=== PATIENT | male | born 1950 | race Caucasian/White ===

== ENCOUNTER → 2018-02-04 08:27 | Outpatient (CLI) | payer MEDICARE, SELFPAY ==
[2018-02-04 10:37] LABS: Anion Gap 10 (5-15); BUN 19 mg/dL (7-18); BUN/Creat Ratio 15.2 RATIO (10-20); Calcium,Total 8.9 mg/dL (8.5-10.1); Chloride 102 mmol/L (98-107); Cholesterol 117 mg/dL (200); Creatinine, Serum 1.25 mg/dL (0.70-1.30); EST Glomerular Filtration Rate 61 mL/min (>60); Est Glom Filt Rate - Afr Amer 74 mL/min (>60); Glucose 289 mg/dL (74-106); High Density Lipoprotein 32 mg/dL; PSA,Total - Annual Screen 0.56 ng/mL (0.00-4.00); Potassium 3.6 mmol/L (3.5-5.1); Sodium Level 138 mmol/L (136-145); Triglycerides 96 mg/dL; Very Low Density Lipoprotein 19 mg/dL (5-40)
== END ==
PROVIDERS: Family Provider Family Medicine; PCP Family Medicine; Visit Provider Family Medicine
DX: E29.1 Testicular hypofunction (principal); E11.9 Type 2 diabetes mellitus without complications; Z12.5 Encounter for screening for malignant neoplasm of prostate
CPT/HCPCS: 36415; 80048; 80061; 84153; 84403; G0103

== ENCOUNTER → 2018-05-14 08:30 | Outpatient (CLI) | payer MEDICARE, SELFPAY ==
[2018-05-14 10:21] LABS: AST(SGOT) 26 U/L (15-37); Alanine Aminotransfer ALT/SGPT 38 U/L (16-61); Albumin, Serum 3.8 g/dL (3.2-5.0); Alkaline Phosphatase 79 U/L (45-117); Anion Gap 12 (5-15); BUN 21 mg/dL (7-18); BUN/Creat Ratio 19.3 RATIO (10-20); Bilirubin, Direct 0.15 mg/dL (0.00-0.30); Calcium,Total 8.7 mg/dL (8.5-10.1); Chloride 102 mmol/L (98-107); Cholesterol 114 mg/dL (200); Creatinine, Serum 1.09 mg/dL (0.70-1.30); EST Glomerular Filtration Rate 72 mL/min (>60); Est Glom Filt Rate - Afr Amer 87 mL/min (>60); Globulin 4.1 g/dL (2.2-4.2); Glucose 115 mg/dL (74-106); High Density Lipoprotein 30 mg/dL; Potassium 3.7 mmol/L (3.5-5.1); Protein, Total 7.9 g/dL (6.4-8.2); Sodium Level 139 mmol/L (136-145); Triglycerides 121 mg/dL; Very Low Density Lipoprotein 24 mg/dL (5-40)
[2018-05-14 10:39] LABS: Microalbumin,Random Urine 7.2 mg/L (NO RANGE EST.)
== END ==
PROVIDERS: Family Provider Family Medicine; PCP Family Medicine; Visit Provider Family Medicine
DX: E11.9 Type 2 diabetes mellitus without complications (principal)
CPT/HCPCS: 36415; 80048; 80061; 80076; 82043; 82570

== ENCOUNTER 2018-06-12 08:24 | Day surgery (SDC) | payer MEDICARE, SELFPAY ==
--- NOTE | 2018-06-12 | COLBX_PTH ---
PATIENT: JASMEET WING LOC: EN U#:[id number] AGE/SX: 67/M ROOM: RE06/12/[address]: Dr. Suresh Horne MD : 1950 BED: DIS: 06/12/2018 SPEC #: [id number] RECD: 06/12/18 14:20 STATUS: ANYA GUILLERMINA #: [id number] JUANITO: 06/12/18 00:[address]: Suresh Horne DEPT: SURGICAL PATHOLOGY RECD BY: Drake Jewell ENTERED: 06/12/18 14:21 SP TYPE: COLON BX OTHR DR: Dr. Roby Chisholm MD Tissues: A - Sigmoid colon biopsy B - Rectum, NOS Procedures: Surgery Specimen Level IV HEADER OPERATION: Colonoscopy (MAC) PRE-OP DIAGNOSIS: Screening TISSUE SUBMITTED: A ? Sigmoid colon polyps, B ? Rectal polyp MICROSCOPIC DIAGNOSIS A. Sigmoid colon polyps, biopsy: Fragments of tubular adenoma. B. Rectal polyp, biopsy: Fragment of colonic mucosa with focal hyperplastic changes. KIMI:dano 06/15/18 MICROSCOPIC DESCRIPTION Slides are reviewed. GROSS DESCRIPTION A - Received in fixative is one container labeled with the patient's name and designated sigmoid colon polyps. The specimen consists of two irregular fragments of light garcia soft tissue that in aggregate measure 0.7 x 0.5 x 0.1 cm. The specimen is totally submitted in one cassette. B - Received in fixative is one container labeled with the patient's name and designated rectum polyp. The specimen consists of one irregular fragment of light garcia soft tissue that measures 0.5 x 0.5 x 0.2 cm. The specimen is totally submitted in one cassette. / KIMI:dano 06/12/18 TC:1 CPT: 09822 x2
[2018-06-12 08:54] VITALS: BP 135/73; PULSE 88; RESP 18; TEMP 36.6; O2SAT 94; BMI 25.5
[2018-06-12 09:10] LABS: Bedside Glucose 172 mg/dL (70-110)
--- NOTE | 2018-06-12 09:48 | H&P.OPEN ---
Past Medical/Surgical History - Planned Operation Planned Operative Procedure/s: cscope open access Date of Operative Procedure: 06/12/18 Permit Signed: No S.O.S: No Is This Patient Having a Total Joint: No - Previous Hospitalizations/Surgeries HX Hospitalizations: No HX of Surgeries: kidney stone. colonoscopy Any Problems With Anesthesia: No You/Your Family Experience Fever (Hyperthermia) With Anes: No Cholinesterase deficiency: No - Cardiovascular Hx Chest Pain within Last 2 months: No Hx of Irregular Heartbeat and/or Afib: No Hx Heart Attack: No Hx Congestive Heart Failure: No Hx Rheumatic Fever: No Hx Hypertension: Yes - controlled with med Hx Internal Defibrillator: No Hx Pacemaker: No Hx Cardiac Catheterization: No Hx Cardiac Surgery/Stents/Etc.: No Hx Stress Test: No HX Edema: No Hx Pain in Legs when Walking/Leg Cramps: Yes - cramps prn - Respiratory Chronic Cough: No HX of Shortness of Breath: No Hoarseness: No Hx Chronic Obstructive Pulmonary Disease (COPD): No Hx Asthma: No Hx Emphysema: No Hx Sleep Apnea: No Hx Oxygen Use at Home: No Hx Respiratory Tract Infection/Cold (presently): No Do You Snore Loudly (louder than talking or can be heard): Yes Do You Often Feel Tired/ Fatigued/ Sleepy Dring Daytime?: No Has Anyone Observed You Stop Breathing During Sleep?: No Result (for STOP score): Positive Hx Smoking: No Smoking Status: Never smoker - Gastrointestinal Hx Gastroesophageal Reflux: No Hx Gastrointestinal Disorders: No Hx Gastrointestinal Bleed: No Hx Ulcer: No Hx Hiatal Hernia: No Difficulty Chewing/Swallowing: No Recent Onset of Swallowing Problems: No Special diet followed at home: Yes - diabetic Hx Unplanned Weight Loss of 20#: No HX Unplanned Weight Gain of 20#: No - Neurological Hx Seizures: No HX Syncope/Blackout Spells/Unconsciousness: Yes - passed out d/t heat Hx CVA/Stroke: No Hx Transient Ischemic Attacks (TIA): No Hx Multiple Sclerosis: No Hx Parkinson's Disease: No Hx Head/Neck Injury: No Hx Headaches: No Hx Back Injury/Pain: No Recent Onset of Speech Difficulty: No Restless Legs: No Does patient have nerve stimulator: No Patient instructed to have device shut off: No Rep notified?: No - Blood Disorder Hx Leukemia: No Bleeding Tendencies: No Hx Deep Vein Thrombosis: No Hx High Cholesterol: Yes - on med Blood Transmitted Disease: No Hx Hepatitis: No Hx Cirrhosis: No Hx Anemia: No Hx Blood Disorders: No - Genitourinary Hx Renal Disease: No - Musculoskeletal Hx Arthritis: No Hx Rheumatoid Arthritis: No Hx Gout: No Recent Onset of an Orthopedic Problem: No - Endocrine Hx Diabetes: Yes Insulin: No Thyroid Disease: No Hx Steroid Therapy: No - Psycho/Social Hx Substance Use: No Hx Alcohol Use: No Hx Anxiety: No Hx Depression: No Mental Illness: No Hx Dementia: No - Miscellaneous Hx Cancer: No Recent Exposure to Contagious Disease: No Active MRSA: No Hx of C-Diff: No Any Loose Teeth: No Allergies No Known Allergies Allergy (Verified 06/12/18 08:55) - Discharge Is Pt Admitted From a [facility], or a [facility]: No Who Could Help: family After D/C, Where Do you Plan to Go: Return Home - From the [facility] History Number of Risk Factors: 2 - Physical Exam General: Alert, Oriented x3, Cooperative Lungs: Normal air movement Cardiovascular: Regular rate, Regular Rhythm Abdomen: Soft, Non Tender, Non-Distended Vital Signs Temp Pulse Resp BP Pulse Ox 98 F 88 18 135/73 H 94 06/12/18 08:54 06/12/18 08:54 06/12/18 08:54 06/12/18 08:54 06/12/18 08:54 Oxygen Delivery Method Room Air Weight: 177 lb 14.609 oz Body Mass Index (BMI) 25.5 POC Glucose 06/12/18 09:00 POC Glucose 172 H Assessment/Plan 67-year-old male for screening colonoscopy 1. Patient reports he had a normal colonoscopy 10 years ago. He is not having any abdominal pain or blood in his stool. He has no family history of colon cancer. 2. I explained endoscopy in detail to the patient. I explained the risks including but not limited to stroke or heart attack with anesthesia, perforation of the GI tract, bleeding, infection. I explained that any of these could necessitate further emergency surgery. The patient understands and all questions were answered sufficiently. The patient wishes to proceed with procedure. Suresh Horne MD Pager: [facility] [address] [place] [address], [address] [place] [phone] Office: Surgery Risks - Colonoscopy Risks Include but are not Limited To: Risks include but are not limited to: Bleeding, perforation requiring further surgery, inability to complete colonoscopy requiring barium enema.
[2018-06-12 10:28] VITALS: BP 135/73; BP 81/46; PULSE 79; RESP 16; TEMP 36.3; O2SAT 95
[2018-06-12 10:33] VITALS: BP 135/73; BP 85/47; PULSE 75; RESP 16; O2SAT 95
[2018-06-12 10:38] VITALS: BP 135/73; BP 85/30; PULSE 82; RESP 16; O2SAT 96
[2018-06-12 10:44] VITALS: BP 105/70; BP 135/73; PULSE 77; RESP 16; TEMP 36; O2SAT 96
--- NOTE | 2018-06-12 10:59 | PCM.OPRPT ---
Problem List (1) Screen for colon cancer Status: Acute Report of Operation Date of Procedure: 06/12/18 Pre-Operative Diagnosis: Screening colonoscopy Post-Operative Diagnosis: 2 sigmoid and one rectum polyp Surgery/Procedure Performed:: Colonoscopy with snare polypectomy Specimen's removed: 1. 2 sigmoid polyps. 2. Rectal polyp Description of Procedure: The major risks and benefits associated with the procedure were explained to the patient in detail. The patient verbalized understanding and agreement with the same. The patient was brought to the endoscopy suite. After adequate sedation was achieved, the patient was placed in the left lateral decubitus position and a digital rectal exam was performed. This examination was within normal limits. A well-lubricated colonoscope was then inserted into the rectum and advanced under direct visualization to the level of the cecum. The bowel prep was good. The cecum was identified by both visual and anatomic landmarks. A photograph was taken of the end of the cecum. The scope was then fully withdrawn while examining the color, texture, anatomy and integrity of the mucosa from the cecum to the anal canal. The findings were consistent with normal colonic mucosa. Over 6 minutes were taken to examine the colonic mucosa. The patient had 2 sigmoid polyps which were small and removed with cautery snare. He also had a proximal rectal polyp was removed with cautery snare as well. Hemostasis was good at both sites. Upon reaching the rectum the scope was retroflexed to examine the distal rectal vault. The scope was then straightened and was completely retrieved upon exiting the anal canal and the procedure was terminated. The patient was then transferred to the recovery room in stable condition. Recommendations for follow up: Dependent on pathology
[2018-06-12 11:08] VITALS: BP 135/73
== END 2018-06-12 11:18 | disposition home or self-care (01) ==
LOC: EN 08:25 → AC 08:26
PROVIDERS: Family Provider Family Medicine; PCP Family Medicine; Visit Provider Surgery
PROC: 0DJD8ZZ Inspection of Lower Intestinal Tract, Via Natural or Artificial Opening Endoscopic (ICD-10-PCS; CPT 45378; principal; 2018-06-12 09:25)
DX: Z12.11 Encounter for screening for malignant neoplasm of colon (principal); D12.5 Benign neoplasm of sigmoid colon; K62.1 Rectal polyp; I10 Essential (primary) hypertension; E11.9 Type 2 diabetes mellitus without complications; E78.00 Pure hypercholesterolemia, unspecified; Z79.82 Long term (current) use of aspirin; Z79.84 Long term (current) use of oral hypoglycemic drugs; Z79.899 Other long term (current) drug therapy
CPT/HCPCS: 45385; 82962; 88305; J7120

== ENCOUNTER → 2018-08-13 09:34 | Outpatient (CLI) | payer MEDICARE, SELFPAY ==
[2018-08-13 11:01] LABS: Anion Gap 10 (5-15); BUN 21 mg/dL (7-18); BUN/Creat Ratio 20.6 RATIO (10-20); Calcium,Total 8.6 mg/dL (8.5-10.1); Chloride 100 mmol/L (98-107); Creatinine, Serum 1.02 mg/dL (0.70-1.30); EST Glomerular Filtration Rate 77 mL/min (>60); Est Glom Filt Rate - Afr Amer 93 mL/min (>60); Glucose 215 mg/dL (74-106); Potassium 3.7 mmol/L (3.5-5.1); Sodium Level 135 mmol/L (136-145)
== END ==
PROVIDERS: Family Provider Family Medicine; PCP Family Medicine; Visit Provider Family Medicine
DX: M25.50 Pain in unspecified joint (principal)
CPT/HCPCS: 36415; 80048; 84550

== ENCOUNTER 2018-08-19 11:16 | Inpatient (IN) | payer MEDICARE, SELFPAY ==
[2018-08-19] VITALS (24 sets, daily range): BP systolic 114–137; BP diastolic 61–112; PULSE 76–105; RESP 7–27; TEMP -17.7–37.3; O2SAT 95–100; BMI 27.2; BMI 27.3
[2018-08-19] MEDS: TICAGRELOR 90 MG TABLET 180 MG PO (11:17)
[2018-08-19] MEDS: Heparin 10,000 UNITS/10 ML Vial 4000 UNITS IV (11:18)
--- NOTE | 2018-08-19 11:24 | ED.RN ---
PT BRIEFLY TO ED ROOM 2 THEN TO ASSISTANT ART DIRECTOR. 2ND IV PLACED, LABS DRAWN. UNABLE TO COMPLETE TRIAGE D/T RAPID TRANSFER TO ASSISTANT ART DIRECTOR.
--- NOTE | 2018-08-19 11:32 | RAD_ITS ---
STUDY: X-RAY CHEST REASON FOR EXAM: Male, 67 years old. STEMI alert. TECHNIQUE: Single AP portable view of the chest. COMPARISON: None. FINDINGS: EKG electrodes are seen. Mild elevation of the right hemidiaphragm. There is no demonstrated pleural abnormality. There is borderline cardiomegaly. Normal mediastinum and marybel. Normal visualized pulmonary arteries. There is atherosclerotic tortuosity of the aortic arch and descending thoracic aorta. Normal visualized thoracic spine. Normal visualized ribs, clavicles, and shoulders. There is no demonstrated abnormality of the visualized soft tissue structures of the upper abdomen. RAD/Chest 1 View (Portable) IMPRESSION: Borderline cardiomegaly. Electronically Signed: Mario Contreras MD at 12:17 EST Tel [phone], Service support ,
--- NOTE | 2018-08-19 11:32 | CM.ED ---
Social Work Note STEMI alert called. Per paramedics pt's is on her way into the hospital. Pt transported down to color laboratory technician. Will escort pt's down to color laboratory technician upon arrival. MADONNA Silva, ANN
[2018-08-19 12:00] LABS: Absolute Lymphocyte Count 1.98 X10^3/ul (0.83-4.51); Absolute Neutrophil Count 5.5 X10^3/uL (2.0-7.7); Basophil# 0.02 X10^3/uL; Basophil% 0.2 % (0-1); Eosinophil# 0.16 X10^3/uL; Eosinophils% 1.9 % (0-5); Hematocrit 44.9 % (40-54); Hemoglobin 14.9 g/dl (13.0-16.5); Lymphocyte # 1.98 X10^3/ul (4.0); Lymphocyte % 23.4 % (19-41); Mean Corp Hgb Conc 33.2 g/gl (32-36); Mean Corpuscular Hgb 27.9 pg (27.0-32.0); Mean Corpuscular Volume 83.9 fL (80-94); Monocyte# 0.75 X10^3/uL; Monocyte% 8.9 % (0-10); Neutrophil # 5.48 X10^3/uL (2.7-7.7); Neutrophil % 64.9 % (47-70); Platelet Count 327 K/mm3 (150-450); RBC Distribution Width SD 42.6 fl (35.1-43.9); Red Blood Count 5.35 M/mm3 (4.6-6.2); White Blood Count 8.5 K/mm3 (4.4-11.0)
[2018-08-19 12:03] LABS: International Normalized Ratio 0.9; POSITIVE COUNT NO; POSITIVE DIFFERENTIAL NO; POSITIVE MORPHOLOGY NO; Prothrombin Time (Protime)PT. 12.6 SECONDS (11.7-14.9)
[2018-08-19 12:04] LABS: Partial Thromboplast Time 49.6 Seconds (24.1-36.2)
[2018-08-19 12:12] LABS: AST(SGOT) 29 U/L (15-37); Alanine Aminotransfer ALT/SGPT 42 U/L (16-61); Alkaline Phosphatase 81 U/L (45-117); Bilirubin, Direct 0.17 mg/dL (0.00-0.30); Globulin 4.4 g/dL (2.2-4.2); Protein, Total 8.4 g/dL (6.4-8.2)
[2018-08-19 12:15] LABS: Anion Gap 14 (5-15); BUN 26 mg/dL (7-18); BUN/Creat Ratio 18.3 RATIO (10-20); Calcium,Total 9.8 mg/dL (8.5-10.1); Chloride 103 mmol/L (98-107); Creatinine, Serum 1.42 mg/dL (0.70-1.30); EST Glomerular Filtration Rate 53 mL/min (>60); Est Glom Filt Rate - Afr Amer 64 mL/min (>60); Glucose 151 mg/dL (74-106); Potassium 3.4 mmol/L (3.5-5.1); Sodium Level 141 mmol/L (136-145)
--- NOTE | 2018-08-19 12:25 | NURSING ---
Report received from film laboratory technician RNs at bedside. R groin sheath intact. Surrounding tissue soft, no drainage. 2+ distal pulses present. EKG completed.
[2018-08-19 12:26] LABS: ACT Activated Clotting Time 186 sec (74-137)
--- NOTE | 2018-08-19 12:29 | EKG12_ITS ---
Test Reason : POST STEMI Blood Pressure : / mmHG Vent. Rate : 089 BPM Atrial Rate : 089 BPM P-R Int : 136 ms QRS Dur : 094 ms QT Int : 374 ms P-R-T Axes : 036 010 034 degrees QTc Int : 455 ms Normal sinus rhythm Inferior infarct , age undetermined Abnormal ECG No previous ECGs available Confirmed by JAYNE JOLLEY, CHATO ([id number]), editor publications TIM [employer] ([id number]) on 08/24/2018 1:55:22 PM Referred By: Reed Moffett Confirmed By:CHATO GODOY MD
[2018-08-19 12:30] LABS: ACT Activated Clotting Time 153 sec (74-137)
--- NOTE | 2018-08-19 12:33 | CL.I_ITS ---
Patient Name: JASMEET WING Study Date: 08/19/2018 Performing: Reed Moffett MD Ht: inches cm : 1950 Wt: 186.2 lbs 84.368 kg Age: 67 Gender: male BSA: PROCEDURE(S) PERFORMED ST74-QDO/COR/LV QZ52-JQD, JOSE MANUEL AND/OR PTCA, ARTERY OR GRAFT, SINGLE VESSEL CLINICAL PROFILE AND CO-MORBIDITIES Indications: New Onset Angina <= 2 months, Suspected CAD Heart Failure: None Stress/Imaging Stress/Image Study Performed: No Angina Classification Anginal Classification w/in 2 Weeks: No symptoms CAD Presentations: STEMI. 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 Acute ID due to occlusion of RCA Successful emergent PCI with Drug eluting stent and PTCA to the mid RCA with a 4.0 x 16 Promus Synerg y using double wire technique, post dilated with a 4.5 x 12 NC Balloon at 14 bria; 100%-->0%, no disse ction. Probable mild residual thrombus noted upstream from stent seen on initial angiogram. RECOMMENDATIONS Referred for immediate PCI Highly recommend quitting all tobacco products Follow up with primary fly finisher Risk factor modification ASA Indefinitley Plavix for at least 12 months Routine post interventional care Refer for Outpatient Cardiac Rehab Manual sheath removal per protocol Follow up with Dr. Moffett Risk factor modification Brilinta for at least 12 months ASA Indefinitley Manual sheath removal once ACT<150 sec. DESCRIPTION OF PROCEDURE The patient arrived to the procedure lab. The risks and benefits of the procedure as well as a full d escription of our services here and lack of surgical backup were fully explained to the patient and/o r their significant other prior to the catheterization. The Timeout was completed, verifying the rafael ect patient and procedure. The patient's procedural site was prepped and draped in the usual fashion. Local anesthetic was given subcutaneously to right groin region with Lidocaine 2%. Using a modified Seldinger technique, arterial access was obtained via the right femoral artery, a 6Fr sheath was inse rted. Left Coronary Artery selective angiography was performed in multiple views using a 4 Fr. JL5 c atheter. Right Coronary Artery selective angiography was then performed in multiple views using a 6 F r. HS1. Left Ventriculography was performed in PINEDA projection using a 4 Fr. Pigtail catheter. LV to A O pullback pressures were then recorded runthrough Guide wire was advanced to the RCA. [place] AP inserted Pass #1 [place] AP Removed 2.0 x 12 Emerge Balloon catheter was inserted. Balloon catheter was advanced across lesion in the right co ronary, mid. PTCA balloon inflated at 8 atms for 10 secs. PTCA balloon inflated at 8 atms for 12 secs . Angiogram performed post balloon dilatation. [place] AP inserted Pass #2 [place] AP Removed 3.5 x 15 Emerge Balloon catheter was inserted. Balloon catheter was advanced across lesion in the right castle ry, mid. PTCA balloon inflated at 5 atms for 15 secs. Angiogram performed post balloon dilatation. 4. 0 x 16 Synergy Drug Eluting stent was inserted. Drug Eluting stent was removed intact, failed to cros s lesion BMW [place] Guide wire was inserted as a nedra wire 4.0 x 16 Synergy Drug Eluting stent wa s inserted. Angiogram performed pre stent deployment. Angiogram performed post stent deployment. 4.5 x 12 NC Emerge Balloon catheter was inserted. Balloon catheter was advanced across lesion in the right coronary, mid. Angiogram performed post balloon dilatation. The arterial sheath was magana tured in place and capped CORONARY ANGIOGRAPHY DOMINANCE: Right Dominant LEFT HEART ASSESSMENT Left Ventricular Ejection Fraction: by LV Gram 65 % Normal Left Ventricular systolic function Normal LV wall motion LEFT MAIN: Angiographically normal LEFT ANTERIOR DECENDING ARTERY: Mild luminal irregularities less than 30% CIRCUMFLEX ARTERY: Mild luminal irregularities less than 30% RIGHT CORONARY ARTERY: MID RCA: is occluded INTERVENTION INFORMATION LESION SITE: RCA (Mid) Lesion Complexity: High/C, lesion at bifurcation: No, thrombus present: Yes, lesion length: 16 mm, cu lprit lesion: Yes Pre Stenosis: 100 % Pre intervention RY flow: 0 PROCEDURE: Drug Eluting Stent with pre and post dilatation, Thrombectomy Post Stenosis: 0 % Post intervention RY flow: 3 Lesion Devices: Medtronic 6 Fr HS1 100cm Guide Catheter Terumo .014 Runthrough Extra Floppy 180cm straight Justice Sci Synergy MR JOSE MANUEL 4.00x16 Justice Sci EMERGE MR 3.50x15 BALLOON Bernal .014 BMW [place] Straight 190cm Justice Sci EMERGE MR 2.00x12 BALLOON Justice Sci Synergy MR JOSE MANUEL 4.00x16 Medtronic 6 Fr. [place] AP Aspiration Catheter Justice Sci NC EMERGE MR 4.50x12 BALLOON COMPLICATIONS No Complications PROCEDURE MEDICATIONS Oxygen: 2 L/min via nasal cannula Heparin 6000 unit(s) IV 08/19/2018 11:32:32 Heparin 4000 unit(s) IV 08/19/2018 12:09:23 Nitro 200 mcg IC 08/19/2018 11:38:43 Nitro 200 mcg IC 08/19/2018 11:38:43 IV Bolus: .9 NaCl 1100 ml total 08/19/2018 12:09:36 SUMMARY OF HEMODYNAMIC DATA Time AIR REST ECG 11:25:57 AO 122/61 (88) SA 11:28:09 LV 121/-11, 14 12:04:31 LV 126/-12, 15 12:04:37 LVp 141/-17, 14 12:04:44 AOp 115/52 (77) 12:04:49 Signed By Reed Moffett MD On 08/19/2018 12:33:05 Reed Moffett MD
--- NOTE | 2018-08-19 12:35 | ECHOD_ITS ---
Reason For Study: CAD/ASHD Procedure This was a 2D Doppler, Color Flow transthoracic echocardiogram. Exam performed portable in ICU/CCU. Left Ventricle Normal size and thickness. The estimated ejection fraction is 60 %. Stage 1 diastolic dysfunction. Inferior Birdseye : Mildly hypokinetic. Right Ventricle Normal size and thickness. Normal systolic function. Atria Normal left atrium. Normal right atrium. Normal atrial septum. Bubble contrast study negative for right to left interatrial shunt. Mitral Valve The mitral valve is structurally normal. No prolapse or stenosis seen. Tricuspid Valve Normal tricuspid valve. Unable to estimate RV systolic pressure due to inadequate jet, pulmonary artery pressure probably normal. Aortic Valve Normal aortic valve. Trisinus/trileaflet aortic valve. Pulmonic Valve Normal pulmonic valve. Great Vessels Normal aortic root. Normal arch. Normal inferior vena cava. Inferior vena cava collapse with sniff. Pericardium/Pleural No pericardial effusion. Medication Performed a rapid injection of agitated mix of 9 cc saline and 1cc air to assess for atrial septal defect. MMode/2D Measurements & Calculations LVIDd: 5.1 cm IVSd: 1.3 cm Ao root diam: 3.4 cm LVIDs: 3.3 cm LVPWd: 1.1 cm RVDd: 2.8 cm FS: 34.7 % LAV(MOD-bp): 48.1 ml LA A4 area: 17.1 cm2 LA dimension(2D): 3.7 cm LAV(MOD-bp) Indexed: 24.3 ml/m2 LAV(MOD-sp2): 47.7 ml LAV(MOD-sp4): 47.3 ml RA A4 area: 12.5 cm2 Time Measurements MV dec time: 0.32 sec Doppler Measurements & Calculations MV E max charlie: 60.7 cm/sec Lat Peak E' Charlie: 9.6 cm/sec Med Peak E' Charlie: 7.0 cm/sec MV A max charlie: 72.7 cm/sec E/E' lat: 6.4 E/E' med: 8.7 MV E/A: 0.83 Ao V2 max: 130.9 cm/sec LV V1 max: 106.3 cm/sec PA V2 max: 86.4 cm/sec Ao max P.9 mmHg LV V1 max P.0 mmHg PI dec slope: 117.0 cm/sec2 Interpretation Summary The estimated ejection fraction is 60 %. Stage 1 diastolic dysfunction. Inferior Birdseye : Mildly hypokinetic Unable to estimate RV systolic pressure due to inadequate jet, pulmonary artery pressure probably normal. Bubble contrast study negative for right to left interatrial shunt. There is no comparison study available. Ordering Physician: Reed Moffett Referring Physician: Roby Chisholm Performed By: Tiffanie Thao RDCS, RVT
[2018-08-19] MEDS: 0.9% Normal Saline 1,000 ML 150 ML IV (12:52)
--- NOTE | 2018-08-19 14:07 | CRPHASE1 ---
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 Phase I Charge:: Level I - Education Risk Factors/Lifestyle Smoking Status: Never smoker Hx Diabetes Mellitus Type 2: No Hx Metabolic Disorders: Yes Hx Obesity: Yes ETOH: No Caffeine: No Substance Abuse: No Risk Factor for Sedentary Lifestyle: Lowest Risk Phase I Education Given On:: [place], Nutrition, Antiplatelet medication, Diabetes - Type II Issues Affecting Care:: None Knowledge of Condition:: Yes Hospital Course Pain Description: Tightness Pain Intensity: 8 Cardiac Cath Date:: 08/19/18 Medical/Surgical History GA:: Yes Angina:: Yes Diabetes Type II:: Yes - on meds Discharge/Home/Social Eval Discharge Disposition: Home Marital Status: -
--- NOTE | 2018-08-19 14:10 | CRPHASE1_ITS ---
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 Phase I Charge:: Level I - Education Risk Factors/Lifestyle Smoking Status: Never smoker Hx Diabetes Mellitus Type 2: No Hx Metabolic Disorders: Yes Hx Obesity: Yes ETOH: No Caffeine: No Substance Abuse: No Risk Factor for Sedentary Lifestyle: Lowest Risk Phase I Education Given On:: [place], Nutrition, Antiplatelet medication, Diabetes - Type II Issues Affecting Care:: None Knowledge of Condition:: Yes Hospital Course Pain Description: Tightness Pain Intensity: 8 Cardiac Cath Date:: 08/19/18 Medical/Surgical History MO:: Yes Angina:: Yes Diabetes Type II:: Yes - on meds Discharge/Home/Social Eval Discharge Disposition: Home Marital Status: -
--- NOTE | 2018-08-19 14:10 | CRPH1.INSTRU ---
General Education CAD and cardiac anatomy and function:: Patient communicates acknowledgment, Family communicates acknowledgment Explanation of diagnoses and procedures:: Patient communicates acknowledgment, Family communicates acknowledgment Sign/Symptoms of CT:: Patient communicates acknowledgment, Family communicates acknowledgment Antiplatelet therapy: Patient communicates acknowledgment, Family communicates acknowledgment Proper use of NTG-SL: Patient communicates acknowledgment, Family communicates acknowledgment Emergency procedures and activation of EMS: Patient communicates acknowledgment, Family communicates acknowledgment Compliance of all prescribed medications: Patient communicates acknowledgment, Family communicates acknowledgment Smoking Patient Nicotine/Smoking Risk Factors Are:: Never smoked Dyslipidemia Recommendations Include:: Lipid profile not available Heart Disease Heart Disease Response Code:: Patient communicates acknowledgment, Family communicates acknowledgment - no family history Diabetes Patient Diabetes Risk Factors Are:: Elevated blood sugars - diabetes 10 years Recommendations Include:: Maintain fasting blood sugars 70-110 md/dL, Maintain HgbA1c of 6% or less, Monitor blood sugar as prescribed, Diabetic dietary guidelines, Decrease/maintain body weight Diabetes:: Patient communicates acknowledgment Metabolic Syndrome Metabolic Syndrome Response Code:: Patient communicates acknowledgment, Family communicates acknowledgment Sedentary Sedentary Response Code:: Patient communicates acknowledgment, Family communicates acknowledgment - active Stress Patient Stress Risk Factors Are:: Patient denies stress as a risk factor
[2018-08-19 14:46] LABS: ACT Activated Clotting Time 153 sec (74-137)
--- NOTE | 2018-08-19 15:42 | ED.VISSUMM ---
- ER Visit Summary Date of Service: 08/19/18 Chief Complaint: Chest pain History of Present Illness: The patient is a 67 M who was out blowing leaves today when he developed a crushing chest pain. He notes a history of diabetes and hypertension. Patient sees Dr. Chisholm. He went inside his gave him 2 baby aspirins and EMS was called. Prehospital EKG shows significant ST elevation consistent with a STEMI. EMS gave an additional 2 baby aspirins. He also administered morphine. They did perform a right-sided EKG. Prehospital STEMI team was called. Dr. Moffett and Parts Advisor team in the emergency department upon arrival. Physical Examination: Afebrile vital signs are stable noted tachycardia at 105 Gen: Well-nourished well-developed and appears in pain Head: Normocephalic atraumatic Eyes: Perrl EOMI ENT: TMs clear no rhinorrhea moist mucous membranes Neck: Supple no lymphadenopathy no JVD nontender CVS: Regular rate tachycardic rhythm no murmurs normal S1-S2 Respiratory: No distress clear to auscultation bilaterally chest nontender Abdomen: Soft nontender nondistended normal bowel sounds no masses Back: Nontender Extremity: Nontender no edema Skin: Normal color no rash diaphoretic Neuro: alert orientated ?3 CN II-XII intact normal strength sensation reflexes gait cerebellar Psych: Normal affect normal mood Test Results: STEMI labs were drawn and sent. Chest x-ray shows no mediastinal widening. Emergency Department Course and Treatment: A second IV was established. Patient received 180 of Brilinta and 4000 units of heparin. She was taken directly to the Parts Advisor on the EMS cot. Impression: 1. Acute coronary syndrome 2. Acute inferior lateral STEMI This note was generated with [employer] dictation software. It may contain incorrect words, spelling, and punctuation that were not noted in review of the chart prior to signing ED Disposition - Plan for ED Patient: Disposition: Acute Care Hospital [facility] Chief Complaint: Chest Pain
--- NOTE | 2018-08-19 15:47 | ED.DCSUM_ITS ---
- ER Visit Summary Date of Service: 08/19/18 Chief Complaint: Chest pain History of Present Illness: The patient is a 67 M who was out blowing leaves today when he developed a crushing chest pain. He notes a history of diabetes and hypertension. Patient sees Dr. Chisholm. He went inside his gave him 2 baby aspirins and EMS was called. Prehospital EKG shows significant ST elevation consistent with a STEMI. EMS gave an additional 2 baby aspirins. He also administered morphine. They did perform a right-sided EKG. Prehospital STEMI team was called. Dr. Moffett and [facility] team in the emergency department upon arrival. Physical Examination: Afebrile vital signs are stable noted tachycardia at 105 Gen: Well-nourished well-developed and appears in pain Head: Normocephalic atraumatic Eyes: Perrl EOMI ENT: TMs clear no rhinorrhea moist mucous membranes Neck: Supple no lymphadenopathy no JVD nontender CVS: Regular rate tachycardic rhythm no murmurs normal S1-S2 Respiratory: No distress clear to auscultation bilaterally chest nontender Abdomen: Soft nontender nondistended normal bowel sounds no masses Back: Nontender Extremity: Nontender no edema Skin: Normal color no rash diaphoretic Neuro: alert orientated ?3 CN II-XII intact normal strength sensation reflexes g ait cerebellar Psych: Normal affect normal mood Test Results: STEMI labs were drawn and sent. Chest x-ray shows no mediastinal widening. Emergency Department Course and Treatment: A second IV was established. Patient received 180 of Brilinta and 4000 units of heparin. She was taken directly to the [facility] on the EMS cot. Impression: 1. Acute coronary syndrome 2. Acute inferior lateral STEMI This note was generated with Hip[employer] dictation software. It may contain incorrect words, spelling, and punctuation that were not noted in review of the chart prior to signing ED Disposition - Plan for ED Patient: Disposition: Acute Care Hospital [facility] Chief Complaint: Chest Pain
[2018-08-19] MEDS: Carvedilol 3.125 MG TABLET PO (17:07)
[2018-08-19 17:56] LABS: Bedside Glucose 83 mg/dL (70-110)
[2018-08-19] MEDS: 0.9% Normal Saline 1,000 ML 75 ML IV (20:30)
--- NOTE | 2018-08-19 21:05 | HP.PCM_ITS ---
Problem List (1) Acute inferolateral myocardial infarction Status: Acute History of Present Illness Date of Admission: 08/19/18 Chief Complaint: Acute ST elevation myocardial infarction The patient is a 67 year old M who was seen in the emergency room at [facility] today after he had an episode of substernal precordial chest discomfort which he described as a severe heaviness like a weight which occurred during an episode of leaf blowing earlier this morning. Patient denied any radiation of discomfort into his jaw or down his arm, he stated he became diaphoretic and short of breath. Patient had no nausea or vomiting. Patient came to the ER for evaluation and was found to have ST elevation in the inferior lateral wall leads and a STEMI alert was called, he was taken to the [facility] at approximately 11:00 this morning and underwent a drug-eluting stent placement and removal of clot from the right coronary artery. Patient had no untoward complications from the procedure today and he was admitted directly to ICU for further care. In talking with the patient today, he states that he has been having episodic left shoulder discomfort for which she did not seek medical attention. Current medical problems include type 2 diabetes, hypertension, and hyperlipidemia. Past Medical History Past Medical History (Chronic Problems): Chronic Problems (Last Updated 08/19/18 @ 17:58 by Tessy Giron) Arteriosclerosis of coronary artery (Chronic) Hyperlipidemia (Chronic) Diabetes mellitus type II, controlled (Chronic) Hypertension (Chronic) Medical History: Medical History (Last Updated 08/19/18 @ 17:58 by Tessy Giron) Arteriosclerosis of coronary artery (Chronic) I25.10 Hyperlipidemia (Chronic) E78.5 Diabetes mellitus type II, controlled (Chronic) E11.9 Hypertension (Chronic) I10 Acute inferolateral myocardial infarction (Acute) Onset Date: 08/19/18 I21.19 Allergies No Known Allergies Allergy (Verified 08/19/18 11:21) Home Medications: Ambulatory Orders Medication Instructions Recorded Amlodipine [Norvasc] 10 mg PO DAILY 06/09/18 Aspirin E.C. [Ecotrin] 81 mg PO DAILY@0800 06/09/18 Chlorthalidone 25 mg PO DAILY 06/09/18 Cholecalciferol (Vitamin D3) 2,000 unit PO DAILY 06/09/18 [Vitamin D3] Empagliflozin [Jardiance] 10 mg PO DAILY 06/09/18 Glipizide 5 mg PO DAILY 06/09/18 Losartan Potassium [Cozaar] 100 mg PO DAILY 06/09/18 Multivitamin [Multiple Vitamins] 1 each PO DAILY 06/09/18 Simvastatin [Zocor] 20 mg PO DAILY 06/09/18 Testosterone [Androgel] 75 gm TD DAILY 06/09/18 Calcium Carbonate/Vitamin D3 1 each PO 08/19/18 [Calcium 500-Vit D3 600 Tablet] Metformin HCl 1,000 mg PO BID 08/19/18 Surgical History: Surgical History (Last Updated 08/19/18 @ 17:59 by Tessy Giron) Stented coronary artery (Acute) Onset Date: 08/19/18 Z95.5 PTCA and JOSE MANUEL (4.0 X 16 Promus Synergy) to mid RCA per Dr. Moffett @ [facility] Surgical History: - - Removal of kidney stone through cystoscopy Psychiatric History: No pertinent psych hx Lives: Spouse/ Significant Other Smoking Status: Never smoker Tobacco Use: Non-smoker Alcohol: None Drugs: None - *Family History Maternal History Items: Diabetes Paternal History Items: No pertinent history Review of Systems Constitutional: Denies: Anorexia, Chills, Fever, Night Sweats, Malaise, Weakness, Weight Change, Fatigue Eyes: Denies: Blurred vision, Cataracts, Conjunctivae Inflammation, Double vision, Drainage HEENT: Denies: Difficulty Swallowing, Dysphasia, Ear Pain, Eye Pain, Head Aches, Hearing Changes, Nasal bleeding, Nasal Congestion, Post Nasal Drip Cardiovascular: Reports: Chest Pain, Chest Pressure, Heaviness. Denies: Claudication, Chest Tightness, Edema, Light Headedness, Orthopnea, Palpitations, Paroxysmal Noc. Dyspnea, Syncope Respiratory: Reports: Shortness of Breath, Shortness of breath at rest, Shortness of breath upon exertion. Denies: Cough, Hemoptysis, Pleuritic Pain, Sputum production, Wheezing Gastrointestinal: Denies: Abdominal Pain, Constipation, Diarrhea, Hematemesis, Hematochezia, Nausea, Melena, Vomiting Genitourinary: Denies: Dysuria, Frequency, Hematuria, Hesitancy, Urgency Musculoskeletal: Denies: Back Pain, Foot Pain, Hand Pain, Joint Pain, Joint stiffness, Joint swelling, Joint Tenderness, Leg Pain Skin: Denies: Dryness, Jaundice, Pruritis, Rash Neurological: Denies: Balance problems, Blurred vision, Double vision, Slurred speech, Difficulty swallowing, Focal weakness, Headaches, Incoordination, Numbness, Tingling Psychiatric: Denies: Anxiety, Depression, Homicidal Ideations, Suicidal Ideations Endocrine: Denies: Change in Body Habitus, Heat/ Cold Intolerance, Polydipsia, Polyuria Hematologic/ Lymphatic: Denies: Adenopathy, Anemia, Easy Bruising, Easy Bleeding, Petechiae, Purpura VTE Information - Inpt Only VTE Present on Admission: No VTE Mechan Device Prophylaxis: None VTE Pharm Prophylaxis ordered?: No Reason prophylaxis not ordered:: Treatment Not Indicated - Patient received anticoagulants during angiogram - Physical Exam General: Alert, Oriented x3, Cooperative, No apparent distress, Well developed, Well nourished HEENT: Atraumatic, PERRLA, EOMI, Normocephalic Oral: Moist Mucosa Neck: Supple, No JVD, Negative Carotid Bruits, No Nuchal Rigidity, Trachea Midline, Thyroid Normal Size and Texture Lungs: Clear to auscultation, Normal air movement, No rhonchi, No wheeze, No rales Cardiovascular: Regular rate, Regular Rhythm, Normal S1, Normal S2, No murmurs, No Ectopic Activity, PMI Normal, No rub noted, No Gallop Abdomen: Bowel Sounds Present, Soft, Non Tender, Non-Distended, No hernias noted Extremities: No clubbing, No cyanosis, No edema, Capillary Refill Less than 3 Seconds Skin: No rashes, No breakdown Musculoskeletal: No Tenderness to Palpation of Joints or Extremities Neurological: Cranial nerves II-XII grossly intact, Neuro grossly intact, Sensory exam intact to light touch and pain, Coordination normal Psych/Mental Status: Normal Affect, Appropriate, Alert and oriented to time, place, person, mood and affect Vital Signs Temp Pulse Resp BP Pulse Ox 99.2 F H 88 18 135/80 H 96 08/19/18 16:00 08/19/18 18:00 08/19/18 18:00 08/19/18 18:00 08/19/18 18:00 Oxygen Delivery Method Room Air Weight: 86.183 kg Body Mass Index (BMI) 27.2 Intake and Output for Last 24 Hours 08/17/18 08/18/18 08/19/18 23:59 23:59 23:59 Intake Total 768 / 768 Output Total 1000 / 1000 Balance -232 / -232 Laboratory Tests Past 24 Hrs 08/19/18 08/19/18 08/19/18 11:20 11:20 11:20 WBC 8.5 RBC 5.35 Hgb 14.9 Hct 44.9 MCV 83.9 MCH 27.9 MCHC 33.2 RDW 14.0 RDW Differential 42.6 Plt Count 327 MPV 10.0 Immature Gran % (Auto) 0.700 Neut % (Auto) 64.9 Lymph % (Auto) 23.4 [place] % (Auto) 8.9 Eos % (Auto) 1.9 Baso % (Auto) 0.2 Absolute Neuts (auto) 5.5 Absolute Lymphs (auto) 1.98 Total Counted Not Reportable PT 12.6 INR 0.9 APTT 49.6 H Activated Clotting Time Sodium Potassium Chloride Carbon Dioxide Anion Gap BUN Creatinine Estim Creat Clear Calc Est GFR (MDRD) Af Amer Est GFR (MDRD) Non-Af BUN/Creatinine Ratio Glucose Calcium Total Bilirubin 0.60 Direct Bilirubin 0.17 AST 29 ALT 42 Alkaline Phosphatase 81 Troponin I Total Protein 8.4 H Albumin 4.0 Globulin 4.4 H 08/19/18 08/19/18 08/19/18 11:20 11:29 12:04 WBC RBC Hgb Hct MCV MCH MCHC RDW RDW Differential Plt Count MPV Immature Gran % (Auto) Neut % (Auto) Lymph % (Auto) [place] % (Auto) Eos % (Auto) Baso % (Auto) Absolute Neuts (auto) Absolute Lymphs (auto) Total Counted PT INR APTT Activated Clotting Time 153 H 186 H Sodium 141 Potassium 3.4 L Chloride 103 Carbon Dioxide 24.0 Anion Gap 14 BUN 26 H Creatinine 1.42 H Estim Creat Clear Calc 0.00 Est GFR (MDRD) Af Amer 64 Est GFR (MDRD) Non-Af 53 L BUN/Creatinine Ratio 18.3 Glucose 151 H Calcium 9.8 Total Bilirubin Direct Bilirubin AST ALT Alkaline Phosphatase Troponin I < 0.015 Total Protein Albumin Globulin 08/19/18 08/19/18 08/19/18 14:36 14:50 17:30 WBC RBC Hgb Hct MCV MCH MCHC RDW RDW Differential Plt Count MPV Immature Gran % (Auto) Neut % (Auto) Lymph % (Auto) [place] % (Auto) Eos % (Auto) Baso % (Auto) Absolute Neuts (auto) Absolute Lymphs (auto) Total Counted PT INR APTT Activated Clotting Time 153 H Sodium Potassium Chloride Carbon Dioxide Anion Gap BUN Creatinine Estim Creat Clear Calc Est GFR (MDRD) Af Amer Est GFR (MDRD) Non-Af BUN/Creatinine Ratio Glucose Calcium Total Bilirubin Direct Bilirubin AST ALT Alkaline Phosphatase Troponin I 6.980 H* 16.400 H* Total Protein Albumin Globulin POC Glucose 08/19/18 17:52 POC Glucose 83 Assessment/Plan All Active Problems (Last Updated 08/19/18 @ 17:58 by Tessy Giron) Stented coronary artery (Acute 08/19/18) Acute inferolateral myocardial infarction (Acute 08/19/18) Screen for colon cancer (Acute) #[address] elevation myocardial infarction-status post successful emergent PCI with drug-eluting stent and PTCA to mid RCA-patient will be monitored in the ICU, additional orders were entered per cardiology, patient will have an echocardiogram tomorrow, enzymes will be cycled #2 type 2 diabetes-patient's blood sugars will be monitored when he resumes his diet this evening #3 hypertension-patient will remain on medication #4 hyperlipidemia-patient will remain on medication #5 elevated creatinine-etiology unclear at this point, patient's last creatinine on 08/13/18 was 1.02, patient will receive fluids at 75 cc an hour and repeat lab work will be obtained tomorrow Code Visit Inpatient E&M: 34878 Init Hosp L3
--- NOTE | 2018-08-19 21:45 | NURSING ---
Patient ambulated in [place] with assistance, right groin dressing dry and intact.
[2018-08-19] MEDS: TICAGRELOR 90 MG TABLET PO (21:50)
[2018-08-19] MEDS: Atorvastatin Calcium 80 MG Tablet PO (21:52)
[2018-08-19 22:35] LABS: Bedside Glucose 129 mg/dL (70-110)
[2018-08-20] VITALS (17 sets, daily range): BP systolic 104–155; BP diastolic 62–81; PULSE 66–99; RESP 11–22; TEMP 36.8–37.1; O2SAT 93–98
[2018-08-20] MEDS: Acetaminophen 325 MG Tablet 650 MG PO (02:01)
[2018-08-20 05:18] LABS: Hematocrit 41.9 % (40-54); Hemoglobin 13.6 g/dl (13.0-16.5); Mean Corp Hgb Conc 32.5 g/gl (32-36); Mean Corpuscular Hgb 27.8 pg (27.0-32.0); Mean Corpuscular Volume 85.5 fL (80-94); Mean Platelet Vol. 9.3 fl (6.2-12.0); Platelet Count 254 K/mm3 (150-450); RBC Distribution Width CV 13.9 % (11.6-14.6); RBC Distribution Width SD 43.1 fl (35.1-43.9); White Blood Count 7.3 K/mm3 (4.4-11.0)
[2018-08-20 05:20] LABS: Scan Indicated on CBC? Y/N NO
[2018-08-20 05:33] LABS: Anion Gap 10 (5-15); BUN 21 mg/dL (7-18); BUN/Creat Ratio 21.9 RATIO (10-20); Calcium,Total 8.4 mg/dL (8.5-10.1); Chloride 109 mmol/L (98-107); Cholesterol 97 mg/dL (200); Creatinine, Serum 0.96 mg/dL (0.70-1.30); EST Glomerular Filtration Rate 83 mL/min (>60); Est Glom Filt Rate - Afr Amer 101 mL/min (>60); Glucose 99 mg/dL (74-106); High Density Lipoprotein 31 mg/dL; Potassium 3.9 mmol/L (3.5-5.1); Sodium Level 141 mmol/L (136-145); Triglycerides 81 mg/dL; Very Low Density Lipoprotein 16 mg/dL (5-40)
[2018-08-20 08:26] LABS: Bedside Glucose 116 mg/dL (70-110)
[2018-08-20] MEDS: amLODIPine 10 MG Tablet PO (09:24)
[2018-08-20] MEDS: Chlorthalidone 50 MG Tablet 25 MG PO (09:24)
[2018-08-20] MEDS: Aspirin E.C. 81 MG Tablet PO (09:24)
[2018-08-20] MEDS: Empagliflozin 10 MG Tablet PO (09:24)
[2018-08-20] MEDS: TICAGRELOR 90 MG TABLET PO ×2 (09:24→21:42)
[2018-08-20] MEDS: glipiZIDE 5 MG Tablet PO (09:25)
[2018-08-20] MEDS: Losartan Potassium 100 MG Tablet PO (09:25)
[2018-08-20] MEDS: Carvedilol 3.125 MG TABLET PO ×2 (09:25→21:42)
[2018-08-20] MEDS: Calcium (Elemental) 500 MG Tablet PO (09:26)
--- NOTE | 2018-08-20 10:00 | EKG12_ITS ---
Test Reason : AM Blood Pressure : / mmHG Vent. Rate : 076 BPM Atrial Rate : 076 BPM P-R Int : 138 ms QRS Dur : 086 ms QT Int : 376 ms P-R-T Axes : 041 085 082 degrees QTc Int : 423 ms Normal sinus rhythm Normal ECG No previous ECGs available Confirmed by JAYNE JOLLEY, CHATO ([id number]), editor trade journal TIM ARENAS ([id number]) on 08/24/2018 1:51:40 PM Referred By: Reed Moffett Confirmed By:CHATO GODOY MD
[2018-08-20] MEDS: 0.9% Normal Saline 1,000 ML 75 ML IV ×2 (10:21→23:38)
--- NOTE | 2018-08-20 10:35 | PCM.PN.CARD ---
Subjectve: Patient doing very well this morning, no further chest pain. Telemetry showed normal sinus rhythm with a 22 beat burst of nonsustained ventricular tachycardia and a 7 beat burst this morning which was completely asymptomatic. Right groin is clean/dry/intact, no thrills, bruits or hematoma. EKG shows normal sinus rhythm with intact inferior R waves, and complete resolution of ST segment elevation. Peak troponin 16.4. Hemoglobin and creatinine within nominal limits. Objective: Vital Signs Temp Pulse Resp BP Pulse Ox 98.7 F 78 12 106/67 97 08/20/18 04:00 08/20/18 08:00 08/20/18 08:00 08/20/18 08:00 08/20/18 08:00 Oxygen Delivery Method Room Air Weight: 175 lb 11.335 oz Body Mass Index (BMI) 27.2 Intake and Output for Last 24 Hours 08/18/18 08/19/18 08/20/18 23:59 23:59 23:59 Intake Total 768 / 768 1567 / 1567 Output Total 1000 / 1000 2200 / 2200 Balance -232 / -232 -633 / -633 General: Awake, Alert, Oriented x 3 HEENT: PERRL, EOMI, Sclera Non Icteric Neck: Supple, Good ROM, No Lymph Node Enlargement Lungs: Clear to auscultation Cardiovascular: Regular Rhythm, Normal S1, Normal S2, No Murmurs, No Rubs, No Gallops Vascular: No Carotid Bruits, Normal Femoral Pulses, Normal Radial Pulses, Normal Dorsalis Pedal Pulse, Normal Posterior Tibial Pulses Abdomen: Bowel Sounds Present, Soft, Non Tender, No HSM, No Organomegaly Extremities: No Cyanosis, No Clubbing, No edema Neurological: No Focal Motor or Sensory Deficit 08/19/18 11:20: Total Bilirubin 0.60, Direct Bilirubin 0.17 08/19/18 11:20: WBC 8.5, RBC 5.35, Hgb 14.9, Hct 44.9, MCV 83.9, MCH 27.9, MCHC 33.2, RDW 14.0, RDW Differential 42.6, Plt Count 327, MPV 10.0, Immature Gran % (Auto) 0.700, Neut % (Auto) 64.9, Lymph % (Auto) 23.4, [place] % (Auto) 8.9, Eos % (Auto) 1.9, Baso % (Auto) 0.2, Absolute Neuts (auto) 5.5, Total Counted Not Reportable 08/19/18 11:20: PT 12.6, INR 0.9, APTT 49.6 H 08/19/18 11:20: Sodium 141, Potassium 3.4 L, Chloride 103, Carbon Dioxide 24.0, Anion Gap 14, BUN 26 H, Creatinine 1.42 H, Est GFR (MDRD) Af Amer 64, Est GFR (MDRD) Non-Af 53 L, BUN/Creatinine Ratio 18.3, Glucose 151 H, Calcium 9.8, Troponin I < 0.015 08/19/18 14:50: Troponin I 6.980 H* 08/19/18 17:30: Troponin I 16.400 H* 08/20/18 05:10: WBC 7.3, RBC 4.90, Hgb 13.6, Hct 41.9, MCV 85.5, MCH 27.8, MCHC 32.5, RDW 13.9, RDW Differential 43.1, Plt Count 254, MPV 9.3 08/20/18 05:10: Sodium 141, Potassium 3.9, Chloride 109 H, Carbon Dioxide 22.0, Anion Gap 10, BUN 21 H, Creatinine 0.96, Est GFR (MDRD) Af Amer 101, Est GFR (MDRD) Non-Af 83, BUN/Creatinine Ratio 21.9 H, Glucose 99, Calcium 8.4 L, Triglycerides 81, Cholesterol 97, LDL Cholesterol 50, VLDL Cholesterol 16, HDL Cholesterol 31 L Rhythm: EKG: ECHO: Pending Stress Test: Cardiac Cath: PCI: CT Surgery: Holter monitor: EPS: PPM: CXR: Chest CT Scan: Medical Necessity - Tobacco Use Smoking Status: Never smoker Tobacco Use: Non-smoker Assessment/Plan 1. Coronary artery disease: The patient presented with acute inferior wall myocardial infarction while blowing leaves. He had successful angioplasty and drug-eluting stenting to his mid RCA with a 4.0X 16 Promus Synergy stent, postdilated to 4.5 mm. Patient has mild nonobstructive proximal RCA stenosis and no additional stenting was performed. His EKG has normalized, and he said no further chest pain. Would recommend continuing baby aspirin, Brilinta, Coreg, and losartan. We can downgraded status to PCU at this time, and probable discharge tomorrow morning. 2. Nonsustained ventricular tachycardia: The patient had 2 episodes of wide-complex tachycardia most likely resolving from his STEMI. Continue beta-kosta therapy. Recommend keeping his potassium above 4.0 and magnesium above 2.0. 3. Hyperlipidemia: Continue statin based medications. Repeat lipid profile after 6 weeks time. 4. Discussed with Dr. Hernandez. Thank you very much for the opportunity to participate in the cardiac care of your patient. Code Visit Inpatient E&M: 18059 Subs Hosp L2
--- NOTE | 2018-08-20 12:13 | CASEMGMT ---
Addendum entered by Radha Porter 08/20/18 12:24: Once Brilinta order placed, will determine pt's co-pay/[id number] cost. Original Note: EDILBERTO GARCIA INITIAL ASSESSMENT D/C PLAN: Home. Face to Face with patient for initial transition planning/care coordination assessment. Pt resting quietly in bed, awake/alert/oriented. EDILBERTO GARCIA introduced self and role at [facility]. Care providers, pharmacy, and demographics verified. Pt wishes to return home. Denies needs. Per Cardiology note, plan is for pt to discharge home on Brilinta. Will CM to follow for any further discharge planning needs that may arise. PCP: Dr Roby Chisholm Preferred Pharmacy: [facility]. Keren Rosales. [facility]: [employer] Living Will/HPOA: Has both LW and HCPOA, who is his , Beronica. Copies not found on e-chart. Has been asked if papers can be brought in so copies can be made and put on file. LNOK: , Beronica Living Arrangements: Lives with in a 2-story home. No difficulties navigating stairs. Transportation: Pt and . DME: Independent will all ADL's. Denies using any DME and denies needs. HHC/SNF: No history and no needs identified. Lalo PALACIOS RN, CM
[2018-08-20 12:36] LABS: Bedside Glucose 142 mg/dL (70-110)
[2018-08-20 17:40] LABS: Bedside Glucose 89 mg/dL (70-110)
--- NOTE | 2018-08-20 18:37 | PCM.PROGNOTE ---
Subjective: Patient seen and examined today, he has had no more chest pains, his echocardiogram today showed a normal EF. - Physical Exam General: Alert, Oriented x3, Cooperative, No apparent distress, Well developed HEENT: Atraumatic, PERRLA, EOMI, Normocephalic Oral: Moist Mucosa Neck: Supple, No Nuchal Rigidity, Trachea Midline, Thyroid Normal Size and Texture Lungs: Clear to auscultation, Normal air movement, No rhonchi, No wheeze, No rales Cardiovascular: Regular rate, No murmurs Abdomen: Bowel Sounds Present, Soft, Non Tender, Non-Distended Extremities: No edema, Capillary Refill Less than 3 Seconds Skin: No rashes, No breakdown Musculoskeletal: No Tenderness to Palpation of Joints or Extremities Neurological: Cranial nerves II-XII grossly intact, Neuro grossly intact, Muscle tone normal, Sensory exam intact to light touch and pain Psych/Mental Status: Normal Affect, Appropriate, Alert and oriented to time, place, person, mood and affect Vital Signs Temp Pulse Resp BP Pulse Ox 98.2 F 81 22 H 155/77 H 97 08/20/18 16:00 08/20/18 16:05 08/20/18 16:00 08/20/18 16:00 08/20/18 16:00 Oxygen Delivery Method Room Air Weight: 79.7 kg Body Mass Index (BMI) 27.2 Intake and Output for Last 24 Hours 08/18/18 08/19/18 08/20/18 23:59 23:59 23:59 Intake Total 768 / 768 3244 / 3244 Output Total 1000 / 1000 4750 / 4750 Balance -232 / -232 -1506 / -1506 Laboratory Tests Past 24 Hrs 08/19/18 08/20/18 08/20/18 17:30 05:10 05:10 WBC 7.3 RBC 4.90 Hgb 13.6 Hct 41.9 MCV 85.5 MCH 27.8 MCHC 32.5 RDW 13.9 RDW Differential 43.1 Plt Count 254 MPV 9.3 Sodium 141 Potassium 3.9 Chloride 109 H Carbon Dioxide 22.0 Anion Gap 10 BUN 21 H Creatinine 0.96 Estim Creat Clear Calc 77.10 Est GFR (MDRD) Af Amer 101 Est GFR (MDRD) Non-Af 83 BUN/Creatinine Ratio 21.9 H Glucose 99 Calcium 8.4 L Troponin I 16.400 H* Triglycerides 81 Cholesterol 97 LDL Cholesterol 50 VLDL Cholesterol 16 HDL Cholesterol 31 L POC Glucose 08/20/18 08/20/18 08/20/18 17:30 12:31 08:11 POC Glucose 89 142 H 116 H 08/19/18 21:54 POC Glucose 129 H Medical Necessity - Tobacco Use Smoking Status: Never smoker Tobacco Use: Non-smoker Assessment/Plan All Active Problems (Last Updated 08/19/18 @ 17:58 by Tessy Giron) Stented coronary artery (Acute 08/19/18) Acute inferolateral myocardial infarction (Acute 08/19/18) Screen for colon cancer (Acute) #[address] elevation myocardial infarction-status post successful emergent PCI with drug-eluting stent and PTCA to mid RCA-patient will be monitored in the ICU, he remains stable at this time #2 type 2 diabetes-patient's blood sugars will be monitored #3 hypertension-patient will remain on medication #4 hyperlipidemia-patient will remain on medication #5 elevated creatinine-resolved, etiology unclear. Code Visit Inpatient E&M: 46119 Subs Hosp L2
[2018-08-20] MEDS: Atorvastatin Calcium 80 MG Tablet PO (21:42)
[2018-08-20 23:51] LABS: Bedside Glucose 146 mg/dL (70-110)
[2018-08-21] VITALS: BP 107/60; PULSE 75; PULSE 80; RESP 16; TEMP 36.2; O2SAT 95
[2018-08-21 04:00] VITALS: BP 116/72; PULSE 82; PULSE 83; RESP 21; TEMP 37.1; O2SAT 98
[2018-08-21 05:18] LABS: Anion Gap 11 (5-15); BUN 21 mg/dL (7-18); BUN/Creat Ratio 19.8 RATIO (10-20); Calcium,Total 8.4 mg/dL (8.5-10.1); Chloride 108 mmol/L (98-107); Creatinine, Serum 1.06 mg/dL (0.70-1.30); EST Glomerular Filtration Rate 74 mL/min (>60); Est Glom Filt Rate - Afr Amer 89 mL/min (>60); Estimated Creatinine Clearance 69.82 ml/min; Glucose 116 mg/dL (74-106); Sodium Level 140 mmol/L (136-145)
[2018-08-21 07:00] VITALS: O2SAT 96
[2018-08-21 07:26] VITALS: PULSE 77
[2018-08-21 08:00] VITALS: BP 130/77; PULSE 84; RESP 12; TEMP 36.6; O2SAT 97
[2018-08-21] MEDS: glipiZIDE 5 MG Tablet PO (08:13)
[2018-08-21] MEDS: Calcium (Elemental) 500 MG Tablet PO (08:13)
[2018-08-21] MEDS: Aspirin E.C. 81 MG Tablet PO (08:13)
[2018-08-21] MEDS: Chlorthalidone 50 MG Tablet 25 MG PO (08:14)
[2018-08-21] MEDS: TICAGRELOR 90 MG TABLET PO (08:14)
[2018-08-21] MEDS: Carvedilol 3.125 MG TABLET PO (08:14)
[2018-08-21] MEDS: Empagliflozin 10 MG Tablet PO (08:14)
[2018-08-21] MEDS: amLODIPine 10 MG Tablet PO (08:14)
[2018-08-21] MEDS: Losartan Potassium 100 MG Tablet PO (08:15)
[2018-08-21 08:26] LABS: Bedside Glucose 136 mg/dL (70-110)
--- NOTE | 2018-08-21 09:41 | PCM.PN.CARD ---
Subjectve: Patient doing very well. Telemetry negative for any V. tach. EKG shows normal sinus rhythm with inferior wall Q waves and resolving T wave inversion. Human apically stable. Creatinine and hemoglobin within nominal limits. Right groin is clean/dry/intact. No chest pain. Objective: Vital Signs Temp Pulse Resp BP Pulse Ox 97.9 F 84 12 130/77 H 97 08/21/18 08:00 08/21/18 08:00 08/21/18 08:00 08/21/18 08:00 08/21/18 08:00 Oxygen Delivery Method Room Air Weight: 175 lb 11.335 oz Body Mass Index (BMI) 27.2 Intake and Output for Last 24 Hours 08/19/18 08/20/18 08/21/18 23:59 23:59 23:59 Intake Total 768 / 768 3816 / 3816 695 / 695 Output Total 1000 / 1000 6325 / 6325 450 / 450 Balance -232 / -232 -2509 / -2509 245 / 245 General: Awake, Alert, Oriented x 3 HEENT: PERRL, EOMI, Sclera Non Icteric Neck: Supple, Good ROM, No Lymph Node Enlargement Lungs: Clear to auscultation Cardiovascular: Regular Rhythm, Normal S1, Normal S2, No Murmurs, No Rubs, No Gallops Vascular: No Carotid Bruits, Normal Femoral Pulses, Normal Radial Pulses, Normal Dorsalis Pedal Pulse, Normal Posterior Tibial Pulses Abdomen: Bowel Sounds Present, Soft, Non Tender, No HSM, No Organomegaly Extremities: No Cyanosis, No Clubbing, No edema Neurological: No Focal Motor or Sensory Deficit 08/21/18 03:00: Sodium 140, Potassium 4.0, Chloride 108 H, Carbon Dioxide 21.0, Anion Gap 11, BUN 21 H, Creatinine 1.06, Est GFR (MDRD) Af Amer 89, Est GFR (MDRD) Non-Af 74, BUN/Creatinine Ratio 19.8, Glucose 116 H, Calcium 8.4 L Rhythm: EKG: ECHO: Stress Test: Cardiac Cath: PCI: CT Surgery: Holter monitor: EPS: PPM: CXR: Chest CT Scan: Medical Necessity - Tobacco Use Smoking Status: Never smoker Tobacco Use: Non-smoker Assessment/Plan 1. Coronary artery disease: The patient presented with acute inferior wall myocardial infarction while blowing leaves. He had successful angioplasty and drug-eluting stenting to his mid RCA with a 4.0X 16 Promus Synergy stent, postdilated to 4.5 mm. Patient has mild nonobstructive proximal RCA stenosis and no additional stenting was performed. He has had no further chest pain. His remaining coronary arteries did not require any further evaluation. Would recommend continuing baby aspirin, Brilinta, Coreg, and losartan. Patient will start cardiac rehab in 3 weeks time. Patient is retired and does not require permission to be off of work. 2. Nonsustained ventricular tachycardia: Continue beta-kosta therapy. Recommend keeping his potassium above 4.0 and magnesium above 2.0. 3. Hyperlipidemia: Continue statin based medications. Repeat lipid profile after 6 weeks time. 4. Patient may be discharged home. Follow-up with Dr. Moffett going forward. Code Visit Inpatient E&M: 39570 Subs Hosp L2
--- NOTE | 2018-08-21 10:00 | EKG12_ITS ---
Test Reason : AM EKG Blood Pressure : / mmHG Vent. Rate : 080 BPM Atrial Rate : 080 BPM P-R Int : 136 ms QRS Dur : 088 ms QT Int : 390 ms P-R-T Axes : 027 -17 -57 degrees QTc Int : 449 ms Normal sinus rhythm Inferior infarct , age undetermined Abnormal ECG When compared with ECG of 20-AUG-2018 05:32, MANUAL COMPARISON REQUIRED, DATA IS UNCONFIRMED Confirmed by JAYNE JOLLEY, CHATO ([id number]), slot editor TIM ARENAS ([id number]) on 08/28/2018 2:09:43 PM Referred By: Reed Moffett Confirmed By:CHATO GODOY MD
--- NOTE | 2018-08-21 11:05 | DCINST_ITS ---
You will use the following diet at home:: Calorie/Carbohydrate Controlled (specify 1200, 1400, etc) - 1800 chirag Your food should be the consistency of: Regular Your liquids should be the consistency of: Regular/Thin Discharge Activity: Return to Normal Activity Weight Bearing Status: Full weight bearing Allergies/Adverse Reactions: Allergies No Known Allergies Allergy (Verified 08/19/18 11:21) Medications to take at Discharge Amlodipine [Norvasc] 10 mg PO DAILY 06/09/18 Aspirin E.C. [Ecotrin] 81 mg PO DAILY@0800 06/09/18 Chlorthalidone 25 mg PO DAILY 06/09/18 Cholecalciferol (Vitamin D3) [Vitamin D3] 2,000 unit PO DAILY 06/09/18 Empagliflozin [Jardiance] 10 mg PO DAILY 06/09/18 Glipizide 5 mg PO DAILY 06/09/18 Losartan Potassium [Cozaar] 100 mg PO DAILY 06/09/18 Multivitamin [Multiple Vitamins] 1 each PO DAILY 06/09/18 Testosterone [Androgel] 75 gm TD DAILY 06/09/18 Calcium Carbonate/Vitamin D3 [Calcium 500-Vit D3 600 Tablet] 1 each PO 08/19/18 Acetaminophen [Tylenol Tablet] 650 mg PO Q6H PRN PRN tablet 08/21/18 Aspirin E.C. [Ecotrin] 81 mg PO DAILY@0800 tablet 08/21/18 Atorvastatin Calcium [Lipitor] 80 mg PO QHS #30 tablet 08/21/18 Carvedilol [Coreg (Beta Brody)] 3.125 mg PO BID #60 tablet 08/21/18 Metformin HCl 1,000 mg PO BID #0 08/21/18 Ticagrelor [Brilinta] 90 mg PO BID #60 tablet 08/21/18 The following prescriptions were given: Atorvastatin Calcium [Lipitor] 80 mg PO QHS #30 tablet Carvedilol [Coreg (Beta Brody)] 3.125 mg PO BID #60 tablet Ticagrelor [Brilinta] 90 mg PO BID #60 tablet Primary Care Physician: Roby Chisholm MD [Primary Care Provider] - Test Results: Test results from this visit will be discussed in further detail at your follow- up appointment, if applicable. Please Follow Up With: Reed Moffett MD When: as directed
--- NOTE | 2018-08-21 11:35 | CASEMGMT ---
Per Dr. Hernandez, pt to be sent home on Brilinta and e-scribed to [facility] retail pharmacy at this time. Call to Mary at [facility] retail pharmacy and she states that the co-pay is $38.70/month. Pt provided with free 30 day card also at this time. Travis CASANOVA CM
--- NOTE | 2018-08-21 11:45 | CASEMGMT ---
SW spoke w/pt, let pt know the copay of $38.70/month for Brilinta, pt is fine w/this. Pt also given a 30 day free trial card for the medication. No further needs anticipated. Destini Blevins, LIBRARY INFORMATION TECHNICIAN
--- NOTE | 2018-08-22 17:02 | DS.PCM_ITS ---
Discharge Date and Diagnosis Date of Admission: 08/19/18 Date of Discharge: 08/21/18 - Primary Discharge Diagnosis #[address] elevation myocardial infarction-status post successful emergent PCI with drug-eluting stent and PTCA to mid RCA #2 coronary artery disease with thrombosis of the right coronary artery #3 type 2 diabetes #4 hypertension #5 hyperlipidemia #6 elevated creatinine #7 nonsustained ventricular tachycardia - Secondary Discharge Diagnosis Chronic Problems (Last Updated 08/19/18 @ 17:58 by Tessy Giron) Arteriosclerosis of coronary artery (Chronic) Hyperlipidemia (Chronic) Diabetes mellitus type II, controlled (Chronic) Hypertension (Chronic) Hospital Course and Treatment Operations: None Procedures: 2-D Echocardiogram, Cardiac catheterization - With placement of drug-eluting stent right coronary artery Summary of Care Provided: The patient is a 67 year old M who was seen in the emergency room at [facility] for complaints of chest pain which started after he was blowing leaves that morning, on arrival to the emergency room, an EKG was obtained which showed acute ST elevation in the inferior and lateral wall leads, and STEMI alert was called and the patient was taken to [facility] where a cardiac catheterization was performed and a PTCA was performed on the right coronary artery with JOSE MANUEL stent placement. Patient was transferred to ICU, he was monitored and no major complications were noted from the STEMI. Patient had an episode of nonsustained V. tach while in the ICU but was asymptomatic with this and there were no complications. On 08/21/18, patient was seen and examined and felt to be in stable condition for discharge home Physical exam: On examination he appeared in good health and spirits. Vital signs as documented. Skin warm and dry and without overt rashes. Neck without JVD. Lungs clear. Heart exam notable for regular rhythm, normal sounds and absence of murmurs, rubs or gallops. Abdomen unremarkable and without evidence of organomegaly, masses, or abdominal aortic enlargement. Extremities nonedematous. Neuro: Cranial nerves II through XII are grossly intact, no focal motor deficits were noted. Psych: Patient was alert and oriented x3, he did not appear depressed or anxious. - Physical Exam Vital Signs Temp Pulse Resp BP Pulse Ox 97.9 F 84 12 130/77 H 97 08/21/18 08:00 08/21/18 08:00 08/21/18 08:00 08/21/18 08:00 08/21/18 08:00 Oxygen Delivery Method Room Air Weight: 79.7 kg Body Mass Index (BMI) 27.2 Intake and Output for Last 24 Hours 08/20/18 08/21/18 08/22/18 23:59 23:59 23:59 Intake Total 3816 / 3816 695 / 695 Output Total 6325 / 6325 450 / 450 Balance -2509 / -2509 245 / 245 Discharge Activity: Return to Normal Activity Weight Bearing Status: Full weight bearing Home Medications: Medications to take at Discharge Amlodipine [Norvasc] 10 mg PO DAILY 06/09/18 Aspirin E.C. [Ecotrin] 81 mg PO DAILY@0800 06/09/18 Chlorthalidone 25 mg PO DAILY 06/09/18 Cholecalciferol (Vitamin D3) [Vitamin D3] 2,000 unit PO DAILY 06/09/18 Empagliflozin [Jardiance] 10 mg PO DAILY 06/09/18 Glipizide 5 mg PO DAILY 06/09/18 Losartan Potassium [Cozaar] 100 mg PO DAILY 06/09/18 Multivitamin [Multiple Vitamins] 1 each PO DAILY 06/09/18 Testosterone [Androgel] 75 gm TD DAILY 06/09/18 Calcium Carbonate/Vitamin D3 [Calcium 500-Vit D3 600 Tablet] 1 each PO 08/19/18 Acetaminophen [Tylenol Tablet] 650 mg PO Q6H PRN PRN tablet 08/21/18 Aspirin E.C. [Ecotrin] 81 mg PO DAILY@0800 tablet 08/21/18 Atorvastatin Calcium [Lipitor] 80 mg PO QHS #30 tablet 08/21/18 Carvedilol [Coreg (Beta Brody)] 3.125 mg PO BID #60 tablet 08/21/18 Metformin HCl 1,000 mg PO BID #0 08/21/18 Ticagrelor [Brilinta] 90 mg PO BID #60 tablet 08/21/18 Following Prescrptions Were Given to Patient: Atorvastatin Calcium [Lipitor] 80 mg PO QHS #30 tablet Carvedilol [Coreg (Beta Brody)] 3.125 mg PO BID #60 tablet Ticagrelor [Brilinta] 90 mg PO BID #60 tablet Primary Care Physician: Roby Chisholm MD [Primary Care Provider] - Please Follow Up With: Reed Moffett MD When: as directed Disposition: Home Minutes spent on discharge:: 32 Patient Condition:: Stable Medical Necessity - Tobacco Use Smoking Status: Never smoker Tobacco Use: Non-smoker Meaningful Use Info Meaningful Use Diagnoses (Choose all that apply): AMI - AMI Aspirin given w/in 24hrs of arrival?: Yes ASA at discharge?: Yes Statins at discharge?: Yes Cheng/ARB at discharge?: Yes Beta Brody at discharge?: Yes Done w/ Acute NM measure.: Yes Code Visit Inpatient E&M: 17482 Disch Hosp
== END 2018-08-21 13:10 | disposition home or self-care (01) | DRG 247 ==
LOC: ED 11:20 → ICU 11:21
PROVIDERS: Internal Medicine Cardiovascular Disease; Admitting Provider Internal Medicine; Emergency Provider Emergency Medicine; Family Provider Family Medicine; PCP Family Medicine; Visit Provider Internal Medicine
DX: I21.19 ST elevation (STEMI) myocardial infarction involving other coronary artery of inferior wall (principal); I47.2 Ventricular tachycardia; I25.10 Atherosclerotic heart disease of native coronary artery without angina pectoris; E78.5 Hyperlipidemia, unspecified; E11.9 Type 2 diabetes mellitus without complications; R79.89 Other specified abnormal findings of blood chemistry; Z79.84 Long term (current) use of oral hypoglycemic drugs; Z79.899 Other long term (current) drug therapy; I10 Essential (primary) hypertension; Y93.H9 Activity, other involving exterior property and land maintenance, building and construction
CPT/HCPCS: 71045; 80048; 80061; 80076; 82962; 84484; 85025; 85027; 85347; 85610; 85730; 92941; 93005; 93306; 93458; 97802; 99282; J7030; Q9967; A4216; C1725; C1757; C1769; C1874; C1887; C9606; J1327

== ENCOUNTER → 2018-09-10 09:54 | Outpatient (CLI) | payer MEDICARE, SELFPAY ==
[2018-09-07 13:07] VITALS: BMI 27.2
--- NOTE | 2018-09-10 09:58 | RAD_ITS ---
STUDY: X-RAY - LEFT KNEE REASON FOR EXAM: Male, 68 years old. Bilateral knee pain. TECHNIQUE: 4 view(s) of the knee, 3 which are labeled as weightbearing. COMPARISON: None. FINDINGS: Normal visualized distal femur. Normal visualized proximal tibia and fibula. Normal patella. There is no demonstrated destructive osseous lesion. Normal medial femorotibial compartment. Normal lateral femorotibial compartment. Normal patellofemoral articulation. Normal proximal tibiofibular articulation. There is no demonstrated joint effusion. The soft tissue structures are unremarkable. RAD/Knee 4 or More Views IMPRESSION: Normal x-ray examination of the knee. Electronically Signed: Fabian Eagle MD at 20:00 EST , Service support ,
--- NOTE | 2018-09-10 09:58 | RAD_ITS ---
STUDY: X-RAY - RIGHT KNEE REASON FOR EXAM: Male, 68 years old. Bilateral knee pain. TECHNIQUE: 4 view(s) of the knee, 3 labeled as weightbearing. COMPARISON: 2 views of the right knee November 20, 2015. FINDINGS: Normal visualized distal femur. Normal visualized proximal tibia and fibula. Normal patella. There is no demonstrated destructive osseous lesion or acute fracture. Normal medial femorotibial compartment. Normal lateral femorotibial compartment. Normal patellofemoral articulation. Normal proximal tibiofibular articulation. There is no demonstrated joint effusion. Again seen is a small calcification in the medial soft tissues of the proximal right lower leg. RAD/Knee 4 or More Views IMPRESSION: No acute osseous abnormality of the right of the knee. Electronically Signed: Fabian Eagle MD at 19:58 EST , Service support ,
== END ==
PROVIDERS: Family Provider Family Medicine; PCP Family Medicine; Referring Provider Family Medicine; Visit Provider Family Medicine
DX: M23.8X1 Other internal derangements of right knee (principal); M23.8X2 Other internal derangements of left knee
CPT/HCPCS: 73564

== ENCOUNTER → 2018-09-16 11:14 | Outpatient (CLI) | payer MEDICARE, SELFPAY ==
[2018-09-07 13:07] VITALS: BMI 27.2
--- NOTE | 2018-09-16 11:18 | RAD_ITS ---
STUDY: X-RAY - RIGHT SHOULDER REASON FOR EXAM: Male, 68 years old. Right shoulder pain TECHNIQUE: 4 view(s) of the shoulder. COMPARISON: None. FINDINGS: There is mild degenerative arthrosis of the glenohumeral articulation. There is degenerative arthrosis of the acromioclavicular joint without inferior osseous spur formation. Normal acromion. Normal humeral head and visualized proximal humerus. The soft tissue structures are unremarkable. Normal visualized pulmonary apex. RAD/Shoulder min 2 Views IMPRESSION: Mild degenerative changes without acute findings Electronically Signed: Ed Madison DO at 11:12 EST Tel , Service support ,
--- OUTSIDE RECORDS SUMMARY | 2018-11-02 14:06 | XMS RPT_ITS ---
:1950 Author Organization OHIP Support Name Relationship Address Phone MEDURE, RO Unavailable [address] + [place] [address] R Unavailable Unavailable Unavailable MED[facility], RO Unavailable [address] + [place] [address] R Unavailable Unavailable Unavailable MEDURE, RO Unavailable [address] + [place] [address] R Unavailable Unavailable Unavailable MEDURE, RO Unavailable [address] + [place] [address] R Unavailable Unavailable Unavailable MEDURE, RO Unavailable [address] + [place] [address] R Unavailable Unavailable Unavailable MEDURE, RO Unavailable [address] + [place] [address] R Unavailable Unavailable Unavailable MEDURE, RO Unavailable [address] + [place] [address] R Unavailable Unavailable Unavailable MED[facility], RO Unavailable [address] + [place] [address] R Unavailable Unavailable Unavailable MED[facility], RO Unavailable [address] + [place] [address] R Unavailable Unavailable Unavailable MED[facility], RO Unavailable [address] + [place] [address] R Unavailable Unavailable Unavailable MED[facility], RO Unavailable [address] + [place] [address] R Unavailable Unavailable Unavailable MED[facility], RO Unavailable [address] + [place] [address] R Unavailable Unavailable Unavailable MED[facility], RO Unavailable [address] + [place] [address] R Unavailable Unavailable Unavailable MED[facility], RO Unavailable [address] + [place] [address] R Unavailable Unavailable Unavailable MED[facility], RO Unavailable [address] + [place] [address] R Unavailable Unavailable Unavailable MED[facility], RO Unavailable [address] + [place] [address] R Unavailable Unavailable Unavailable MED[facility], RO Unavailable [address] + [place] [address] R Unavailable Unavailable Unavailable MED[facility], RO Unavailable [address] + [place] [address] R Unavailable Unavailable Unavailable MED[facility], RO Unavailable [address] + [place] [address] R Unavailable Unavailable Unavailable Care Team Providers Name Role Phone Roby Chisholm Attending Unavailable Phan, Roby Referring Unavailable Chisholm, Roby Primary Care Unavailable Dari Godinez Attending Unavailable Dari Godinez Referring Unavailable Phan, Roby Primary Care Unavailable Phan, Roby Attending Unavailable Phan, Roby Primary Care Unavailable Phan, Roby Attending Unavailable Phan, Roby Primary Care Unavailable Nurse, Surgery Attending Unavailable Roby Chisholm Referring Unavailable Chisholm, Roby Attending Unavailable Phan, Roby Referring Unavailable Chisholm, Roby Primary Care Unavailable Nurse, Surgery Attending Unavailable Roby Chisholm Referring Unavailable Ozzie, Suresh Attending Unavailable Ozzie, Suresh Referring Unavailable Chisholm, Roby Primary Care Unavailable Ozzie, Suresh Attending Unavailable Ozzie, Suresh Referring Unavailable Chisholm, Roby Primary Care Unavailable Ozzie, Suresh Consulting Unavailable Roby Chisholm Attending Unavailable Phan, Roby Primary Care Unavailable Phan, Roby Primary Care Unavailable Reed Moffett Referring Unavailable Alden Hernandez Admitting Unavailable Alden Hernandez Attending Unavailable Reed Moffett Consulting Unavailable Alden Hernandez Admitting Unavailable TerAlden monroe Attending Unavailable Reed Moffett Consulting Unavailable Alden Hernandez Consulting Unavailable Alden Hernandez Admitting Unavailable Reed Moffett Attending Unavailable Reed Moffett Consulting Unavailable Alden Hernandez Consulting Unavailable Mary Alden Admitting Unavailable TerAlden monroe Attending Unavailable Roby Chisholm Primary Care Unavailable Reed Moffett Consulting Unavailable KateeletsAlden chiu Consulting Unavailable Alden Hernandez Admitting Unavailable Reed Moffett Attending Unavailable Phan, Roby Primary Care Unavailable Reed Moffett Consulting Unavailable Alden Hernandez Consulting Unavailable Alden Hernandez Admitting Unavailable TerAlden monroe Attending Unavailable Roby Chisholm Primary Care Unavailable Reed Moffett Consulting Unavailable Alden Hernandez Consulting Unavailable Dari Godinez Attending Unavailable Roby Chisholm Referring Unavailable Srinivasan Dixon Attending Unavailable Srinivasan Dixon Referring Unavailable Roby Chisholm Primary Care Unavailable Reed Moffett Attending Unavailable Terfer, Alden Referring Unavailable PROBLEMS PROBLEMS DATE TYPE CONDITION / CODE ATTENDING STATUS SOURCE 09/16/2018 Unknown M25.519 - Pain in Roby Chisholm Active [facility] unspecified shoulder Community / M25.519(ICD-10) Hospital Repository 09/10/2018 Unknown M23.8X1 - Other LanaSrinivasan fairchild Active [facility] internal derangements E Community of right knee / Hospital M23.8X1(ICD-10) Repository 09/10/2018 Unknown M23.8X2 - Other LanaSrinivasan fairchild Active [facility] internal derangements E Community of left knee / Hospital M23.8X2(ICD-10) Repository 09/07/2018 Unknown I25.10 - Godinez, Active [facility] Atherosclerotic heart [facility] disease of [facility] coronary artery Repository without angina pectoris / I25.10(ICD-10) 09/07/2018 Unknown E78.5 - Godinez, Active [facility] Hyperlipidemia, [facility] unspecified / Hospital E78.5(ICD-10) Repository 09/07/2018 Unknown I10 - Essential Godinez, Active [facility] (primary) [facility] hypertension / Hospital I10(ICD-10) Repository 09/07/2018 Unknown E78.2 - Mixed Godinez, Active [facility] hyperlipidemia / [facility] E78.2(ICD-10) Hospital Repository 08/26/2018 Unknown I21.19 - ST elevation Terabdiaram, Active [facility] (STEMI) myocardial [facility] infarction involving Hospital other coronary artery Repository of inferior wall / I21.19(ICD-10) 08/13/2018 Unknown M25.50 - Pain in Roby Chisholm Active [facility] unspecified joint / Community M25.50(ICD-10) Hospital Repository 05/14/2018 Unknown E11.9 - Type 2 Roby Chisholm Active [facility] diabetes mellitus Community without complications Hospital / E11.9(ICD-10) Repository 02/04/2018 Unknown E29.1 - Testicular Chisholm, Roby Active [facility] hypofunction / Community E29.1(ICD-10) Hospital Repository 02/04/2018 Unknown Z12.5 - Encounter for Roby Chisholm screening for Community malignant neoplasm of Hospital prostate / Repository Z12.5(ICD-10) PROCEDURES PROCEDURES No Procedure Records FoundRESULTS RESULTS INITAL EVALUATION (1) Observed: 10/14/2018 Status: F Source: KER[facility] - PT 5:03 PM [facility] REPOSITORY [facility] [address] [place] [address] / REHABILITATION SERVICES INITIAL EVALUATION MR#: [id number] Acct: [id number] Name: PENG WING Rep #: [id number] : 1950 68 From: Shraddha CASTRO Referring Dr.: Roby Chisholm MD Status: REG RCR Insurance: [facility] SELF PAY INSURANCE Patient's Visit Information PENG WING is a 68 year old M referred to Physical Therapy by Roby Chisholm MD with a diagnosis of shoulder pain. Date of Evaluation: 10/13/18 Physical Therapist: GLORIA Burks - Visit Plan Frequency: 2x /Week Duration: 2 Weeks Plan: 2X/ week for 2 weeks for R shoulder AROM/PROM, postual scapular strength, RC strength, HEP...modalities as needed - Subjective Findings: Pt has a sharp pain in the front of the R shoulder. For awhile he could not lift his arm up but keeping ice on it and tylenol he can move it freely. Occ when he moves his arm he will get a stabbing pain in the front of the R shoulder and stops once the movement stops. He gets it a couplr of times an hour. It is hard to lift wood or chain saw. This has been going on for a good month. He is R handed. No N AND T and no neck pain. He feels that he has some weakness there. He can not lay on his R side very much. Occ he will get it on the L. - Pain R shoulder pain Pain Intensity (Out of 10): 2 Pain Intensity Range: 10 - Objective Full shoulder AROM B. Palpation: Tender under the R acromion. + HK test for impingement at max range end point. UE MMT: shld flex R 4-/5 and L 4/5, R shld abd 4-/5 and L 4/5, B shld ER 4+/5, B IR 4+/5. Posture: sits with rounded shoulders and fw head. Full PROM B of B shoulders - Goals Goal 1:: I HEP Goal Time Frame: 2-4 Weeks Goal 2:: Be able to sleep through the night without waking up in middle of night with shoulder pain Goal Time Frame: 2-4 Weeks Goal 3:: Sit with upright posture during treatment sessions Goal Time Frame: 2-4 Weeks Goal 4:: Increase R shoulder strength to be 4+/5 shld flex, abd, ER and IR Goal Time Frame: 2-4 Weeks - Rehabilitation Potential Rehabilitation Potential: Good - Anticipated Interventions Patient/Client Instruction: Educate patient on: Plan of Care For the Purpose of:: To decrease pain, To improve nutrient delivery to tissue, To improve muscle performance and motor function, To improve ability to perform ADL's, To increase tolerance to activity/condition/position, To improve performance and independence with ADL's, To improve health of tissue Therapeutic Exercise to Include: Strength training, Postural training, Passive ROM, Active ROM, Scapular Strength/Stabilization For the Purpose of:: To decrease pain, To increase ROM, To improve nutrient delivery to tissue, To improve muscle performance and motor function, To improve ability to perform ADL's, To increase tolerance to activity/condition/position, To improve performance and independence with ADL's, To improve health of tissue, To increase flexibility/ROM Manual Therapy Techniques to Include: Passive ROM, Soft tissue mobilization For the Purpose of:: To improve nutrient delivery to tissue, To decrease soft tissue restriction, To increase flexibility/ROM IF ES: Yes Cryotherapy (ice pack, ice massage): Yes Ultrasound (thermal/non thermal): Yes For the Purpose of:: To decrease pain, To improve nutrient delivery to tissue Thank you for the opportunity to evaluate your patient. For Medicare and Medicare HMO plans, please review the plan of care and approve it. It will need to be FAXED BACK to us at [phone] for Medicare purposes. For Medicare only, by signing this I certify the plan of care. Please let me know if there are questions or concerns regarding this plan of care. Physician Signature: Date: <Electronically signed by Shraddha Kruse MPT> 10/14/18 1703 CC: Roby Chisholm MD Signed LIVER PROFILE Collected: 09/30/2018 Status: F Source: [facility]OR[facility] 11:06 AM [facility] REPOSITORY TYPE CODE TESTS RESULT OUT OF RANGE REFERENCE UNITS LAB L501.1500 6.4-8.2 g/dL Normal T PROT 7.9 LAB L501.1800 3.2-5.0 g/dL Normal ALB 3.9 LAB L501.1950 2.2-4.2 g/dL Normal GLOB 4.0 LAB L501.4100 15-37 U/L Normal AST 25 LAB L501.4305 45-117 U/L Normal ALK P 80 LAB L501.4405 16-61 U/L Normal ALT 34 LAB L501.4600 0.20-1.00 mg/dL Normal T BILI 0.70 LAB L501.4700 0.00-0.30 mg/dL Normal D BILI 0.22 Performed By: #### L500.3400, L500.4100 #### [facility] [address] [place], [address] LIPID PROFILE Collected: 09/30/2018 Status: F Source: MORGAN 11:06 AM [facility] REPOSITORY TYPE CODE TESTS RESULT OUT OF RANGE REFERENCE UNITS LAB L501.4900 200 mg/dL Normal CHOL 84 Result Comment: <200 mg/dL Desirable 200-240 mg/dL Borderline >240 mg/dL High Risk LAB L501.5000 mg/dL Normal TRIG 85 Result Comment: The drugs N-Acetylcysteine and Metamizole may falsely depress this assay. Serum Triglycerides Reference Interval Normal <150 mg/dL Borderline high 150 - 199 mg/dL High 200 - 499 mg/dL Very High > or = 500 mg/dL LAB L501.6400 mg/dL Low HDL 32 Result Comment: The drugs N-Acetylcysteine and Metamizole may falsely depress this assay. Reference Range HDL <40 mg/dL Low HDL Cholesterol HDL >or= 60 mg/dL High HDL Cholesterol LAB L501.6500 0-130 mg/dL Normal LDL 35 LAB L501.6600 5-40 mg/dL Normal VLDL 17 Performed By: #### L500.3400, L500.4100 #### [facility] [address] [place], [address] SHOULDER MIN 2 VIEWS Observed: 09/16/2018 Status: F Source: [place]ORGAN 11:18 AM [facility] REPOSITORY [facility] Imaging Services [address] [place] [address] Shoulder min 2 Views MR#: [id number] Acct: [id number] Name: PENG WING Rep #: [id number] : 1950 M 68 From: Ed Madison DO PCP: Roby Chisholm MD Status: REG CLI Study: Shoulder min 2 Views Date of Exam: 09/16/18 Exam# [id number] Ordering Dr: Roby Chisholm MD STUDY: X-RAY - RIGHT SHOULDER REASON FOR EXAM: Male, 68 years old. Right shoulder pain TECHNIQUE: 4 view(s) of the shoulder. COMPARISON: None. FINDINGS: There is mild degenerative arthrosis of the glenohumeral articulation. There is degenerative arthrosis of the acromioclavicular joint without inferior osseous spur formation. Normal acromion. Normal humeral head and visualized proximal humerus. The soft tissue structures are unremarkable. Normal visualized pulmonary apex. RAD/Shoulder min 2 Views IMPRESSION: Mild degenerative changes without acute findings Electronically Signed: Ed Madison DO at 11:12 EST Tel , Service support , CC: Roby Chisholm MD Forge Helper: Signed KNEE 4 OR MORE Observed: 09/10/2018 Status: F Source: KEREN VIEWS 9:58 AM [facility] REPOSITORY [facility] Imaging Services [address] [place] [address] Knee 4 or More Views MR#: [id number] Acct: [id number] Name: PENG WING Rep #: [id number] : 1950 M 68 From: Rigo Eagle MD PCP: Roby Chisholm MD Status: REG CLI Study: Knee 4 or More Views Date of Exam: 09/10/18 Exam# [id number] Ordering Dr: Srinivasan Dixon MD STUDY: X-RAY - RIGHT KNEE REASON FOR EXAM: Male, 68 years old. Bilateral knee pain. TECHNIQUE: 4 view(s) of the knee, 3 labeled as weightbearing. COMPARISON: 2 views of the right knee November 20, 2015. FINDINGS: Normal visualized distal femur. Normal visualized proximal tibia and fibula. Normal patella. There is no demonstrated destructive osseous lesion or acute fracture. Normal medial femorotibial compartment. Normal lateral femorotibial compartment. Normal patellofemoral articulation. Normal proximal tibiofibular articulation. There is no demonstrated joint effusion. Again seen is a small calcification in the medial soft tissues of the proximal right lower leg. RAD/Knee 4 or More Views IMPRESSION: No acute osseous abnormality of the right of the knee. Electronically Signed: Fabian Eagle MD at 19:58 EST , Service support , CC: Srinivasan Dixon MD; Roby Chisholm MD Forge Helper: Signed KNEE 4 OR MORE Observed: 09/10/2018 Status: F Source: KEREN VIEWS 9:58 AM [facility] REPOSITORY [facility] Imaging Services [address] [place] [address] Knee 4 or More Views MR#: [id number] Acct: [id number] Name: PENG WING Rep #: [id number] : 1950 M 68 From: Rigo Eagle MD PCP: Roby Chisholm MD Status: REG CLI Study: Knee 4 or More Views Date of Exam: 09/10/18 Exam# [id number] Ordering Dr: Srinivasan Dixon MD STUDY: X-RAY - LEFT KNEE REASON FOR EXAM: Male, 68 years old. Bilateral knee pain. TECHNIQUE: 4 view(s) of the knee, 3 which are labeled as weightbearing. COMPARISON: None. FINDINGS: Normal visualized distal femur. Normal visualized proximal tibia and fibula. Normal patella. There is no demonstrated destructive osseous lesion. Normal medial femorotibial compartment. Normal lateral femorotibial compartment. Normal patellofemoral articulation. Normal proximal tibiofibular articulation. There is no demonstrated joint effusion. The soft tissue structures are unremarkable. RAD/Knee 4 or More Views IMPRESSION: Normal x-ray examination of the knee. Electronically Signed: Fabian Eagle MD at 20:00 EST , Service support , CC: Srinivasan Dixon MD; Roby Chisholm MD Forge Helper: Signed CARDIOLOGY VISIT Observed: 09/07/2018 Status: F Source: [facility] REPORT 1:47 PM [facility] REPOSITORY [facility] [address] [place] [address]. [address] [place] [address] OFFICE VISIT Date of Service: 09/07/18 MR#: [id number] Acct: [id number] Name: PENG WING Rep #: [id number] : 1950 Provider: Dari Godinez Age/Sex: 68/M Location: [facility] Status: Signed HPI HPI Details: PENG WING, is a 68 M who presents to the office today for a hospital follow-up. Patient was admitted to [facility] on 08/19/2018 for a non-ST myocardial infarction. He underwent urgent stenting to his RCA. Postprocedure he did have one episode of nonsustained ventricular tachycardia. He also has a history of hypertension, hyperlipidemia and diabetes. From a cardiac standpoint, patient is doing well. He does not have any chest discomfort/heaviness/tightness. His exercise tolerance is stable for his age. He does not have any worsening symptoms of shortness of breath. He denies any PND. He does not have any orthopnea. He does not have any symptoms of congestive heart failure. He does not have any palpitations that he is aware of. He does not have any lightheadedness or dizziness. He does not have any near-syncope or syncope. He does not have any lower extremity edema. He does not have any symptoms of claudication. 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 College Required: No Accompanied by: None Is patient in pain?: No Allergies No Known Allergies Allergy (Verified 09/07/18 13:09) Medications Amlodipine [Norvasc] 10 mg PO DAILY 06/09/18 [History Confirmed 09/07/18] Chlorthalidone 25 mg PO DAILY 06/09/18 [History Confirmed 09/07/18] Cholecalciferol (Vitamin D3) [Vitamin D3] 2,000 unit PO DAILY 06/09/18 [History Confirmed 09/07/18] Empagliflozin [Jardiance] 10 mg PO DAILY 06/09/18 [History Confirmed 09/07/18] Glipizide 5 mg PO DAILY 06/09/18 [History Confirmed 09/07/18] Losartan Potassium [Cozaar] 100 mg PO DAILY 06/09/18 [History Confirmed 09/07/18] Multivitamin [Multiple Vitamins] 1 ea PO DAILY 06/09/18 [History Confirmed 09/07/18] Testosterone [Androgel] 75 gm TD DAILY 06/09/18 [History Confirmed 09/07/18] Calcium Carbonate/Vitamin D3 [Calcium 500-Vit D3 600 Tablet] 1 ea PO 08/19/18 [History Confirmed 09/07/18] Acetaminophen [Tylenol Tablet] 650 mg PO Q6H PRN PRN tab 08/21/18 [Rx Confirmed 09/07/18] Aspirin E.C. [Ecotrin] 81 mg PO DAILY@0800 tab 08/21/18 [Rx Confirmed 09/07/18] Metformin HCl 1,000 mg PO BID #0 08/21/18 [Rx Confirmed 09/07/18] atorvastatin 80 mg tablet 80 mg PO QHS #90 tab 09/07/18 [Rx Confirmed 09/07/18] carvedilol 3.125 mg tablet 3.125 mg PO BID #180 tab 09/07/18 [Rx Confirmed 09/07/18] ticagrelor 90 mg tablet 90 mg PO BID #180 tab 09/07/18 [Rx Confirmed 09/07/18] Ejection fraction %: 60 to 64 PFSH Medical History Arteriosclerosis of coronary artery (Chronic) Hyperlipidemia (Chronic) Diabetes mellitus type II, controlled (Chronic) Hypertension (Chronic) Acute inferolateral myocardial infarction (Chronic 08/19/18) Surgical History Stented coronary artery (Chronic 08/19/18) Family History Mother Diabetes Brother Heart disease Social History Smoking Status: Never smoker alcohol intake: never caffeine: No ROS Const Const: Negative for weakness, fatigue, fever(s) or headache(s) Eyes Eyes: Negative for blind spots, loss of peripheral vision or transient loss of vision ENT ENT: Negative for headache(s), dizziness, tinnitus or Nosebleed/epistaxis Cardio Chest Pain: No Palpitations: No Edema: None Muscle aches with walking: None Resp Respiratory: Negative for SOB with activity, SOB at rest, SOB orthopnea\SOB lying down or Cough GI GI: Negative nausea, vomiting, heartburn or vomiting blood/hematemesis : Negative for hematuria Musc Musc: Negative for muscle aches/ myalgia Neuro Neuro: Negative for weakness, headache(s), dizziness, near syncope, syncope, lightheadedness or orthostatic symptoms Jovon Hematologic/Lymphatic: Negative for easy bleeding Endo Endo: Negative for fatigue Supplemental Info Interpretation Summary The estimated ejection fraction is 60 %. Stage 1 diastolic dysfunction. Inferior Convoy : Mildly hypokinetic Unable to estimate RV systolic pressure due to inadequate jet, pulmonary artery pressure probably normal. Bubble contrast study negative for right to left interatrial shunt. There is no comparison study available. Assessment AND Plan 1. Arteriosclerotic heart disease (ASHD) I25.10 Stenting to RCA 08/2018 Plan Patient has not had any symptoms of angina. He will continue with aggressive medical management. He will be referred to cardiac rehab. He was reminded of the importance of staying on his Brilinta. Orders Orders: 2. Essential hypertension I10 Plan Blood pressure is well controlled on current medications, we do not recommend any changes at this time. 3. Mixed hyperlipidemia E78.2 Plan Patient's Atrovent statin was increased during his hospital stay. Will obtain lipids in approximately 1 month to further evaluate. Patient Instructions In one month, get your fasting blood work done Plan Detail Other Orders Orders: Other Medications Refilled: Additional Comments Thank you for allowing us to participate in the patients plan of care, if you have any questions please do not hesitate to call. This note was generated using a voice recognition system and there may be incorrect words, spelling or punctuation that were not noted when reviewing the office note prior to saving. Follow Up 09/07/18 (Please let cardiac rehab know they can call to schedule appt) 3 Months (JASSM/SANJUANITA) Coding Level of Care Code Off vis,est,level 3 Diagnoses Arteriosclerotic heart disease (ASHD) I25.10 Essential hypertension I10 Hypertension type: essential hypertension Mixed hyperlipidemia E78.2 Hyperlipidemia type: mixed hyperlipidemia Coding Level of Care Code Off vis,est,level 3 Diagnoses Arteriosclerotic heart disease (ASHD) I25.10 Essential hypertension I10 Hypertension type: essential hypertension Mixed hyperlipidemia E78.2 Hyperlipidemia type: mixed hyperlipidemia 09/07/18 1347 <Electronically signed by Dari ALBARRAN> Date Dari ALBARRAN Cosigner Signature: Date (if applicable) CC: Roby Chisholm MD 12 LEAD ELECTROCARDIOGRAM Observed: 09/04/2018 Status: F Source: KEREN 9:19 AM [facility] REPOSITORY [facility] Cardiovascular Services [address] [place] [address] 12 Lead EKG 08/21/18 0447 MR#: [id number] Acct: [id number] Name: PENG WING Michelle Rep #: [id number] : 1950 67 From: Ha Collier MD Attending Dr: Alden Hernandez DO Status: DIS IN Ordering Dr: Reed Moffett MD Date: 08/21/18 Location: ICU Sex: M C Admitted: 08/19/18 Test Reason : AM EKG Blood Pressure : / mmHG Vent. Rate : 080 BPM Atrial Rate : 080 BPM P-R Int : 136 ms QRS Dur : 088 ms QT Int : 390 ms P-R-T Axes : 027 -17 -57 degrees QTc Int : 449 ms Normal sinus rhythm Inferior infarct , age undetermined Abnormal ECG When compared with ECG of 20-AUG-2018 05:32, MANUAL COMPARISON REQUIRED, DATA IS UNCONFIRMED Confirmed by JAYNE JOLLEY, HA ([id number]), digital editor TIM ARENAS ([id number]) on 08/28/2018 2:09:43 PM Referred By: Reed Moffett Confirmed By:HA COLLIER MD 08/28/18 1409 Date Ha Collier MD CC: Reed Moffett MD; Alden Hernandez DO; Roby Chisholm MD Signed 12 LEAD ELECTROCARDIOGRAM Observed: 09/04/2018 Status: F Source: KEREN 9:09 AM [facility] REPOSITORY [facility] Cardiovascular Services [address] [place] [address] 12 Lead EKG 08/20/18 0532 MR#: [id number] Acct: [id number] Name: PENG WING Michelle Rep #: [id number] : 1950 67 From: Ha Collier MD Attending Dr: Alden Hernandez DO Status: DIS IN Ordering Dr: Reed Moffett MD Date: 08/20/18 Location: ICU Sex: M C Admitted: 08/19/18 Test Reason : AM Blood Pressure : / mmHG Vent. Rate : 076 BPM Atrial Rate : 076 BPM P-R Int : 138 ms QRS Dur : 086 ms QT Int : 376 ms P-R-T Axes : 041 085 082 degrees QTc Int : 423 ms Normal sinus rhythm Normal ECG No previous ECGs available Confirmed by HA COLLIER MD ([id number]), digital editor TIM ARENAS ([id number]) on 08/24/2018 1:51:40 PM Referred By: Reed Moffett Confirmed By:HA COLLIER MD 08/24/18 0260 Date Ha Collier MD CC: Reed Moffett MD; Alden Hernandez DO; Roby Chisholm MD Signed 12 LEAD ELECTROCARDIOGRAM Observed: 09/04/2018 Status: F Source: KEREN 9:09 AM [facility] REPOSITORY [facility] Cardiovascular Services [address] [place] [address] 12 Lead EKG 08/19/18 1231 MR#: [id number] Acct: [id number] Name: PENG WING Rep #: [id number] : 1950 67 From: Ha Collier MD Attending Dr: Alden Hernandez DO Status: DIS IN Ordering Dr: Reed Moffett MD Date: 08/19/18 Location: ICU Sex: M C Admitted: 08/19/18 Test Reason : POST STEMI Blood Pressure : / mmHG Vent. Rate : 089 BPM Atrial Rate : 089 BPM P-R Int : 136 ms QRS Dur : 094 ms QT Int : 374 ms P-R-T Axes : 036 010 034 degrees QTc Int : 455 ms Normal sinus rhythm Inferior infarct , age undetermined Abnormal ECG No previous ECGs available Confirmed by HA COLLIER MD ([id number]), digital editor TIM ARENAS ([id number]) on 08/24/2018 1:55:22 PM Referred By: Reed Moffett Confirmed By:HA COLLIER MD 08/24/18 1355 Date Ha Collier MD CC: Reed Moffett MD; Alden Hernandez DO; Roby Chisholm MD Signed DISCHARGE SUMMARY Observed: 08/22/2018 Status: F Source: [place] 5:10 PM [facility] REPOSITORY [facility] Medical Records Department [address] [place] [address] Discharge Summary 08/22/18 1653 MR#: [id number] Acct: [id number] Name: PENG WING Rep #: [id number] : 1950 67 From: Alden Hernandez DO PCP: Roby Chisholm MD Status: DIS IN Y Location: ICU ICU06-1 Discharge Date and Diagnosis Date of Admission: 08/19/18 Date of Discharge: 08/21/18 - Primary Discharge Diagnosis #[address] elevation myocardial infarction-status post successful emergent PCI with drug-eluting stent and PTCA to mid RCA #2 coronary artery disease with thrombosis of the right coronary artery #3 type 2 diabetes #4 hypertension #5 hyperlipidemia #6 elevated creatinine #7 nonsustained ventricular tachycardia - Secondary Discharge Diagnosis Chronic Problems (Last Updated 08/19/18 @ 17:58 by Tessy Giron) Arteriosclerosis of coronary artery (Chronic) Hyperlipidemia (Chronic) Diabetes mellitus type II, controlled (Chronic) Hypertension (Chronic) Hospital Course and Treatment Operations: None Procedures: 2-D Echocardiogram, Cardiac catheterization - With placement of drug-eluting stent right coronary artery Summary of Care Provided: The patient is a 67 year old M who was seen in the emergency room at [facility] for complaints of chest pain which started after he was blowing leaves that morning, on arrival to the emergency room, an EKG was obtained which showed acute ST elevation in the inferior and lateral wall leads, and STEMI alert was called and the patient was taken to [facility] where a cardiac catheterization was performed and a PTCA was performed on the right coronary artery with JOSE MANUEL stent placement. Patient was transferred to ICU, he was monitored and no major complications were noted from the STEMI. Patient had an episode of nonsustained V. tach while in the ICU but was asymptomatic with this and there were no complications. On 08/21/18, patient was seen and examined and felt to be in stable condition for discharge home Physical exam: On examination he appeared in good health and spirits. Vital signs as documented. Skin warm and dry and without overt rashes. Neck without JVD. Lungs clear. Heart exam notable for regular rhythm, normal sounds and absence of murmurs, rubs or gallops. Abdomen unremarkable and without evidence of organomegaly, masses, or abdominal aortic enlargement. Extremities nonedematous. Neuro: Cranial nerves II through XII are grossly intact, no focal motor deficits were noted. Psych: Patient was alert and oriented x3, he did not appear depressed or anxious. - Physical Exam Vital Signs Temp Pulse Resp BP Pulse Ox 97.9 F 84 12 130/77 H 97 08/21/18 08:00 08/21/18 08:00 08/21/18 08:00 08/21/18 08:00 08/21/18 08:00 Oxygen Delivery Method Room Air Weight: 79.7 kg Body Mass Index (BMI) 27.2 Intake and Output for Last 24 Hours Intake Total 3816 / 3816 695 / 695 Output Total 6325 / 6325 450 / 450 Balance -2509 / -2509 245 / 245 Discharge Activity: Return to Normal Activity Weight Bearing Status: Full weight bearing Home Medications: Medications to take at Discharge Amlodipine [Norvasc] 10 mg PO DAILY 06/09/18 Aspirin E.C. [Ecotrin] 81 mg PO DAILY@0800 06/09/18 Chlorthalidone 25 mg PO DAILY 06/09/18 Cholecalciferol (Vitamin D3) [Vitamin D3] 2,000 unit PO DAILY 06/09/18 Empagliflozin [Jardiance] 10 mg PO DAILY 06/09/18 Glipizide 5 mg PO DAILY 06/09/18 Losartan Potassium [Cozaar] 100 mg PO DAILY 06/09/18 Multivitamin [Multiple Vitamins] 1 each PO DAILY 06/09/18 Testosterone [Androgel] 75 gm TD DAILY 06/09/18 Calcium Carbonate/Vitamin D3 [Calcium 500-Vit D3 600 Tablet] 1 each PO 08/19/18 Acetaminophen [Tylenol Tablet] 650 mg PO Q6H PRN PRN tablet 08/21/18 Aspirin E.C. [Ecotrin] 81 mg PO DAILY@0800 tablet 08/21/18 Atorvastatin Calcium [Lipitor] 80 mg PO QHS #30 tablet 08/21/18 Carvedilol [Coreg (Beta Brody)] 3.125 mg PO BID #60 tablet 08/21/18 Metformin HCl 1,000 mg PO BID #0 08/21/18 Ticagrelor [Brilinta] 90 mg PO BID #60 tablet 08/21/18 Following Prescrptions Were Given to Patient: Atorvastatin Calcium [Lipitor] 80 mg PO QHS #30 tablet Carvedilol [Coreg (Beta Brody)] 3.125 mg PO BID #60 tablet Ticagrelor [Brilinta] 90 mg PO BID #60 tablet Primary Care Physician: Roby Chisholm MD [Primary Care Provider] - Please Follow Up With: Reed Moffett MD When: as directed Disposition: Home Minutes spent on discharge:: 32 Patient Condition:: Stable Medical Necessity - Tobacco Use Smoking Status: Never smoker Tobacco Use: Non-smoker Meaningful Use Info Meaningful Use Diagnoses (Choose all that apply): AMI - AMI Aspirin given w/in 24hrs of arrival?: Yes ASA at discharge?: Yes Statins at discharge?: Yes Cheng/ARB at discharge?: Yes Beta Brody at discharge?: Yes Done w/ Acute NE measure.: Yes Code Visit Inpatient E AND M: [id number] Disch Hosp 08/22/18 1710 <Electronically signed by Alden Hernandez DO> Date Alden Hernandez DO Cosigner Signature (if applicable): Date CC: Alden Hernandez DO; Roby Chisholm MD Signed DISCHARGE INSTRUCTION Observed: 08/21/2018 Status: F Source: [place] 11:05 AM [facility] REPOSITORY [facility] Medical Records Department [address] [place] [address] Instructions for Home/Discharge Instructions 08/21/18 1103 MR#: [id number] Acct: [id number] Name: PENG WING Rep #: [id number] : 1950 67 From: Alden Hernandez DO PCP: Roby Chisholm MD Status: ADM IN You will use the following diet at home:: Calorie/Carbohydrate Controlled (specify 1200, 1400, etc) - 1800 chirag Your food should be the consistency of: Regular Your liquids should be the consistency of: Regular/Thin Discharge Activity: Return to Normal Activity Weight Bearing Status: Full weight bearing Allergies/Adverse Reactions: Allergies No Known Allergies Allergy (Verified 08/19/18 11:21) Medications to take at Discharge Amlodipine [Norvasc] 10 mg PO DAILY 06/09/18 Aspirin E.C. [Ecotrin] 81 mg PO DAILY@0800 06/09/18 Chlorthalidone 25 mg PO DAILY 06/09/18 Cholecalciferol (Vitamin D3) [Vitamin D3] 2,000 unit PO DAILY 06/09/18 Empagliflozin [Jardiance] 10 mg PO DAILY 06/09/18 Glipizide 5 mg PO DAILY 06/09/18 Losartan Potassium [Cozaar] 100 mg PO DAILY 06/09/18 Multivitamin [Multiple Vitamins] 1 each PO DAILY 06/09/18 Testosterone [Androgel] 75 gm TD DAILY 06/09/18 Calcium Carbonate/Vitamin D3 [Calcium 500-Vit D3 600 Tablet] 1 each PO 08/19/18 Acetaminophen [Tylenol Tablet] 650 mg PO Q6H PRN PRN tablet 08/21/18 Aspirin E.C. [Ecotrin] 81 mg PO DAILY@0800 tablet 08/21/18 Atorvastatin Calcium [Lipitor] 80 mg PO QHS #30 tablet 08/21/18 Carvedilol [Coreg (Beta Brody)] 3.125 mg PO BID #60 tablet 08/21/18 Metformin HCl 1,000 mg PO BID #0 08/21/18 Ticagrelor [Brilinta] 90 mg PO BID #60 tablet 08/21/18 The following prescriptions were given: Atorvastatin Calcium [Lipitor] 80 mg PO QHS #30 tablet Carvedilol [Coreg (Beta Brody)] 3.125 mg PO BID #60 tablet Ticagrelor [Brilinta] 90 mg PO BID #60 tablet Primary Care Physician: Roby Chisholm MD [Primary Care Provider] - Test Results: Test results from this visit will be discussed in further detail at your follow-up appointment, if applicable. Please Follow Up With: Reed Moffett MD When: as directed 08/21/18 1105 <Electronically signed by Alden Hernandez DO> Date Alden Hernandez DO CC: Reed Moffett MD; Roby Chisholm MD BEDSIDE GLUCOSE Collected: 08/21/2018 Status: F Source: [place] 8:08 AM [facility] REPOSITORY TYPE CODE TESTS RESULT OUT OF REFERENCE UNITS RANGE LAB L501.080 70-110 mg/dL High BEDSIDE GLU 136 Result Comment: MANAGEMENT OF PATIENT CARE PER NURSING PROTOCOL Performed By: #### L501.080 #### [facility] Point of Care [address] [facility] [place] [address] EMERGENCY DEPARTMENT Observed: 08/21/2018 Status: F Source: [place] SUMMARY 7:05 AM [facility] REPOSITORY [facility] Medical Records Department [address] [place] [address] Emergency Department Summary 08/19/18 1542 MR#: [id number] Acct: [id number] Name: PENG WING Rep #: [id number] : 1950 67 From: Reed Montejo DO PCP: Roby Chisholm MD Status: ADM IN - ER Visit Summary Date of Service: 08/19/18 Chief Complaint: Chest pain History of Present Illness: The patient is a 67 M who was out blowing leaves today when he developed a crushing chest pain. He notes a history of diabetes and hypertension. Patient sees Dr. Chisholm. He went inside his gave him 2 baby aspirins and EMS was called. Prehospital EKG shows significant ST elevation consistent with a STEMI. EMS gave an additional 2 baby aspirins. He also administered morphine. They did perform a right-sided EKG. Prehospital STEMI team was called. Dr. Moffett and [facility] team in the emergency department upon arrival. Physical Examination: Afebrile vital signs are stable noted tachycardia at 105 Gen: Well-nourished well-developed and appears in pain Head: Normocephalic atraumatic Eyes: Perrl EOMI ENT: TMs clear no rhinorrhea moist mucous membranes Neck: Supple no lymphadenopathy no JVD nontender CVS: Regular rate tachycardic rhythm no murmurs normal S1-S2 Respiratory: No distress clear to auscultation bilaterally chest nontender Abdomen: Soft nontender nondistended normal bowel sounds no masses Back: Nontender Extremity: Nontender no edema Skin: Normal color no rash diaphoretic Neuro: alert orientated 3 CN II-XII intact normal strength sensation reflexes gait cerebellar Psych: Normal affect normal mood Test Results: STEMI labs were drawn and sent. Chest x-ray shows no mediastinal widening. Emergency Department Course and Treatment: A second IV was established. Patient received 180 of Brilinta and 4000 units of heparin. She was taken directly to the Hospital Chief Executive Officer on the EMS cot. Impression: 1. Acute coronary syndrome 2. Acute inferior lateral STEMI This note was generated with [employer] dictation software. It may contain incorrect words, spelling, and punctuation that were not noted in review of the chart prior to signing ED Disposition - Plan for ED Patient: Disposition: Acute [facility] Chief Complaint: Chest Pain What to do if you have Problems For any increased pain, shortness of breath, bleeding, nausea or vomiting, chest pain, or any unexpected problems, contact your Primary Care Provider. Call [facility] ([phone]) or report to the closest Emergency Room. Call 911 if necessary. 08/21/18 0705 <Electronically signed by Reed Montejo DO> Date Reed Montejo DO Cosigner Signature (If Indicated): Date CC: Roby Chisholm MD BASIC METABOLIC Collected: 08/21/2018 Status: F Source: [place] PROFILE (BMP) 3:00 AM [facility] REPOSITORY TYPE CODE TESTS RESULT OUT OF RANGE REFERENCE UNITS LAB L501.0100 74-106 mg/dL High GLU 116 Result Comment: Fasting Glucose result from 100 to 125 mg/dL suggests IMPAIRED HOMEOSTASIS per A.D.A. criteria. Please note revised GLUCOSE reference range effective 2017. LAB L501.1000 7-18 mg/dL High BUN 21 LAB L501.1100 0.70-1.30 mg/dL Normal CREAT,SERUM 1.06 Result Comment: The validity of the calculated GFR AND GFRAA in patients over 70 years has not been determined. Clinical correlation is essential. LAB L501.1110 >60 mL/min Normal EST GFR 74 Result Comment: Non- GFR Calc LAB L501.1115 >60 mL/min Normal EST GFR - AA 89 Result Comment: GFR Calc LAB L501.1255 ml/min Normal Estimated CRCL 69.82 LAB L501.1300 10-20 RATIO Normal BUN/CRE 19.8 LAB L501.2200 8.5-10 mg/dL Low .1 CA 8.4 LAB L501.5300 136-14 mmol/L Normal 5 NA 140 LAB L501.5600 3.5-5. mmol/L Normal 1 K 4.0 LAB L501.5900 98-107 mmol/L High CL 108 LAB L501.6100 21.0-3 mmol/L Normal 2.0 CO2 21.0 LAB L501.6200 5-15 Normal GAP 11 Performed By: #### L500.2500 #### [facility] [address] [place], [place], [id number] BEDSIDE GLUCOSE Collected: 08/20/2018 Status: F Source: [place] 9:39 PM [facility] REPOSITORY TYPE CODE TESTS RESULT OUT OF REFERENCE UNITS RANGE LAB L501.080 70-110 mg/dL High BEDSIDE GLU 146 Result Comment: MANAGEMENT OF PATIENT CARE PER NURSING PROTOCOL Performed By: #### L501.080 #### [facility] Point of Care [address] [facility]. [place], [place] [address] BEDSIDE GLUCOSE Collected: 08/20/2018 Status: F Source: [place] 5:30 PM [facility] REPOSITORY TYPE CODE TESTS RESULT OUT OF RANGE REFERENCE UNITS LAB L501.080 70-110 mg/dL Normal BEDSIDE GLU 89 Result Comment: MANAGEMENT OF PATIENT CARE PER NURSING PROTOCOL Performed By: #### L501.080 #### [facility] Point of Care [address] [facility] [place] [address] ECHOCARDIOGRAM COMPLETE Observed: 08/20/2018 Status: F Source: [place] 2:31 PM [facility] REPOSITORY [facility] Cardiovascular Services [address] [place] [address] Echo Complete 08/20/18 0819 MR#: [id number] Acct: [id number] Name: PENG WING Rep #: [id number] : 1950 67 From: Reed Moffett MD Attending Dr: Alden Hernandez DO Status: ADM IN Ordering Dr: Reed Moffett MD Date: 08/19/18 Location: ICU Sex: M C Admitted: 08/19/18 Reason For Study: CAD/ASHD Procedure This was a 2D Doppler, Color Flow transthoracic echocardiogram. Exam performed portable in ICU/CCU. Left Ventricle Normal size and thickness. The estimated ejection fraction is 60 %. Stage 1 diastolic dysfunction. Inferior Convoy : Mildly hypokinetic. Right Ventricle Normal size and thickness. Normal systolic function. Atria Normal left atrium. Normal right atrium. Normal atrial septum. Bubble contrast study negative for right to left interatrial shunt. Mitral Valve The mitral valve is structurally normal. No prolapse or stenosis seen. Tricuspid Valve Normal tricuspid valve. Unable to estimate RV systolic pressure due to inadequate jet, pulmonary artery pressure probably normal. Aortic Valve Normal aortic valve. Trisinus/trileaflet aortic valve. Pulmonic Valve Normal pulmonic valve. Great Vessels Normal aortic root. Normal arch. Normal inferior vena cava. Inferior vena cava collapse with sniff. Pericardium/Pleural No pericardial effusion. Medication Performed a rapid injection of agitated mix of 9 cc saline and 1cc air to assess for atrial septal defect. MMode/2D Measurements AND Calculations LVIDd: 5.1 cm IVSd: 1.3 cm Ao root diam: 3.4 cm LVIDs: 3.3 cm LVPWd: 1.1 cm RVDd: 2.8 cm FS: 34.7 % LAV(MOD-bp): 48.1 ml LA A4 area: 17.1 cm2 LA dimension(2D): 3.7 cm LAV(MOD-bp) Indexed: 24.3 ml/m2 LAV(MOD-sp2): 47.7 ml LAV(MOD-sp4): 47.3 ml RA A4 area: 12.5 cm2 Time Measurements MV dec time: 0.32 sec Doppler Measurements AND Calculations MV E max charlie: 60.7 cm/sec Lat Peak E' Charlie: 9.6 cm/sec Med Peak E' Charlie: 7.0 cm/sec MV A max charlie: 72.7 cm/sec E/E' lat: 6.4 E/E' med: 8.7 MV E/A: 0.83 Ao V2 max: 130.9 cm/sec LV V1 max: 106.3 cm/sec PA V2 max: 86.4 cm/sec Ao max P.9 mmHg LV V1 max P.0 mmHg PI dec slope: 117.0 cm/sec2 Interpretation Summary The estimated ejection fraction is 60 %. Stage 1 diastolic dysfunction. Inferior Convoy : Mildly hypokinetic Unable to estimate RV systolic pressure due to inadequate jet, pulmonary artery pressure probably normal. Bubble contrast study negative for right to left interatrial shunt. There is no comparison study available. Ordering Physician: Reed Moffett Referring Physician: Roby Chisholm Performed By: Tiffanie Thao, KATARZYNA, RVT 08/20/18 1045 Date Reed Moffett MD CC: Reed Moffett MD; Alden Hernandez DO; Roby Chisholm MD Date Dictated: 08/20/18818 Date Transcribed: 08/20/181044 Forge Helper: Signed BEDSIDE GLUCOSE Collected: 08/20/2018 Status: F Source: [place] 12:31 PM [facility] REPOSITORY TYPE CODE TESTS RESULT OUT OF REFERENCE UNITS RANGE LAB L501.080 70-110 mg/dL High BEDSIDE GLU 142 Result Comment: MANAGEMENT OF PATIENT CARE PER NURSING PROTOCOL Performed By: #### L501.080 #### [facility] Point of [facility] [address] [facility] [address] [place], [place] [id number] BEDSIDE GLUCOSE Collected: 08/20/2018 Status: F Source: [place] 8:11 AM [facility] REPOSITORY TYPE CODE TESTS RESULT OUT OF REFERENCE UNITS RANGE LAB L501.080 70-110 mg/dL High BEDSIDE GLU 116 Result Comment: MANAGEMENT OF PATIENT CARE PER NURSING PROTOCOL Performed By: #### L501.080 #### [facility] Point of Care [address] [place], [place] [id number] CBC-COMPLETE BLOOD CNT Collected: 08/20/2018 Status: F Source: [place] NO DIFF 5:10 AM [facility] REPOSITORY TYPE CODE TESTS RESULT OUT OF RANGE REFERENCE UNITS LAB L100.1000 4.4-11.0 K/mm3 Normal WBC 7.3 LAB L100.1200 4.6-6.2 M/mm3 Normal RBC 4.90 LAB L100.1300 13.0-16.5 g/dl Normal HGB 13.6 LAB L100.1400 40-54 % Normal HCT 41.9 LAB L100.1500 80-94 fL Normal MCV 85.5 LAB L100.1600 27.0-32.0 pg Normal MCH 27.8 LAB L100.1700 32-36 g/gl Normal MCHC 32.5 LAB L100.1810 11.6-14.6 % Normal RDW CV 13.9 LAB L100.1820 35.1-43.9 fl Normal RDW SD 43.1 LAB L100.1900 150-450 K/mm3 Normal PLT 254 LAB L100.2000 6.2-12.0 fl Normal MPV 9.3 Performed By: #### L100.0500 #### [facility] [address] [place], [address] BASIC METABOLIC Collected: 08/20/2018 Status: F Source: [place] PROFILE (BMP) 5:10 AM [facility] REPOSITORY TYPE CODE TESTS RESULT OUT OF RANGE REFERENCE UNITS LAB L501.0100 74-106 mg/dL Normal GLU 99 Result Comment: Please note revised GLUCOSE reference range effective 2017. LAB L501.1000 7-18 mg/dL High BUN 21 LAB L501.1100 0.70-1.30 mg/dL Normal CREAT,SERUM 0.96 Result Comment: The validity of the calculated GFR AND GFRAA in patients over 70 years has not been determined. Clinical correlation is essential. LAB L501.1110 >60 mL/min Normal EST GFR 83 Result Comment: Non- GFR Calc LAB L501.1115 >60 mL/min Normal EST GFR - AA 101 Result Comment: GFR Calc LAB L501.1255 ml/min Normal Estimated CRCL 77.10 LAB L501.1300 10-20 RATIO High BUN/CRE 21.9 LAB L501.2200 8.5-10 mg/dL Low .1 CA 8.4 LAB L501.5300 136-14 mmol/L Normal 5 NA 141 LAB L501.5600 3.5-5. mmol/L Normal 1 K 3.9 LAB L501.5900 98-107 mmol/L High CL 109 LAB L501.6100 21.0-3 mmol/L Normal 2.0 CO2 22.0 LAB L501.6200 5-15 Normal GAP 10 Performed By: #### L500.2500, L500.4100 #### [facility] [address] [place], [place], [id number] LIPID PROFILE Collected: 08/20/2018 Status: F Source: [place] 5:10 AM [facility] REPOSITORY TYPE CODE TESTS RESULT OUT OF RANGE REFERENCE UNITS LAB L501.4900 200 mg/dL Normal CHOL 97 Result Comment: <200 mg/dL Desirable 200-240 mg/dL Borderline >240 mg/dL High Risk LAB L501.5000 mg/dL Normal TRIG 81 Result Comment: The drugs N-Acetylcysteine and Metamizole may falsely depress this assay. Serum Triglycerides Reference Interval Normal <150 mg/dL Borderline high 150 - 199 mg/dL High 200 - 499 mg/dL Very High > or = 500 mg/dL LAB L501.6400 mg/dL Low HDL 31 Result Comment: The drugs N-Acetylcysteine and Metamizole may falsely depress this assay. Reference Range HDL <40 mg/dL Low HDL Cholesterol HDL >or= 60 mg/dL High HDL Cholesterol LAB L501.6500 0-130 mg/dL Normal LDL 50 LAB L501.6600 5-40 mg/dL Normal VLDL 16 Performed By: #### L500.2500, L500.4100 #### [facility] [address] [place], [place], [id number] BEDSIDE GLUCOSE Collected: 08/19/2018 Status: F Source: [place] 9:54 PM [facility] REPOSITORY TYPE CODE TESTS RESULT OUT OF REFERENCE UNITS RANGE LAB L501.080 70-110 mg/dL High BEDSIDE GLU 129 Result Comment: MANAGEMENT OF PATIENT CARE PER NURSING PROTOCOL Performed By: #### L501.080 #### [facility] Point of Care [address] [facility] [place], [place] [id number] HISTORY AND PHYSICAL Observed: 08/19/2018 Status: F Source: [place] EXAM 9:16 PM [facility] REPOSITORY [facility] Medical Records Department [address] [place] [address] History and Physical 08/19/18 2100 MR#: [id number] Acct: [id number] Name: PENG WING Rep #: [id number] : 1950 67 From: Alden Hernandez DO PCP: Roby Chisholm MD Status: ADM IN Y Location: ICU ICU06-1 Problem List (1) Acute inferolateral myocardial infarction Status: Acute History of Present Illness Date of Admission: 08/19/18 Chief Complaint: Acute ST elevation myocardial infarction The patient is a 67 year old M who was seen in the emergency room at [facility] today after he had an episode of substernal precordial chest discomfort which he described as a severe heaviness like a weight which occurred during an episode of leaf blowing earlier this morning. Patient denied any radiation of discomfort into his jaw or down his arm, he stated he became diaphoretic and short of breath. Patient had no nausea or vomiting. Patient came to the ER for evaluation and was found to have ST elevation in the inferior lateral wall leads and a STEMI alert was called, he was taken to the Hospital Chief Executive Officer at approximately 11:00 this morning and underwent a drug-eluting stent placement and removal of clot from the right coronary artery. Patient had no untoward complications from the procedure today and he was admitted directly to ICU for further care. In talking with the patient today, he states that he has been having episodic left shoulder discomfort for which she did not seek medical attention. Current medical problems include type 2 diabetes, hypertension, and hyperlipidemia. Past Medical History Past Medical History (Chronic Problems): Chronic Problems (Last Updated 08/19/18 @ 17:58 by Tessy Giron) Arteriosclerosis of coronary artery (Chronic) Hyperlipidemia (Chronic) Diabetes mellitus type II, controlled (Chronic) Hypertension (Chronic) Medical History: Medical History (Last Updated 08/19/18 @ 17:58 by Tessy Giron) Arteriosclerosis of coronary artery (Chronic) I25.10 Hyperlipidemia (Chronic) E78.5 Diabetes mellitus type II, controlled (Chronic) E11.9 Hypertension (Chronic) I10 Acute inferolateral myocardial infarction (Acute) Onset Date: 08/19/18 I21.19 Allergies No Known Allergies Allergy (Verified 08/19/18 11:21) Home Medications: Ambulatory Orders Medication Instructions Recorded Amlodipine [Norvasc] 10 mg PO DAILY 06/09/18 Surgical History: Surgical History (Last Updated 08/19/18 @ 17:59 by Tessy Giron) Stented coronary artery (Acute) Onset Date: 08/19/18 Z95.5 PTCA and JOSE MANUEL (4.0 X 16 Promus Synergy) to mid RCA per Dr. Moffett @ [facility] Surgical History: - - Removal of kidney stone through cystoscopy Psychiatric History: No pertinent psych hx Lives: Spouse/ Significant Other Smoking Status: Never smoker Tobacco Use: Non-smoker Alcohol: None Drugs: None - *Family History Maternal History Items: Diabetes Paternal History Items: No pertinent history Review of Systems Constitutional: Denies: Anorexia, Chills, Fever, Night Sweats, Malaise, Weakness, Weight Change, Fatigue Eyes: Denies: Blurred vision, Cataracts, Conjunctivae Inflammation, Double vision, Drainage HEENT: Denies: Difficulty Swallowing, Dysphasia, Ear Pain, Eye Pain, Head Aches, Hearing Changes, Nasal bleeding, Nasal Congestion, Post Nasal Drip Cardiovascular: Reports: Chest Pain, Chest Pressure, Heaviness. Denies: Claudication, Chest Tightness, Edema, Light Headedness, Orthopnea, Palpitations, Paroxysmal Noc. Dyspnea, Syncope Respiratory: Reports: Shortness of Breath, Shortness of breath at rest, Shortness of breath upon exertion. Denies: Cough, Hemoptysis, Pleuritic Pain, Sputum production, Wheezing Gastrointestinal: Denies: Abdominal Pain, Constipation, Diarrhea, Hematemesis, Hematochezia, Nausea, Melena, Vomiting Genitourinary: Denies: Dysuria, Frequency, Hematuria, Hesitancy, Urgency Musculoskeletal: Denies: Back Pain, Foot Pain, Hand Pain, Joint Pain, Joint stiffness, Joint swelling, Joint Tenderness, Leg Pain Skin: Denies: Dryness, Jaundice, Pruritis, Rash Neurological: Denies: Balance problems, Blurred vision, Double vision, Slurred speech, Difficulty swallowing, Focal weakness, Headaches, Incoordination, Numbness, Tingling Psychiatric: Denies: Anxiety, Depression, Homicidal Ideations, Suicidal Ideations Endocrine: Denies: Change in Body Habitus, Heat/ Cold Intolerance, Polydipsia, Polyuria Hematologic/ Lymphatic: Denies: Adenopathy, Anemia, Easy Bruising, Easy Bleeding, Petechiae, Purpura VTE Information - Inpt Only VTE Present on Admission: No VTE Mechan Device Prophylaxis: None VTE Pharm Prophylaxis ordered?: No Reason prophylaxis not ordered:: Treatment Not Indicated - Patient received anticoagulants during angiogram - Physical Exam General: Alert, Oriented x3, Cooperative, No apparent distress, Well developed, Well nourished HEENT: Atraumatic, PERRLA, EOMI, Normocephalic Oral: Moist Mucosa Neck: Supple, No JVD, Negative Carotid Bruits, No Nuchal Rigidity, Trachea Midline, Thyroid Normal Size and Texture Lungs: Clear to auscultation, Normal air movement, No rhonchi, No wheeze, No rales Cardiovascular: Regular rate, Regular Rhythm, Normal S1, Normal S2, No murmurs, No Ectopic Activity, PMI Normal, No rub noted, No Gallop Abdomen: Bowel Sounds Present, Soft, Non Tender, Non-Distended, No hernias noted Extremities: No clubbing, No cyanosis, No edema, Capillary Refill Less than 3 Seconds Skin: No rashes, No breakdown Musculoskeletal: No Tenderness to Palpation of Joints or Extremities Neurological: Cranial nerves II-XII grossly intact, Neuro grossly intact, Sensory exam intact to light touch and pain, Coordination normal Psych/Mental Status: Normal Affect, Appropriate, Alert and oriented to time, place, person, mood and affect Vital Signs Temp Pulse Resp BP Pulse Ox 99.2 F H 88 18 135/80 H 96 08/19/18 16:00 08/19/18 18:00 08/19/18 18:00 08/19/18 18:00 08/19/18 18:00 Oxygen Delivery Method Room Air Weight: 86.183 kg Body Mass Index (BMI) 27.2 Intake and Output for Last 24 Hours Intake Total 768 / 768 Output Total 1000 / 1000 Balance -232 / -232 Laboratory Tests Past 24 Hrs WBC 8.5 RBC 5.35 Hgb 14.9 Hct 44.9 MCV 83.9 MCH 27.9 MCHC 33.2 RDW 14.0 RDW Differential 42.6 WBC RBC Hgb Hct MCV POC Glucose POC Glucose 83 Assessment/Plan All Active Problems (Last Updated 08/19/18 @ 17:58 by Tessy Giron) Stented coronary artery (Acute 08/19/18) Acute inferolateral myocardial infarction (Acute 08/19/18) Screen for colon cancer (Acute) #[address] elevation myocardial infarction-status post successful emergent PCI with drug-eluting stent and PTCA to mid RCA-patient will be monitored in the ICU, additional orders were entered per cardiology, patient will have an echocardiogram tomorrow, enzymes will be cycled #2 type 2 diabetes-patient's blood sugars will be monitored when he resumes his diet this evening #3 hypertension-patient will remain on medication #4 hyperlipidemia-patient will remain on medication #5 elevated creatinine-etiology unclear at this point, patient's last creatinine on 08/13/18 was 1.02, patient will receive fluids at 75 cc an hour and repeat lab work will be obtained tomorrow Code Visit Inpatient E AND M: [id number] Init Hosp L3 08/19/182115 <Electronically signed by Alden Hernandez DO> Date Alden Hernandez DO Cosigner Signature: Date (if applicable) CC: Alden Hernandez DO; Roby Chisholm MD Signed BEDSIDE GLUCOSE Collected: 08/19/2018 Status: F Source: KEREN 5:52 PM [facility] REPOSITORY TYPE CODE TESTS RESULT OUT OF RANGE REFERENCE UNITS LAB L501.080 70-110 mg/dL Normal BEDSIDE GLU 83 Result Comment: MANAGEMENT OF PATIENT CARE PER NURSING PROTOCOL Performed By: #### L501.080 #### [facility] Point of Care [address] [place] [address] TROPONIN-I Collected: 08/19/2018 Status: F Source: KEREN 5:30 PM [facility] REPOSITORY Order Comment: 'TROP' Serial specimen #1, #2 or #3: 3 TYPE CODE TESTS RESULT OUT OF RANGE REFERENCE UNITS LAB L501.4010 <0.045 ng/mL High alert 16.400 TROPONIN-I Result Comment: Critical Result(s) Called at: 18:52:51 08/19/2018 by: Skylar Arndt to HGill TROPONIN-I EXPECTED VALUES <0.045 Negative 0.045 - 0.590 Consistent with Cardiac Damage > OR = 0.600 Critical Value Not every elevated troponin is indicative of NE. These values should be used with clinical judgement in examining the patient's clinical picture for diagnosis. To establish a diagnosis of NE versus myocardial injury, there must be a demonstrated rise and/or fall in the troponin values, in addition to ischemic symptoms, EKG changes, new regional wall motion abnormality, and/or angiographical evidence. PLEASE NOTE: REFERENCE RANGES EDITED 18 Performed By: #### L501.4010 #### [facility] [address] [place], [address] TROPONIN-I Collected: 08/19/2018 Status: F Source: MORGAN 2:50 PM [facility] REPOSITORY Order Comment: 'TROP' Serial specimen #1, #2 or #3: 2 TYPE CODE TESTS RESULT OUT OF RANGE REFERENCE UNITS LAB L501.4010 <0.045 ng/mL High alert 6.980 TROPONIN-I Result Comment: Critical Result(s) Called at: 15:16:15 08/19/2018 by: Chary Skelton to HGill TROPONIN-I EXPECTED VALUES <0.045 Negative 0.045 - 0.590 Consistent with Cardiac Damage > OR = 0.600 Critical Value Not every elevated troponin is indicative of NE. These values should be used with clinical judgement in examining the patient's clinical picture for diagnosis. To establish a diagnosis of NE versus myocardial injury, there must be a demonstrated rise and/or fall in the troponin values, in addition to ischemic symptoms, EKG changes, new regional wall motion abnormality, and/or angiographical evidence. PLEASE NOTE: REFERENCE RANGES EDITED 18 Performed By: #### L501.4010 #### [facility] [address] [place], [address] ACT ACTIVATED CLOTTING Collected: 08/19/2018 Status: F Source: MORGAN TIME 2:36 PM [facility] REPOSITORY TYPE CODE TESTS RESULT OUT OF RANGE REFERENCE UNITS LAB L9100.0100 74-137 sec High ACTk CLOT 153 TIME Performed By: #### L9100.0100 #### [facility] Point of Care [address] [place] [address] ACT ACTIVATED CLOTTING Collected: 08/19/2018 Status: F Source: KEREN TIME 12:04 PM [facility] REPOSITORY TYPE CODE TESTS RESULT OUT OF RANGE REFERENCE UNITS LAB L9100.0100 74-137 sec High ACTk CLOT 186 TIME Performed By: #### L9100.0100 #### [facility] Point of Care [address] [place] [address] CHEST 1 VIEW Observed: 08/19/2018 Status: F Source: KEREN (PORTABLE) 11:32 AM [facility] REPOSITORY [facility] Imaging Services [address] [place] [place] [address] Chest 1 View (Portable) MR#: [id number] Acct: [id number] Name: PENG WING Rep #: [id number] : 1950 M 67 From: Mario Contreras MD PCP: Roby Chisholm MD Status: ADM IN Study: Chest 1 View (Portable) Date of Exam: 08/19/18 Exam# [id number] Ordering Dr: Reed Moffett MD STUDY: X-RAY CHEST REASON FOR EXAM: Male, 67 years old. STEMI alert. TECHNIQUE: Single AP portable view of the chest. COMPARISON: None. FINDINGS: EKG electrodes are seen. Mild elevation of the right hemidiaphragm. There is no demonstrated pleural abnormality. There is borderline cardiomegaly. Normal mediastinum and marybel. Normal visualized pulmonary arteries. There is atherosclerotic tortuosity of the aortic arch and descending thoracic aorta. Normal visualized thoracic spine. Normal visualized ribs, clavicles, and shoulders. There is no demonstrated abnormality of the visualized soft tissue structures of the upper abdomen. RAD/Chest 1 View (Portable) IMPRESSION: Borderline cardiomegaly. Electronically Signed: Mario Contreras MD at 12:17 EST Tel [phone], Service support , CC: Reed Moffett MD; Roby Chisholm MD Forge Helper: Signed ACT ACTIVATED CLOTTING Collected: 08/19/2018 Status: F Source: KEREN TIME 11:29 AM [facility] REPOSITORY TYPE CODE TESTS RESULT OUT OF RANGE REFERENCE UNITS LAB L9100.0100 74-137 sec High ACTk CLOT 153 TIME Performed By: #### L9100.0100 #### [facility] Point of Care [address] [place], [place] [address] CBC W/DIFF, AUTOMATED Collected: 08/19/2018 Status: F Source: KEREN 11:20 AM [facility] REPOSITORY TYPE CODE TESTS RESULT OUT OF RANGE REFERENCE UNITS LAB L100.1000 4.4-11.0 K/mm3 Normal WBC 8.5 LAB L100.1200 4.6-6.2 M/mm3 Normal RBC 5.35 LAB L100.1300 13.0-16.5 g/dl Normal HGB 14.9 LAB L100.1400 40-54 % Normal HCT 44.9 LAB L100.1500 80-94 fL Normal MCV 83.9 LAB L100.1600 27.0-32.0 pg Normal MCH 27.9 LAB L100.1700 32-36 g/gl Normal MCHC 33.2 LAB L100.1810 11.6-14.6 % Normal RDW CV 14.0 LAB L100.1820 35.1-43.9 fl Normal RDW SD 42.6 LAB L100.1900 150-450 K/mm3 Normal PLT 327 LAB L100.2000 6.2-12.0 fl Normal MPV 10.0 LAB L100.2100 47-70 % Normal NEUT% 64.9 LAB L100.2200 19-41 % Normal LY% 23.4 LAB L100.2300 0-10 % Normal MONO% 8.9 LAB L100.2400 0-5 % Normal EO% 1.9 LAB L100.2500 0-1 % Normal BASO% 0.2 LAB L100.2550 0.0-0.9 % Normal IM GRAN % 0.700 Result Comment: IG% - Immature Granulocytes (promyelocytes, myelocytes and metamyelocytes) > 1% indicates that a LEFT SHIFT is Present. LAB L100.2620 2.0-7.7 X10 3/uL Normal Absolute Neut 5.5 LAB L100.2720 0.83-4.51 X10 3/ul Normal Absolute Lymph 1.98 Performed By: #### L100.0100 #### [facility] [address] [place], [address] PROTHROMBIN TIME W/INR Collected: 08/19/2018 Status: F Source: MORGAN 11:20 AM [facility] REPOSITORY TYPE CODE TESTS RESULT OUT OF RANGE REFERENCE UNITS LAB L300.4150 11.7-14.9 SECONDS Normal PROTIME 12.6 LAB L300.4200 Normal INR 0.9 Performed By: #### L300.3900, L300.4310 #### [facility] [address] [facility] [address] PARTIAL THROMBOPLAST Collected: 08/19/2018 Status: F Source: MORGAN TIME 11:20 AM [facility] REPOSITORY TYPE CODE TESTS RESULT OUT OF REFERENCE UNITS RANGE LAB L300.4310 24.1-36.2 Seconds High PTT 49.6 Performed By: #### L300.3900, L300.4310 #### [facility] [address] [place], [address] LIVER PROFILE Collected: 08/19/2018 Status: F Source: MORGAN 11:20 AM [facility] REPOSITORY TYPE CODE TESTS RESULT OUT OF RANGE REFERENCE UNITS LAB L501.1500 6.4-8.2 g/dL High T PROT 8.4 LAB L501.1800 3.2-5.0 g/dL Normal ALB 4.0 LAB L501.1950 2.2-4.2 g/dL High GLOB 4.4 LAB L501.4100 15-37 U/L Normal AST 29 LAB L501.4305 45-117 U/L Normal ALK P 81 LAB L501.4405 16-61 U/L Normal ALT 42 LAB L501.4600 0.20-1.00 mg/dL Normal T BILI 0.60 LAB L501.4700 0.00-0.30 mg/dL Normal D BILI 0.17 Performed By: #### L500.3400 #### [facility] [address] [facility] [place], [address] BASIC METABOLIC Collected: 08/19/2018 Status: F Source: MORGAN PROFILE (BMP) 11:20 AM [facility] REPOSITORY TYPE CODE TESTS RESULT OUT OF RANGE REFERENCE UNITS LAB L501.0100 74-106 mg/dL High GLU 151 Result Comment: Fasting Glucose result greater than or equal to 126 mg/dL suggests DIABETES MELLITUS per A.D.A. criteria. Please note revised GLUCOSE reference range effective 2017. LAB L501.1000 7-18 mg/dL High BUN 26 LAB L501.1100 0.70-1.30 mg/dL High CREAT,SERUM 1.42 Result Comment: The validity of the calculated GFR AND GFRAA in patients over 70 years has not been determined. Clinical correlation is essential. LAB L501.1110 >60 mL/min Low EST GFR 53 Result Comment: Non- GFR Calc LAB L501.1115 >60 mL/min Normal EST GFR - AA 64 Result Comment: GFR Calc LAB L501.1255 ml/min Normal Estimated CRCL 0.00 LAB L501.1300 10-20 RATIO Normal BUN/CRE 18.3 LAB L501.2200 8.5-10. mg/dL Normal 1 CA 9.8 LAB L501.5300 136-145 mmol/L Normal NA 141 LAB L501.5600 3.5-5.1 mmol/L Low K 3.4 LAB L501.5900 98-107 mmol/L Normal CL 103 LAB L501.6100 21.0-32 mmol/L Normal .0 CO2 24.0 LAB L501.6200 5-15 Normal GAP 14 Performed By: #### L500.2500, L501.4010 #### [facility] [address] [facility] [place], [address] TROPONIN-I Collected: 08/19/2018 Status: F Source: MORGAN 11:20 AM [facility] REPOSITORY TYPE CODE TESTS RESULT OUT OF RANGE REFERENCE UNITS LAB L501.4010 <0.045 ng/mL Normal < 0.015 TROPONIN-I Result Comment: TROPONIN-I EXPECTED VALUES <0.045 Negative 0.045 - 0.590 Consistent with Cardiac Damage > OR = 0.600 Critical Value Not every elevated troponin is indicative of NE. These values should be used with clinical judgement in examining the patient's clinical picture for diagnosis. To establish a diagnosis of NE versus myocardial injury, there must be a demonstrated rise and/or fall in the troponin values, in addition to ischemic symptoms, EKG changes, new regional wall motion abnormality, and/or angiographical evidence. PLEASE NOTE: REFERENCE RANGES EDITED 18 Performed By: #### L500.2500, L501.4010 #### [facility] [address] [place], [address] BASIC METABOLIC Collected: 08/13/2018 Status: F Source: MORGAN PROFILE (BMP) 9:35 AM [facility] REPOSITORY TYPE CODE TESTS RESULT OUT OF RANGE REFERENCE UNITS LAB L501.0100 74-106 mg/dL High GLU 215 Result Comment: Glucose result greater than or equal to 200 mg/dL suggests DIABETES MELLITUS per A.D.A. criteria. Please note revised GLUCOSE reference range effective 2017. LAB L501.1000 7-18 mg/dL High BUN 21 LAB L501.1100 0.70-1.30 mg/dL Normal CREAT,SERUM 1.02 Result Comment: The validity of the calculated GFR AND GFRAA in patients over 70 years has not been determined. Clinical correlation is essential. LAB L501.1110 >60 mL/min Normal EST GFR 77 Result Comment: Non- GFR Calc LAB L501.1115 >60 mL/min Normal EST GFR - AA 93 Result Comment: GFR Calc LAB L501.1300 10-20 RATIO High BUN/CRE 20.6 LAB L501.2200 8.5-10.1 mg/dL CA Normal 8.6 LAB L501.5300 136-145 mmol/L Low NA 135 LAB L501.5600 3.5-5.1 mmol/L K Normal 3.7 LAB L501.5900 98-107 mmol/L CL Normal 100 LAB L501.6100 21.0-32.0 mmol/L Normal CO2 25.0 LAB L501.6200 5-15 Normal GAP 10 Performed By: #### L500.2500, L501.1400 #### [facility] [address] [place], [address] URIC ACID Collected: 08/13/2018 Status: F Source: MORGAN 9:35 AM [facility] REPOSITORY TYPE CODE TESTS RESULT OUT OF RANGE REFERENCE UNITS LAB L501.1400 3.5-7.2 mg/dL Normal URIC 4.0 Result Comment: The drugs N-Acetylcysteine and Metamizole may falsely depress this assay. Performed By: #### L500.2500, L501.1400 #### [facility] [address] [place], [address] OPERATIVE REPORT Observed: 06/12/2018 Status: F Source: MORGAN 11:01 AM [facility] REPOSITORY [facility] Medical Records Department [address] [place] [address] Operative Report 06/12/18 1059 MR#: [id number] Acct: [id number] Name: PENG WING Rep #: [id number] : 1950 67 From: Suresh Horne MD PCP: Roby Chisholm MD Status: [facility] Y Location: [place] [address] Problem List (1) Screen for colon cancer Status: Acute Report of Operation Date of Procedure: 06/12/18 Pre-Operative Diagnosis: Screening colonoscopy Post-Operative Diagnosis: 2 sigmoid and one rectum polyp Surgery/Procedure Performed:: Colonoscopy with snare polypectomy Specimen's removed: 1. 2 sigmoid polyps. 2. Rectal polyp Description of Procedure: The major risks and benefits associated with the procedure were explained to the patient in detail. The patient verbalized understanding and agreement with the same. The patient was brought to the endoscopy suite. After adequate sedation was achieved, the patient was placed in the left lateral decubitus position and a digital rectal exam was performed. This examination was within normal limits. A well- lubricated colonoscope was then inserted into the rectum and advanced under direct visualization to the level of the cecum. The bowel prep was good. The cecum was identified by both visual and anatomic landmarks. A photograph was taken of the end of the cecum. The scope was then fully withdrawn while examining the color, texture, anatomy and integrity of the mucosa from the cecum to the anal canal. The findings were consistent with normal colonic mucosa. Over 6 minutes were taken to examine the colonic mucosa. The patient had 2 sigmoid polyps which were small and removed with cautery snare. He also had a proximal rectal polyp was removed with cautery snare as well. Hemostasis was good at both sites. Upon reaching the rectum the scope was retroflexed to examine the distal rectal vault. The scope was then straightened and was completely retrieved upon exiting the anal canal and the procedure was terminated. The patient was then transferred to the recovery room in stable condition. Recommendations for follow up: Dependent on pathology 06/12/18 1101 <Electronically signed by Suresh Horne MD> Date Suresh Horne MD CC: Suresh Horne MD; Roby Chisholm MD Signed HISTORY AND PHYSICAL Observed: 06/12/2018 Status: F Source: MORGAN EXAM 9:49 AM [facility] REPOSITORY [facility] Medical Records Department [address] [place] [address] History and Physical 06/12/18 0948 MR#: [id number] Acct: [id number] Name: PENG WING Rep #: [id number] : 1950 67 From: Suresh Horne MD PCP: Roby Chisholm MD Status: [facility] Y Location: [place] [address] Past Medical/Surgical History - Planned Operation Planned Operative Procedure/s: cscope open access Date of Operative Procedure: 06/12/18 Permit Signed: No S.O.S: No Is This Patient Having a Total Joint: No - Previous Hospitalizations/Surgeries HX Hospitalizations: No HX of Surgeries: kidney stone. colonoscopy Any Problems With Anesthesia: No You/Your Family Experience Fever (Hyperthermia) With Anes: No Cholinesterase deficiency: No - Cardiovascular Hx Chest Pain within Last 2 months: No Hx of Irregular Heartbeat and/or Afib: No Hx Heart Attack: No Hx Congestive Heart Failure: No Hx Rheumatic Fever: No Hx Hypertension: Yes - controlled with med Hx Internal Defibrillator: No Hx Pacemaker: No Hx Cardiac Catheterization: No Hx Cardiac Surgery/Stents/Etc.: No Hx Stress Test: No HX Edema: No Hx Pain in Legs when Walking/Leg Cramps: Yes - cramps prn - Respiratory Chronic Cough: No HX of Shortness of Breath: No Hoarseness: No Hx Chronic Obstructive Pulmonary Disease (COPD): No Hx Asthma: No Hx Emphysema: No Hx Sleep Apnea: No Hx Oxygen Use at Home: No Hx Respiratory Tract Infection/Cold (presently): No Do You Snore Loudly (louder than talking or can be heard): Yes Do You Often Feel Tired/ Fatigued/ Sleepy Dring Daytime?: No Has Anyone Observed You Stop Breathing During Sleep?: No Result (for STOP score): Positive Hx Smoking: No Smoking Status: Never smoker - Gastrointestinal Hx Gastroesophageal Reflux: No Hx Gastrointestinal Disorders: No Hx Gastrointestinal Bleed: No Hx Ulcer: No Hx Hiatal Hernia: No Difficulty Chewing/Swallowing: No Recent Onset of Swallowing Problems: No Special diet followed at home: Yes - diabetic Hx Unplanned Weight Loss of 20#: No HX Unplanned Weight Gain of 20#: No - Neurological Hx Seizures: No HX Syncope/Blackout Spells/Unconsciousness: Yes - passed out d/t heat Hx CVA/Stroke: No Hx Transient Ischemic Attacks (TIA): No Hx Multiple Sclerosis: No Hx Parkinson's Disease: No Hx Head/Neck Injury: No Hx Headaches: No Hx Back Injury/Pain: No Recent Onset of Speech Difficulty: No Restless Legs: No Does patient have nerve stimulator: No Patient instructed to have device shut off: No Rep notified?: No - Blood Disorder Hx Leukemia: No Bleeding Tendencies: No Hx Deep Vein Thrombosis: No Hx High Cholesterol: Yes - on med Blood Transmitted Disease: No Hx Hepatitis: No Hx Cirrhosis: No Hx Anemia: No Hx Blood Disorders: No - Genitourinary Hx Renal Disease: No - Musculoskeletal Hx Arthritis: No Hx Rheumatoid Arthritis: No Hx Gout: No Recent Onset of an Orthopedic Problem: No - Endocrine Hx Diabetes: Yes Insulin: No Thyroid Disease: No Hx Steroid Therapy: No - Psycho/Social Hx Substance Use: No Hx Alcohol Use: No Hx Anxiety: No Hx Depression: No Mental Illness: No Hx Dementia: No - Miscellaneous Hx Cancer: No Recent Exposure to Contagious Disease: No Active MRSA: No Hx of C-Diff: No Any Loose Teeth: No Allergies No Known Allergies Allergy (Verified 06/12/18 08:55) - Discharge Is Pt Admitted From a Mcfp, or a Alf: No Who Could Help: family After D/C, Where Do you Plan to Go: Return Home - From the PAT History Number of Risk Factors: 2 - Physical Exam General: Alert, Oriented x3, Cooperative Lungs: Normal air movement Cardiovascular: Regular rate, Regular Rhythm Abdomen: Soft, Non Tender, Non-Distended Vital Signs Temp Pulse Resp BP Pulse Ox 98 F 88 18 135/73 H 94 06/12/18 08:54 06/12/18 08:54 06/12/18 08:54 06/12/18 08:54 06/12/18 08:54 Oxygen Delivery Method Room Air Weight: 177 lb 14.609 oz Body Mass Index (BMI) 25.5 POC Glucose POC Glucose 172 H Assessment/Plan 67-year-old male for screening colonoscopy 1. Patient reports he had a normal colonoscopy 10 years ago. He is not having any abdominal pain or blood in his stool. He has no family history of colon cancer. 2. I explained endoscopy in detail to the patient. I explained the risks including but not limited to stroke or heart attack with anesthesia, perforation of the GI tract, bleeding, infection. I explained that any of these could necessitate further emergency surgery. The patient understands and all questions were answered sufficiently. The patient wishes to proceed with procedure. Suresh Horne MD Pager: [facility] [address] [place] [address], [address] [place] [address] Office: Surgery Risks - Colonoscopy Risks Include but are not Limited To: Risks include but are not limited to: Bleeding, perforation requiring further surgery, inability to complete colonoscopy requiring barium enema. 06/12/18 0949 <Electronically signed by Suresh Horne MD> Date Suresh Horne MD Cosigner Signature: Date (if applicable) CC: Suresh Horne MD; Roby Chisholm MD Signed BEDSIDE GLUCOSE Collected: 06/12/2018 Status: F Source: KEREN 9:00 AM [facility] REPOSITORY TYPE CODE TESTS RESULT OUT OF REFERENCE UNITS RANGE LAB L501.080 70-110 mg/dL High BEDSIDE GLU 172 Result Comment: MANAGEMENT OF PATIENT CARE PER NURSING PROTOCOL Performed By: #### L501.080 #### [facility] Point of Care [address] [place] [address] COLON BIOPSY (CHOOSE Observed: 06/12/2018 Status: F Source: MORGAN SITE) 12:00 AM [facility] REPOSITORY Patient: PENG WING : 1950 (67/M) Acct Num: [id number] Phys: Ozzie JOLLEY,Suresh Unit Num: [id number] Loc: EN Specimen: [id number] Received: 06/12/181419 Spec Type: COLON BX TISSUES TISSUES: A. Sigmoid colon biopsy B. Rectum, NOS GROSS DESCRIPTION A - Received in fixative is one container labeled with the patient's name and designated sigmoid colon polyps. The specimen consists of two irregular fragments of light garcia soft tissue that in aggregate measure 0.7 x 0.5 x 0.1 cm. The specimen is totally submitted in one cassette. B - Received in fixative is one container labeled with the patient's name and designated rectum polyp. The specimen consists of one irregular fragment of light garcia soft tissue that measures 0.5 x 0.5 x 0.2 cm. The specimen is totally submitted in one cassette. / SJ:dano 06/12/18 TC:1 CPT: 89530 x2 HEADER OPERATION: Colonoscopy (MAC) PRE-OP DIAGNOSIS: Screening TISSUE SUBMITTED: A Sigmoid colon polyps, B Rectal polyp MICROSCOPIC DESCRIPTION Slides are reviewed. MICROSCOPIC DIAGNOSIS A. Sigmoid colon polyps, biopsy: Fragments of tubular adenoma. B. Rectal polyp, biopsy: Fragment of colonic mucosa with focal hyperplastic changes. SJ:dano 06/15/18 Signed Storm Doe 06/15/18 <signature on file> Performed By: #### PCOLBX #### [facility] [address] [place], [place], [address] BASIC METABOLIC Collected: 05/14/2018 Status: F Source: KEREN PROFILE (BMP) 8:31 AM [facility] [facility] REPOSITORY TYPE CODE TESTS RESULT OUT OF RANGE REFERENCE UNITS LAB L501.0100 74-106 mg/dL High GLU 115 Result Comment: Fasting Glucose result from 100 to 125 mg/dL suggests IMPAIRED HOMEOSTASIS per A.D.A. criteria. Please note revised GLUCOSE reference range effective 2017. LAB L501.1000 7-18 mg/dL High BUN 21 LAB L501.1100 0.70-1.30 mg/dL Normal CREAT,SERUM 1.09 Result Comment: The validity of the calculated GFR AND GFRAA in patients over 70 years has not been determined. Clinical correlation is essential. LAB L501.1110 >60 mL/min Normal EST GFR 72 Result Comment: Non- GFR Calc LAB L501.1115 >60 mL/min Normal EST GFR - AA 87 Result Comment: GFR Calc LAB L501.1300 10-20 RATIO Normal BUN/CRE 19.3 LAB L501.2200 8.5-10.1 mg/dL CA Normal 8.7 LAB L501.5300 136-145 mmol/L NA Normal 139 LAB L501.5600 3.5-5.1 mmol/L K Normal 3.7 LAB L501.5900 98-107 mmol/L CL Normal 102 LAB L501.6100 21.0-32.0 mmol/L Normal CO2 25.0 LAB L501.6200 5-15 Normal GAP 12 Performed By: #### L500.2500, L500.3400, L500.4100 #### [facility] [address] [place], [place], [address] LIVER PROFILE Collected: 05/14/2018 Status: F Source: KEREN 8:31 AM [facility] REPOSITORY TYPE CODE TESTS RESULT OUT OF RANGE REFERENCE UNITS LAB L501.1500 6.4-8.2 g/dL Normal T PROT 7.9 LAB L501.1800 3.2-5.0 g/dL Normal ALB 3.8 LAB L501.1950 2.2-4.2 g/dL Normal GLOB 4.1 LAB L501.4100 15-37 U/L Normal AST 26 LAB L501.4305 45-117 U/L Normal ALK P 79 LAB L501.4405 16-61 U/L Normal ALT 38 LAB L501.4600 0.20-1.00 mg/dL Normal T BILI 0.50 LAB L501.4700 0.00-0.30 mg/dL Normal D BILI 0.15 Performed By: #### L500.2500, L500.3400, L500.4100 #### [facility] [address] [place], [address] LIPID PROFILE Collected: 05/14/2018 Status: F Source: KEREN 8:31 AM [facility] REPOSITORY TYPE CODE TESTS RESULT OUT OF RANGE REFERENCE UNITS LAB L501.4900 200 mg/dL Normal CHOL 114 Result Comment: <200 mg/dL Desirable 200-240 mg/dL Borderline >240 mg/dL High Risk LAB L501.5000 mg/dL Normal TRIG 121 Result Comment: The drugs N-Acetylcysteine and Metamizole may falsely depress this assay. Serum Triglycerides Reference Interval Normal <150 mg/dL Borderline high 150 - 199 mg/dL High 200 - 499 mg/dL Very High > or = 500 mg/dL LAB L501.6400 mg/dL Low HDL 30 Result Comment: The drugs N-Acetylcysteine and Metamizole may falsely depress this assay. Reference Range HDL <40 mg/dL Low HDL Cholesterol HDL >or= 60 mg/dL High HDL Cholesterol LAB L501.6500 0-130 mg/dL Normal LDL 60 LAB L501.6600 5-40 mg/dL Normal VLDL 24 Performed By: #### L500.2500, L500.3400, L500.4100 #### [facility] [address] [place], [address] MICROALB:CREAT Collected: 05/14/2018 Status: F Source: KEREN RATIO,RANDOM UR 8:31 AM [facility] REPOSITORY TYPE CODE TESTS RESULT OUT OF RANGE REFERENCE UNITS LAB L501.1200 NO RANGE EST. mg/dL Normal UR CREAT 144.00 LAB L502.0500 NO RANGE EST. mg/L Normal 7.2 MICROALBUMIN ,UR LAB L502.0600 <30 mg/g CRE mg/g CRE Normal 5.0 MALB:CREAT Performed By: #### L502.0250 #### [facility] [address] [facility] [place], [place], [id number] BASIC METABOLIC Collected: 02/04/2018 Status: F Source: MORGAN PROFILE (BMP) 8:28 AM [facility] REPOSITORY TYPE CODE TESTS RESULT OUT OF RANGE REFERENCE UNITS LAB L501.0100 74-106 mg/dL High GLU 289 Result Comment: Glucose result greater than or equal to 200 mg/dL suggests DIABETES MELLITUS per A.D.A. criteria. Please note revised GLUCOSE reference range effective 2017. LAB L501.1000 7-18 mg/dL High BUN 19 LAB L501.1100 0.70-1.30 mg/dL Normal CREAT,SERUM 1.25 Result Comment: The validity of the calculated GFR AND GFRAA in patients over 70 years has not been determined. Clinical correlation is essential. LAB L501.1110 >60 mL/min Normal EST GFR 61 Result Comment: Non- GFR Calc LAB L501.1115 >60 mL/min Normal EST GFR - AA 74 Result Comment: GFR Calc LAB L501.1300 10-20 RATIO Normal BUN/CRE 15.2 LAB L501.2200 8.5-10.1 mg/dL CA Normal 8.9 LAB L501.5300 136-145 mmol/L NA Normal 138 LAB L501.5600 3.5-5.1 mmol/L K Normal 3.6 LAB L501.5900 98-107 mmol/L CL Normal 102 LAB L501.6100 21.0-32.0 mmol/L Normal CO2 26.0 LAB L501.6200 5-15 Normal GAP 10 Performed By: #### L500.2500, L500.4100, L501.9910 #### [facility] [address] [facility] [place], [place], [address] LIPID PROFILE Collected: 02/04/2018 Status: F Source: MORGAN 8:28 AM [facility] REPOSITORY TYPE CODE TESTS RESULT OUT OF RANGE REFERENCE UNITS LAB L501.4900 200 mg/dL Normal CHOL 117 Result Comment: <200 mg/dL Desirable 200-240 mg/dL Borderline >240 mg/dL High Risk LAB L501.5000 mg/dL Normal TRIG 96 Result Comment: The drugs N-Acetylcysteine and Metamizole may falsely depress this assay. Serum Triglycerides Reference Interval Normal <150 mg/dL Borderline high 150 - 199 mg/dL High 200 - 499 mg/dL Very High > or = 500 mg/dL LAB L501.6400 mg/dL Low HDL 32 Result Comment: The drugs N-Acetylcysteine and Metamizole may falsely depress this assay. Reference Range HDL <40 mg/dL Low HDL Cholesterol HDL >or= 60 mg/dL High HDL Cholesterol LAB L501.6500 0-130 mg/dL Normal LDL 66 LAB L501.6600 5-40 mg/dL Normal VLDL 19 Performed By: #### L500.2500, L500.4100, L501.9910 #### [facility] [address] [place], [place], [address] PSA,TOTAL - ANNUAL Collected: 02/04/2018 Status: F Source: MORGAN SCREEN 8:28 AM [facility] REPOSITORY TYPE CODE TESTS RESULT OUT OF RANGE REFERENCE UNITS LAB L501.9910 0.00-4.00 ng/mL Normal PSA,TOT 0.56 SCREEN Result Comment: This test was performed using the TPSA assay method for the Terapio chemistry system. Values obtained with different assay methods cannot be used interchangably. When changing PSA assays in the course of monitoring a patient, additional sequential testing should be carried out to confirm baseline values. Performed By: #### L500.2500, L500.4100, L501.9910 #### [facility] [address] [place], [place], [address] TESTOSTERONE, SERUM TOTAL Collected: 02/04/2018 Status: F Source: KEREN 8:28 [facility] [place]POSITORY TYPE CODE TESTS RESULT OUT OF REFERENCE UNITS RANGE LAB L509.3000 ng/dL Testosterone Normal 391.86 Result Comment: NORMAL REFERENCE RANGES MALE AGE <50 123.06 - 813.86 ng/dL MALE AGE >50 89.98 - 780.10 ng/dL FEMALE PREMENOPAUSE AGE 21 - 60 9.01 - 47.94 ng/dL FEMALE POSTMENOPAUSE AGE 45 - 89 <7.00 - 45.62 ng/dL REFERENCE RANGE AND METHODOLOGY CHANGED 09/24/2017 Performed By: #### L509.3000 #### [facility] [address], [address] ALLERGIES ALLERGIES DATE TYPE / CODE NAME / CODE REACTION SEVERITY SOURCE 09/07/2018 Drug No Known Unknown [facility] Allergy/4160 Allergies/F00 Hospital 28352(SNOMED 0438610(RXNOR Repository CT) M) ENCOUNTERS ENCOUNTERS ADMIT/DISCHARGE ACCOUNT ADMITTING ENCOUNTER LOCATION SOURCE NUMBER CLASS 10/27/2018 [id number] Ambulatory [place] 6 [facility] ing:PT Repository 09/30/2018 [id number] Ambulatory [place] 1 [facility] ing:LAB Repository 09/16/2018 [id number] Ambulatory [place] 0 [facility] ing:MTRAD Repository 09/10/2018 [id number] Ambulatory Keren [place] 6 [facility] ing:MTRAD Repository 09/07/2018/ [id number] Ambulatory BMSBuilding:B [place] 8 1 [facility] Repository 08/19/2018/ [id number] Kateeletsaram, Inpatient Keren Ke[place] 8 4 [place] Encounter [facility] ing:ICURoom: Repository KFM46Bap: 1 08/19/2018 [id number] Kateeletsky, Ambulatory BMSBuilding:B [place] 2 [place].[facility] Repository 08/19/2018 [id number] Tereletsky, Ambulatory BMSBuilding:B [place] 3 [place].[facility] Repository 08/19/2018 [id number] Tereletsky, Ambulatory BMSBuilding:B [place] 8 [place].[facility] Repository 08/19/2018 [id number] Tereletsky, Ambulatory BMSBuilding:B [place] 0 [place] MS.[facility] Repository 08/19/2018 [id number] Kateeletsky, Ambulatory BMSBuilding:B [place] 9 [place].[facility] Repository 08/19/2018/ [id number] Ambulatory BMSBuilding:W [place] 8 5 [facility] Repository 08/13/2018 [id number] Ambulatory [place] 3 [facility] ing:MFPLAB Repository 06/12/2018/ [id number] Ambulatory [place] 8 7 [facility] ing:ENRoom: Repository AC15 06/12/2018 [id number] Ambulatory BMSBuilding:B [place] 0 [place].[facility] Repository 05/15/2018/ [id number] Ambulatory BMSBuilding:B [place] 8 2 [facility] Repository 05/15/2018/ [id number] Ambulatory BMSBuilding:B [place] 8 3 [facility] Repository 05/14/2018 [id number] Ambulatory [place] 1 [facility] ing:MFPLAB Repository 02/04/2018 [id number] Ambulatory [place] 0 [facility] PAYERS PAYERS ENCOUNTER GUARANTOR PAYER SUBSCRIBER SOURCE 10/27/2018 PENG Martinez Primary Insurance:AETNA PENG Veliz [id number] JONAS MCRPolicy Number: MEDUREDOB[facility] PHELANKNTCFEffective [email or web address] [address]Nrv: Date:4551-24-89XC BOX Repository [id number] ANGELINE CASTILLO () [address]XX: 10/27/2018 Secondary NOT GIVENUNK [place] Insurance:SELF PAY [facility] INSURANCEPolicy Number: Hospital Effective Repository Date:2018-10-12 09/30/2018 PENG Martinez Primary Insurance:AETNA PENG Veliz [id number] JONAS MCRPolicy Number: MEDUREDOB: [facility] HospitalMODESTA PHELANKNTCFEffective [id number] [facility]es [email or web address] [address]Ssf: Date:7945-85-49WK BOX Repository [id number] ANGELINE CASTILLO ) [address]YM: 09/30/2018 Secondary NOT GIVENUNK [place] Insurance:SELF PAY Community INSURANCEPolicy Number: Hospital Effective Repository Date:2018-09-30 09/16/2018 PENG R Primary Insurance:AETNA PENG Martinez Ke[place] [id number] JONAS MCRPolicy Number: MEDUREDOB: Community [address] SUJIT, BKNTCFEffective [id number] Ville [address]Tel: Date:2850-81-70DE BOX Repository [id number] JONATHAN [place] () [address]UE: 09/16/2018 Secondary NOT GIVENUNK [place] Insurance:SELF PAY Community INSURANCEPolicy Number: Hospital Effective Repository Date:2018-09-16 09/10/2018 PENG R Primary Insurance:AETNA PENG R [place] [id number] JONAS MCRPolicy Number: MEDUREDOB: Community [address], BKNTCFEffective [id number] Ville [address]Tel: Date:8655-99-74YG BOX Repository [id number] [place] [address] [place] () [phone]: 09/10/2018 Secondary NOT GIVENUNK [place] Insurance:SELF PAY Community INSURANCEPolicy Number: Hospital Effective Repository Date:2018-09-10 09/07/2018 PENG R Primary Insurance:AETNA PENG Martinez [place] [id number] JONAS MCRPolicy Number: MEDUREDOB: Community [address], BKNTCFEffective [id number] Ville [address]Tel: Date:1928-31-43MZ BOX Repository [id number] [place] () [address]GD: 09/07/2018 Secondary NOT GIVENUNK [place] Insurance:SELF PAY Community INSURANCEPolicy Number: Hospital Effective Repository Date:2018-09-07 08/19/2018 PENG R Primary Insurance:AETNA PENG Martinez Ke[place] [id number] JONAS MCRPolicy Number: MEDUREDOB: Community [address], MEBKNTCFEffective [id number] Ville [address]Tel: Date:3976-37-68EO BOX Repository 636696ELANGELINE WALDEN () [address]LZ: 08/19/2018 Secondary NOT GIVENUNK [place] Insurance:SELF PAY Community INSURANCEPolicy Number: Hospital Effective Repository Date:2018-08-19 08/19/2018 PENG R Primary Insurance:AETNA PENG R [place] [id number] JONAS MCRPolicy Number: MEDUREDOB: Community [address], BKNTCFEffective [id number] Ville [address]Tel: Date:9652-84-59TX BOX Repository 641546AEANGELINE CORTEZ () [address]GS: 08/19/2018 Secondary NOT GIVENUNK [place] Insurance:SELF PAY Community INSURANCEPolicy Number: Hospital Effective Repository Date:2018-08-19 08/19/2018 PENG R Primary Insurance:AETNA PENG R [place] [id number] JONAS MCRPolicy Number: MEDUREDOB: Community [address], BKNTCFEffective [id number] Ville [address]Tel: Date:0689-87-48ZL BOX Repository 339713GNANGELINE CORTEZ () [address]OH: 08/19/2018 Secondary NOT GIVENUNK [place] Insurance:SELF PAY Community INSURANCEPolicy Number: Hospital Effective Repository Date:2018-08-19 08/19/2018 PENG R Primary Insurance:AETNA PENG R [place] [id number] JONAS MCRPolicy Number: MEDUREDOB: Community [address], BKNTCFEffective [id number] [facility]es [facility] [[email or web address]] [id number]: Date:3847-29-38MA BOX Repository [phone] WALDEN () [address]OX: 08/19/2018 Secondary NOT GIVENUNK [place] Insurance:SELF PAY Community INSURANCEPolicy Number: Hospital Effective Repository Date:2018-08-19 08/19/2018 PENG R Primary Insurance:AETNA PENG R [place] [id number] JONAS MCRPolicy Number: MEDUREDOB: Community MILAN EBRGFEffective [id number] Ville [address]Tel: Date:3572-71-90RE BOX Repository 763612OXANGELINE CORTEZ () [address]ZY: 08/19/2018 Secondary NOT GIVENUNK [place] Insurance:SELF PAY Community INSURANCEPolicy Number: Hospital Effective Repository Date:2018-08-19 08/19/2018 PENG R Primary Insurance:AETNA PENG Martinez [place] [id number] JONAS MCRPolicy Number: MEDUREDOB: Community STEVEN BERGffective [id number] Ville [address]Tel: Date:0880-84-02PZ BOX Repository 227853FCANGELINE CORTEZ () [address]LC: 08/19/2018 Secondary NOT GIVENUNK [place] Insurance:SELF PAY Community INSURANCEPolicy Number: Hospital Effective Repository Date:2018-08-19 08/19/2018 PENG R Primary Insurance:AETNA PENG Princeoster [id number] JONAS MCRPolicy Number: MEDUREDOB: Community STEVEN BERGffective [id number] Ville [address]Tel: Date:8165-53-37OY BOX Repository [id number] ANGELINE CASTILLO () [address]JU: 08/19/2018 Secondary NOT GIVENUNK [place] Insurance:SELF PAY Community INSURANCEPolicy Number: Hospital Effective Repository Date:2018-08-19 08/13/2018 PENG R Primary Insurance:AETNA PENG Princeoster [id number] JONAS MCRPolicy Number: MEDUREDOB: Community STEVEN BERGffective [id number] Ville [address]Tel: Date:9330-03-19HP BOX Repository 042977DIANGELINE CORTEZ () [address]HP: 08/13/2018 Secondary NOT GIVENUNK [place] Insurance:SELF PAY Community INSURANCEPolicy Number: Hospital Effective Repository Date:2018-08-13 06/12/2018 PENG R Primary Insurance:AETNA PENG Martinez [place] [id number] JONAS MCRPolicy Number: MEDUREDOB: Community [address] [place], MEBKNTCFEffective [id number] Ville [address]Tel: Date:9002-33-33QX BOX Repository [id number] [place] [address] [place] () [address]ST: 06/12/2018 Secondary NOT GIVENUNK [place] Insurance:SELF PAY Community INSURANCEPolicy Number: Hospital Effective Repository Date:2018-05-15 06/12/2018 PENG R Primary Insurance:AETNA PENG Martinez Ke[place] [id number] JONAS MCRPolicy Number: MEDUREDOB: Community [address] [place], MEBKNTCFEffective [id number] Ville [address]Tel: Date:2427-67-22OC BOX Repository [id number] [place] [address] () [address]OR: 06/12/2018 Secondary NOT GIVENUNK [place] Insurance:SELF PAY Community INSURANCEPolicy Number: Hospital Effective Repository Date:2018-06-12 05/15/2018 PENG R Primary Insurance:AETNA PENG Martinez Ke[place] [id number] JONAS MCRPolicy Number: MEDUREDOB: Community [address] SU[address], BKNTCFEffective [id number] Ville [address]Tel: Date:2404-48-11LF BOX Repository [address] () [address]VU: 05/15/2018 Secondary NOT GIVENUNK [place] Insurance:SELF PAY Community INSURANCEPolicy Number: Hospital Effective Repository Date:2018-05-15 05/15/2018 PENG R Primary Insurance:AETNA PENG Martinez [place] [id number] JONAS MCRPolicy Number: MEDUREDOB: Community [address] [place], MEBKNTCFEffective [id number] Ville [address]Tel: Date:8740-85-20AZ BOX Repository 576329UJANGELINE CORTEZ () [address]BP: 05/15/2018 Secondary NOT GIVENUNK [place] Insurance:SELF PAY Community INSURANCEPolicy Number: Hospital Effective Repository Date:2018-05-15 05/14/2018 Peng R Primary Insurance:AETNA Peng Michelle Ke[place] [id number] Jonas BROOKSPolicy Number: MedureDOB: Community Rd[address] YESSENIA BarbozaTCFEffective [id number] [facility]es [facility] [[email or web address]] [address]Wgy: Date:8993-08-56UI BOX Repository 332861GRANGELINE CORTEZ () [address]SV: 05/14/2018 Secondary NOT GIVENUNK [place] Insurance:SELF PAY Community INSURANCEPolicy Number: Hospital Effective Repository Date:2018-05-14 02/04/2018 Peng R Primary Insurance:AETNA Peng Martinez Ke[place] [id number] Jonas BROOKSPolicy Number: MedureDOB: Community RdBrian Barboza, YESSENIATCFEffective [id number] Crosses [facility] [[email or web address]] [address]Dql: Date:2359-46-67AC BOX Repository 361195AQANGELINE CORTEZ () [address]TM: 02/04/2018 Secondary NOT GIVENUNK [place] Insurance:SELF PAY Community INSURANCEPolicy Number: Hospital Effective Repository Date:2018-02-04
== END ==
PROVIDERS: Family Provider Family Medicine; PCP Family Medicine; Referring Provider Family Medicine; Visit Provider Family Medicine
DX: M19.011 Primary osteoarthritis, right shoulder (principal)
CPT/HCPCS: 73030

== ENCOUNTER → 2018-09-30 11:01 | Outpatient (CLI) | payer MEDICARE, SELFPAY ==
[2018-09-07 13:07] VITALS: BMI 27.2
[2018-09-30 12:21] LABS: AST(SGOT) 25 U/L (15-37); Alanine Aminotransfer ALT/SGPT 34 U/L (16-61); Albumin, Serum 3.9 g/dL (3.2-5.0); Alkaline Phosphatase 80 U/L (45-117); Bilirubin, Direct 0.22 mg/dL (0.00-0.30); Cholesterol 84 mg/dL (200); High Density Lipoprotein 32 mg/dL; Protein, Total 7.9 g/dL (6.4-8.2); Triglycerides 85 mg/dL; Very Low Density Lipoprotein 17 mg/dL (5-40)
== END ==
PROVIDERS: Family Provider Family Medicine; PCP Family Medicine; Referring Provider Physician Assistant Medical; Visit Provider Physician Assistant Medical
DX: I25.10 Atherosclerotic heart disease of native coronary artery without angina pectoris (principal); E78.5 Hyperlipidemia, unspecified
CPT/HCPCS: 36415; 80061; 80076

== ENCOUNTER 2018-10-27 10:30 | Outpatient (RCR) | payer MEDICARE, SELFPAY ==
[2018-09-07 13:07] VITALS: BMI 27.2
--- NOTE | 2018-10-13 11:51 | HP.PTEVAL_ITS ---
Patient's Visit Information JASMEET WING is a 68 year old M referred to Physical Therapy by Roby Chisholm MD with a diagnosis of shoulder pain. Date of Evaluation: 10/13/18 Physical Therapist: GLORIA Burks - Visit Plan Frequency: 2x /Week Duration: 2 Weeks Plan: 2X/ week for 2 weeks for R shoulder AROM/PROM, postual scapular strength, RC strength, HEP...modalities as needed - Subjective Findings: Pt has a sharp pain in the front of the R shoulder. For awhile he could not lift his arm up but keeping ice on it and tylenol he can move it freely. Occ when he moves his arm he will get a stabbing pain in the front of the R shoulder and stops once the movement stops. He gets it a couplr of times an hour. It is hard to lift wood or chain saw. This has been going on for a good month. He is R handed. No N&T and no neck pain. He feels that he has some weakness there. He can not lay on his R side very much. Occ he will get it on the L. - Pain R shoulder pain Pain Intensity (Out of 10): 2 Pain Intensity Range: 10 - Objective Full shoulder AROM B. Palpation: Tender under the R acromion. + HK test for impingement at max range end point. UE MMT: shld flex R 4-/5 and L 4/5, R shld abd 4-/5 and L 4/5, B shld ER 4+/5, B IR 4+/5. Posture: sits with rounded shoulders and fw head. Full PROM B of B shoulders - Goals Goal 1:: I HEP Goal Time Frame: 2-4 Weeks Goal 2:: Be able to sleep through the night without waking up in middle of night with shoulder pain Goal Time Frame: 2-4 Weeks Goal 3:: Sit with upright posture during treatment sessions Goal Time Frame: 2-4 Weeks Goal 4:: Increase R shoulder strength to be 4+/5 shld flex, abd, ER and IR Goal Time Frame: 2-4 Weeks - Rehabilitation Potential Rehabilitation Potential: Good - Anticipated Interventions Patient/Client Instruction: Educate patient on: Plan of Care For the Purpose of:: To decrease pain, To improve nutrient delivery to tissue, To improve muscle performance and motor function, To improve ability to perform ADL's, To increase tolerance to activity/condition/position, To improve performance and independence with ADL's, To improve health of tissue Therapeutic Exercise to Include: Strength training, Postural training, Passive ROM, Active ROM, Scapular Strength/Stabilization For the Purpose of:: To decrease pain, To increase ROM, To improve nutrient delivery to tissue, To improve muscle performance and motor function, To improve ability to perform ADL's, To increase tolerance to activity/condition/position, To improve performance and independence with ADL's, To improve health of tissue, To increase flexibility/ROM Manual Therapy Techniques to Include: Passive ROM, Soft tissue mobilization For the Purpose of:: To improve nutrient delivery to tissue, To decrease soft tissue restriction, To increase flexibility/ROM IF ES: Yes Cryotherapy (ice pack, ice massage): Yes Ultrasound (thermal/non thermal): Yes For the Purpose of:: To decrease pain, To improve nutrient delivery to tissue Thank you for the opportunity to evaluate your patient. For Medicare and Medicare HMO plans, please review the plan of care and approve it. It will need to be FAXED BACK to us at [phone] for Medicare purposes. For Medicare only, by signing this I certify the plan of care. Please let me know if there are questions or concerns regarding this plan of ca re. Physician Signature: Date:
--- NOTE | 2018-10-27 11:12 | HP.PTDCSUM ---
HP - PT D/C Summary It has been my pleasure to treat JASMEET WING under orders from Roby Chisholm MD, for the diagnosis of shoulder pain for a total of 5 visit(s). Discharge Date: 10/27/18 Please see the following information for a summary of their discharge status. - Subjective Subjective: Pt reports that he is doing much better and feels comfortable doing his exercises at home. Pt 10 min late due to bad roads. - Pain R shoulder pain Pain Intensity (Out of 10): 1 - Overall Improvement % Improvement: 90 - Objective Objective/Function: UE MMT: R shld MMT: ER 4-/5, RIR 4+/5, R abd 4-/5, and R flex 4/5. L shd MMT: ER, IR, Flex and abd 4/5. Posture: sits with upright posture during treatment sessions. - Goals Goal 1:: I HEP Goal Progress: Goal Met Goal 2:: Be able to sleep through the night without waking up in middle of night with shoulder pain Goal Progress: Not Progressing Goal 3:: Sit with upright posture during treatment sessions Goal Progress: Goal Met Goal 4:: Increase R shoulder strength to be 4+/5 shld flex, abd, ER and IR Goal Progress: Progressing - Plan Plan: DC PT to HEP - D/C Information Discharge Comments: DC PT to HEP If there are questions or concerns regarding this patient's physical therapy, please feel free to call me at [phone]. Thank you for the referral of this patient. Sincerely, Shraddha Kruse, MPT
== END 2018-10-27 19:00 | disposition home or self-care (01) ==
LOC: PT 10:30
PROVIDERS: Family Provider Family Medicine; PCP Family Medicine; Referring Provider Family Medicine; Visit Provider Family Medicine
DX: M25.519 Pain in unspecified shoulder (principal)
CPT/HCPCS: 97110; 97161; 97530

== ENCOUNTER → 2018-11-10 11:46 | Outpatient (CLI) | payer MEDICARE, SELFPAY ==
[2018-09-07 13:07] VITALS: BMI 27.2
--- NOTE | 2018-11-10 12:47 | CR.HP_ITS ---
CR - History & Physical - General Arrival date:: 11/10/18 Arrival time:: 12:00 Date of Referral:: 08/19/18 Date of CR Evaluation:: 11/10/18 Referring Physician: DR. YONATHAN MOFFETT Primary Diagnosis: STEMI, PRESENCE OF CORONARY ANGIOPLSTY IMPLANT/GRAFT - History of Present Cardiac Event Onset Date: Enter Onset Date of cardiac illnesses in Comment field below Acute Myocardial Infarction within 12 months:: Yes - 08/19/2018 PTCA or coronary stenting:: Yes - 08/19/2018 Type of Symptoms:: PATIENT WAS BLOWING LEAVES IN FALL AND DEVELOPED A CRUSHING CHEST PAIN. HE WENT INSIDE AND HIS GAVE HIM 2 BABY ASPIRIN AND CALLED 911 (EMS). Interventions with present event:: HEART CATH, STENT, ECHOCARDIOGRAM, 12-LEAD EKG - Medications Home Medications: Ambulatory Orders Medication Instructions Recorded Amlodipine [Norvasc] 10 mg PO DAILY 06/09/18 Chlorthalidone 25 mg PO DAILY 06/09/18 Cholecalciferol (Vitamin D3) 2,000 unit PO DAILY 06/09/18 [Vitamin D3] Empagliflozin [Jardiance] 10 mg PO DAILY 06/09/18 Glipizide 5 mg PO DAILY 06/09/18 Losartan Potassium [Cozaar] 100 mg PO DAILY 06/09/18 Multivitamin [Multiple Vitamins] 1 ea PO DAILY 06/09/18 Testosterone [Androgel] 75 gm TD DAILY 06/09/18 Calcium Carbonate/Vitamin D3 1 ea PO 08/19/18 [Calcium 500-Vit D3 600 Tablet] Acetaminophen [Tylenol Tablet] 650 mg PO Q6H PRN PRN tab 08/21/18 Aspirin E.C. [Ecotrin] 81 mg PO DAILY@0800 tab 08/21/18 Metformin HCl 1,000 mg PO BID #0 08/21/18 atorvastatin 80 mg tablet 80 mg PO QHS #90 tab 09/07/18 carvedilol 3.125 mg tablet 3.125 mg PO BID #180 tab 09/07/18 ticagrelor 90 mg tablet 90 mg PO BID #180 tab 09/07/18 - Allergies Allergies/Adverse Reactions: Allergies No Known Allergies Allergy (Verified 09/07/18 13:09) - Sleep Disorder Evaluation Hx of Sleep Apnea: No Do you snore loudly (louder than talking or can be heard through closed doors)?: Yes Do you often feel tired/ fatigued/ sleepy during daytime?: No Has anyone observed you stop breathing during sleep?: No History of Hypertension (for STOP score): Yes STOP Results: Positive Advanced Directives - Advanced Directives Power of Powder [employer] Canning Leader: Yes Living Will: Yes Advance Directives Information Provided: No Advance Directives on File: Yes - YES, DENICE BELIEVES THEY ARE ON FILE DNR Order?:: No - MOLST See MOLST form: No Past Medical History - Past Medical Illness Medical History: Past Medical History (Last Updated 11/10/18 @ 12:51 by Dominguez Nguynễ, CLARIFYING PLANT OPERATOR, BRANCH BILLING PAYROLL CLERK, BS) Arteriosclerosis of coronary artery (Chronic) I25.10 Stenting to RCA 08/2018 Hyperlipidemia (Chronic) E78.5 Diabetes mellitus type II, controlled (Chronic) E11.9 Hypertension (Chronic) I10 Acute inferolateral myocardial infarction (Chronic) Onset Date: 08/19/18 I21.19 Non-sustained ventricular tachycardia I47.2 - Past Surgical History Surgical History: Past Surgical History (Last Updated 09/07/18 @ 13:09 by Kelley Kasper) Stented coronary artery (Chronic) Onset Date: 08/19/18 Z95.5 PTCA and JOSE MANUEL (4.0 X 16 Promus Synergy) to mid RCA per Dr. Moffett @ [facility] Surgical History: - - Removal of kidney stone through cystoscopy - Family History Summary Family History: Family History (Last Updated 09/07/18 @ 13:10 by Kelley Kasper) Mother Diabetes Brother Heart disease Social History - Smoking History Smoking Status: Never smoker Hx Tobacco Use: No Hx Smoking Exposure: No - Alcohol Use Alcohol Usage: No - Substance Abuse Hx Substance Use: No - Occupation Occupation (List type of work in comments):: Retired - Hobbies, Recreation, Social Activities Hobbies: Other - [employer] swimming couple times week, gardening, yard work, 5 acres, cutting splitting wood etc. Recreational Activities: I am able to engage in all my recreational activities Social Environment - Status Marital Status: - Current Living Arrangements Living Environment:: Spouse - Children How many children do you have?: 2 - Do any of your children live nearby?: Yes - JOCE Victor - Safety Do you feel safe in your surroundings?: Yes - Assistance Do you need any assistance at home?: none Review of Systems - Review of Systems Hints: Right click = Denies (Slash). Left click = Reports (Rapelje) Review of Present Symptoms: Reports: Dizziness/Lightheadedness - lightheaded a couple of times last week, bent over I guess for to long and stood up felt dizzy., Heart Arrhythmia/Irregularities - non-sustained ventricular tachycardia., Appetite - Normal, Appetite - Special Diet - Try to delete salt, breads carbohydrates, one can pop weekly caffeine sugar free, alot of vegetables anad salads., Sleep - Normal - never have slept very good, very light sleeper.. Denies: Shortness of Breath at Rest, Shortness of Breath with Exertion, An matilde, Fatigue - Pain Is Patient Pain Free?: Yes Pain Location: none Pain Level: 0/10 Risk Factor Assessment - Vital Signs Temperature: 98.7 F Respiratory Rate: 16 Pulse Ox: 95 Blood Pressure: 112/56 Nailbeds:: PINK - Pulse Pulse Rate: 80 Pulse Rhythm: Regular - Hypertension Blood Pressure Sitting - Left Arm: 112/56 - Blood Cholesterol/Lipids Total Cholesterol (mg/dL) Goal = less than 200 mg/dL: 84 HDL Cholesterol (mg/dL) Goal = less than 40 mg/dL: 32 LDL Cholesterol (mg/dL) Goal = less than 70 mg/dL: 35 Triglycerides (mg/dL) Goal = less than 150 mg/dL: 85 - Diabetes Diabetic History: Type II, Medication Dependent Nutrition Referral for Diabetes: Yes - Obesity Height: 5 ft 10 in Weight:: 180 lb Weight in Pounds: 180.0 lbs Weight Source: Acute Hospital Body Mass Index (BMI): 25.8 Nutritional Referral for Obesity: No - Physical Inactivity Physical Inactivity: Reg Exercise 30 min/day - [employer] twice week, - Risk Stratification Risk Guidelines: Lowest Risk: Risk Factor for Smoking, Risk Factor for Diabetes - glucose at discharge 116, Risk Factor for Obesity, Risk Factor for Hypertension, Risk Factor for Sedentary Lifestyle, Risk Factor for Depression, Moderate Risk: Risk Factor for Dyslipidemia - mixed hyperlipidemia - For Smoking Smoking Risk Guidelines: Smoking Low Risk: None or quit greater than 6 months ago. Smoking Moderate Risk: Smoker or quit 6 months or less ago. Smoking High Risk: Smoker - For Dyslipidemia Dyslipidemia Risk Guidelines: Low Risk: Moderate Risk: High Risk: 15-25% fat 25.1-29% fat >/= 30% fat. <7% sat fat 7-9% sat fat >9% sat fat. <150 mg chol 150-299 mg chol >/= 300 mg chol. LDL <100 LDL 100-129 LDL >/= 130. Chol/HDL ratio <5.0 Chol/HDL ratio 5.0-6.0 Chol/HDL ratio >6.0. Triglycerides <100 Triglycerides 100- 149 Triglycerides >/= 150 - For Diabetes Mellitus Diabetes Risk Guidelines: Diabetes Low Risk: HgA1c <6.5% and/or FBG <120. Diabetes Moderate Risk: HgA1c 6.6-7.9% and/or FBG 120-180. Diabetes High Risk: HgA1c >/= 8% and/or FBG >180 - For Obesity/Overweight Obesity/Overweight Risk Guidelines: Obesity Low Risk: BMI <25.0. Obesity Moderate Risk: BMI 25-29.9. Obesity High Risk: BMI >/= 30.0 - For Hypertension Hypertension Risk Guidelines: Hypertension Low Risk: Systolic <120 and Diastolic <80. Hypertension Moderate Risk: Systolic 120-139 and Diastolic 80-89. Hypertension High Risk: Systolic >/= 140 and Diastolic >/= 90 - For Sedentary Lifestyle Sedentary Lifestyle Risk Guidelines: Sedentary Lifestyle Low Risk: >/= 1,500 kcal/week. Sedentary Lifestyle Moderate Risk: 700-1,499 kcal/week. Sedentary Lifestyle High Risk: < 700 kcal/week - For Depression Depression Risk Guidelines: Depression Low Risk: Not clinically depressed. Depression Moderate Risk: Mildly depressed. Depression High Risk: Clinically depressed - Family History Family History: Family History (Last Updated 09/07/18 @ 13:10 by Kelley Kasper) Mother Diabetes Brother Heart disease Motivation - Motivation to Participate On a scale of 1 to 10, how prepared are you to commit to attending program?: 10 What do you see as barriers to successfully being able to complete the program?: none What do you see as the benefits of succesfully completing the program? In other words, what do you hope to get out of participating in the program?: learning more about the condition, preventing it, increase activity level Are there issues you are dealing with that will interfere with completing the program?: none Do you have a spouse or signficant other, family or friends who will help support you to complete the program?: yes
--- NOTE | 2018-11-10 13:03 | CR.ITP_ITS ---
General Information - General Information Admitting Diagnosis: nstemi, pci w/coronary stent - Education/Goals Barriers to Learning: None Individual Counseling: Initial Assessment: Abnormal Cholesterol Levels, High Blood Pressure, Diabetes Cardiac Rehabilitation Goals: 1. Maintain the individual as the primary focus of care. 2. To improve the patient's quality of life. 3. Identification of cardiac risk factors and provide cardiac risk factor management. 4. Enhance the psychosocial status of the patient. 5. Reconditioning enough to allow the patient to resume customary activities. 6. Control symptoms of cardiac disease Scale for measuring improvement of personal goals: Enter appropriate number in Comments. 2 = Unchanged. 3 = Slightly Better. 4 = Moderate Improvement. 5 = Met my Goal Personal Goals: Initial Assessment: Improve energy level, Improve knowledge of cardiac disease, Improve muscle strength and endurance, Improve diet and eating habits (eat healthier), Control risk factors (learn risk factor modification) Exercise - Initial Assessment - Visit Date of Eval: 11/10/18 Session #:: 0 - STARTING 11/11/2018 - Stages of Change Stages of Change:: Action - Exercise Prescription Mode:: Treadmill, Rower, Airdyne, NuStep Target Heart Rate:: 114-121 - Hypertension Do any of the following apply?: Yes, Medication Peak Exercise Blood Pressure:: 112/56 - Intervention Home Exercise/Activity Goal:: Moderate Exercise 30 min/day x 5 days/wk - Education Goals:: Warm-up, RPE BERTHA Scale, S/S, Safe Exercise, Self-Monitoring - Exercise Program Goals Exercise Program Goals: Aerobic Activity >30 min Nutrition - Initial Assessment - Program Goals Nutrition Program Goals: LDL <70. Total Cholesterol <200. HDL >45. Triglycer ides <150. HgbA1C <7%. BMI <25 - Visit Date of Assessment:: 11/10/18 - Stages of Change Stages of Change:: Action - Diabetes Diabetes:: Yes Fasting blood glucose:: 116 Insulin: No Non-Insulin Dependent?: Yes Do you monitor your blood sugar at home?: Yes - Weight Management Height: 5 ft 10 in Weight:: 180 lb Body Fat %:: 25.8 - Intervention Referral to dietitian:: No Referral to Diabetic Clinic:: Yes Will attend diet classes:: Yes - Education Gave educational materials for:: Signs & symptoms of hypoglycemia, Signs & symptoms of hyperglycemia, Relate diabetes to coronary artery disease, Healthy eating Tobacco - Initial Assessment - Program Goals Tobacco Program Goals: Complete smoking cessation. Attend education classes. Improve Knowledge Test score - Stage of Change Stages of Change:: Action - Learning Barriers Learning Barriers: Ready to Learn - Family Support Do you have family support?: Yes - Tobacco Use Tobacco Use: Non-smoker Do you use smokeless tobacco?: No - Intervention Smoking Cessation Referral:: No Individual Education/Counseling:: No Education Schedule Given:: Yes - Education Gave educational material for:: Coronary artery disease, Risk factors, Sexuality, Medical compliance, Cardiac A&P, Angina signs & symptoms Psychosocial - Initial Assess - Target Goals Target Goals: Assess presence or absence of depression. Using a valid screening tool, maximizes coping skills. Positive support system - Stages of Change Stages of Change:: Action - Psychosocial Test Tool Used:: HANDS Depression Questionnaire - Intervention PS - Interventions: Yes Attend Stress Management Classes, No Referral to Mental Health, No Referral to [facility] Case Management, No Referral to Physician, No Uses Stress Management Skills - Education Gave educational materials for:: Coping techniques, Signs & symptoms of depression, Stress management, Relaxation techniques - Patient/Program Goal Preventative Medication(s):: Aspirin, Clopidogrel, Beta kosta, Statin/lipid - Assistive Devices Assistive Devices:: None Fall Risk Assessed:: Yes Patient Health Questionnaire Initial Assessment 1. Little interest or pleasure in doing things: Not at all 2. Feeling down, depressed, or hopeless: Not at all 3. Trouble falling or staying asleep, or sleeping too much: More than half the days 4. Feeling tired or having little energy: Several days 5. Poor appetite or overeating: Not at all 6. Feeling bad about yourself -- or that you are a failure or have let yourself or your family down: Not at all 7. Trouble concentrating on things, such as reading the newspaper or watching television: Not at all 8. Moving or speaking so slowly that other people could have noticed. Or the opposite - being so fidgety or restless that you have been moving around a lot more than usual: Not at all 9. Thoughts that you would be better off , or of hurting yourself in some way: Not at all How difficult have these problems made it for you to do your work, take care of things at home, or get along with other people?: Not difficult at all Total Score: 3 PATO-Q SV Test - Statements CAD is a disease of the arteries in the heart: False Examples of risk factors for heart disease: True Angina is chest pain or discomfort: True The benefits of resistance training include: True Eating more meat and dairy products: False Anti-platelet medications such as aspirin are important: True The only effective way to manage stress: False An exercise warm-up slowly increases heart rate: True Prepared, processed foods usually have high sodium: True Depression is common after a heart attack: True The statin medications lower cholesterol: True To control blood pressure, lower the amount of sodium: True If someone gets chest discomfort during walking: False Transfats are partially hydrogenated vegetable oils: I Don't Know Sleep apnea that is not treated increases the risk: I Don't Know To control cholesterol, one should become a vegetarian: False Someone knows if he/she is exercising at the right level: I Don't Know Diabetes cannot be prevented with exercise & health eating: True Stress is a large risk for heart attack: True A diet that can help lower blood pressure is rich in: True - Total Score Total Correct Responses: 16 Self-Efficacy Initial Assessment We would like to know how confident you are in doing certain activities. Please select your confidence level for:: Select your confidence level for the following using the scale 1-10 where 1 is not at all confident and 10 is totally confident. Your score is the average of all 6 responses. Fatigue: How confident are you that you can keep the fatigue caused by your disease from interfering with the things you want to do? Select Number: 9 Physical Discomfort or Pain: How confident are you that you can keep the physical discomfort or pain of your disease from interfering with the things you want to do? Select Number: 10 Emotional Distress: How confident are you that you can keep the emotional distress caused by your disease from interfering with the things you want to do? Select Number: 10 Other Symptoms or Health Problems: How confident are you that you can keep other symptoms or health problems from interfering with the things you want to do? Select Number: 9 Different Tasks and Activities: How confident are you that you can do the differ ent tasks and activities needed to manage your health condition so as to reduce your need to see a doctor? Select Number: 10 Medication: How confident are you that you can do things other than just taking medication to reduce how much your illness affects your everyday life? Select Number: 10 Total Score:: 9 Nutrition Survey - Nutrition Survey Instructions Scoring Instructions: Scoring is as follows: Yes = 1 points. No = 0 point. Patient score that is >/=12 is considered to be at potential nutritional risk and could benefit from a referral to a registered dietitian. - Nutrition Survey Initial Have you lost >10 lbs over the past 2 months without trying?: No Are you following a special diet at home for diabetes, low fat, or low salt?: No Are you interested in meeting with a dietitian for help understanding your diet?: No Do you eat less than 3 meals a day?: No Do you eat fatty meats (lomeli, sausage, ribs, etc), fried foods, desserts, large amounts of salad dressings, margarine, butter, or cheese most days?: No Do you have food allergies? [Enter types in comment field]: No Do you eat in restaurants more than 3 times a week?: Yes Do you season food with salt, seasoning salt, or garlic salt?: No Do you used canned, boxed, frozen meals, or soups, seasoning packets?: No Total Score:: 1
[2018-11-10 13:08] VITALS: BP 112/56; PULSE 80; RESP 16; TEMP 37.1; O2SAT 95; BMI 25.8
[2018-11-10 13:31] VITALS: BP 112/56
== END ==
PROVIDERS: Family Provider Family Medicine; PCP Family Medicine; Referring Provider Internal Medicine Cardiovascular Disease; Visit Provider Internal Medicine Cardiovascular Disease
DX: Z95.5 Presence of coronary angioplasty implant and graft (principal); I25.2 Old myocardial infarction; I10 Essential (primary) hypertension; E11.9 Type 2 diabetes mellitus without complications; E78.5 Hyperlipidemia, unspecified

== ENCOUNTER → 2018-11-23 10:49 | Outpatient (CLI) | payer MEDICARE, SELFPAY ==
[2018-11-10 13:08] VITALS: BMI 25.8
[2018-11-23 13:16] LABS: Anion Gap 10 (5-15); BUN 18 mg/dL (7-18); BUN/Creat Ratio 18.8 RATIO (10-20); Chloride 105 mmol/L (98-107); Cholesterol 87 mg/dL (200); Creatinine, Serum 0.96 mg/dL (0.70-1.30); EST Glomerular Filtration Rate 83 mL/min (>60); Est Glom Filt Rate - Afr Amer 101 mL/min (>60); Glucose 125 mg/dL (74-106); High Density Lipoprotein 34 mg/dL; Potassium 3.7 mmol/L (3.5-5.1); Sodium Level 140 mmol/L (136-145); Triglycerides 105 mg/dL; Very Low Density Lipoprotein 21 mg/dL (5-40)
== END ==
PROVIDERS: Family Provider Family Medicine; PCP Family Medicine; Visit Provider Family Medicine
DX: E11.9 Type 2 diabetes mellitus without complications (principal)
CPT/HCPCS: 36415; 80048; 80061

== ENCOUNTER 2018-11-30 13:00 | Outpatient (RCR) | payer MEDICARE, SELFPAY ==
[2018-11-10 13:08] VITALS: BMI 25.8
== END 2018-12-03 23:59 ==
LOC: CR 13:00
PROVIDERS: Family Provider Family Medicine; PCP Family Medicine; Referring Provider Internal Medicine Cardiovascular Disease; Visit Provider Internal Medicine Cardiovascular Disease
DX: Z95.5 Presence of coronary angioplasty implant and graft (principal); I25.2 Old myocardial infarction; E11.9 Type 2 diabetes mellitus without complications
CPT/HCPCS: 36415; 80048; 80061; 93798

== ENCOUNTER → 2018-12-09 14:03 | Outpatient (CLI) | payer MEDICARE, SELFPAY ==
[2018-12-09 14:03] VITALS: BMI 26.4
[2018-12-09 16:18] LABS: Erythrocyte Sedimentation Rate 66 mm/hr (0-20)
[2018-12-14 11:47] LABS: ANTINUCLEAR ANTIBODIES DIRECT Negative (Negative)
== END ==
PROVIDERS: Family Provider Family Medicine; PCP Family Medicine; Referring Provider Family Medicine; Visit Provider Family Medicine
DX: M25.50 Pain in unspecified joint (principal)
CPT/HCPCS: 36415; 85652; 86038; 86140; 86431

== ENCOUNTER 2018-12-14 13:00 | Outpatient (RCR) | payer MEDICARE, SELFPAY ==
[2018-12-04 01:34] VITALS: BMI 25.8
--- NOTE | 2018-12-07 09:20 | PCM.CR.ITP ---
Exercise - 30-day Assessment - Visit Date of Eval: 12/07/18 Session #:: 10 - Stages of Change Stages of Change:: Action - Physician Prescribed Exercise Modalities: Treadmill, Rower, Airdyne, NuStep Frequency (days/week): 3 Duration (Minutes):: 30-45 Intensity: 60-80% age predicted maximum heart rate reserve METs - Progression: 0.5-1.0 MET, RPE 11-14 WEEK: 4.0 Target Heart Rate:: 129-138 w/max HR 133 - Hypertension Resting Blood Pressure:: 118/58 Peak Exercise Blood Pressure:: 164/72 Medication Changes:: Yes - Intervention Home Exercise/Activity Goal:: Moderate Exercise 30 min/day x 5 days/wk - Education Goals:: Warm-up, RPE BERTHA Scale, S/S, Safe Exercise, Self-Monitoring - Exercise Program Goals Exercise Program Goals: Aerobic Activity >30 min Nutrition - Initial Assessment - Program Goals Nutrition Program Goals: LDL <70. Total Cholesterol <200. HDL >45. Triglycerides <150. HgbA1C <7%. BMI <25 - Diabetes Do you monitor your blood sugar at home?: Yes Nutrition - 30-Day Assessment - Program Goals Nutrition Program Goals: LDL <70. Total Cholesterol <200. HDL >45. Triglycerides <150. HgbA1C <7%. BMI <25 - Visit Date of Eval: 12/07/18 - Stages of Change Stages of Change:: Action - Lipids Has the patient seen the dietitian?: No - Diabetes Diabetes:: Yes Fasting blood glucose:: 134 - Low 67, High 168 Insulin: Yes Non-Insulin Dependent?: Yes - Weight Management Weight:: 186 lb 8 oz - Education Attended class for:: Signs & symptoms of hypoglycemia, Signs & symptoms of hyperglycemia, Relate diabetes to coronary artery disease, Healthy eating Tobacco - Initial Assessment - Program Goals Tobacco Program Goals: Complete smoking cessation. Attend education classes. Improve Knowledge Test score - Learning Barriers Learning Barriers: Ready to Learn Tobacco - 30-Day Assessment - Program Goals Tobacco Program Goals: Complete smoking cessation. Attend education classes. Improve Knowledge Test score - Stage of Change Stages of Change:: Action - Learning Barriers Learning Barriers: Participates in education, Change in behavior - Family Support Do you have family support?: Yes - Tobacco Use Tobacco Use: Non-smoker Do you use smokeless tobacco?: No - Intervention Smoking Cessation Referral:: No Individual Education/Counseling:: No Education Schedule Given:: Yes - Education Attended class for:: Coronary artery disease, Risk factors, Sexuality, Medical compliance, Cardiac A&P, Angina signs & symptoms Psychosocial - Initial Assess - Target Goals Target Goals: Assess presence or absence of depression. Using a valid screening tool, maximizes coping skills. Positive support system - Psychosocial Test Tool Used:: HANDS Depression Questionnaire - Assistive Devices Fall Risk Assessed:: Yes Psychosocial - 30-Day Assess - Target Goals Target Goals: Assess presence or absence of depression. Using a valid screening tool, maximizes coping skills. Positive support system - Stages of Change Stages of Change:: Action - Psychosocial Test Tool Used:: HANDS Depression Questionnaire - Intervention PS - Interventions: Yes Attend Stress Management Classes, No Referral to Mental Health, No Referral to [facility] Case Management, No Referral to Physician, No Uses Stress Management Skills - Education Attended classes for:: Coping techniques, Signs & symptoms of depression, Stress management, Relaxation techniques - Patient/Program Goal Preventative Medication(s):: Aspirin, Clopidogrel, Beta kosta, Statin/lipid - Assistive Devices Assistive Devices:: None Fall Risk Assessed:: Yes Patient Health Questionnaire 30-Day Re-eval Assessment 1. Little interest or pleasure in doing things: Not at all 2. Feeling down, depressed, or hopeless: Not at all 3. Trouble falling or staying asleep, or sleeping too much: More than half the days 4. Feeling tired or having little energy: Several days 5. Poor appetite or overeating: Not at all 6. Feeling bad about yourself -- or that you are a failure or have let yourself or your family down: Not at all 7. Trouble concentrating on things, such as reading the newspaper or watching television: Not at all 8. Moving or speaking so slowly that other people could have noticed. Or the opposite - being so fidgety or restless that you have been moving around a lot more than usual: Not at all 9. Thoughts that you would be better off , or of hurting yourself in some way: Not at all How difficult have these problems made it for you to do your work, take care of things at home, or get along with other people?: Not difficult at all Total Score: 3 Self-Efficacy 30-Day Re-eval Assessment We would like to know how confident you are in doing certain activities. Please select your confidence level for:: Select your confidence level for the following using the scale 1-10 where 1 is not at all confident and 10 is totally confident. Your score is the average of all 6 responses. Fatigue: How confident are you that you can keep the fatigue caused by your disease from interfering with the things you want to do? Select Number: 9 Physical Discomfort or Pain: How confident are you that you can keep the physical discomfort or pain of your disease from interfering with the things you want to do? Select Number: 10 Emotional Distress: How confident are you that you can keep the emotional distress caused by your disease from interfering with the things you want to do? Select Number: 10 Other Symptoms or Health Problems: How confident are you that you can keep other symptoms or health problems from interfering with the things you want to do? Select Number: 9 Different Tasks and Activities: How confident are you that you can do the different tasks and activities needed to manage your health condition so as to reduce your need to see a doctor? Select Number: 10 Medication: How confident are you that you can do things other than just taking medication to reduce how much your illness affects your everyday life? Select Number: 10 Total Score:: 9
[2018-12-07 09:35] VITALS: BP 118/58; BP 164/72
== END 2019-01-03 23:59 ==
LOC: CR 13:00
PROVIDERS: Family Provider Family Medicine; PCP Family Medicine; Referring Provider Internal Medicine Cardiovascular Disease; Visit Provider Internal Medicine Cardiovascular Disease
DX: I21.19 ST elevation (STEMI) myocardial infarction involving other coronary artery of inferior wall (principal); Z95.5 Presence of coronary angioplasty implant and graft
CPT/HCPCS: 93798

== ENCOUNTER → 2018-12-25 14:28 | Outpatient (CLI) | payer MEDICARE, SELFPAY ==
[2018-12-09 14:03] VITALS: BMI 26.4
--- NOTE | 2018-12-25 14:31 | RAD_ITS ---
STUDY: X-RAY - LEFT ELBOW REASON FOR EXAM: Male, 68 years old. Pain for one month. History of rheumatoid arthritis. TECHNIQUE: 3 view(s) of the elbow. COMPARISON: None. FINDINGS: Normal visualized humerus, radius and ulna. There is mild arthrosis of the radiocapitellar and ulnotrochlear articulations. There is no acute fracture, dislocation or destructive osseous pathology. The soft tissue structures are unremarkable. RAD/Elbow min 3 Views IMPRESSION: Mild arthrosis of the elbow without acute fracture or dislocation. Electronically Signed: Kristofer Aguilar DO at 13:04 EDT Tel [phone], Service support ,
[2018-12-25 15:45] LABS: ALB/GLOB Ratio 0.8 RATIO (0.9-2.4); AST(SGOT) 14 U/L (15-37); Alanine Aminotransfer ALT/SGPT 28 U/L (16-61); Albumin, Serum 3.7 g/dL (3.2-5.0); Alkaline Phosphatase 84 U/L (45-117); Anion Gap 13 (5-15); BUN 32 mg/dL (7-18); BUN/Creat Ratio 18.6 RATIO (10-20); Calcium,Total 9.4 mg/dL (8.5-10.1); Chloride 102 mmol/L (98-107); Creatinine, Serum 1.72 mg/dL (0.70-1.30); EST Glomerular Filtration Rate 42 mL/min (>60); Est Glom Filt Rate - Afr Amer 51 mL/min (>60); Globulin 4.6 g/dL (2.2-4.2); Glucose 261 mg/dL (74-106); Potassium 3.8 mmol/L (3.5-5.1); Protein, Total 8.3 g/dL (6.4-8.2); Sodium Level 138 mmol/L (136-145)
[2018-12-25 15:56] LABS: Absolute Lymphocyte Count 0.76 X10^3/ul (0.83-4.51); Absolute Neutrophil Count 10.9 X10^3/uL (2.0-7.7); Eosinophil# 0.01 X10^3/uL; Eosinophils% 0.1 % (0-5); Hemoglobin 14.1 g/dl (13.0-16.5); Lymphocyte # 0.76 X10^3/ul (4.0); Lymphocyte % 6.2 % (19-41); Mean Corp Hgb Conc 32.8 g/gl (32-36); Mean Corpuscular Hgb 27.2 pg (27.0-32.0); Mean Corpuscular Volume 82.9 fL (80-94); Mean Platelet Vol. 9.3 fl (6.2-12.0); Monocyte# 0.58 X10^3/uL; Monocyte% 4.7 % (0-10); Neutrophil # 10.89 X10^3/uL (2.7-7.7); Neutrophil % 88.5 % (47-70); POSITIVE COUNT NO; POSITIVE DIFFERENTIAL NO; POSITIVE MORPHOLOGY NO; Platelet Count 363 K/mm3 (150-450); RBC Distribution Width CV 13.8 % (11.6-14.6); RBC Distribution Width SD 41.3 fl (35.1-43.9); Red Blood Count 5.19 M/mm3 (4.6-6.2); White Blood Count 12.3 K/mm3 (4.4-11.0)
[2018-12-29 15:20] LABS: HEPATITIS B SURFACE AG Negative (Negative); Hep B Surface Antibodies Reactive (.); Hep C Antibodies 0.5 s/co ratio (0.0-0.9)
[2018-12-29 15:21] LABS: CCP IgG Antibodies 209 units (0-19)
== END ==
PROVIDERS: Family Provider Family Medicine; PCP Family Medicine; Referring Provider Internal Medicine Rheumatology; Visit Provider Internal Medicine Rheumatology
DX: M05.79 Rheumatoid arthritis with rheumatoid factor of multiple sites without organ or systems involvement (principal); I25.10 Atherosclerotic heart disease of native coronary artery without angina pectoris; I10 Essential (primary) hypertension; E11.9 Type 2 diabetes mellitus without complications; E78.5 Hyperlipidemia, unspecified
CPT/HCPCS: 36415; 73080; 80053; 85025; 86200; 86431; 86706; 86803; 87340

== ENCOUNTER 2018-12-27 06:51 | Emergency (ER) | payer MEDICARE, SELFPAY ==
[2018-12-09 14:03] VITALS: BMI 26.4
[2018-12-27 06:52] VITALS: BP 161/70; PULSE 98; RESP 16; TEMP 36.8; O2SAT 98; BMI 25.9
[2018-12-27 06:58] VITALS: RESP 16
[2018-12-27] MEDS: Morphine 4 MG/ML Syringe SC ×2 (07:22→08:16)
--- NOTE | 2018-12-27 07:31 | ED.VISSUMM ---
- ER Visit Summary Date of Service: 12/27/18 Chief Complaint: Joint pain History of Present Illness: The patient is a 68 M who presents with joint pain that has been getting worse over the past 1-1/2 months. Patient states he was recently diagnosed with rheumatoid arthritis. Patient is currently on prednisone 15 mg daily. Patient states the pain became worse today. Patient describes the pain as sharp and throbbing. Patient states pain is in both hands, both wrists, left elbow, and both ankles. Patient denies any trauma or injury. Patient states the pain is worse with movement and ambulation. Patient does admit to some tingling in both of his ankles. Patient states his legs feel weak due to the pain. Patient denies any fevers or chills. Physical Examination: Vital signs are stable. Patient is afebrile. Patient is in no acute distress. Oral mucosa is pink and moist. Neck is supple. There is no JVD noted. Heart was regular rate and rhythm. Lungs are clear and equal bilateral. Abdomen is soft nontender. Bowel sounds are normal. Cranial nerves II through XII are intact. There are no focal motor or sensory deficits noted. Musculoskeletal exam reveals edema and tenderness of the bilateral wrists, bilateral MCP joints, left elbow, and bilateral ankles. There is no erythema. There is no warmth noted. Range of motion was limited all motions of the wrists, hands, ankles, and left elbow due to pain. Emergency Department Course and Treatment: Patient was given an injection of morphine here. Patient had minimal improvement with this. Patient was given a repeat dose of morphine. Patient was feeling better on reevaluation. Patient was given a prescription for a short course of [place]. Patient was instructed to follow-up with his primary care physician in 3-5 days. 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 Patient understood and was agreeable with the plan. All questions were answered. Disposition: Discharge home Impression: Rheumatoid arthritis flare This note was generated with [employer] dictation software. It may contain incorrect words, spelling, and punctuation that were not noted in review of the chart prior to signing ED Disposition - Plan for ED Patient: Disposition: Home or Assisted Living Diagnosis: Rheumatoid arthritis flare Instructions: ED Arthritis Rheumatoid Prescriptions: Hydrocodone Bitart/Apap 5-325 [[place] 5MG-325MG] 1 tab PO Q6H PRN PRN 3 Days #10 tab PRN Reason: Pain Referrals: Roby Chisholm MD [Primary Care Provider] - 3-5 Days
--- NOTE | 2018-12-27 07:34 | ED.DCSUM_ITS ---
- ER Visit Summary Date of Service: 12/27/18 Chief Complaint: Joint pain History of Present Illness: The patient is a 68 M who presents with joint pain that has been getting worse over the past 1-1/2 months. Patient states he was recently diagnosed with rheumatoid arthritis. Patient is currently on predni sone 15 mg daily. Patient states the pain became worse today. Patient describes the pain as sharp and throbbing. Patient states pain is in both hands, both wrists, left elbow, and both ankles. Patient denies any trauma or injury. Patient states the pain is worse with movement and ambulation. Patient does admit to some tingling in both of his ankles. Patient states his legs feel weak due to the pain. Patient denies any fevers or chills. Physical Examination: Vital signs are stable. Patient is afebrile. Patient is in no acute distress. Oral mucosa is pink and moist. Neck is supple. There is no JVD noted. Heart was regular rate and rhythm. Lungs are clear and equal bilateral. Abdomen is soft nontender. Bowel sounds are normal. Cranial nerves II through XII are intact. There are no focal motor or sensory deficits noted. Musculoskeletal exam reveals edema and tenderness of the bilateral wrists, bilateral MCP joints, left elbow, and bilateral ankles. There is no erythema. There is no warmth noted. Range of motion was limited all motions of the wrists, hands, ankles, and left elbow due to pain. Emergency Department Course and Treatment: Patient was given an injection of morphine here. Patient had minimal improvement with this. Patient was given a repeat dose of morphine. Patient was feeling better on reevaluation. Patient was given a prescription for a short course of [place]. Patient was instructed to follow-up with his primary care physician in 3-5 days. 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 Patient understood and was agreeable with the plan. All questions were answered. Disposition: Discharge home Impression: Rheumatoid arthritis flare This note was generated with [employer] dictation software. It may contain incorrect words, spelling, and punctuation that were not noted in review of the chart p rior to signing ED Disposition - Plan for ED Patient: Disposition: Home or Assisted Living Diagnosis: Rheumatoid arthritis flare Instructions: ED Arthritis Rheumatoid Prescriptions: Hydrocodone Bitart/Apap 5-325 [[place] 5MG-325MG] 1 tab PO Q6H PRN PRN 3 Days #10 tab PRN Reason: Pain Referrals: oRby Chisholm MD [Primary Care Provider] - 3-5 Days
[2018-12-27 09:32] VITALS: BP 140/74; PULSE 97; O2SAT 98
== END 2018-12-27 09:34 | disposition home or self-care (01) ==
PROVIDERS: Emergency Provider Emergency Medicine; Family Provider Family Medicine; PCP Family Medicine
DX: M06.9 Rheumatoid arthritis, unspecified (principal); I25.10 Atherosclerotic heart disease of native coronary artery without angina pectoris; I25.2 Old myocardial infarction; Z95.5 Presence of coronary angioplasty implant and graft; Z79.82 Long term (current) use of aspirin
CPT/HCPCS: 96372; 99282

== ENCOUNTER 2018-12-29 06:22 | Observation (INO) | payer MEDICARE, SELFPAY ==
[2018-12-29] VITALS (12 sets, daily range): BP systolic 107–136; BP diastolic 57–74; PULSE 71–93; RESP 16–24; TEMP 36.8–37.9; O2SAT 94–100; BMI 25.9; BMI 25.1
--- NOTE | 2018-12-29 06:34 | RAD_ITS ---
STUDY: X-RAY CHEST REASON FOR EXAM: Male, 68 years old. Chest pain TECHNIQUE: 1 view COMPARISON: August 19, 2018 FINDINGS: The lungs are clear and expanded. There is no demonstrated pleural abnormality. Normal size heart. Normal mediastinum and marybel. Normal visualized pulmonary arteries. Normal visualized aortic arch and descending thoracic aorta. Normal visualized thoracic spine. Normal visualized ribs, clavicles, and shoulders. There is no demonstrated abnormality of the visualized soft tissue structures of the upper abdomen. RAD/Chest 1 View (Portable) IMPRESSION: Normal x-ray examination of the chest. No acute findings in the lungs Electronically Signed: Larry Thornton MD at 7:05 EDT Tel , Service support ,
--- NOTE | 2018-12-29 06:34 | EKG12_ITS ---
Test Reason : CP Blood Pressure : / mmHG Vent. 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
--- NOTE | 2018-12-29 06:35 | ED.VISSUMM ---
- ER Visit Summary Date of Service: 12/29/18 Chief Complaint: Chest pain History of Present Illness: The patient is a 68 M who presents with chest pain. It began about 3 hours ago. He describes it as sharp. It is located on the left side of his chest. Currently he rates it as 8 out of 10. He states is worse with laying flat and relieved by sitting up. He denies associated symptoms such as nausea vomiting diaphoresis or shortness of breath. He took aspirin prior to calling EMS. He was given morphine by EMS without significant change in his symptoms. He was recently diagnosed with rheumatoid arthritis and has been having some joint pain but review of systems otherwise negative. He denies recent illness. No fevers cough rhinorrhea sore throat vomiting diarrhea or rashes. Physical Examination: Temperature 100.2 respiratory rate 24 pulse ox 96% on room air Moist mucous membranes Heart regular rate and rhythm Lungs are clear I do not appreciate rales rhonchi wheezes Abdomen soft nontender He does complain of some tenderness in the ankles and wrist he has 2+ symmetric radial pulses Alert Skin warm and dry no diaphoresis Test Results: EKG shows sinus rhythm at a rate of 83 with Q waves in leads III and aVF, old inferior HI. Chest x-ray on my review shows no acute process. CBC BMP notable for white count 12.7, potassium 3.4. Troponin is negative. Emergency Department Course and Treatment: Patient really took aspirin prior to arrival. He was given sublingual nitroglycerin here without change in symptoms. I have ordered IV morphine. Although his description of chest pain is atypical and that he describes it as sharp he does note that it feels similar to his prior HI. His RY risk score is 5. Patient to be discussed with the hospitalist for admission and further evaluation. Treatment Plan: [] Disposition: Admit Impression: Chest pain This note was generated with [employer] dictation software. It may contain incorrect words, spelling, and punctuation that were not noted in review of the chart prior to signing ED Disposition - Plan for ED Patient: Referrals: Roby Chisholm MD [Primary Care Provider] -
[2018-12-29 06:41] LABS: Absolute Lymphocyte Count 1.74 X10^3/ul (0.83-4.51); Absolute Neutrophil Count 9.9 X10^3/uL (2.0-7.7); Basophil# 0.02 X10^3/uL; Basophil% 0.2 % (0-1); Eosinophil# 0.05 X10^3/uL; Eosinophils% 0.4 % (0-5); Hematocrit 39.2 % (40-54); Lymphocyte # 1.74 X10^3/ul (4.0); Lymphocyte % 13.7 % (19-41); Mean Corp Hgb Conc 33.2 g/gl (32-36); Mean Corpuscular Hgb 27.4 pg (27.0-32.0); Mean Corpuscular Volume 82.7 fL (80-94); Mean Platelet Vol. 8.9 fl (6.2-12.0); Monocyte# 1.01 X10^3/uL; Monocyte% 7.9 % (0-10); Neutrophil # 9.85 X10^3/uL (2.7-7.7); Neutrophil % 77.3 % (47-70); Platelet Count 289 K/mm3 (150-450); RBC Distribution Width CV 13.6 % (11.6-14.6); RBC Distribution Width SD 40.2 fl (35.1-43.9); Red Blood Count 4.74 M/mm3 (4.6-6.2); White Blood Count 12.7 K/mm3 (4.4-11.0)
[2018-12-29 06:42] LABS: POSITIVE COUNT NO; POSITIVE DIFFERENTIAL NO; POSITIVE MORPHOLOGY NO
[2018-12-29 06:54] LABS: Anion Gap 9 (5-15); BUN 18 mg/dL (7-18); BUN/Creat Ratio 19.1 RATIO (10-20); Calcium,Total 8.6 mg/dL (8.5-10.1); Chloride 103 mmol/L (98-107); Creatinine, Serum 0.94 mg/dL (0.70-1.30); EST Glomerular Filtration Rate 84 mL/min (>60); Est Glom Filt Rate - Afr Amer 102 mL/min (>60); Estimated Creatinine Clearance 77.66 ml/min; Glucose 150 mg/dL (74-106); Potassium 3.4 mmol/L (3.5-5.1); Sodium Level 138 mmol/L (136-145)
[2018-12-29] MEDS: Morphine 4 MG/ML Syringe IV (07:10)
--- NOTE | 2018-12-29 07:10 | PCM.HP.STD ---
Problem List (1) Chest pain Status: Acute Qualifiers: Chest pain type: unspecified Qualified Code(s): R07.9 - Chest pain, unspecified (2) Rheumatoid arthritis flare Status: Acute (3) Arteriosclerosis of coronary artery Status: Chronic Comment: Stenting to RCA 08/2018 (4) Hyperlipidemia Status: Chronic Qualifiers: Hyperlipidemia type: mixed hyperlipidemia Qualified Code(s): E78.2 - Mixed hyperlipidemia (5) Diabetes mellitus type II, controlled Status: Chronic Qualifiers: Diabetes mellitus glass smoother insulin use: without glass smoother use Diabetes mellitus complication status: with other specified complication Qualified Code(s): E11.69 - Type 2 diabetes mellitus with other specified complication (6) Hypertension Status: Chronic Qualifiers: Hypertension type: essential hypertension Qualified Code(s): I10 - Essential (primary) hypertension History of Present Illness Date of Admission: 12/29/18 Chief Complaint: Chest pain The patient is a 68 y/o M w/ PMHx: CAD, STEMI s/p PCI RCA 08/2018, HTN, HLD, Diabetes mellitus type II, Hx NSVT who presents to the [facility] ED on 12/29/18 with history of approximately 3 hours prior to arrival, awakening him from sleep, left-sided chest discomfort described as sharp and stabbing, 8 out of 10 in severity initially, worse when he was lying flat and it seemed to improve when sitting up with no associated nausea, emesis, diaphoresis or dyspnea with improvement upon evaluation in the ED. He additionally notes that he was recently diagnosed with rheumatoid arthritis and has been on a prednisone taper secondary to a flare but has severe debilitating left ankle primarily, right wrist although bilateral wrists are affected and left elbow, not improving he denies any recent illnesses including upper respiratory illnesses. Work-up in the ED included T1 100.2, heart rate 84, BP 136/72, respiratory rate 24, 96% on room air, CBC with WBC 12.7, hemoglobin 13, platelet 289 with left shift, BMP potassium 3.4, glucose 150, troponin less than 0.015, x-ray with no acute cardiopulmonary findings, EKG with no acute evidence of ischemia. 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 Past Medical History Past Medical History (Chronic Problems): Chronic Problems (Last Reviewed 11/30/18 @ 11:37 by Tessy Giron) Arteriosclerosis of coronary artery (Chronic) Stenting to RCA 08/2018 Hyperlipidemia (Chronic) Diabetes mellitus type II, controlled (Chronic) Hypertension (Chronic) Stented coronary artery (Chronic 08/19/18) PTCA and JOSE MANUEL (4.0 X 16 Promus Synergy) to mid RCA per Dr. Moffett @ [facility] Acute inferolateral myocardial infarction (Chronic 08/19/18) Medical History: Medical History (Last Reviewed 11/30/18 @ 11:37 by Tessy Giron) Arteriosclerosis of coronary artery (Chronic) I25.10 Stenting to RCA 08/2018 Hyperlipidemia (Chronic) E78.5 Diabetes mellitus type II, controlled (Chronic) E11.9 Hypertension (Chronic) I10 Acute inferolateral myocardial infarction (Chronic) Onset Date: 08/19/18 I21.19 Non-sustained ventricular tachycardia I47.2 Allergies atorvastatin [From Lipitor] Adverse Reaction (Severe, Verified 12/29/18 06:24) Myalgias Home Medications: Ambulatory Orders Medication Instructions Recorded Amlodipine [Norvasc] 10 mg PO DAILY 06/09/18 Chlorthalidone 25 mg PO DAILY 06/09/18 Cholecalciferol (Vitamin D3) 2,000 unit PO DAILY 06/09/18 [Vitamin D3] Empagliflozin [Jardiance] 10 mg PO DAILY 06/09/18 Glipizide 5 mg PO DAILY 06/09/18 Losartan Potassium [Cozaar] 100 mg PO DAILY 06/09/18 Multivitamin [Multiple Vitamins] 1 ea PO DAILY 06/09/18 Testosterone [Androgel] 75 gm TD DAILY 06/09/18 Calcium Carbonate/Vitamin D3 1 ea PO DAILY 08/19/18 [Calcium 500-Vit D3 600 Tablet] Aspirin E.C. [Ecotrin] 81 mg PO DAILY@0800 tab 08/21/18 carvedilol 3.125 mg tablet 3.125 mg PO BID #180 tab 09/07/18 Hydrocodone Bitart/Apap 5-325 1 tab PO Q6H PRN PRN 3 Days #10 tab 12/27/18 [[place] 5MG-325MG] Metformin HCl 1,000 mg PO DAILY 12/27/18 Pitavastatin Calcium [Livalo] 2 mg PO DAILY 12/27/18 Prednisone 15 mg PO DAILY 12/27/18 Ticagrelor [Brilinta] 180 mg PO DAILY 12/27/18 Surgical History: Surgical History (Last Reviewed 11/30/18 @ 08:44 by Tessy Giron) Stented coronary artery (Chronic) Onset Date: 08/19/18 Z95.5 PTCA and JOSE MANUEL (4.0 X 16 Promus Synergy) to mid RCA per Dr. Moffett @ [facility] Surgical History: - - Cystoscopy for renal calculi, PCI. Psychiatric History: No pertinent psych hx Lives: Spouse/ Significant Other Smoking Status: Never smoker Tobacco Use: Non-smoker Alcohol: None Drugs: None - *Family History Maternal Family History: Family History (Last Reviewed 11/30/18 @ 08:44 by Tessy Giron) Mother Diabetes Brother Heart disease History Items: Diabetes Paternal Family History: Family History (Last Reviewed 11/30/18 @ 08:44 by Tessy Giron) Mother Diabetes Brother Heart disease History Items: - - Patient notes that his father was healthy, no history of heart disease, diabetes or cancer. Review of Systems Constitutional: Reports: Anorexia, Malaise, Weakness, Fatigue. Denies: Chills, Fever, Weight Change HEENT: Denies: Head Aches, Sinus Congestion, Sinus Drainage Cardiovascular: Reports: Chest Pain. Denies: Chest Pressure, Chest Tightness, Heaviness, Light Headedness, Orthopnea, Palpitations, Syncope Respiratory: Denies: Cough, Shortness of Breath, Shortness of breath at rest, Shortness of breath upon exertion, Sputum production Gastrointestinal: Denies: Abdominal Pain, Nausea, Vomiting Genitourinary: Denies: Dysuria Musculoskeletal: Reports: Arm Pain, Foot Pain, Joint Pain, Joint stiffness, Joint swelling, Joint Tenderness, Leg Pain Skin: Denies: Rash, Wounds Neurological: Denies: Numbness, Tingling, Focal weakness Psychiatric: Denies: Anxiety, Depression, Homicidal Ideations, Suicidal Ideations Hematologic/ Lymphatic: Reports: Easy Bruising, Easy Bleeding VTE Information - Inpt Only VTE Present on Admission: No VTE Mechan Device Prophylaxis: SCD's VTE Pharm Prophylaxis ordered?: Yes Patient Problems: Active and Suspected Problems (Last Reviewed 11/30/18 @ 11:37 by Tessy Giron) Chest pain (Acute) Rheumatoid arthritis flare (Acute) Subjective: Seated upright in ED bed, uncomfortable appearing but notes chest discomfort has resolved but ongoing severe joint discomfort. Objective: Physical Examination: General: awake, alert, oriented x 3 and cooperative, seated upright in the ED bed, uncomfortable appearing primarily secondary to ongoing joint discomfort, denies any current chest discomfort. Skin: normal color, turgor, no icterus, cyanosis or evidence of erythema to any of his joints. HEENT: AT/NC, EOMI, PERRLA, mildly dry MM, no carotid bruits or JVD noted. Lungs: CTA bilaterally, moderate effort, mild decrease BL bases, no rales, ronchi or wheezing. Heart: Regular rate and rhythm; no gallop, rub audible. Abdomen: soft, NTTP, ND, normal BS, no HSM. Extremities: no cyanosis, clubbing, notable left ankle nonpitting edema, tender to palpation, bilateral wrist with right greater than left nonpitting edema, tender palpation, left elbow tenderness to palpation, no fluctuance, decreased range of motion. Neurological: patient awake, alert, oriented x 3; cognitive function intact; pupils equally reactive to light and accomodation; cranial nerves II-XII grossly normal, moving all 4 extremities however extremely debilitated to attempted movement of the affected joints, strength accordingly severely globally decreased. Psychiatric: affect appears fatigued, no acute evidence of depressive or anxiety feelings. - Physical Exam Vital Signs Temp Pulse Resp BP Pulse Ox 100.2 F H 93 24 H 124/74 H 97 12/29/18 06:24 12/29/18 06:57 12/29/18 06:24 12/29/18 06:57 12/29/18 06:47 Oxygen Flow Rate (L/min) 2 Oxygen Delivery Method Nasal Cannula Weight: 181 lb 3.52 oz Body Mass Index (BMI) 25.9 Laboratory Tests Past 24 Hrs 12/29/18 12/29/18 06:30 06:30 WBC 12.7 H RBC 4.74 Hgb 13.0 Hct 39.2 L MCV 82.7 MCH 27.4 MCHC 33.2 RDW 13.6 RDW Differential 40.2 Plt Count 289 MPV 8.9 Immature Gran % (Auto) 0.500 Neut % (Auto) 77.3 H Lymph % (Auto) 13.7 L Upson % (Auto) 7.9 Eos % (Auto) 0.4 Baso % (Auto) 0.2 Absolute Neuts (auto) 9.9 H Absolute Lymphs (auto) 1.74 Total Counted Not Reportable Sodium 138 Potassium 3.4 L Chloride 103 Carbon Dioxide 26.0 Anion Gap 9 BUN 18 Creatinine 0.94 Estim Creat Clear Calc 77.66 Est GFR (MDRD) Af Amer 102 Est GFR (MDRD) Non-Af 84 BUN/Creatinine Ratio 19.1 Glucose 150 H Calcium 8.6 Troponin I < 0.015 Assessment/Plan All Active Problems (Last Reviewed 11/30/18 @ 11:37 by Tessy Giron) Screen for colon cancer (Acute) Chest pain (Acute) Rheumatoid arthritis flare (Acute) The patient is a 68 y/o M w/ PMHx: CAD, STEMI s/p PCI RCA 08/2018, HTN, HLD, Diabetes mellitus type II, Hx NSVT who presents to the [facility] ED on 12/29/18 with history of approximately 3 hours prior to arrival, awakening him from sleep, left-sided chest discomfort described as sharp and stabbing, 8 out of 10 in severity initially, worse when he was lying flat and it seemed to improve when sitting up with no associated nausea, emesis, diaphoresis or dyspnea with improvement upon evaluation in the ED. (1) Chest Pain: Work-up in the ED included T1 100.2, heart rate 84, BP 136/72, respiratory rate 24, 96% on room air, CBC with WBC 12.7, hemoglobin 13, platelet 289 with left shift, BMP potassium 3.4, glucose 150, troponin less than 0.015, x-ray with no acute cardiopulmonary findings, EKG with no acute evidence of ischemia. Will admit to PCU, place on a monitored bed to assure no acute myocardial infarction with serial cardiac enzymes and EKGs. Given patient has maintain n.p.o. status since the evening prior will proceed with dobutamine stress echocardiogram. ASA, NG, morphine. FLP pending. Mag pending. (2) Rheumatoid Arthritis Flare: Recent flare, on steroid taper, not improving, CRP 89.50, ESR 82, given patient multi-joint involvement including lateral wrist, left ankle and left elbow discussed with orthopedic surgery and recommendation given multi-joint involvement to have podiatry inject left ankle and attempt IV steroid usage otherwise. Discussed case with podiatry and given left ankle the worst joint affected amenable to injection attempt today. PT, OT, case management evaluation for discharge planning. (3) CAD: STEMI 08/2018, s/p PCI RCA, maintained currently on asa, brillinta w/ planned transition at end of current rx (01/2019) to plavix with load initially per last Cardiology visit note, coreg, ARB. (4) Hypertension: Continue home regimen including Norvasc, Coreg, chlorthalidone, losartan, PRN hydralazine. (5) Hyperlipidemia: Continue home statin regimen. Pending FLP. (6) Diabetes mellitus type II: Hold oral home regimen, ADA diet once s/p stress testing, accu checks w/ ISS. Expect BS increase w/ steroid administration, will continue to closely monitor. (7) DVT prophylaxis: SCDs, lovenox. Code Visit OBSV E&M: [id number] Initial observation care L3
--- NOTE | 2018-12-29 07:21 | HP.PCM_ITS ---
Problem List (1) Chest pain Status: Acute Qualifiers: Chest pain type: unspecified Qualified Code(s): R07.9 - Chest pain, unspecified (2) Rheumatoid arthritis flare Status: Acute (3) Arteriosclerosis of coronary artery Status: Chronic Comment: Stenting to RCA 08/2018 (4) Hyperlipidemia Status: Chronic Qualifiers: Hyperlipidemia type: mixed hyperlipidemia Qualified Code(s): E78.2 - Mixed hyperlipidemia (5) Diabetes mellitus type II, controlled Status: Chronic Qualifiers: Diabetes mellitus house steward/stewardess insulin use: without house steward/stewardess use Diabetes mellitus complication status: with other specified complication Qualified Code(s): E11.69 - Type 2 diabetes mellitus with other specified complication (6) Hypertension Status: Chronic Qualifiers: Hypertension type: essential hypertension Qualified Code(s): I10 - Essential (primary) hypertension History of Present Illness Date of Admission: 12/29/18 Chief Complaint: Chest pain The patient is a 68 y/o M w/ PMHx: CAD, STEMI s/p PCI RCA 08/2018, HTN, HLD, Diabetes mellitus type II, Hx NSVT who presents to the [facility] ED on 12/29/18 with history of approximately 3 hours prior to arrival, awakening him from sleep, left-sided chest discomfort described as sharp and stabbing, 8 out of 10 in severity initially, worse when he was lying flat and it seemed to improve when sitting up with no associated nausea, emesis, diaphoresis or dyspnea with improvement upon evaluation in the ED. He additionally notes that he was recently diagnosed with rheumatoid arthritis and has been on a prednisone taper secondary to a flare but has severe debilitating left ankle primarily, right wrist although bilateral wrists are affected and left elbow, not improving he denies any recent illnesses including upper respiratory illnesses. Work-up in the ED included T1 100.2, heart rate 84, BP 136/72, respiratory rate 24, 96% on room air, CBC with WBC 12.7, hemoglobin 13, platelet 289 with left shift, BMP potassium 3.4, glucose 150, troponin less than 0.015, x-ray with no acute cardiopulmonary findings, EKG with no acute evidence of ischemia. 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 Past Medical History Past Medical History (Chronic Problems): Chronic Problems (Last Reviewed 11/30/18 @ 11:37 by Tessy Giron) Arteriosclerosis of coronary artery (Chronic) Stenting to RCA 08/2018 Hyperlipidemia (Chronic) Diabetes mellitus type II, controlled (Chronic) Hypertension (Chronic) Stented coronary artery (Chronic 08/19/18) PTCA and JOSE MANUEL (4.0 X 16 Promus Synergy) to mid RCA per Dr. Moffett @ [facility] Acute inferolateral myocardial infarction (Chronic 08/19/18) Medical History: Medical History (Last Reviewed 11/30/18 @ 11:37 by Tessy Giron) Arteriosclerosis of coronary artery (Chronic) I25.10 Stenting to RCA 08/2018 Hyperlipidemia (Chronic) E78.5 Diabetes mellitus type II, controlled (Chronic) E11.9 Hypertension (Chronic) I10 Acute inferolateral myocardial infarction (Chronic) Onset Date: 08/19/18 I21.19 Non-sustained ventricular tachycardia I47.2 Allergies atorvastatin [From Lipitor] Adverse Reaction (Severe, Verified 12/29/18 06:24) Myalgias Home Medications: Ambulatory Orders Medication Instructions Recorded Amlodipine [Norvasc] 10 mg PO DAILY 06/09/18 Chlorthalidone 25 mg PO DAILY 06/09/18 Cholecalciferol (Vitamin D3) 2,000 unit PO DAILY 06/09/18 [Vitamin D3] Empagliflozin [Jardiance] 10 mg PO DAILY 06/09/18 Glipizide 5 mg PO DAILY 06/09/18 Losartan Potassium [Cozaar] 100 mg PO DAILY 06/09/18 Multivitamin [Multiple Vitamins] 1 ea PO DAILY 06/09/18 Testosterone [Androgel] 75 gm TD DAILY 06/09/18 Calcium Carbonate/Vitamin D3 1 ea PO DAILY 08/19/18 [Calcium 500-Vit D3 600 Tablet] Aspirin E.C. [Ecotrin] 81 mg PO DAILY@0800 tab 08/21/18 carvedilol 3.125 mg tablet 3.125 mg PO BID #180 tab 09/07/18 Hydrocodone Bitart/Apap 5-325 1 tab PO Q6H PRN PRN 3 Days #10 tab 12/27/18 [[place] 5MG-325MG] Metformin HCl 1,000 mg PO DAILY 12/27/18 Pitavastatin Calcium [Livalo] 2 mg PO DAILY 12/27/18 Prednisone 15 mg PO DAILY 12/27/18 Ticagrelor [Brilinta] 180 mg PO DAILY 12/27/18 Surgical History: Surgical History (Last Reviewed 11/30/18 @ 08:44 by Tessy Giron) Stented coronary artery (Chronic) Onset Date: 08/19/18 Z95.5 PTCA and JOSE MANUEL (4.0 X 16 Promus Synergy) to mid RCA per Dr. Moffett @ [facility] Surgical History: - - Cystoscopy for renal calculi, PCI. Psychiatric History: No pertinent psych hx Lives: Spouse/ Significant Other Smoking Status: Never smoker Tobacco Use: Non-smoker Alcohol: None Drugs: None - *Family History Maternal Family History: Family History (Last Reviewed 11/30/18 @ 08:44 by Tessy Giron) Mother Diabetes Brother Heart disease History Items: Diabetes Paternal Family History: Family History (Last Reviewed 11/30/18 @ 08:44 by Tessy Giron) Mother Diabetes Brother Heart disease History Items: - - Patient notes that his father was healthy, no history of heart disease, diabetes or cancer. Review of Systems Constitutional: Reports: Anorexia, Malaise, Weakness, Fatigue. Denies: Chills, Fever, Weight Change HEENT: Denies: Head Aches, Sinus Congestion, Sinus Drainage Cardiovascular: Reports: Chest Pain. Denies: Chest Pressure, Chest Tightness, Heaviness, Light Headedness, Orthopnea, Palpitations, Syncope Respiratory: Denies: Cough, Shortness of Breath, Shortness of breath at rest, Shortness of breath upon exertion, Sputum production Gastrointestinal: Denies: Abdominal Pain, Nausea, Vomiting Genitourinary: Denies: Dysuria Musculoskeletal: Reports: Arm Pain, Foot Pain, Joint Pain, Joint stiffness, Joint swelling, Joint Tenderness, Leg Pain Skin: Denies: Rash, Wounds Neurological: Denies: Numbness, Tingling, Focal weakness Psychiatric: Denies: Anxiety, Depression, Homicidal Ideations, Suicidal Ideations Hematologic/ Lymphatic: Reports: Easy Bruising, Easy Bleeding VTE Information - Inpt Only VTE Present on Admission: No VTE Mechan Device Prophylaxis: SCD's VTE Pharm Prophylaxis ordered?: Yes Patient Problems: Active and Suspected Problems (Last Reviewed 11/30/18 @ 11:37 by Tessy Giron) Chest pain (Acute) Rheumatoid arthritis flare (Acute) Subjective: Seated upright in ED bed, uncomfortable appearing but notes chest discomfort has resolved but ongoing severe joint discomfort. Objective: Physical Examination: General: awake, alert, oriented x 3 and cooperative, seated upright in the ED bed, uncomfortable appearing primarily secondary to ongoing joint discomfort, denies any current chest discomfort. Skin: normal color, turgor, no icterus, cyanosis or evidence of erythema to any of his joints. HEENT: AT/NC, EOMI, PERRLA, mildly dry MM, no carotid bruits or JVD noted. Lungs: CTA bilaterally, moderate effort, mild decrease BL bases, no rales, ronchi or wheezing. Heart: Regular rate and rhythm; no gallop, rub audible. Abdomen: soft, NTTP, ND, normal BS, no HSM. Extremities: no cyanosis, clubbing, notable left ankle nonpitting edema, tender to palpation, bilateral wrist with right greater than left nonpitting edema, tender palpation, left elbow tenderness to palpation, no fluctuance, decreased range of motion. Neurological: patient awake, alert, oriented x 3; cognitive function intact; pupils equally reactive to light and accomodation; cranial nerves II-XII grossly normal, moving all 4 extremities however extremely debilitated to attempted movement of the affected joints, strength accordingly severely globally decreased. Psychiatric: affect appears fatigued, no acute evidence of depressive or anxiety feelings. - Physical Exam Vital Signs Temp Pulse Resp BP Pulse Ox 100.2 F H 93 24 H 124/74 H 97 12/29/18 06:24 12/29/18 06:57 12/29/18 06:24 12/29/18 06:57 12/29/18 06:47 Oxygen Flow Rate (L/min) 2 Oxygen Delivery Method Nasal Cannula Weight: 181 lb 3.52 oz Body Mass Index (BMI) 25.9 Laboratory Tests Past 24 Hrs 12/29/18 12/29/18 06:30 06:30 WBC 12.7 H RBC 4.74 Hgb 13.0 Hct 39.2 L MCV 82.7 MCH 27.4 MCHC 33.2 RDW 13.6 RDW Differential 40.2 Plt Count 289 MPV 8.9 Immature Gran % (Auto) 0.500 Neut % (Auto) 77.3 H Lymph % (Auto) 13.7 L [place] % (Auto) 7.9 Eos % (Auto) 0.4 Baso % (Auto) 0.2 Absolute Neuts (auto) 9.9 H Absolute Lymphs (auto) 1.74 Total Counted Not Reportable Sodium 138 Potassium 3.4 L Chloride 103 Carbon Dioxide 26.0 Anion Gap 9 BUN 18 Creatinine 0.94 Estim Creat Clear Calc 77.66 Est GFR (MDRD) Af Amer 102 Est GFR (MDRD) Non-Af 84 BUN/Creatinine Ratio 19.1 Glucose 150 H Calcium 8.6 Troponin I < 0.015 Assessment/Plan All Active Problems (Last Reviewed 11/30/18 @ 11:37 by Tessy Giron) Screen for colon cancer (Acute) Chest pain (Acute) Rheumatoid arthritis flare (Acute) The patient is a 68 y/o M w/ PMHx: CAD, STEMI s/p PCI RCA 08/2018, HTN, HLD, Diabetes mellitus type II, Hx NSVT who presents to the [facility] ED on 12/29/18 with history of approximately 3 hours prior to arrival, awakening him from sleep, left-sided chest discomfort described as sharp and stabbing, 8 out of 10 in severity initially, worse when he was lying flat and it seemed to improve when sitting up with no associated nausea, emesis, diaphoresis or dyspnea with improvement upon evaluation in the ED. (1) Chest Pain: Work-up in the ED included T1 100.2, heart rate 84, BP 136/72, r espiratory rate 24, 96% on room air, CBC with WBC 12.7, hemoglobin 13, platelet 289 with left shift, BMP potassium 3.4, glucose 150, troponin less than 0.015, x-ray with no acute cardiopulmonary findings, EKG with no acute evidence of ischemia. Will admit to PCU, place on a monitored bed to assure no acute myocardial infarction with serial cardiac enzymes and EKGs. Given patient has maintain n.p.o. status since the evening prior will proceed with dobutamine stress echocardiogram. ASA, NG, morphine. FLP pending. Mag pending. (2) Rheumatoid Arthritis Flare: Recent flare, on steroid taper, not improving, CRP 89.50, ESR 82, given patient multi-joint involvement including lateral wrist, left ankle and left elbow discussed with orthopedic surgery and recommendation given multi-joint involvement to have podiatry inject left ankle and attempt IV steroid usage otherwise. Discussed case with podiatry and given left ankle the worst joint affected amenable to injection attempt today. PT, OT, case management evaluation for discharge planning. (3) CAD: STEMI 08/2018, s/p PCI RCA, maintained currently on asa, brillinta w/ planned transition at end of current rx (01/2019) to plavix with load initially per last Cardiology visit note, coreg, ARB. (4) Hypertension: Continue home regimen including Norvasc, Coreg, chlorthalidone, losartan, PRN hydralazine. (5) Hyperlipidemia: Continue home statin regimen. Pending FLP. (6) Diabetes mellitus type II: Hold oral home regimen, ADA diet once s/p stress testing, accu checks w/ ISS. Expect BS increase w/ steroid administration, will continue to closely monitor. (7) DVT prophylaxis: SCDs, lovenox. Code Visit OBSV E&M: [id number] Initial observation care L3
--- NOTE | 2018-12-29 07:43 | ED.RN ---
dr acuna requests delta troponin to be drawn at 0930
--- NOTE | 2018-12-29 08:11 | ED.RN ---
talked with shira.. pcu charge. aware of order for troponin at 0930. in prep for chemical stress test
--- NOTE | 2018-12-29 08:39 | EKG12_ITS ---
Test Reason : AM EKG Blood Pressure : / mmHG Vent. Rate : 071 BPM Atrial Rate : 071 BPM P-R Int : 132 ms QRS Dur : 094 ms QT Int : 402 ms P-R-T Axes : 016 000 -08 degrees QTc Int : 436 ms Normal sinus rhythm Inferior infarct , age undetermined Abnormal ECG When compared with ECG of 29-DEC-2018 08:53, MANUAL COMPARISON REQUIRED, DATA IS UNCONFIRMED Confirmed by JAYNE JOLLEY, CHATO ([id number]), supervising editor news reel MATEO DUFFY ([id number]) on 01/01/2019 1:51:46 PM Referred By: Coco Swan Confirmed By:CHATO GODOY MD
--- NOTE | 2018-12-29 08:39 | STE_ITS ---
Reason For Study: Chest Pain Stress Results Protocol: Dobutamine Stress Echo Maximum Predicted HR: 152 bpm Target HR: 129 bpm % Maximum Predicted HR: 93 % DurationHeart Rate Stage (mm:ss) (bpm) BP Comment Baseline 83 140/68Mild Chest Pain DSE 10 MCG 3:41 84 101/51Mild Chest Pain DSE 20 MCG 3:00 96 101/45Mild Chest Pain DSE 30 MCG 3:20 112 121/42Mild Chest Pain DSE 40 MCG 1:11 142 135/47Mild Chest Pain Recovery 93 115/47Mild Chest Pain Stress Duration: 11:12 mm:ss Maximum Stress HR: 142 bpm METS: 1 Baseline Echocardiogram Findings Stress Echo Wall motion Data Resting WM Intermediate WM Stress WM Resting Wall Motion Wall Motion Int. Wall Motion Stress All segments Normal. All segments Hyperkinetic. All segments Hyperkinetic. Ejection Fraction 55 %. Ejection Fraction 65 %. Ejection Fraction 75 %. Stress Results Arrhythmias: occasional PVC durfing infusion and recovery Stopped secondary to: target heart rate achieved. EKG Data Baseline ECG: Normal Sinus Rhythm. Peak pharmacologic ECG: No Obvious ECG Changes. Symptoms with Stress The patient noted chest discomfort pretest, during infusion, and recovery without change. Interpretation Summary Negative (Adequate) Dobutamine Stress Echocardiogram. Ordering Physician: Madeleine Tamayo Referring Physician: Roby Frank Performed By: Isa North RDCS
[2018-12-29 09:27] LABS: Erythrocyte Sedimentation Rate 82 mm/hr (0-20)
[2018-12-29 09:31] LABS: Cholesterol 98 mg/dL (200); High Density Lipoprotein 45 mg/dL; Triglycerides 77 mg/dL; Very Low Density Lipoprotein 15 mg/dL (5-40)
[2018-12-29] MEDS: 0.9% Normal Saline 1,000 ML 100 ML IV ×2 (10:30→20:45)
[2018-12-29] MEDS: amLODIPine 10 MG Tablet PO (10:34)
[2018-12-29] MEDS: TICAGRELOR 90 MG TABLET PO ×2 (10:34→21:59)
[2018-12-29] MEDS: Losartan Potassium 100 MG Tablet PO (10:56)
--- NOTE | 2018-12-29 11:30 | NURSING ---
off floor for stess test
[2018-12-29] MEDS: Carvedilol 3.125 MG TABLET PO ×2 (12:36→21:59)
[2018-12-29] MEDS: Enoxaparin 40 MG/0.4 ML Syringe SC (12:36)
[2018-12-29] MEDS: predniSONE 10 MG Tablet 15 MG PO (12:37)
[2018-12-29] MEDS: Chlorthalidone 50 MG Tablet 25 MG PO (12:37)
[2018-12-29 12:45] LABS: Bedside Glucose 167 mg/dL (70-110)
--- NOTE | 2018-12-29 13:30 | RAD_ITS ---
STUDY: X-RAY - LEFT ANKLE REASON FOR EXAM: Pain for 4 weeks, swelling, arthritis. TECHNIQUE: 3 view(s) of the ankle. COMPARISON: None. FINDINGS: Normal visualized distal tibia and fibula. Normal medial and lateral malleoli. Normal tibiotalar articulation and ankle mortise. Normal visualized talus and calcaneus. The visualized subtalar, talonavicular, calcaneocuboid and tarsal articulations are normal. There is mild lateral soft tissue swelling. RAD/Ankle min 3 Views IMPRESSION: Mild lateral soft tissue swelling. Electronically Signed: Jalil Gómez MD at 15:36 EDT Tel , Service support ,
[2018-12-29] MEDS: HYDROcodone Bitartrate/Apap 5/325 Tablet PO (14:55)
--- NOTE | 2018-12-29 16:17 | PN_ITS ---
Patient Problems: Active and Suspected Problems (Last Reviewed 11/30/18 @ 11:37 by Tessy Giron) Chest pain (Acute) Rheumatoid arthritis flare (Acute) - Physical Exam Vital Signs Temp Pulse Resp BP Pulse Ox 98.4 F 82 16 107/57 L 94 12/29/18 14:49 12/29/18 15:00 12/29/18 14:49 12/29/18 14:49 12/29/18 14:49 Oxygen Flow Rate (L/min) 2 Oxygen Delivery Method Room Air Weight: 79.4 kg Body Mass Index (BMI) 25.1 Intake and Output for Last 24 Hours 12/27/18 12/28/18 12/29/18 23:59 23:59 23:59 Intake Total 208 / 208 Balance 208 / 208 Microbiology Past 72 Hours 12/29/18 07:25 Respiratory Panel (PCR) - Final Mucosa - Nose Laboratory Tests Past 24 Hrs 12/29/18 12/29/18 12/29/18 06:30 06:30 06:30 WBC 12.7 H RBC 4.74 Hgb 13.0 Hct 39.2 L MCV 82.7 MCH 27.4 MCHC 33.2 RDW 13.6 RDW Differential 40.2 Plt Count 289 MPV 8.9 Immature Gran % (Auto) 0.500 Neut % (Auto) 77.3 H Lymph % (Auto) 13.7 L [place] % (Auto) 7.9 Eos % (Auto) 0.4 Baso % (Auto) 0.2 Absolute Neuts (auto) 9.9 H Absolute Lymphs (auto) 1.74 Total Counted Not Reportable ESR 82 H Sodium 138 Potassium 3.4 L Chloride 103 Carbon Dioxide 26.0 Anion Gap 9 BUN 18 Creatinine 0.94 Estim Creat Clear Calc 77.66 Est GFR (MDRD) Af Amer 102 Est GFR (MDRD) Non-Af 84 BUN/Creatinine Ratio 19.1 Glucose 150 H Calcium 8.6 Magnesium Troponin I < 0.015 C-React Prot Ext Range Triglycerides Cholesterol LDL Cholesterol VLDL Cholesterol HDL Cholesterol 12/29/18 12/29/18 12/29/18 06:30 09:00 12:15 WBC RBC Hgb Hct MCV MCH MCHC RDW RDW Differential Plt Count MPV Immature Gran % (Auto) Neut % (Auto) Lymph % (Auto) [place] % (Auto) Eos % (Auto) Baso % (Auto) Absolute Neuts (auto) Absolute Lymphs (auto) Total Counted ESR Sodium Potassium Chloride Carbon Dioxide Anion Gap BUN Creatinine Estim Creat Clear Calc Est GFR (MDRD) Af Amer Est GFR (MDRD) Non-Af BUN/Creatinine Ratio Glucose Calcium Magnesium 2.0 Troponin I < 0.015 < 0.015 C-React Prot Ext Range 89.50 H Triglycerides 77 Cholesterol 98 LDL Cholesterol 38 VLDL Cholesterol 15 HDL Cholesterol 45 POC Glucose 12/29/18 12:40 POC Glucose 167 H Medical Necessity - Tobacco Use Smoking Status: Never smoker Tobacco Use: Non-smoker Assessment/Plan All Active Problems (Last Reviewed 11/30/18 @ 11:37 by Tessy Giron) Screen for colon cancer (Acute) Chest pain (Acute) Rheumatoid arthritis flare (Acute)
[2018-12-29 16:40] LABS: Bedside Glucose 294 mg/dL (70-110)
[2018-12-29] MEDS: Insulin Lispro 100 UNIT/ML INSULN.PEN SC ×2 (17:20→22:11)
[2018-12-29 17:22] LABS: Pathologist Comment May follow
[2018-12-29 17:27] LABS: AUTO B FLUID DILUENT BKGD CT WBC <0.1 RBC <0.01 (W<.1,R<.01)
--- NOTE | 2018-12-29 17:44 | CON.PCM_ITS ---
Problem List (1) Left ankle pain Status: Chronic (2) Rheumatoid arthritis flare Status: Suspected Reason for Consult Date of Consultation: 12/29/18 Reason for Consultation: Left ankle pain History of Present Illness: The patient is a 68 year old M with significant past medical history of coronary artery disease, hyperlipidemia, hypertension, diabetes and recent diagnosis of rheumatoid arthritis was seen bedside for left ankle pain flareup. He was initially admitted due to chest pain and extremity discomfort. He denies left ankle or foot trauma. His pain onset was sudden and has worsened over the past 2 weeks. His pain is described as sharp to the ankle. He denies redness or bruising. He also reports light touch such as a bedsheet elicits pain. He does report some ankle swelling. He has been trying to rest. He relates he was screened for gout with a lab test ordered by his primary care physician which was within the normal range presumably the uric acid. He was seen by vinyl hanger, Dr. Swan, he who ordered tests and started him on a prednisone taper. This did not provide significant relief yet. He does report subjective fever at this time and denies chills, nausea, vomiting. He is a diabetic and denies paresthesias and claudication. He reports pain to multiple other joints and was started on IV Solu-Medrol while in house. Past Medical History Past Medical History (Chronic Problems): Chronic Problems (Last Reviewed 11/30/18 @ 11:37 by Tessy Giron) Left ankle pain (Chronic) Arteriosclerosis of coronary artery (Chronic) Stenting to RCA 08/2018 Hyperlipidemia (Chronic) Diabetes mellitus type II, controlled (Chronic) Hypertension (Chronic) Stented coronary artery (Chronic 08/19/18) PTCA and JOSE MANUEL (4.0 X 16 Promus Synergy) to mid RCA per Dr. Moffett @ [facility] Acute inferolateral myocardial infarction (Chronic 08/19/18) Medical History: Medical History (Last Reviewed 11/30/18 @ 11:37 by Tessy Giron) Arteriosclerosis of coronary artery (Chronic) I25.10 Stenting to RCA 08/2018 Hyperlipidemia (Chronic) E78.5 Diabetes mellitus type II, controlled (Chronic) E11.9 Hypertension (Chronic) I10 Acute inferolateral myocardial infarction (Chronic) Onset Date: 08/19/18 I21.19 Non-sustained ventricular tachycardia I47.2 Allergies atorvastatin [From Lipitor] Adverse Reaction (Severe, Verified 12/29/18 06:24) Myalgias Home Medications: Ambulatory Orders Medication Instructions Recorded Amlodipine [Norvasc] 10 mg PO DAILY 06/09/18 Chlorthalidone 25 mg PO DAILY 06/09/18 Cholecalciferol (Vitamin D3) 2,000 unit PO DAILY 06/09/18 [Vitamin D3] Empagliflozin [Jardiance] 10 mg PO DAILY 06/09/18 Glipizide 5 mg PO DAILY 06/09/18 Losartan Potassium [Cozaar] 100 mg PO DAILY 06/09/18 Multivitamin [Multiple Vitamins] 1 ea PO DAILY 06/09/18 Testosterone [Androgel] 75 gm TD DAILY 06/09/18 Calcium Carbonate/Vitamin D3 1 ea PO DAILY 08/19/18 [Calcium 500-Vit D3 600 Tablet] Aspirin E.C. [Ecotrin] 81 mg PO DAILY@0800 tab 08/21/18 carvedilol 3.125 mg tablet 3.125 mg PO BID #180 tab 09/07/18 Hydrocodone Bitart/Apap 5-325 1 tab PO Q6H PRN PRN 3 Days #10 tab 12/27/18 [[place] 5MG-325MG] Metformin HCl 1,000 mg PO DAILY 12/27/18 Pitavastatin Calcium [Livalo] 2 mg PO DAILY 12/27/18 Prednisone 15 mg PO DAILY 12/27/18 Ticagrelor [Brilinta] 180 mg PO DAILY 12/27/18 Surgical History: Surgical History (Last Reviewed 11/30/18 @ 08:44 by Tessy Giron) Stented coronary artery (Chronic) Onset Date: 08/19/18 Z95.5 PTCA and JOSE MANUEL (4.0 X 16 Promus Synergy) to mid RCA per Dr. Moffett @ [facility] Surgical History: - - Cystoscopy for renal calculi, PCI. Psychiatric History: No pertinent psych hx Lives: Spouse/ Significant Other Smoking Status: Never smoker Tobacco Use: Non-smoker Alcohol: None Drugs: None - *Family History Maternal Family History: Family History (Last Reviewed 11/30/18 @ 08:44 by Tessy Giron) Mother Diabetes Brother Heart disease History Items: Diabetes Paternal Family History: Family History (Last Reviewed 11/30/18 @ 08:44 by Tessy Giron) Mother Diabetes Brother Heart disease History Items: - - Patient notes that his father was healthy, no history of heart disease, diabetes or cancer. Review of Systems Constitutional: Reports: Fever, Fatigue. Denies: Chills, Weakness Eyes: Reports: - - denies dry eyes HEENT: Reports: - - denies dry mouth. Denies: Sore Throat Cardiovascular: Denies: Chest Pain, Claudication, Orthopnea Respiratory: Denies: Shortness of Breath Gastrointestinal: Denies: Diarrhea, Nausea, Vomiting Musculoskeletal: Reports: Joint stiffness, Joint swelling, - - left ankle pain, bilateral wrist pain, left ankle pain and inability to straighten. Denies: Foot Pain, Leg Pain, Muscle pain Skin: Denies: Pruritis, Rash, Wounds Neurological: Denies: Numbness, Tingling Hematologic/ Lymphatic: Denies: Easy Bruising Patient Problems: Active and Suspected Problems (Last Reviewed 11/30/18 @ 11:37 by Tessy Giron) Chest pain (Acute) Rheumatoid arthritis flare (Suspected) - Physical Exam General: Alert, Oriented x3, Cooperative HEENT: Atraumatic Extremities: No cyanosis, Capillary Refill Less than 3 Seconds - All digits bilateral, No Calf Tenderness - Negative Katty and Bolanos sign bilateral, Edema - Mild edema left ankle, Peripheral Pulses Normal - 2/4 PT and DP pulses bilateral Skin: - - No skin discontinuity, erythema, calor, dermatitis, maceration, eschar bilateral lower extremities. The skin turgor is normal and he does have hairs of the lower legs. There is no ecchymosis or blisters noted to the left lower extremity. There is no streaking Musculoskeletal: Muscle Wasting, - - Active and passive range of motion noted to bilateral lower extremities. 5 out of 5 ankle muscle strength in all directions left lower extremity is noted with pain apprehension. No pain on palpation to subtalar joint or along left lower extremity Achilles, peroneal, posterior tibialis tendon. There is pain on palpation along the anterior ankle joint line and with passive range of motion. No bogginess or fluctuance on palpation. No instability with anterior drawer sign or syndesmosis specific palpation. The compartments of the left and right lower extremity remain soft to palpate. Active range of motion digits x10 Neurological: Sensory exam intact to light touch and pain - Epicritic sensation is intact to light touch and is equal and symmetrical to foot and ankle dermatomes Psych/Mental Status: Normal Affect, Appropriate Vital Signs Temp Pulse Resp BP Pulse Ox 98.4 F 82 16 107/57 L 94 12/29/18 14:49 12/29/18 15:00 12/29/18 14:49 12/29/18 14:49 12/29/18 14:49 Oxygen Flow Rate (L/min) 2 Oxygen Delivery Method Room Air Weight: 79.4 kg Body Mass Index (BMI) 25.1 Intake and Output for Last 24 Hours 12/27/18 12/28/18 12/29/18 23:59 23:59 23:59 Intake Total 1064 / 1064 Output Total 1300 / 1300 Balance -236 / -236 Microbiology Past 72 Hours 12/29/18 07:25 Respiratory Panel (PCR) - Final Mucosa - Nose Laboratory Tests Past 24 Hrs 12/29/18 12/29/18 12/29/18 06:30 06:30 06:30 WBC 12.7 H RBC 4.74 Hgb 13.0 Hct 39.2 L MCV 82.7 MCH 27.4 MCHC 33.2 RDW 13.6 RDW Differential 40.2 Plt Count 289 MPV 8.9 Immature Gran % (Auto) 0.500 Neut % (Auto) 77.3 H Lymph % (Auto) 13.7 L [place] % (Auto) 7.9 Eos % (Auto) 0.4 Baso % (Auto) 0.2 Absolute Neuts (auto) 9.9 H Absolute Lymphs (auto) 1.74 Total Counted Not Reportable ESR 82 H Sodium 138 Potassium 3.4 L Chloride 103 Carbon Dioxide 26.0 Anion Gap 9 BUN 18 Creatinine 0.94 Estim Creat Clear Calc 77.66 Est GFR (MDRD) Af Amer 102 Est GFR (MDRD) Non-Af 84 BUN/Creatinine Ratio 19.1 Glucose 150 H Calcium 8.6 Magnesium Troponin I < 0.015 C-React Prot Ext Range Triglycerides Cholesterol LDL Cholesterol VLDL Cholesterol HDL Cholesterol Fluid Crystals Fluid Crystal Source Synovial Source Synovial Color Synovial Appearance Synovial WBC Synovial RBC Synovial Tot Cell Ct Synovial Path Comment 12/29/18 12/29/18 12/29/18 06:30 09:00 12:15 WBC RBC Hgb Hct MCV MCH MCHC RDW RDW Differential Plt Count MPV Immature Gran % (Auto) Neut % (Auto) Lymph % (Auto) [place] % (Auto) Eos % (Auto) Baso % (Auto) Absolute Neuts (auto) Absolute Lymphs (auto) Total Counted ESR Sodium Potassium Chloride Carbon Dioxide Anion Gap BUN Creatinine Estim Creat Clear Calc Est GFR (MDRD) Af Amer Est GFR (MDRD) Non-Af BUN/Creatinine Ratio Glucose Calcium Magnesium 2.0 Troponin I < 0.015 < 0.015 C-React Prot Ext Range 89.50 H Triglycerides 77 Cholesterol 98 LDL Cholesterol 38 VLDL Cholesterol 15 HDL Cholesterol 45 Fluid Crystals Fluid Crystal Source Synovial Source Synovial Color Synovial Appearance Synovial WBC Synovial RBC Synovial Tot Cell Ct Synovial Path Comment 12/29/18 14:40 WBC RBC Hgb Hct MCV MCH MCHC RDW RDW Differential Plt Count MPV Immature Gran % (Auto) Neut % (Auto) Lymph % (Auto) [place] % (Auto) Eos % (Auto) Baso % (Auto) Absolute Neuts (auto) Absolute Lymphs (auto) Total Counted ESR Sodium Potassium Chloride Carbon Dioxide Anion Gap BUN Creatinine Estim Creat Clear Calc Est GFR (MDRD) Af Amer Est GFR (MDRD) Non-Af BUN/Creatinine Ratio Glucose Calcium Magnesium Troponin I C-React Prot Ext Range Triglycerides Cholesterol LDL Cholesterol VLDL Cholesterol HDL Cholesterol Fluid Crystals Pending Fluid Crystal Source Pending Synovial Source Pending Synovial Color Pending Synovial Appearance Pending Synovial WBC Pending Synovial RBC Pending Synovial Tot Cell Ct Pending Synovial Path Comment Pending POC Glucose 12/29/18 12/29/18 16:33 12:40 POC Glucose 294 H 167 H Assessment/Plan All Active Problems (Last Reviewed 11/30/18 @ 11:37 by Tessy Giron) Screen for colon cancer (Acute) Chest pain (Acute) Left ankle pain: Rheumatoid arthritis flare is suspected, differential diagnosis includes septic joint or gout Other comorbidities include diabetes, hypertension, hyperlipidemia, CAD I reviewed and discussed his case today. His x-rays were reviewed of the left ankle including 3 views; no acute fractures or dislocations were noted. The ankle mortise is well aligned and there is no visualized joint effusion. No periosteal reaction or gouty tophi or erosions are appreciated. Diagnostic data including the following reviewed: White blood cell count 12.7, ESR 82, C- reactive protein 89.5, uric acid 4, hemoglobin A1c 7.6%, creatinine 0.94, TIFFANIE negative, rheumatoid factor elevated at 56, CCP IgG elevated at 209. His glucose obtained from earlier today prior to intervention at this consultation was 150 mg/dL. It is noted he was recently started on a prednisone taper and is under the management of the vinyl hanger. I was asked to be on consult to consider a joint injection of steroid for localized pain control in addition to his IV Solu-Medrol. The indications, benefits, risks, complications, and anticipated healing time and management were discussed with the patient. He understands and elects to proceed at this time. Verbal consent was obtained and the area was prepped with Betadine and alcohol.. Local anesthetic was administered at the anticipated intra-articular injection site including 3 cc of 1-1 mixture of 0.5% Marcaine plain and 1% lidocaine plain. This area was successfully anesthetized. I recommend both a joint aspiration as well as an intra-articular cortisone injection for both diagnostic and therapeutic purposes. The skin was reprepped with alcohol and Betadine and approximately 2 cc of the ankle joint fluid was aspirated and sent to the lab for standard synovial fluid analysis including total cell count, RBC, WBC. Additional crystal analysis and micro evaluation was ordered including a stat Gram stain. Approximately 2-1/2 cc of 3-1 mixture of dexamethasone phosphate and Kenalog 10 were administered into the ankle joint itself. Pressure was applied to maintain hemostasis and consider controlled and a Band-Aid dressing was applied. The patient tolerated this well. Pending the synovial fluid analysis additional intervention will be recommended. I will monitor him while in house in regards to his pain response. I do recommend immobilization with a Cam walker boot and this will be ordered at this time. He can weight-bear as tolerated. His glucose will also be monitored while in house; he understands this may be el evated secondary to steroid administration. Thank you very much for the consultation. Please do not hesitate to call if you have any questions.
[2018-12-29 17:52] LABS: RBC /Synovial Fluid 0.032 10^6/uL (0); Synovial Fld Mononuclear WBC % 5.2 %; Synovial Fld Polynuclear WBC % 94.8 %
[2018-12-29 18:59] LABS: Appearance /Synovial Fluid Turbid (CLEAR); CRYSTALS, BODY FLUID See PATH REV; Color / Synovial Fluid Yellow (Pale Yellow)
[2018-12-29 19:00] LABS: Source- Body Fluid SYNOVIAL
[2018-12-29 19:01] LABS: Body Fluid QC Type(s) BF3Q,BF4Q
[2018-12-29 19:34] LABS: Lymph 1 %; Monocyte /Synovial Fluid 8 %; Neutrophil 91 % (0-25)
[2018-12-29 22:21] LABS: Bedside Glucose 313 mg/dL (70-110)
[2018-12-30] VITALS (8 sets, daily range): BP systolic 116–136; BP diastolic 62; PULSE 74–89; RESP 16; TEMP 36.7–36.9; O2SAT 94–99
--- NOTE | 2018-12-30 05:55 | EKG12_ITS ---
Test Reason : CP Blood Pressure : / mmHG Vent. Rate : 073 BPM Atrial Rate : 073 BPM P-R Int : 128 ms QRS Dur : 088 ms QT Int : 384 ms P-R-T Axes : 005 -04 -12 degrees QTc Int : 423 ms Normal sinus rhythm Inferior infarct , age undetermined Abnormal ECG When compared with ECG of 29-DEC-2018 06:25, MANUAL COMPARISON REQUIRED, DATA IS UNCONFIRMED Confirmed by JAYNE JOLLEY, CHATO ([id number]), editorial assistant MATEO DUFFY ([id number]) on 01/01/2019 1:54:07 PM Referred By: Coco Swan Confirmed By:CHATO GODOY MD
[2018-12-30] MEDS: 0.9% Normal Saline 1,000 ML 100 ML IV (06:38)
--- NOTE | 2018-12-30 07:27 | PCM.PN.HOSP ---
Patient Problems: Active and Suspected Problems (Last Reviewed 11/30/18 @ 11:37 by Tessy Giron) Chest pain (Acute) Rheumatoid arthritis flare (Suspected) Subjective: Patient with market improvement with near resolution of all joint discomfort although still some mild wrists and some mild difficulty straightening on his left arm but otherwise doing very well. Tolerated therapies. Has boot in place. Amenable to transition to oral prednisone therapy at higher dose with plan to follow-up with rheumatology. He is also amenable to following up outpatient with podiatry. Patient had no recurrent chest discomfort. Patient denies fevers, chills, nausea, emesis, abdominal pain or dyspnea. Objective: Physical Examination: General: awake, alert, oriented x 3 and cooperative, seated upright in the bedside chair, NAD, comfortable appearing, near resolution of prior pain. Skin: normal color, turgor, no icterus, cyanosis. HEENT: AT/NC, EOMI, PERRLA, MMM. Lungs: CTA bilaterally, moderate effort, mild decrease BL bases, no rales, ronchi or wheezing. Heart: Regular rate and rhythm; no gallop, rub audible. Abdomen: soft, NTTP, ND, normal BS. Extremities: no cyanosis, clubbing, market improvement in joint pain, range of motion of bilateral wrists and left upper extremity improved, left foot pain markedly improved, boot in place currently per podiatry. Neurological: patient awake, alert, oriented x 3; cognitive function intact; pupils equally reactive to light and accomodation; cranial nerves II-XII grossly normal, moving all 4 extremities with much better range of motion and movement since day prior, strength markedly improved, strength mildly to moderately globally decreased. Psychiatric: affect appears normal, no acute evidence of depressive or anxiety feelings. Vitals/I&O's: Vital Signs Temp Pulse Resp BP Pulse Ox 98.0 F 74 16 116/62 95 12/30/18 02:10 12/30/18 04:00 12/30/18 02:10 12/30/18 02:10 12/30/18 02:10 Oxygen Flow Rate (L/min) 2 Oxygen Delivery Method Room Air Weight: 175 lb 0.752 oz Body Mass Index (BMI) 25.1 Intake and Output for Last 24 Hours 12/28/18 12/29/18 12/30/18 23:59 23:59 23:59 Intake Total 1064 / 1064 1300 / 1300 Output Total 1300 / 1300 1800 / 1800 Balance -236 / -236 -500 / -500 Microbiology Past 72 Hours 12/29/18 14:40 Fluid - Synovial (joint) Gram Stain - Preliminary 12/29/18 07:25 Mucosa - Nose Respiratory Panel (PCR) - Final Laboratory Results 12/29/18 06:30: ESR 82 H 12/29/18 06:30: C-React Prot Ext Range 89.50 H 12/29/18 09:00: Magnesium 2.0, Troponin I < 0.015, Triglycerides 77, Cholesterol 98, LDL Cholesterol 38, VLDL Cholesterol 15, HDL Cholesterol 45 12/29/18 12:15: Troponin I < 0.015 12/29/18 12:40: POC Glucose 167 H 12/29/18 14:40: Fluid Crystals See PATH REV, Fluid Crystal Source SYNOVIAL, Fl Crystal Path Review Will follow, Synovial Source LEFT ANKLE JOINT, Synovial Color Yellow, Synovial Appearance Turbid, Synovial WBC 50.3940 H, Synovial RBC 0.032 H, Synovial Tot Cell Ct 50.5800 H, Synov Polynuclear WBCs 47.774, Synov Mononuclear WBCs 2.620, Synovial Neutrophils 91 H, Synovial Lymphocytes 1, Synovial Monocytes 8, Synovial Polynuclear % 94.8, Synovial Mononuclear % 5.2, Synovial Path Comment May follow 12/29/18 16:33: POC Glucose 294 H 12/29/18 22:08: POC Glucose 313 H Current Medications Hydrocodone Bitart/Acetaminophen ([place] 5mg-325mg) 1 tablet PO Q6H PRN PRN PRN Reason: PAIN Last Admin: 12/29/18 14:55 Dose: 1 tablet Al Hydroxide/Mg Hydroxide (Mylanta Ii) 30 ml PO Q6H PRN PRN PRN Reason: Gastric burning Amlodipine Besylate (Norvasc) 10 mg PO DAILY [facility] Last Admin: 12/29/18 10:34 Dose: 10 mg Aspirin (Ecotrin) 81 mg PO DAILY@0800 [facility] Last Admin: 12/29/18 10:31 Dose: Not Given Carvedilol (Coreg) 3.125 mg PO BID [facility] Last Admin: 12/29/18 21:59 Dose: 3.125 mg Chlorthalidone (Hygroton) 25 mg PO DAILY [facility] Last Admin: 12/29/18 12:37 Dose: 25 mg Enoxaparin Sodium (Lovenox) 40 mg SC DAILY@1000 [facility] Last Admin: 12/29/18 12:36 Dose: 40 mg Hydralazine HCl (Apresoline Iv) 10 mg IV Q4H PRN PRN PRN Reason: SBP > 160 Sodium Chloride () 1,000 mls @ 100 mls/hr IV .Q10H [facility] Last Admin: 12/30/18 06:38 Dose: 100 mls/hr Sodium Chloride () 250 mls @ 15 mls/hr IV .[id number] PRN PRN Reason: SALINE FLUSH Insulin Human Lispro (Humalog Kwikpen (Bkc)) 0 unit SC ACHS [facility]; Protocol Last Admin: 12/29/18 22:11 Dose: 5 u Losartan Potassium (Cozaar) 100 mg PO DAILY [facility] Last Admin: 12/29/18 10:56 Dose: 100 mg Magnesium Hydroxide (Milk Of Magnesia) 30 ml PO DAILY PRN PRN Reason: Constipation Methylprednisolone (Solu-Medrol) 40 mg IV DAILY [facility] Last Admin: 12/29/18 13:32 Dose: 40 mg Morphine Sulfate () 4 mg IV Q4H PRN PRN PRN Reason: SEVERE PAIN (6-10/10) Nitroglycerin (Nitrostat) 0.4 mg SUBLINGUAL Q5M PRN PRN Reason: CHEST PAIN Ondansetron HCl (Zofran) 4 mg IV Q8H PRN PRN PRN Reason: NAUSEA Sodium Chloride () 5 - 15 ml IV UD PRN PRN Reason: SALINE FLUSH Ticagrelor (Brilinta) 90 mg PO BID [facility] Last Admin: 12/29/18 21:59 Dose: 90 mg Medical Necessity - Tobacco Use Smoking Status: Never smoker Tobacco Use: Non-smoker Assessment/Plan All Active Problems (Last Reviewed 11/30/18 @ 11:37 by Tessy Giron) Screen for colon cancer (Acute) Chest pain (Acute) The patient is a 68 y/o M w/ PMHx: CAD, STEMI s/p PCI RCA 08/2018, HTN, HLD, Diabetes mellitus type II, Hx NSVT who presents to the [facility] ED on 12/29/18 with history of approximately 3 hours prior to arrival, awakening him from sleep, left-sided chest discomfort described as sharp and stabbing, 8 out of 10 in severity initially, worse when he was lying flat and it seemed to improve when sitting up with no associated nausea, emesis, diaphoresis or dyspnea with improvement upon evaluation in the ED. (1) Chest Pain: Work-up in the ED included T1 100.2, heart rate 84, BP 136/72, respiratory rate 24, 96% on room air, CBC with WBC 12.7, hemoglobin 13, platelet 289 with left shift, BMP potassium 3.4, glucose 150, troponin less than 0.015, x-ray with no acute cardiopulmonary findings, EKG with no acute evidence of ischemia. Will admit to PCU, place on a monitored bed to assure no acute myocardial infarction with serial cardiac enzymes and EKGs Which remained unremarkable. Cardiac dobutamine stress testing was performed and negative for inducible ischemia. FLP was obtained and not market appearing. Magnesium level was normal. ASA, NG, morphine. (2) Rheumatoid Arthritis Flare: Recent flare, on steroid taper, not improving, CRP 89.50, ESR 82, given patient multi-joint involvement including lateral wrist, left ankle and left elbow discussed with orthopedic surgery and recommendation given multi-joint involvement to have podiatry inject left ankle and attempt IV steroid usage otherwise. Discussed case with podiatry and given left ankle the worst joint affected amenable to injection attempt with also aspiration 12/29/18. Aspiration w/ synovial WBC 50.3940, synovial RBC 0.032, synovial total cell count 50.5800, synovial neutrophils 91 with unremarkable preliminary Gram stain, consistent with flare. Patient will follow-up with podiatry outpatient within 1 week and podiatry will follow synovial fluid culture and evaluation. Patient will remain in boot per podiatry direction upon discharge. PT, OT, case management evaluation for discharge planning. (3) CAD: STEMI 08/2018, s/p PCI RCA, maintained currently on asa, brillinta w/ planned transition at end of current rx (01/2019) to plavix with load initially per last Cardiology visit note, coreg, ARB. (4) Hypertension: Continue home regimen including Norvasc, Coreg, chlorthalidone, losartan, PRN hydralazine. (5) Hyperlipidemia: Continue home statin regimen. FLP not marked. (6) Diabetes mellitus type II: Hold oral home regimen, ADA diet once s/p stress testing, accu checks w/ ISS. Expect BS increase w/ steroid administration, will continue to closely monitor. (7) DVT prophylaxis: SCDs, lovenox.
[2018-12-30 07:31] LABS: Bedside Glucose 202 mg/dL (70-110)
--- NOTE | 2018-12-30 07:31 | PN_ITS ---
Patient Problems: Active and Suspected Problems (Last Reviewed 11/30/18 @ 11:37 by Tessy Giron) Chest pain (Acute) Rheumatoid arthritis flare (Suspected) Subjective: Patient with market improvement with near resolution of all joint discomfort although still some mild wrists and some mild difficulty straightening on his left arm but otherwise doing very well. Tolerated therapies. Has boot in place. Amenable to transition to oral prednisone therapy at higher dose with plan to follow-up with rheumatology. He is also amenable to following up outpatient with podiatry. Patient had no recurrent chest discomfort. Patient denies fevers, chills, nausea, emesis, abdominal pain or dyspnea. Objective: Physical Examination: General: awake, alert, oriented x 3 and cooperative, seated upright in the bedside chair, NAD, comfortable appearing, near resolution of prior pain. Skin: normal color, turgor, no icterus, cyanosis. HEENT: AT/NC, EOMI, PERRLA, MMM. Lungs: CTA bilaterally, moderate effort, mild decrease BL bases, no rales, ronchi or wheezing. Heart: Regular rate and rhythm; no gallop, rub audible. Abdomen: soft, NTTP, ND, normal BS. Extremities: no cyanosis, clubbing, market improvement in joint pain, range of motion of bilateral wrists and left upper extremity improved, left foot pain mar kedly improved, boot in place currently per podiatry. Neurological: patient awake, alert, oriented x 3; cognitive function intact; pupils equally reactive to light and accomodation; cranial nerves II-XII grossly normal, moving all 4 extremities with much better range of motion and movement since day prior, strength markedly improved, strength mildly to moderately globally decreased. Psychiatric: affect appears normal, no acute evidence of depressive or anxiety feelings. Vitals/I&O's: Vital Signs Temp Pulse Resp BP Pulse Ox 98.0 F 74 16 116/62 95 12/30/18 02:10 12/30/18 04:00 12/30/18 02:10 12/30/18 02:10 12/30/18 02:10 Oxygen Flow Rate (L/min) 2 Oxygen Delivery Method Room Air Weight: 175 lb 0.752 oz Body Mass Index (BMI) 25.1 Intake and Output for Last 24 Hours 12/28/18 12/29/18 12/30/18 23:59 23:59 23:59 Intake Total 1064 / 1064 1300 / 1300 Output Total 1300 / 1300 1800 / 1800 Balance -236 / -236 -500 / -500 Microbiology Past 72 Hours 12/29/18 14:40 Fluid - Synovial (joint) Gram Stain - Preliminary 12/29/18 07:25 Mucosa - Nose Respiratory Panel (PCR) - Final Laboratory Results 12/29/18 06:30: ESR 82 H 12/29/18 06:30: C-React Prot Ext Range 89.50 H 12/29/18 09:00: Magnesium 2.0, Troponin I < 0.015, Triglycerides 77, Cholesterol 98, LDL Cholesterol 38, VLDL Cholesterol 15, HDL Cholesterol 45 12/29/18 12:15: Troponin I < 0.015 12/29/18 12:40: POC Glucose 167 H 12/29/18 14:40: Fluid Crystals See PATH REV, Fluid Crystal Source SYNOVIAL, Fl Crystal Path Review Will follow, Synovial Source LEFT ANKLE JOINT, Synovial Color Yellow, Synovial Appearance Turbid, Synovial WBC 50.3940 H, Synovial RBC 0.032 H, Synovial Tot Cell Ct 50.5800 H, Synov Polynuclear WBCs 47.774, Synov Mononuclear WBCs 2.620, Synovial Neutrophils 91 H, Synovial Lymphocytes 1, Synovial Monocytes 8, Synovial Polynuclear % 94.8, Synovial Mononuclear % 5.2, Synovial Path Comment May follow 12/29/18 16:33: POC Glucose 294 H 12/29/18 22:08: POC Glucose 313 H Current Medications Hydrocodone Bitart/Acetaminophen ([place] 5mg-325mg) 1 tablet PO Q6H PRN PRN PRN Reason: PAIN Last Admin: 12/29/18 14:55 Dose: 1 tablet Al Hydroxide/Mg Hydroxide (Mylanta Ii) 30 ml PO Q6H PRN PRN PRN Reason: Gastric burning Amlodipine Besylate (Norvasc) 10 mg PO DAILY [facility] Last Admin: 12/29/18 10:34 Dose: 10 mg Aspirin (Ecotrin) 81 mg PO DAILY@0800 [facility] Last Admin: 12/29/18 10:31 Dose: Not Given Carvedilol (Coreg) 3.125 mg PO BID [facility] Last Admin: 12/29/18 21:59 Dose: 3.125 mg Chlorthalidone (Hygroton) 25 mg PO DAILY [facility] Last Admin: 12/29/18 12:37 Dose: 25 mg Enoxaparin Sodium (Lovenox) 40 mg SC DAILY@1000 [facility] Last Admin: 12/29/18 12:36 Dose: 40 mg Hydralazine HCl (Apresoline Iv) 10 mg IV Q4H PRN PRN PRN Reason: SBP > 160 Sodium Chloride () 1,000 mls @ 100 mls/hr IV .Q10H [facility] Last Admin: 12/30/18 06:38 Dose: 100 mls/hr Sodium Chloride () 250 mls @ 15 mls/hr IV .[id number] PRN PRN Reason: SALINE FLUSH Insulin Human Lispro (Humalog Kwikpen (Bkc)) 0 unit SC ACHS [facility]; Protocol Last Admin: 12/29/18 22:11 Dose: 5 u Losartan Potassium (Cozaar) 100 mg PO DAILY [facility] Last Admin: 12/29/18 10:56 Dose: 100 mg Magnesium Hydroxide (Milk Of Magnesia) 30 ml PO DAILY PRN PRN Reason: Constipation Methylprednisolone (Solu-Medrol) 40 mg IV DAILY [facility] Last Admin: 12/29/18 13:32 Dose: 40 mg Morphine Sulfate () 4 mg IV Q4H PRN PRN PRN Reason: SEVERE PAIN (6-10/10) Nitroglycerin (Nitrostat) 0.4 mg SUBLINGUAL Q5M PRN PRN Reason: CHEST PAIN Ondansetron HCl (Zofran) 4 mg IV Q8H PRN PRN PRN Reason: NAUSEA Sodium Chloride () 5 - 15 ml IV UD PRN PRN Reason: SALINE FLUSH Ticagrelor (Brilinta) 90 mg PO BID [facility] Last Admin: 12/29/18 21:59 Dose: 90 mg Medical Necessity - Tobacco Use Smoking Status: Never smoker Tobacco Use: Non-smoker Assessment/Plan All Active Problems (Last Reviewed 11/30/18 @ 11:37 by Tessy Giron) Screen for colon cancer (Acute) Chest pain (Acute) The patient is a 68 y/o M w/ PMHx: CAD, STEMI s/p PCI RCA 08/2018, HTN, HLD, Diabetes mellitus type II, Hx NSVT who presents to the [facility] ED on 12/29/18 with history of approximately 3 hours prior to arrival, awakening him from sleep, left-sided chest discomfort described as sharp and stabbing, 8 out of 10 in severity initially, worse when he was lying flat and it seemed to improve when sitting up with no associated nausea, emesis, diaphoresis or dyspnea with improvement upon evaluation in the ED. (1) Chest Pain: Work-up in the ED included T1 100.2, heart rate 84, BP 136/72, respiratory rate 24, 96% on room air, CBC with WBC 12.7, hemoglobin 13, platelet 289 with left shift, BMP potassium 3.4, glucose 150, troponin less than 0.015, x-ray with no acute cardiopulmonary findings, EKG with no acute evidence of ischemia. Will admit to PCU, place on a monitored bed to assure no acute myocardial infarction with serial cardiac enzymes and EKGs Which remained unremarkable. Cardiac dobutamine stress testing was performed and negative for inducible ischemia. FLP was obtained and not market appearing. Magnesium level was normal. ASA, NG, morphine. (2) Rheumatoid Arthritis Flare: Recent flare, on steroid taper, not improving, CRP 89.50, ESR 82, given patient multi-joint involvement including lateral wrist, left ankle and left elbow discussed with orthopedic surgery and recommendation given multi-joint involvement to have podiatry inject left ankle and attempt IV steroid usage otherwise. Discussed case with podiatry and given left ankle the worst joint affected amenable to injection attempt with also aspiration 12/29/18. Aspiration w/ synovial WBC 50.3940, synovial RBC 0.032, synovial total cell count 50.5800, synovial neutrophils 91 with unremarkable preliminary Gram stain, consistent with flare. Patient will follow-up with podiatry outpatient within 1 week and podiatry will follow synovial fluid culture and evaluation. Patient will remain in boot per podiatry direction upon discharge. PT, OT, case management evaluation for discharge planning. (3) CAD: STEMI 08/2018, s/p PCI RCA, maintained currently on asa, brillinta w/ planned transition at end of current rx (01/2019) to plavix with load initially per last Cardiology visit note, coreg, ARB. (4) Hypertension: Continue home regimen including Norvasc, Coreg, chlorthalidone, losartan, PRN hydralazine. (5) Hyperlipidemia: Continue home statin regimen. FLP not marked. (6) Diabetes mellitus type II: Hold oral home regimen, ADA diet once s/p stress testing, accu checks w/ ISS. Expect BS increase w/ steroid administration, will continue to closely monitor. (7) DVT prophylaxis: SCDs, lovenox.
[2018-12-30 07:48] LABS: Absolute Lymphocyte Count 0.95 X10^3/ul (0.83-4.51); Absolute Neutrophil Count 9.9 X10^3/uL (2.0-7.7); Basophil# 0.01 X10^3/uL; Basophil% 0.1 % (0-1); Hematocrit 39.6 % (40-54); Hemoglobin 13.3 g/dl (13.0-16.5); Lymphocyte # 0.95 X10^3/ul (4.0); Lymphocyte % 8.4 % (19-41); Mean Corp Hgb Conc 33.6 g/gl (32-36); Mean Corpuscular Hgb 27.5 pg (27.0-32.0); Monocyte# 0.39 X10^3/uL; Monocyte% 3.5 % (0-10); Neutrophil # 9.89 X10^3/uL (2.7-7.7); Neutrophil % 87.7 % (47-70); Platelet Count 295 K/mm3 (150-450); RBC Distribution Width CV 13.4 % (11.6-14.6); RBC Distribution Width SD 40.8 fl (35.1-43.9); Red Blood Count 4.83 M/mm3 (4.6-6.2); White Blood Count 11.3 K/mm3 (4.4-11.0)
[2018-12-30 07:50] LABS: POSITIVE COUNT NO; POSITIVE DIFFERENTIAL NO; POSITIVE MORPHOLOGY NO
[2018-12-30 07:58] LABS: Anion Gap 9 (5-15); BUN 19 mg/dL (7-18); BUN/Creat Ratio 21.3 RATIO (10-20); Calcium,Total 8.7 mg/dL (8.5-10.1); Chloride 106 mmol/L (98-107); Creatinine, Serum 0.89 mg/dL (0.70-1.30); EST Glomerular Filtration Rate 90 mL/min (>60); Est Glom Filt Rate - Afr Amer 109 mL/min (>60); Estimated Creatinine Clearance 82.02 ml/min; Glucose 176 mg/dL (74-106); Potassium 3.6 mmol/L (3.5-5.1); Sodium Level 138 mmol/L (136-145)
[2018-12-30] MEDS: Insulin Lispro 100 UNIT/ML INSULN.PEN SC ×2 (08:04→11:54)
[2018-12-30] MEDS: amLODIPine 10 MG Tablet PO ×2 (09:19)
[2018-12-30] MEDS: Losartan Potassium 100 MG Tablet PO (09:19)
[2018-12-30] MEDS: TICAGRELOR 90 MG TABLET PO (09:19)
[2018-12-30] MEDS: Aspirin E.C. 81 MG Tablet PO (09:19)
[2018-12-30] MEDS: Carvedilol 3.125 MG TABLET PO (09:19)
[2018-12-30] MEDS: Chlorthalidone 50 MG Tablet 25 MG PO (09:20)
[2018-12-30] MEDS: Enoxaparin 40 MG/0.4 ML Syringe SC (09:21)
[2018-12-30 12:05] LABS: Bedside Glucose 249 mg/dL (70-110)
--- NOTE | 2018-12-30 12:59 | PCM.DC.POD ---
Discharge Activity: - - weight bear as tolerated with left boot Weight Bearing Status: Weight bearing as tolerated Keep extremity elevated above heart level: Left Leg Call your doctor if your incision/area has: Increased Pain/ Swelling, Increased Redness Call your doctor if you observe: Fever of 101 or Higher, Swelling in the ankles, Calf discomfort, Uncontrolled pain Allergies/Adverse Reactions: Allergies atorvastatin [From Lipitor] Adverse Reaction (Severe, Verified 12/29/18 06:24) Myalgias Medications to take at Discharge Amlodipine [Norvasc] 10 mg PO DAILY 06/09/18 Chlorthalidone 25 mg PO DAILY 06/09/18 Cholecalciferol (Vitamin D3) [Vitamin D3] 2,000 unit PO DAILY 06/09/18 Empagliflozin [Jardiance] 10 mg PO DAILY 06/09/18 Glipizide 5 mg PO DAILY 06/09/18 Losartan Potassium [Cozaar] 100 mg PO DAILY 06/09/18 Multivitamin [Multiple Vitamins] 1 ea PO DAILY 06/09/18 Testosterone [Androgel] 75 gm TD DAILY 06/09/18 Calcium Carbonate/Vitamin D3 [Calcium 500-Vit D3 600 Tablet] 1 ea PO DAILY 08/19/18 Aspirin E.C. [Ecotrin] 81 mg PO DAILY@0800 tab 08/21/18 carvedilol 3.125 mg tablet 3.125 mg PO BID #180 tab 09/07/18 Metformin HCl 1,000 mg PO DAILY 12/27/18 Pitavastatin Calcium [Livalo] 2 mg PO DAILY 12/27/18 Prednisone 15 mg PO DAILY 12/27/18 Ticagrelor [Brilinta] 180 mg PO DAILY 12/27/18 Primary Care Physician: Roby Chisholm MD [Primary Care Provider] - Test Results: Test results from this visit will be discussed in further detail at your follow-up appointment, if applicable. Please Follow Up With: Nalini Christina DPM When: 1 week [facility] [address] [facility], [address]; call [phone] Proposed Discharge Date: 12/30/18
--- NOTE | 2018-12-30 13:02 | DCINST_ITS ---
Discharge Activity: - - weight bear as tolerated with left boot Weight Bearing Status: Weight bearing as tolerated Keep extremity elevated above heart level: Left Leg Call your doctor if your incision/area has: Increased Pain/ Swelling, Increased Redness Call your doctor if you observe: Fever of 101 or Higher, Swelling in the ankles, Calf discomfort, Uncontrolled pain Allergies/Adverse Reactions: Allergies atorvastatin [From Lipitor] Adverse Reaction (Severe, Verified 12/29/18 06:24) Myalgias Medications to take at Discharge Amlodipine [Norvasc] 10 mg PO DAILY 06/09/18 Chlorthalidone 25 mg PO DAILY 06/09/18 Cholecalciferol (Vitamin D3) [Vitamin D3] 2,000 unit PO DAILY 06/09/18 Empagliflozin [Jardiance] 10 mg PO DAILY 06/09/18 Glipizide 5 mg PO DAILY 06/09/18 Losartan Potassium [Cozaar] 100 mg PO DAILY 06/09/18 Multivitamin [Multiple Vitamins] 1 ea PO DAILY 06/09/18 Testosterone [Androgel] 75 gm TD DAILY 06/09/18 Calcium Carbonate/Vitamin D3 [Calcium 500-Vit D3 600 Tablet] 1 ea PO DAILY 08/19/18 Aspirin E.C. [Ecotrin] 81 mg PO DAILY@0800 tab 08/21/18 carvedilol 3.125 mg tablet 3.125 mg PO BID #180 tab 09/07/18 Metformin HCl 1,000 mg PO DAILY 12/27/18 Pitavastatin Calcium [Livalo] 2 mg PO DAILY 12/27/18 Prednisone 15 mg PO DAILY 12/27/18 Ticagrelor [Brilinta] 180 mg PO DAILY 12/27/18 Primary Care Physician: Roby Chisholm MD [Primary Care Provider] - Test Results: Test results from this visit will be discussed in further detail at your follow- up appointment, if applicable. Please Follow Up With: Nalini Christina DPM When: 1 week [facility] [address] [facility], [address]; call [phone] Proposed Discharge Date: 12/30/18
--- NOTE | 2018-12-30 13:50 | PCM.DC ---
- Discharge Diagnoses Current Active Problems: Current Active and Chronic Problems (Last Reviewed 11/30/18 @ 11:37 by Tessy Giron) (1) Chest Pain, Atypical, Suspected non-cardiac, possible associated w/ RA Flare #2 (2) Rheumatoid Arthritis Flare, multi-joint involvement including lateral wrist, left ankle and left elbow discussed (3) CAD, Hx STEMI 08/2018, s/p PCI RCA (4) Hypertension (5) Hyperlipidemia (6) Diabetes mellitus type II You will use the following diet at home:: Cardiac Your food should be the consistency of: Regular Your liquids should be the consistency of: Regular/Thin Discharge Activity: - - weight bear as tolerated with left boot May resume sexual activity in: No Restrictions Weight Bearing Status: Weight bearing as tolerated Keep extremity elevated above heart level: Left Leg Call your doctor if your incision/area has: Increased Pain/ Swelling, Increased Redness Call your doctor if you observe: Fever of 101 or Higher, Inability to urinate, Inability to have a bowel movement, Shortness of breath, Dizziness, Fainting spells, Swelling in the ankles, Chest pain, Calf discomfort, Uncontrolled pain Instructions: ED Chest Pain NonCardiac, ED Chest Pain Atypical Unkn Cause, What is Rheumatoid Arthritis?, Living with Rheumatoid Arthritis Additional Instructions: Recommend consideration of outpatient physical therapy, rx given. Allergies/Adverse Reactions: Allergies atorvastatin [From Lipitor] Adverse Reaction (Severe, Verified 12/29/18 06:24) Myalgias Medications to take at Discharge Amlodipine [Norvasc] 10 mg PO DAILY 06/09/18 Chlorthalidone 25 mg PO DAILY 06/09/18 Cholecalciferol (Vitamin D3) [Vitamin D3] 2,000 unit PO DAILY 06/09/18 Empagliflozin [Jardiance] 10 mg PO DAILY 06/09/18 Glipizide 5 mg PO DAILY 06/09/18 Losartan Potassium [Cozaar] 100 mg PO DAILY 06/09/18 Multivitamin [Multiple Vitamins] 1 ea PO DAILY 06/09/18 Calcium Carbonate/Vitamin D3 [Calcium 500-Vit D3 600 Tablet] 1 ea PO DAILY 08/19/18 Aspirin E.C. [Ecotrin] 81 mg PO DAILY@0800 tab 08/21/18 carvedilol 3.125 mg tablet 3.125 mg PO BID #180 tab 09/07/18 Metformin HCl 1,000 mg PO DAILY 12/27/18 Pitavastatin Calcium [Livalo] 2 mg PO DAILY 12/27/18 Ticagrelor [Brilinta] 180 mg PO DAILY 12/27/18 Prednisone [Deltasone] 40 mg PO DAILY #60 tablet 12/30/18 The following prescriptions were given: Prednisone [Deltasone] 40 mg PO DAILY #60 tablet Primary Care Physician: Roby Chisholm MD [Primary Care Provider] - Please follow up with your Primary Care Physician in: Follow-up within 3-5 days to review admission. Test Results: Test results from this visit will be discussed in further detail at your follow-up appointment, if applicable. Please Follow Up With: Nalini Christina DPM When: 1 week [facility] [address] [facility], [address]; call [phone] Please Follow Up With: Coco Swan MD When: Follow-up within 1 wk, review admit, taper steroids per her discretion. Please Follow Up With: Emmanuel Shields DO When: Follow-up as needed if worsened wrist pain for injection consideration. Proposed Discharge Date: 12/30/18
--- NOTE | 2018-12-30 13:54 | DCINST_ITS ---
- Discharge Diagnoses Current Active Problems: Current Active and Chronic Problems (Last Reviewed 11/30/18 @ 11:37 by Tessy Giron) (1) Chest Pain, Atypical, Suspected non-cardiac, possible associated w/ RA Flare #2 (2) Rheumatoid Arthritis Flare, multi-joint involvement including lateral wrist, left ankle and left elbow discussed (3) CAD, Hx STEMI 08/2018, s/p PCI RCA (4) Hypertension (5) Hyperlipidemia (6) Diabetes mellitus type II You will use the following diet at home:: Cardiac Your food should be the consistency of: Regular Your liquids should be the consistency of: Regular/Thin Discharge Activity: - - weight bear as tolerated with left boot May resume sexual activity in: No Restrictions Weight Bearing Status: Weight bearing as tolerated Keep extremity elevated above heart level: Left Leg Call your doctor if your incision/area has: Increased Pain/ Swelling, Increased Redness Call your doctor if you observe: Fever of 101 or Higher, Inability to urinate, Inability to have a bowel movement, Shortness of breath, Dizziness, Fainting spells, Swelling in the ankles, Chest pain, Calf discomfort, Uncontrolled pain Instructions: ED Chest Pain NonCardiac, ED Chest Pain Atypical Unkn Cause, What is Rheumatoid Arthritis?, Living with Rheumatoid Arthritis Additional Instructions: Recommend consideration of outpatient physical therapy, rx given. Allergies/Adverse Reactions: Allergies atorvastatin [From Lipitor] Adverse Reaction (Severe, Verified 12/29/18 06:24) Myalgias Medications to take at Discharge Amlodipine [Norvasc] 10 mg PO DAILY 06/09/18 Chlorthalidone 25 mg PO DAILY 06/09/18 Cholecalciferol (Vitamin D3) [Vitamin D3] 2,000 unit PO DAILY 06/09/18 Empagliflozin [Jardiance] 10 mg PO DAILY 06/09/18 Glipizide 5 mg PO DAILY 06/09/18 Losartan Potassium [Cozaar] 100 mg PO DAILY 06/09/18 Multivitamin [Multiple Vitamins] 1 ea PO DAILY 06/09/18 Calcium Carbonate/Vitamin D3 [Calcium 500-Vit D3 600 Tablet] 1 ea PO DAILY 08/19/18 Aspirin E.C. [Ecotrin] 81 mg PO DAILY@0800 tab 08/21/18 carvedilol 3.125 mg tablet 3.125 mg PO BID #180 tab 09/07/18 Metformin HCl 1,000 mg PO DAILY 12/27/18 Pitavastatin Calcium [Livalo] 2 mg PO DAILY 12/27/18 Ticagrelor [Brilinta] 180 mg PO DAILY 12/27/18 Prednisone [Deltasone] 40 mg PO DAILY #60 tablet 12/30/18 The following prescriptions were given: Prednisone [Deltasone] 40 mg PO DAILY #60 tablet Primary Care Physician: Roby Chisholm MD [Primary Care Provider] - Please follow up with your Primary Care Physician in: Follow-up within 3-5 days to review admission. Test Results: Test results from this visit will be discussed in further detail at your follow- up appointment, if applicable. Please Follow Up With: Nalini Christina DPM When: 1 week [facility] [address] [facility], [address]; call [phone] Please Follow Up With: Coco Swan MD When: Follow-up within 1 wk, review admit, taper steroids per her discretion. Please Follow Up With: Emmanuel Shields DO When: Follow-up as needed if worsened wrist pain for injection consideration. Proposed Discharge Date: 12/30/18
--- NOTE | 2018-12-30 13:55 | PCM.DC.SUM ---
Discharge Date and Diagnosis - Problem List Patient Problems: Active and Suspected Problems (Last Reviewed 11/30/18 @ 11:37 by Tessy Giron) Chest pain (Acute) Rheumatoid arthritis flare (Suspected) Date of Admission: 12/29/18 Date of Discharge: 12/30/18 - Primary Discharge Diagnosis Active and Suspected Problems (Last Reviewed 11/30/18 @ 11:37 by Tessy Giron) (1) Chest Pain, Atypical, Suspected non-cardiac, possible associated w/ RA Flare #2 (2) Rheumatoid Arthritis Flare, multi-joint involvement including lateral wrist, left ankle and left elbow discussed (3) CAD, Hx STEMI 08/2018, s/p PCI RCA (4) Hypertension (5) Hyperlipidemia (6) Diabetes mellitus type II - Secondary Discharge Diagnosis Chronic Problems (Last Reviewed 11/30/18 @ 11:37 by Tessy Giron) Left ankle pain (Chronic) Arteriosclerosis of coronary artery (Chronic) Stenting to RCA 08/2018 Hyperlipidemia (Chronic) Diabetes mellitus type II, controlled (Chronic) Hypertension (Chronic) Stented coronary artery (Chronic 08/19/18) PTCA and JOSE MANUEL (4.0 X 16 Promus Synergy) to mid RCA per Dr. Moffett @ [facility] Acute inferolateral myocardial infarction (Chronic 08/19/18) Hospital Course and Treatment Dr. Christina Podiatry Operations: None Procedures: - - L ankle aspiration, steroid injection. Summary of Care Provided: The patient is a 68 y/o M w/ PMHx: CAD, STEMI s/p PCI RCA 08/2018, HTN, HLD, Diabetes mellitus type II, Hx NSVT who presented to the [facility] ED on 12/29/18 with history of approximately 3 hours prior to arrival, awakening him from sleep, left-sided chest discomfort described as sharp and stabbing, 8 out of 10 in severity initially, worse when he was lying flat and it seemed to improve when sitting up with no associated nausea, emesis, diaphoresis or dyspnea with improvement upon evaluation in the ED. Work-up in the ED included T1 100.2, heart rate 84, BP 136/72, respiratory rate 24, 96% on room air, CBC with WBC 12.7, hemoglobin 13, platelet 289 with left shift, BMP potassium 3.4, glucose 150, troponin less than 0.015, x-ray with no acute cardiopulmonary findings, EKG with no acute evidence of ischemia. Will admit to PCU, place on a monitored bed to assure no acute myocardial infarction with serial cardiac enzymes and EKGs Which remained unremarkable. Cardiac dobutamine stress testing was performed and negative for inducible ischemia. FLP was obtained and not market appearing. Magnesium level was normal. ASA, NG, morphine. Patient w/ recent Rheumatoid Arthritis Flare, on steroid taper, worsened upon ED presentation, CRP 89.50, ESR 82. Given patient multi-joint involvement including lateral wrist, left ankle and left elbow discussed with orthopedic surgery and recommendation given multi-joint involvement to have podiatry inject left ankle and attempt IV steroid usage otherwise. Discussed case with podiatry and given left ankle the worst joint affected amenable to injection attempt with also aspiration 12/29/18. Aspiration w/ synovial WBC 50.3940, synovial RBC 0.032, synovial total cell count 50.5800, synovial neutrophils 91 with unremarkable preliminary Gram stain, consistent with flare. Patient discharged to home given notable improvement with the noted regimen on prednisone 0.5 mg/kg regimen (40 mg)will follow-up with podiatry outpatient within 1 week and podiatry will follow synovial fluid culture and evaluation as well as PCP within 3-5 days. Patient will remain in boot per podiatry direction upon discharge. PT, OT, case management evaluation for discharge planning with upon discharge rx given for outpatient therapy. Patient Problems: Active and Suspected Problems (Last Reviewed 11/30/18 @ 11:37 by Tessy Giron) Chest pain (Acute) Rheumatoid arthritis flare (Suspected) - Physical Exam Vital Signs Temp Pulse Resp BP Pulse Ox 98.5 F 78 16 136/62 H 99 12/30/18 08:00 12/30/18 11:00 12/30/18 08:00 12/30/18 08:00 12/30/18 08:00 Oxygen Flow Rate (L/min) 2 Oxygen Delivery Method Room Air Weight: 175 lb 0.752 oz Body Mass Index (BMI) 25.1 Intake and Output for Last 24 Hours 12/28/18 12/29/18 12/30/18 23:59 23:59 23:59 Intake Total 1064 / 1064 2061 / 2061 Output Total 1300 / 1300 2425 / 2425 Balance -236 / -236 -364 / -364 Microbiology Past 72 Hours 12/29/18 14:40 Gram Stain - Final Fluid - Synovial (joint) Body Fluid Culture - Preliminary No growth-Final to follow 12/29/18 07:25 Respiratory Panel (PCR) - Final Mucosa - Nose Laboratory Tests Past 24 Hrs 12/29/18 12/30/18 12/30/18 14:40 07:30 07:30 WBC 11.3 H RBC 4.83 Hgb 13.3 Hct 39.6 L MCV 82.0 MCH 27.5 MCHC 33.6 RDW 13.4 RDW Differential 40.8 Plt Count 295 MPV 9.0 Immature Gran % (Auto) 0.300 Neut % (Auto) 87.7 H Lymph % (Auto) 8.4 L Schuyler % (Auto) 3.5 Eos % (Auto) 0.0 Baso % (Auto) 0.1 Absolute Neuts (auto) 9.9 H Absolute Lymphs (auto) 0.95 Total Counted Not Reportable Sodium 138 Potassium 3.6 Chloride 106 Carbon Dioxide 23.0 Anion Gap 9 BUN 19 H Creatinine 0.89 Estim Creat Clear Calc 82.02 Est GFR (MDRD) Af Amer 109 Est GFR (MDRD) Non-Af 90 BUN/Creatinine Ratio 21.3 H Glucose 176 H Calcium 8.7 Fluid Crystals See PATH REV Fluid Crystal Source SYNOVIAL Fl Crystal Path Review Will follow Synovial Source LEFT ANKLE JOINT Synovial Color Yellow Synovial Appearance Turbid Synovial WBC 50.3940 H Synovial RBC 0.032 H Synovial Tot Cell Ct 50.5800 H Synov Polynuclear WBCs 47.774 Synov Mononuclear WBCs 2.620 Synovial Neutrophils 91 H Synovial Lymphocytes 1 Synovial Monocytes 8 Synovial Polynuclear % 94.8 Synovial Mononuclear % 5.[address] Comment May follow POC Glucose 12/30/18 12/30/18 12/29/18 11:53 07:20 22:08 POC Glucose 249 H 202 H 313 H 12/29/18 16:33 POC Glucose 294 H Discharge Activity: - - weight bear as tolerated with left boot May resume sexual activity in: No Restrictions Weight Bearing Status: Weight bearing as tolerated Keep extremity elevated above heart level: Left Leg Call your doctor if your incision/area has: Increased Pain/ Swelling, Increased Redness Call your doctor if you observe: Fever of 101 or Higher, Inability to urinate, Inability to have a bowel movement, Shortness of breath, Dizziness, Fainting spells, Swelling in the ankles, Chest pain, Calf discomfort, Uncontrolled pain Home Medications: Medications to take at Discharge Amlodipine [Norvasc] 10 mg PO DAILY 06/09/18 Chlorthalidone 25 mg PO DAILY 06/09/18 Cholecalciferol (Vitamin D3) [Vitamin D3] 2,000 unit PO DAILY 06/09/18 Empagliflozin [Jardiance] 10 mg PO DAILY 06/09/18 Glipizide 5 mg PO DAILY 06/09/18 Losartan Potassium [Cozaar] 100 mg PO DAILY 06/09/18 Multivitamin [Multiple Vitamins] 1 ea PO DAILY 06/09/18 Calcium Carbonate/Vitamin D3 [Calcium 500-Vit D3 600 Tablet] 1 ea PO DAILY 08/19/18 Aspirin E.C. [Ecotrin] 81 mg PO DAILY@0800 tab 08/21/18 carvedilol 3.125 mg tablet 3.125 mg PO BID #180 tab 09/07/18 Metformin HCl 1,000 mg PO DAILY 12/27/18 Pitavastatin Calcium [Livalo] 2 mg PO DAILY 12/27/18 Ticagrelor [Brilinta] 180 mg PO DAILY 12/27/18 Prednisone [Deltasone] 40 mg PO DAILY #60 tablet 12/30/18 Following Prescrptions Were Given to Patient: Prednisone [Deltasone] 40 mg PO DAILY #60 tablet Primary Care Physician: Roby Chisholm MD [Primary Care Provider] - Please follow up with your Primary Care Physician in: Follow-up within 3-5 days to review admission. Please Follow Up With: Nalini Christina DPM When: 1 week [facility] [address], [address]; call [phone] Please Follow Up With: Coco Swan MD When: Follow-up within 1 wk, review admit, taper steroids per her discretion. Please Follow Up With: Emmanuel Shields DO When: Follow-up as needed if worsened wrist pain for injection consideration. Patient Instructions: What is Rheumatoid Arthritis?, Living with Rheumatoid Arthritis, ED Chest Pain NonCardiac, ED Chest Pain Atypical Unkn Cause Disposition: Home Minutes spent on discharge:: 35 Patient Condition:: Fair Medical Necessity - Tobacco Use Smoking Status: Never smoker Tobacco Use: Non-smoker Meaningful Use Info Meaningful Use Diagnoses (Choose all that apply): None applicable Code Visit OBSV E&M: 01271 Observation care discharge
--- NOTE | 2018-12-30 14:07 | CASEMGMT ---
Dr. Tamayo would like pt set up with OP therapy at discharge. Pt is agreeable to OP therapy at [facility] at this time and order faxed to them at this time. Original to pt at this time. Travis CASANOVA CM
[2018-12-30 14:30] LABS: Pathologist Review Reviewed
== END 2018-12-30 15:11 | disposition home or self-care (01) ==
LOC: ED 06:40 → PCU 07:46
PROVIDERS: Emergency Medicine; Admitting Provider Family Medicine; Emergency Provider Emergency Medicine; Family Provider Family Medicine; PCP Family Medicine; Visit Provider Family Medicine
DX: R07.89 Other chest pain (principal); M06.9 Rheumatoid arthritis, unspecified; I25.2 Old myocardial infarction; Z79.899 Other long term (current) drug therapy; Z79.84 Long term (current) use of oral hypoglycemic drugs; Z79.82 Long term (current) use of aspirin; I25.10 Atherosclerotic heart disease of native coronary artery without angina pectoris; Z95.5 Presence of coronary angioplasty implant and graft; E78.5 Hyperlipidemia, unspecified; E11.9 Type 2 diabetes mellitus without complications; I10 Essential (primary) hypertension; M25.572 Pain in left ankle and joints of left foot
CPT/HCPCS: 36415; 71045; 73610; 80048; 80061; 82962; 83735; 84484; 85025; 85652; 86140; 87070; 87075; 87205; 87633; 89050; 89051; 89060; 93005; 93017; 93350; 96361; 96372; 96374; 96375; 96376; 97161; 97165; 97802; 99218; 99285; J7030; J7040; A4216; G0378; J2405

== ENCOUNTER 2019-01-02 09:04 | Emergency (ER) | payer MEDICARE, SELFPAY ==
[2018-12-29 08:24] VITALS: BMI 25.1
[2019-01-02 09:05] VITALS: BP 116/59; PULSE 82; RESP 18; TEMP 36.7; O2SAT 97; BMI 25.2
[2019-01-02] MEDS: Ketorolac 15 MG/ML Vial IV (10:31)
[2019-01-02] MEDS: Morphine 4 MG/ML Syringe IV ×2 (10:31→12:40)
[2019-01-02] MEDS: MethylPREDNISolone 125 MG/2 ML Vial IV (10:31)
[2019-01-02] MEDS: Ondansetron 4 MG/2 ML Vial IV (10:32)
[2019-01-02 10:37] VITALS: BP 123/61; PULSE 77; RESP 22; O2SAT 98
--- NOTE | 2019-01-02 11:21 | ED.DCSUM_ITS ---
History of Present Illness Chief Complaint: Chest Other Detail of Chief Complaint: Chest pain, right wrist pain, left ankle pain Informant: Patient Onset: Days Context: Gradual Onset Timing: Continuous Quality: Pain Location: Multiple joints Current Severity: Moderate Maximum Severity: Severe Worsened by: Movement of affected joint Relieved by: Nothing Associated Symptoms: Nothing Narrative: Patient is a 68-year-old male who was admitted 2 days ago for chest pain and cardiac etiology was ruled out. He was placed on prednisone for exacerbation of his rheumatoid arthritis. Is on no immunosuppressive meds. He is scheduled to see a fountain vending mechanic January 12. He denies fever, chills night sweats. Denies weight gain or weight loss. He denies pleuritic chest pain. He denies swelling of his lower extremities. He does report pain and swelling of multiple joints. He denies cough, shortness of breath, pleuritic chest pain, or hemoptysis. He denies GI symptoms. The chest pain is reproducible and made worse with movement. Prior similar symptoms: Yes Recent Illness/Hospitalization: Yes - Past Medical History (1) Acute inferolateral myocardial infarction Status: Chronic (2) Arteriosclerosis of coronary artery Status: Chronic Comment: Stenting to RCA 08/2018 (3) Diabetes mellitus type II, controlled Status: Chronic (4) Hyperlipidemia Status: Chronic (5) Hypertension Status: Chronic (6) Rheumatoid arthritis flare Status: Suspected Past Medical History - Allergies and Home Meds Allergies/Adverse Reactions: Allergies atorvastatin [From Lipitor] Adverse Reaction (Severe, Verified 01/02/19 09:05) Myalgias Primary Care Physician: Roby Chisholm MD [Primary Care Provider] - Prior records reviewed: Yes - Reviewed recent admission Surgical History: - - Cystoscopy for renal calculi, PCI. Lives: Spouse/ Significant Other Smoking Status: Never smoker Alcohol: None Drugs: None - Yes - Family History Maternal Family History: Family History (Last Reviewed 11/30/18 @ 08:44 by Tessy Giron) Mother Diabetes Brother Heart disease Family History: Reports: Diabetes Paternal Family History: Family History (Last Reviewed 11/30/18 @ 08:44 by Tessy Giron) Mother Diabetes Brother Heart disease Family History: Reports: - - Patient notes that his father was healthy, no history of heart disease, diabetes or cancer. Review of Systems ROS: - Yes thanks for asking General: Denies: Chills, Fever, Sweats Eyes: Denies: Visual changes - bilaterally, Diplopia ENT: Denies: Rhinorrhea, Sore throat Cardiovascular: Denies: Chest pain, Palpitations Respiratory: Denies: Dyspnea, Cough, Dyspnea on exertion Gastrointestinal: Denies: Abdominal pain, Nausea, Vomiting, Diarrhea, Melena, Hematochezia Genitourinary: Denies: Dysuria, Hematuria, Frequency Musculoskeletal: Reports: Arthralgias. Denies: Neck pain, Back pain, Swelling, Extremity Pain Skin: Denies: Rash, Wounds Neurological: Denies: Headache, Weakness, Numbness Hematologic: Denies: Easy bruising, Easy bleeding Allergy: Denies: Uticaria Physical Exam Vital Signs/Narrative: Vital Signs Temp Pulse Resp BP Pulse Ox 01/02/19 10:37 77 22 H 123/61 H 98 01/02/19 09:05 98.1 F 82 18 116/59 L 97 Inital Vital Signs reviewed: Yes General: Well nourished, Well developed, Acute Distress Head: Normocephalic, Atraumatic Eyes: Perrl, EOMI ENT: Moist mucous membranes, No rhinorrhea Neck: Supple, Nontender Cardiovascular: Regular rate, Regular rhythm, No murmurs, Normal S1, Normal S2 Respiratory: No distress, CTA bilaterally, Chest tenderness Abdomen: Soft, Nontender, Nondistended, Normal bowel sounds Back: Nontender, Normal Inspection Extremities: No edema, Tenderness, - - Swelling of the right wrist, swelling of the left ankle, swelling of the elbow. Skin: Normal color, No rash. Negative for: Cyanosis, Jaundice, Pallor Neurological: Alert, Oriented x3, Cranial nerves II-XII grossly intact, Normal Strength, Normal Sensation, Normal DTR Psychological: Normal affect, Normal Mood Diagnostic/Tx/Re-eval - Medical Decision Making Prior records were reviewed. Since he has multiple joint involvement swelling of those joints patient's presentation is consistent with exacerbation of rheumatoid arthritis. IV was established to administer IV morphine and IV Solu- Medrol. Patient was reassessed at 1045. He had not received his medications which were ordered upon presentation. Plan is to reassess at 1130. Patient was reassessed at 1130. He still is having discomfort. He was reassessed again at 1155. He feels markedly better. Plan is to discharge with opiate analgesia and for him to take 40 mg prednisone daily. He was encouraged to contact the fountain vending mechanic or an appointment sooner than January 12. ED Disposition - Plan for ED Patient: Disposition: Home or Assisted Living Diagnosis: Polyarthralgia, Flare of rheumatoid arthritis Instructions: What is Rheumatoid Arthritis?, ED Joint Pain Prescriptions: Oxycodone HCl/Acetaminophen [Percocet 7.5-325 mg Tablet] 1 - 2 tablet PO Q6H PRN PRN 7 Days #60 tablet PRN Reason: Pain Referrals: Roby Chisholm MD [Primary Care Provider] -
[2019-01-02 12:44] VITALS: BP 116/59; BP 118/56; PULSE 76; PULSE 78; RESP 13; O2SAT 96
== END 2019-01-02 13:05 | disposition home or self-care (01) ==
PROVIDERS: Emergency Provider Emergency Medicine; Family Provider Family Medicine; PCP Family Medicine
DX: M06.9 Rheumatoid arthritis, unspecified (principal); I25.10 Atherosclerotic heart disease of native coronary artery without angina pectoris; I25.2 Old myocardial infarction; I10 Essential (primary) hypertension; E11.9 Type 2 diabetes mellitus without complications; E78.5 Hyperlipidemia, unspecified; Z79.82 Long term (current) use of aspirin; Z79.84 Long term (current) use of oral hypoglycemic drugs; Z79.899 Other long term (current) drug therapy
CPT/HCPCS: 96374; 96375; 96376; 99283; A4216; J2405

== ENCOUNTER → 2019-01-12 | Outpatient (CLI) | payer MEDICARE, SELFPAY ==
[2019-01-12 10:57] VITALS: BMI 25.2
--- NOTE | 2019-01-12 10:59 | RAD_ITS ---
STUDY: X-RAY CHEST REASON FOR EXAM: Male, 68 years old. Chest pain and cough TECHNIQUE: PA and lateral views of the chest. COMPARISON: 12/29/2018 FINDINGS: The lungs are clear and expanded. There is no demonstrated pleural abnormality. Normal size heart. Normal mediastinum and marybel. Normal visualized pulmonary arteries. Normal visualized aortic arch and descending thoracic aorta. Normal visualized thoracic spine. Normal visualized ribs, clavicles, and shoulders. There is no demonstrated abnormality of the visualized soft tissue structures of the upper abdomen. RAD/Chest PA and Lateral IMPRESSION: No acute pulmonary process Electronically Signed: Fabian Rowe MD at 11:27 EDT , Service support ,
[2019-01-12 12:48] LABS: ALB/GLOB Ratio 0.8 RATIO (0.9-2.4); AST(SGOT) 17 U/L (15-37); Alanine Aminotransfer ALT/SGPT 25 U/L (16-61); Albumin, Serum 3.4 g/dL (3.2-5.0); Alkaline Phosphatase 87 U/L (45-117); Anion Gap 7 (5-15); BUN 23 mg/dL (7-18); Calcium,Total 9.1 mg/dL (8.5-10.1); Chloride 100 mmol/L (98-107); EST Glomerular Filtration Rate 79 mL/min (>60); Est Glom Filt Rate - Afr Amer 96 mL/min (>60); Globulin 4.3 g/dL (2.2-4.2); Glucose 234 mg/dL (74-106); Potassium 3.8 mmol/L (3.5-5.1); Protein, Total 7.7 g/dL (6.4-8.2); Sodium Level 132 mmol/L (136-145)
[2019-01-14 23:38] LABS: QNTFERON TB Mitogen Value 1.78 IU/mL (.); QNTFERON TB Nil Value 0.02 IU/mL (.); QNTFERON TB1+ Ag Value 0.01 IU/mL (.); QNTFERON TB2+ Ag Value 0.01 IU/mL (.)
[2019-01-15 11:20] LABS: QNTIFERON TB Positive Criteria Negative (Negative)
== END | disposition home or self-care (01) ==
PROVIDERS: Family Provider Family Medicine; PCP Family Medicine; Referring Provider Internal Medicine Rheumatology; Visit Provider Internal Medicine Rheumatology
DX: M05.79 Rheumatoid arthritis with rheumatoid factor of multiple sites without organ or systems involvement (principal); I10 Essential (primary) hypertension; E11.9 Type 2 diabetes mellitus without complications; I25.10 Atherosclerotic heart disease of native coronary artery without angina pectoris; E78.5 Hyperlipidemia, unspecified
CPT/HCPCS: 36415; 71046; 80053; 86480

== ENCOUNTER 2019-01-15 06:33 | Outpatient (RCR) | payer MEDICARE, SELFPAY ==
[2019-01-04 01:13] VITALS: BP 118/58; BP 164/72
[2019-01-12 10:57] VITALS: BMI 25.2
== END 2019-02-02 23:59 ==
LOC: CR 06:33
PROVIDERS: Family Provider Family Medicine; PCP Family Medicine; Referring Provider Internal Medicine Cardiovascular Disease; Visit Provider Internal Medicine Cardiovascular Disease
DX: Z95.5 Presence of coronary angioplasty implant and graft (principal); I25.2 Old myocardial infarction
CPT/HCPCS: 93798

== ENCOUNTER → 2019-02-22 08:36 | Outpatient (CLI) | payer MEDICARE, SELFPAY ==
[2019-02-08 13:33] VITALS: BMI 23.3
[2019-02-22 09:50] LABS: Absolute Lymphocyte Count 0.49 X10^3/ul (0.83-4.51); Absolute Neutrophil Count 4.1 X10^3/uL (2.0-7.7); Basophil# 0.02 X10^3/uL; Basophil% 0.4 % (0-1); Eosinophil# 0.05 X10^3/uL; Hematocrit 39.8 % (40-54); Hemoglobin 12.8 g/dl (13.0-16.5); Lymphocyte # 0.49 X10^3/ul (4.0); Lymphocyte % 9.7 % (19-41); Mean Corp Hgb Conc 32.2 g/gl (32-36); Mean Corpuscular Hgb 26.8 pg (27.0-32.0); Mean Corpuscular Volume 83.4 fL (80-94); Monocyte# 0.34 X10^3/uL; Monocyte% 6.7 % (0-10); Neutrophil # 4.13 X10^3/uL (2.7-7.7); Neutrophil % 81.4 % (47-70); Platelet Count 260 K/mm3 (150-450); RBC Distribution Width CV 17.1 % (11.6-14.6); RBC Distribution Width SD 50.9 fl (35.1-43.9); Red Blood Count 4.77 M/mm3 (4.6-6.2); White Blood Count 5.1 K/mm3 (4.4-11.0)
[2019-02-22 09:54] LABS: Differential Indicated SCAN CRITERIA MET; POSITIVE COUNT NO; POSITIVE DIFFERENTIAL YES; POSITIVE MORPHOLOGY NO
[2019-02-22 10:50] LABS: ALB/GLOB Ratio 0.8 RATIO (0.9-2.4); AST(SGOT) 21 U/L (15-37); Alanine Aminotransfer ALT/SGPT 46 U/L (16-61); Albumin, Serum 2.8 g/dL (3.2-5.0); Alkaline Phosphatase 73 U/L (45-117); Anion Gap 7 (5-15); BUN 17 mg/dL (7-18); BUN/Creat Ratio 18.4 RATIO (10-20); Calcium,Total 8.2 mg/dL (8.5-10.1); Chloride 105 mmol/L (98-107); Creatinine, Serum 0.92 mg/dL (0.70-1.30); EST Glomerular Filtration Rate 87 mL/min (>60); Est Glom Filt Rate - Afr Amer 105 mL/min (>60); Globulin 3.4 g/dL (2.2-4.2); Glucose 323 mg/dL (74-106); Potassium 3.9 mmol/L (3.5-5.1); Protein, Total 6.2 g/dL (6.4-8.2); Sodium Level 138 mmol/L (136-145)
== END ==
PROVIDERS: Family Provider Family Medicine; PCP Family Medicine; Referring Provider Internal Medicine Rheumatology; Visit Provider Internal Medicine Rheumatology
DX: M05.79 Rheumatoid arthritis with rheumatoid factor of multiple sites without organ or systems involvement (principal); I10 Essential (primary) hypertension; E11.9 Type 2 diabetes mellitus without complications; I25.10 Atherosclerotic heart disease of native coronary artery without angina pectoris; E78.5 Hyperlipidemia, unspecified; Z79.899 Other long term (current) drug therapy
CPT/HCPCS: 36415; 80053; 85025

== ENCOUNTER → 2019-03-12 16:13 | Outpatient (CLI) | payer MEDICARE, SELFPAY ==
[2019-02-08 13:33] VITALS: BMI 23.3
[2019-03-12 16:32] LABS: Hemoglobin 12.8 g/dl (13.0-16.5); Mean Corp Hgb Conc 33.7 g/gl (32-36); Mean Corpuscular Hgb 27.1 pg (27.0-32.0); Mean Corpuscular Volume 80.5 fL (80-94); Platelet Count 249 K/mm3 (150-450); RBC Distribution Width CV 16.9 % (11.6-14.6); RBC Distribution Width SD 49.3 fl (35.1-43.9); Red Blood Count 4.72 M/mm3 (4.6-6.2); White Blood Count 11.9 K/mm3 (4.4-11.0)
[2019-03-12 16:46] LABS: Anion Gap 10 (5-15); BUN 36 mg/dL (7-18); BUN/Creat Ratio 23.1 RATIO (10-20); Calcium,Total 8.2 mg/dL (8.5-10.1); Chloride 100 mmol/L (98-107); Creatinine, Serum 1.56 mg/dL (0.70-1.30); EST Glomerular Filtration Rate 47 mL/min (>60); Est Glom Filt Rate - Afr Amer 57 mL/min (>60); Glucose 401 mg/dL (74-106); Potassium 4.5 mmol/L (3.5-5.1); Sodium Level 130 mmol/L (136-145)
[2019-03-12 16:48] LABS: Scan Indicated on CBC? Y/N NO
[2019-03-12 17:03] LABS: ALB/GLOB Ratio 0.5 RATIO (0.9-2.4); AST(SGOT) 27 U/L (15-37); Alanine Aminotransfer ALT/SGPT 28 U/L (16-61); Albumin, Serum 2.2 g/dL (3.2-5.0); Alkaline Phosphatase 107 U/L (45-117); Bilirubin, Direct 0.35 mg/dL (0.00-0.30); Globulin 4.5 g/dL (2.2-4.2); Protein, Total 6.7 g/dL (6.4-8.2)
== END ==
PROVIDERS: Family Provider Family Medicine; PCP Family Medicine; Referring Provider Family Medicine; Visit Provider Family Medicine
DX: E11.9 Type 2 diabetes mellitus without complications (principal); R53.1 Weakness
CPT/HCPCS: 36415; 80048; 80076; 84156; 84484; 85027

== ENCOUNTER 2019-03-12 17:12 | Inpatient (IN) | payer MEDICARE, SELFPAY ==
[2019-02-08 13:33] VITALS: BMI 23.3
[2019-03-12 17:13] VITALS: BP 88/46; PULSE 102; RESP 22; TEMP 36.4; O2SAT 97; BMI 21.5
[2019-03-12 17:32] VITALS: BP 89/62; PULSE 96; RESP 22; O2SAT 94
[2019-03-12] MEDS: 0.9% Normal Saline 1,000 ML 1000 ML IV ×2 (17:40→22:45)
[2019-03-12 17:46] LABS: Absolute Lymphocyte Count 0.94 X10^3/ul (0.83-4.51); Absolute Neutrophil Count 11.7 X10^3/uL (2.0-7.7); Basophil# 0.04 X10^3/uL; Basophil% 0.3 % (0-1); Hematocrit 39.3 % (40-54); Hemoglobin 13.1 g/dl (13.0-16.5); Lymphocyte # 0.94 X10^3/ul (4.0); Mean Corp Hgb Conc 33.3 g/gl (32-36); Mean Corpuscular Hgb 27.3 pg (27.0-32.0); Mean Corpuscular Volume 81.9 fL (80-94); Mean Platelet Vol. 9.9 fl (6.2-12.0); Monocyte# 0.61 X10^3/uL; Monocyte% 4.6 % (0-10); Neutrophil # 11.73 X10^3/uL (2.7-7.7); Neutrophil % 87.7 % (47-70); Platelet Count 229 K/mm3 (150-450); RBC Distribution Width CV 16.6 % (11.6-14.6); RBC Distribution Width SD 50.2 fl (35.1-43.9); White Blood Count 13.4 K/mm3 (4.4-11.0)
[2019-03-12 17:47] LABS: POSITIVE COUNT NO; POSITIVE DIFFERENTIAL NO; POSITIVE MORPHOLOGY NO
[2019-03-12 17:53] LABS: ALB/GLOB Ratio 0.5 RATIO (0.9-2.4); AST(SGOT) 27 U/L (15-37); Alanine Aminotransfer ALT/SGPT 29 U/L (16-61); Albumin, Serum 2.4 g/dL (3.2-5.0); Alkaline Phosphatase 114 U/L (45-117); Anion Gap 8 (5-15); BUN 36 mg/dL (7-18); BUN/Creat Ratio 22.9 RATIO (10-20); Calcium,Total 8.6 mg/dL (8.5-10.1); Chloride 98 mmol/L (98-107); Creatinine, Serum 1.57 mg/dL (0.70-1.30); EST Glomerular Filtration Rate 47 mL/min (>60); Est Glom Filt Rate - Afr Amer 57 mL/min (>60); Estimated Creatinine Clearance 43.34 ml/min; Globulin 4.6 g/dL (2.2-4.2); Glucose 332 mg/dL (74-106); Potassium 4.4 mmol/L (3.5-5.1); Sodium Level 130 mmol/L (136-145)
--- NOTE | 2019-03-12 18:28 | RAD_ITS ---
STUDY: X-RAY CHEST REASON FOR EXAM: Male, 68 years old. Weakness. TECHNIQUE: AP chest. COMPARISON: 01/12/2019. FINDINGS: The lungs are clear and expanded. There is no demonstrated pleural abnormality. Normal size heart. Normal mediastinum and marybel. Normal visualized pulmonary arteries. Normal visualized aortic arch and descending thoracic aorta. Normal visualized thoracic spine. Normal visualized ribs, clavicles, and shoulders. There is no demonstrated abnormality of the visualized soft tissue structures of the upper abdomen. RAD/Chest 1 View (Portable) IMPRESSION: Normal x-ray examination of the chest. Electronically Signed: Pina Yoo MD at 18:51 EDT Tel , Service support ,
--- NOTE | 2019-03-12 18:29 | EKG12_ITS ---
Test Reason : WEAKNESS Blood Pressure : / mmHG Vent. Rate : 096 BPM Atrial Rate : 096 BPM P-R Int : 126 ms QRS Dur : 080 ms QT Int : 362 ms P-R-T Axes : 024 -17 -09 degrees QTc Int : 457 ms Normal sinus rhythm Inferior infarct (cited on or before 21-AUG-2018), age undetermined Abnormal ECG Confirmed by JAYNE JOLLEY, CHATO ([id number]), sports editor MATEO DUFFY ([id number]) on 03/16/2019 8:53:08 AM Referred By: Roby Chisholm Confirmed By:CHATO GODOY MD
--- NOTE | 2019-03-12 18:36 | ED.DCSUM_ITS ---
- ER Visit Summary Date of Service: 03/12/19 Chief Complaint: General weakness, fatigue, and weight loss History of Present Illness: The patient is a 68 M who presents with generalized weakness, fatigue, and weight loss that is been getting worse over the past 2 weeks. Patient states this has gradually gotten worse. Patient states he feels weak all over. Patient states he has difficulty ambulating due to the weakness. Patient admits to some subjective chills and sweats. Patient admits to decreased appetite and nausea. Patient admits to some urinary frequency but denies any dysuria or hematuria. Patient denies any chest pain or shortness of breath. Patient has noticed a rash over the upper chest and upper back. Patient's states that this is erythematous. There are no pustules or vesicles. Physical Examination: Vital signs are stable except for low blood pressure of 88/46 and a mild tachycardia of 102. Patient has some pallor on examination. Patient is in no acute distress. Oral mucosa is pink and somewhat dry. Neck is supple. Trachea is midline. There is no JVD noted. Heart was regular rate and rhythm. Lungs are clear and equal bilateral. Abdomen is soft and nontender. Skin is warm dry. There is some erythema of the upper chest and upper back. There are no vesicles or pustules. There are no petechia noted. Cranial nerves II through XII are intact. There are no focal motor or sensory deficits noted. Test Results: EKG showed normal sinus rhythm with a rate of 96. There are no acute ST or T wave changes. CBC shows mild leukocytosis of 13.4. Creatinine was slightly elevated 1.57. BUN was 36. INR was slightly elevated 1.4. Urinalysis showed leukocyte esterase of 25 with positive nitrites. Occult blood was 25. There was 0-5 white blood cells and 0-5 red blood cells. Lactate was normal at 1.8. CT scan of the brain was obtained. There is mild chronic sinusitis but no acute intracranial abnormality. Portable chest x-ray does not show any acute cardiopulmonary process. CT scan of the abdomen pelvis shows right renal hypodensities that are probably benign. There is moderate left hydronephrosis and mild right hydronephrosis. Emergency Department Course and Treatment: Patient was given IV fluids. Patient's blood pressure improved and his heart rate improved. On reevaluation the patient was feeling somewhat better. However his tachycardia had returned. Patient was given another liter bolus of normal saline. Patient's repeat temperature was 100.6. Patient was given Tylenol for this. Patient's erythema over the upper chest and upper back appears to be spreading up into his neck and face. There is no edema of the oropharynx. Given the patient's symptoms and clinical picture, I feel that the patient would benefit from further evaluation as an inpatient. I do not find any source for infection at this time. This was discussed with Dr. Tamayo, hospitalist. She was in to evaluate the patient. Given the patient's positive nitrates and increasing temperature, she felt the patient may have a urinary tract infection. Patient was given a dose of Rocephin. Patient will be admitted to the hospital. Patient and family understood and were agreeable with the plan. All questions were answered. Disposition: Admit to hospital Impression: 1. General weakness 2. Leukocytosis 3. Tachycardia 4. Acute kidney injury This note was generated with [employer] ([employer] dictation software. It may contain incorrect words, spelling, and punctuation that were not noted in review of the chart prior to signing ED Disposition - Plan for ED Patient: Referrals: Roby Chisholm MD [Primary Care Provider] -
[2019-03-12 18:53] LABS: International Normalized Ratio 1.4; Prothrombin Time (Protime)PT. 16.6 SECONDS (11.7-14.9)
[2019-03-12 18:54] LABS: Partial Thromboplast Time 27.9 Seconds (24.1-36.2)
[2019-03-12 19:08] VITALS: BP 93/63; PULSE 100; RESP 14; O2SAT 95
[2019-03-12 19:10] LABS: Bacteria 0 SEEN /hpf (None Seen); Mucous, Urine 0 SEEN /hpf (<or=2+)
[2019-03-12 19:15] LABS: Lactic Acid 1.8 mmol/L (0.4-2.0)
[2019-03-12 19:31] LABS: Color, Urine Yellow (Yellow); Glucose, Dipstick 1000 mg/dl (Normal); Ketone-Dipstick Negative (Negative); Leukocyte Esterase-Dipstick 25 /ul (Negative); Nitrite-Dipstick Positive (Negative); Occult Blood-Urine 25 /ul (Negative); Protein-Dipstick Negative (Negative); Urine Bilirubin Dipstick Negative (Negative); Urine Clarity Sl. Cloudy (Clear); Urine Urobilinogen Normal (Normal)
[2019-03-12 19:53] LABS: Red Blood Cells-Urine 0-5 SEEN /hpf (0-5); Squamous Epithelial Cells - UA 0-5 SEEN /hpf (0-5); White Blood Cells 0-5 SEEN /hpf (0-5)
--- NOTE | 2019-03-12 21:05 | CT_ITS ---
STUDY: CT BRAIN WITHOUT CONTRAST REASON FOR EXAM: Male, 68 years old. Weakness, weight loss. Elevated white count. RADIATION DOSAGE (If Supplied By Facility): CTDIvol = ( 44.99 ) mGy, DLP = ( 812.98 ) mGycm TECHNIQUE: Transaxial CT imaging of the brain was performed without administration of intravenous contrast material. Individualized dose optimization techniques were used for this CT. COMPARISON: No relevant priors. FINDINGS: Normal soft tissue structures. Normal calvarium. Normal size ventricles and extra-axial spaces for the patient's age. Normal white matter tracts of the cerebral hemispheres. Normal basal ganglia and thalami. Normal brainstem. Normal cerebellum. There is no intracranial hemorrhage. There are no findings of an acute ischemic infarction. There is moderate mucosal thickening in the left maxillary sinus. CT/Brain/Head without Contrast IMPRESSION: 1. No intracranial findings. 2. Mild chronic sinusitis. Electronically Signed: Pina Yoo MD at 22:07 EDT Tel , Service support ,
--- NOTE | 2019-03-12 21:05 | CT_ITS ---
STUDY: CT ABDOMEN AND PELVIS WITHOUT CONTRAST REASON FOR EXAM: Male, 68 years old. Weakness and weight loss 40 pounds. Elevated white count. RADIATION DOSAGE (If Supplied By Facility): CTDIvol = ( 9.17 ) mGy, DLP = ( 538.28 ) mGycm TECHNIQUE: Transaxial images were obtained from the dome of the diaphragm to the symphysis pubis without oral contrast, and without intravenous contrast. Sagittal and coronal images were reconstructed. Individualized dose optimization techniques were used for this CT. COMPARISON: None. FINDINGS: Lung bases are clear. Visualized heart is normal. The liver is unremarkable. The gallbladder is unremarkable. The spleen and pancreas are unremarkable. The adrenal glands are normal. There is trace hydronephrosis on the right. There is moderate hydronephrosis on the left. There is a 2 mm nonobstructing left renal stone. Ureters are normal in course and caliber bilaterally. No ureteral stone is seen. There is no evidence of obstructing mass. Low-attenuation lesions in the right kidney measure up to 2.9 cm. These are not characterized without contrast. The aorta is normal in caliber. There is no free fluid, free air, or organized collection. No bowel obstruction or inflammatory change. Normal appendix. Urinary bladder is unremarkable. Normal abdominal wall. Normal osseous structures. CT/Abdomen/Pelvis without Cont IMPRESSION: 1. Moderate left hydronephrosis. Mild right hydronephrosis. No obstructing stone. Consider functional UPJ obstruction. 2. Right renal hypodensities, not characterized without contrast, probably benign. Electronically Signed: Pina Yoo MD at 22:14 EDT Tel , Service support ,
[2019-03-12 21:18] VITALS: BP 115/69; PULSE 116; RESP 18; O2SAT 95
[2019-03-12 22:50] VITALS: BP 124/69; PULSE 135; RESP 18; TEMP 38.1; O2SAT 97
[2019-03-12] MEDS: Acetaminophen 500 MG Tablet 1000 MG PO (23:19)
--- NOTE | 2019-03-12 23:30 | HP.PCM_ITS ---
Problem List (1) UTI (urinary tract infection) Status: Acute (2) Bronchitis Status: Acute (3) Rheumatoid arthritis Status: Chronic Qualifiers: Rheumatoid arthritis location: unspecified site Rheumatoid factor presence: unspecified presence Qualified Code(s): M06.9 - Rheumatoid arthritis, unspecified (4) Arteriosclerosis of coronary artery Status: Chronic Comment: Stenting to RCA 08/2018 (5) Hyperlipidemia Status: Chronic Qualifiers: Hyperlipidemia type: mixed hyperlipidemia Qualified Code(s): E78.2 - Mixed hyperlipidemia (6) Diabetes mellitus type II, controlled Status: Chronic Qualifiers: Diabetes mellitus fdc insulin use: without fdc use Diabetes mellitus complication status: with other specified complication Qualified Code(s): E11.69 - Type 2 diabetes mellitus with other specified complication (7) Hypertension Status: Chronic Qualifiers: Hypertension type: essential hypertension Qualified Code(s): I10 - Essential (primary) hypertension (8) Stented coronary artery Status: Chronic Comment: PTCA and JOSE MANUEL (4.0 X 16 Promus Synergy) to mid RCA per Dr. Moffett @ [facility] History of Present Illness Date of Admission: 03/12/19 Chief Complaint: Weakness, malaise, fever The patient is a 68 y/o M w/ PMHx: RA on chronic steroids, CAD, PR s/p PCI RCA 08/2018, HTN, HLD, Hx NSVT, Diabetes mellitus type II who presents to the [facility] ED on 03/12/19 with history of worsened fatigue, malaise, weakness as well as increased urinary frequency x2 weeks, not improving with admission of notable 35 pound weight loss since November following his initial diagnosis of rheumatoid arthritis and additionally notes recent history of ongoing cough, mildly productive, no dyspnea or wheezing associated. He does admit to decreased appetite and decreased oral intake as well as unable to appropriately hydrate. He denied any recent fevers or chills but had elevated temperature in the ED upon presentation. He denies any recent nausea, emesis, abdominal pain, chest pain. Urinary frequency Work-up in the ED included T 100.6, BP 89/62-->124/69, HR 96-->135, RR 18, 97% on RA, CBC w/ WBC 13.4, Hgb 13.1, Plts 229 with L shift, INR 1.4, PT 16.6, PTT 27.9, CMP w/ Na 130, BUN/Cr 36/1.57, glucose 332, LA 1.8, UA w/ + nitrite, LE 25; however, only 0-5 WBC and no urine bacteria noted, CT brain without acute findings, CT A/P with moderate left hydronephrosis, mild right hydronephrosis, no obstructing stone, right renal hypodensities, not characterized without contrast, probably benign. Given atypical presentation, notable tachycardia, ill-appearing patient was per discussion with ED physician administered Rocephin, Tylenol as well as normal saline 2 L in the ED. Past Medical History Past Medical History (Chronic Problems): Chronic Problems (Last Reviewed 02/08/19 @ 13:33 by Tessy Giron) Rheumatoid arthritis (Chronic) Left ankle pain (Chronic) Arteriosclerosis of coronary artery (Chronic) Stenting to RCA 08/2018 Hyperlipidemia (Chronic) Diabetes mellitus type II, controlled (Chronic) Hypertension (Chronic) Stented coronary artery (Chronic 08/19/18) PTCA and JOSE MANUEL (4.0 X 16 Promus Synergy) to mid RCA per Dr. Moffett @ [facility] Acute inferolateral myocardial infarction (Chronic 08/19/18) Medical History: Medical History (Last Reviewed 02/08/19 @ 13:33 by Tessy Giron) Arteriosclerosis of coronary artery (Chronic) I25.10 Stenting to RCA 08/2018 Hyperlipidemia (Chronic) E78.5 Diabetes mellitus type II, controlled (Chronic) E11.9 Hypertension (Chronic) I10 Acute inferolateral myocardial infarction (Chronic) Onset Date: 08/19/18 I21.19 Non-sustained ventricular tachycardia I47.2 Allergies atorvastatin [From Lipitor] Adverse Reaction (Severe, Verified 03/12/19 17:15) Myalgias Home Medications: Ambulatory Orders Medication Instructions Recorded Amlodipine [Norvasc] 10 mg PO DAILY 06/09/18 Empagliflozin [Jardiance] 10 mg PO DAILY 06/09/18 Losartan Potassium [Cozaar] 100 mg PO DAILY 06/09/18 Multivitamin [Multiple Vitamins] 1 tab PO DAILY 06/09/18 Calcium Carbonate/Vitamin D3 1 ea PO DAILY 08/19/18 [Calcium 500-Vit D3 600 Tablet] Aspirin E.C. [Ecotrin] 81 mg PO DAILY@0800 tab 08/21/18 leflunomide 20 mg tablet 20 mg PO QMONTH 02/08/19 ticagrelor 90 mg tablet 90 mg PO BID #180 tab 02/19/19 Carvedilol [Coreg (Beta Brody)] 3.125 mg PO BID 03/12/19 Cholecalciferol (Vitamin D3) 2,000 unit PO DAILY 03/12/19 [D3-2000] Metformin HCl 1,000 mg PO BID 03/12/19 Pitavastatin Calcium [Livalo] 4 mg PO DAILY 03/12/19 Prednisone 5 mg PO DAILY 03/12/19 Prednisone 15 mg PO DAILY 03/12/19 glipiZIDE [Glucotrol] 5 mg PO DAILY 03/12/19 Surgical History: Surgical History (Last Reviewed 02/08/19 @ 13:33 by Tessy Giron) Stented coronary artery (Chronic) Onset Date: 08/19/18 Z95.5 PTCA and JOSE MANUEL (4.0 X 16 Promus Synergy) to mid RCA per Dr. Moffett @ [facility] Surgical History: - - Cystoscopy for renal calculi, PCI. Psychiatric History: No pertinent psych hx Lives: Spouse/ Significant Other Smoking Status: Never smoker Tobacco Use: Non-smoker Alcohol: None Drugs: None - *Family History Maternal Family History: Family History (Last Reviewed 02/08/19 @ 13:33 by Tessy Giron) Mother Diabetes Brother Heart disease History Items: Diabetes Paternal Family History: Family History (Last Reviewed 02/08/19 @ 13:33 by Tessy Giron) Mother Diabetes Brother Heart disease History Items: - - Patient notes that his father was healthy, no history of heart disease, diabetes or cancer. Review of Systems Constitutional: Reports: Anorexia, Malaise, Weakness, Weight Change, Fatigue. Denies: Chills, Fever HEENT: Reports: Post Nasal Drip, Sinus Congestion. Denies: Head Aches, Sinus Drainage Cardiovascular: Denies: Chest Pain, Palpitations Respiratory: Reports: Cough, Sputum production. Denies: Shortness of Breath, Shortness of breath at rest, Shortness of breath upon exertion, Wheezing Gastrointestinal: Denies: Abdominal Pain, Nausea, Vomiting Genitourinary: Reports: Frequency. Denies: Dysuria Musculoskeletal: Reports: Joint Pain. Denies: Joint Tenderness Skin: Denies: Rash, Wounds Neurological: Denies: Numbness, Tingling, Focal weakness Psychiatric: Denies: Anxiety, Depression, Homicidal Ideations, Suicidal Ideations Hematologic/ Lymphatic: Denies: Easy Bruising, Easy Bleeding VTE Information - Inpt Only VTE Present on Admission: No VTE Mechan Device Prophylaxis: SCD's VTE Pharm Prophylaxis ordered?: Yes Patient Problems: Active and Suspected Problems (Last Reviewed 02/08/19 @ 13:33 by Tessy Giron) UTI (urinary tract infection) (Acute) Bronchitis (Acute) Subjective: Seated upright in ED bed, fatigued and ill-appearing. Objective: Physical Examination: General: awake, alert, oriented x 3 and cooperative, seated upright in the ED bed in no apparent distress however ill and fatigued appearing. Skin: normal color, turgor, no icterus, cyanosis. HEENT: AT/NC, EOMI, PERRLA, dry MM, no carotid bruits or JVD noted. Lungs: CTA bilaterally, moderate effort, currently decrease BL bases, mildly rhonchorous, no rales or wheezing, coughing elicited with any deep inspiratory attempts. Heart: Tachycardic with rhythm; no gallop, rub audible. Abdomen: soft, NTTP, ND, normal BS, no HSM. Extremities: no cyanosis, clubbing, or edema. Neurological: patient awake, alert, oriented x 3; cognitive function intact; pupils equally reactive to light and accomodation; cranial nerves II-XII grossly normal, moving all 4 extremities, no focal deficits, strength severely global decrease secondary to acute presentation. Psychiatric: affect appears fatigued, flat no acute evidence of depressive or anxiety feelings. - Physical Exam Vital Signs Temp Pulse Resp BP Pulse Ox 100.6 F H 135 H 18 124/69 H 97 03/12/19 22:50 03/12/19 22:50 03/12/19 22:50 03/12/19 22:50 03/12/19 22:50 Oxygen Delivery Method Room Air Weight: 150 lb Body Mass Index (BMI) 21.5 Laboratory Tests Past 24 Hrs 03/12/19 03/12/19 03/12/19 17:20 17:20 18:40 WBC 13.4 H RBC 4.80 Hgb 13.1 Hct 39.3 L MCV 81.9 MCH 27.3 MCHC 33.3 RDW 16.6 H RDW Differential 50.2 H Plt Count 229 MPV 9.9 Immature Gran % (Auto) 0.400 Neut % (Auto) 87.7 H Lymph % (Auto) 7.0 L Mellette % (Auto) 4.6 Eos % (Auto) 0.0 Baso % (Auto) 0.3 Absolute Neuts (auto) 11.7 H Absolute Lymphs (auto) 0.94 Total Counted Not Reportable PT 16.6 H INR 1.4 APTT 27.9 Sodium 130 L Potassium 4.4 Chloride 98 Carbon Dioxide 24.0 Anion Gap 8 BUN 36 H Creatinine 1.57 H Estim Creat Clear Calc 43.34 Est GFR (MDRD) Af Amer 57 L Est GFR (MDRD) Non-Af 47 L BUN/Creatinine Ratio 22.9 H Glucose 332 H Lactic Acid Calcium 8.6 Total Bilirubin 1.00 AST 27 ALT 29 Alkaline Phosphatase 114 Total Protein 7.0 Albumin 2.4 L Globulin 4.6 H Albumin/Globulin Ratio 0.5 L Urine Color Urine Clarity Urine pH Ur Specific [place] Urine Protein Urine Glucose (UA) Urine Ketones Urine Occult Blood Urine Nitrite Urine Bilirubin Urine Urobilinogen Ur Leukocyte Esterase Urine RBC Urine WBC Ur Squamous Epith Cells Urine Bacteria Urine Mucus 03/12/19 03/12/19 18:40 19:05 WBC RBC Hgb Hct MCV MCH MCHC RDW RDW Differential Plt Count MPV Immature Gran % (Auto) Neut % (Auto) Lymph % (Auto) Mellette % (Auto) Eos % (Auto) Baso % (Auto) Absolute Neuts (auto) Absolute Lymphs (auto) Total Counted PT INR APTT Sodium Potassium Chloride Carbon Dioxide Anion Gap BUN Creatinine Estim Creat Clear Calc Est GFR (MDRD) Af Amer Est GFR (MDRD) Non-Af BUN/Creatinine Ratio Glucose Lactic Acid 1.8 Calcium Total Bilirubin AST ALT Alkaline Phosphatase Total Protein Albumin Globulin Albumin/Globulin Ratio Urine Color Yellow Urine Clarity Sl. Cloudy Urine pH 6.0 Ur Specific [place] 1.010 Urine Protein Negative Urine Glucose (UA) 1000 H Urine Ketones Negative Urine Occult Blood 25 H Urine Nitrite Positive H Urine Bilirubin Negative Urine Urobilinogen Normal Ur Leukocyte Esterase 25 H Urine RBC 0-5 SEEN Urine WBC 0-5 SEEN Ur Squamous Epith Cells 0-5 SEEN Urine Bacteria 0 SEEN Urine Mucus 0 SEEN Assessment/Plan All Active Problems (Last Reviewed 02/08/19 @ 13:33 by Tessy Giron) UTI (urinary tract infection) (Acute) Bronchitis (Acute) Screen for colon cancer (Acute) Chest pain (Acute) The patient is a 68 y/o M w/ PMHx: RA on chronic steroids, CAD, PR s/p PCI RCA 08/2018, HTN, HLD, Hx NSVT, Diabetes mellitus type II who presents to the [facility] ED on 03/12/19 with history of worsened fatigue, malaise, weakness as well as increased urinary frequency x2 weeks, not improving with admission of notable 35 pound weight loss since November following his initial diagnosis of rheumatoid arthritis and additionally notes recent history of ongoing cough, mildly productive, no dyspnea or wheezing associated. (1) Tachycardia, Elevated T, Leukocytosis with L shift, Hypotension with SIRS suspected secondary to possible URI w/ Hydronephrosis, ? Functional UPJ Obstruction, bronchitis versus possible UTI: Patient with atypical presentation, ED evaluation included T 100.6, BP 89/62-->124/69, HR 96-->135, RR 18, 97% on RA, CBC w/ WBC 13.4, Hgb 13.1, Plts 229 with L shift, INR 1.4, PT 16.6, PTT 27.9, CMP w/ Na 130, BUN/Cr 36/1.57, glucose 332, LA 1.8, UA w/ + nitrite, LE 25; however, only 0-5 WBC and no urine bacteria noted, CT brain without acute findings, CT A/P with moderate left hydronephrosis, mild right hydronephrosis, no obstructing stone, right renal hypodensities, not characterized without contrast, probably benign. Given ongoing notable tachycardia, admit to PCU, pending UCx and Bld Cx x 2, continue aggressive IVFs, monitor I/Os, continue IV Rocephin w/ transition as able pending sensitivities and speciation versus discontinuation, obtain Respiratory viral panel, obtain sputum Cx, repeat CXR in AM following hydration. Urology consulted, pending given CT findings. (2) Hyponatremia, Hypovolemic: Admission Na 130, given acute presentation, poor intake, DAPHNE, likely secondary to poor intake and acute presentation #1, continue aggressive hydration, repeat BMP in AM. (2) Acute kidney injury: Secondary to poor intake, #1. Admission BUN/Cr 36/1.57, prior baseline creatinine noted to be 1.0. Will hydrate, hold nephrotoxic medications and repeat chemistry in AM. If no improvement would plan FeNa assessment. Continue treatment and evaluation as noted #1. (4) Rheumatoid Arthritis: Had recently hospitalization prior with flare, following w/ Rheumatology, currently on prednisone 15 mg q AM and 5 mg q PM, notes tapered ~ 1 week prior, noted felt no worsened symptoms specifically following taper. (5) CAD: STEMI 08/2018, s/p PCI RCA, maintained currently on asa, brillinta although from prior history had noted planned transition (01/2019) to plavix, holding BP regimen given acute presentation. (6) Hypertension: Holding regimen given hypotension and DAPHNE, restart once appropriate. (7) Hyperlipidemia: Continue home statin regimen. (8) Diabetes mellitus type II: Hold oral home regimen, ADA diet, accu checks w/ ISS. (9) DVT prophylaxis: SCDs, heparin. Code Visit Inpatient E&M: 13312 Init Hosp L3
[2019-03-13] VITALS (17 sets, daily range): BP systolic 92–133; BP diastolic 51–75; PULSE 84–137; RESP 16–20; TEMP 36.6–38.3; O2SAT 92–96; BMI 21.7
[2019-03-13] MEDS: Ceftriaxone 1 GM/50 ML BAG IV ×2 (00:14→21:38)
[2019-03-13] MEDS: 0.9% Normal Saline 1,000 ML 125 ML IV ×4 (00:45→23:54)
[2019-03-13 00:59] LABS: Magnesium 2.8 mg/dL (1.6-2.6)
--- NOTE | 2019-03-13 05:55 | RAD_ITS ---
STUDY: X-RAY CHEST REASON FOR EXAM: Male, 68 years old. Cough TECHNIQUE: Frontal and lateral views COMPARISON: March 12, 2019 FINDINGS: The lungs are clear and expanded. There is no demonstrated pleural abnormality. Normal size heart. Normal mediastinum and marybel. Normal visualized pulmonary arteries. Normal visualized aortic arch and descending thoracic aorta. Normal visualized thoracic spine. Normal visualized ribs, clavicles, and shoulders. There is no demonstrated abnormality of the visualized soft tissue structures of the upper abdomen. RAD/Chest PA and Lateral IMPRESSION: Normal x-ray examination of the chest. Electronically Signed: Bert Vogt DO at 8:22 EDT Tel [phone], Service support ,
[2019-03-13 06:35] LABS: Bedside Glucose 179 mg/dL (70-110)
[2019-03-13 07:05] LABS: Bedside Glucose 196 mg/dL (70-110)
[2019-03-13] MEDS: Insulin Lispro 100 UNIT/ML INSULN.PEN SQ ×4 (07:29→21:39)
[2019-03-13] MEDS: Metoprolol Tartrate 5 MG/5 ML Vial IV (07:29)
[2019-03-13] MEDS: Glucerna Shake 120 ML LIQUID PO ×2 (08:18→17:15)
[2019-03-13] MEDS: predniSONE 5 MG Tablet 15 MG PO (08:18)
[2019-03-13] MEDS: Aspirin E.C. 81 MG Tablet PO (08:18)
--- NOTE | 2019-03-13 09:03 | US_ITS ---
STUDY: RENAL ULTRASOUND - COMPLETE REASON FOR EXAM: Male, 68 years old. Right renal mass TECHNIQUE: Ultrasound evaluation of the kidneys was performed with real-time and static aly-scale imaging. COMPARISON: None. FINDINGS: RIGHT KIDNEY: Normal location of the right kidney, which is normal in size. The right kidney measures 11.1 x 6.1 x 7.5 cm. There is a normal cortex of the right kidney. The renal cortex measures 1.8 cm. There is a cyst measuring 2.9 cm at the lower pole. 2.6 cm mid renal cystic lesion demonstrates slight peripheral mural nodularity. There are no right renal calculi. There is mild right hydronephrosis. DISTAL RIGHT URETER: There is non-visualization of the distal right ureter. There is no demonstrated right ureterovesical junction calculus. There is a visualized right ureteral jet. LEFT KIDNEY: Normal location of the left kidney, which is normal in size. The left kidney measures 13.1 x 6.1 x 6.7 cm. There is a normal cortex of the left kidney. The renal cortex measures 1.5 cm. There is no left renal mass or cyst. There are no left renal calculi. There is moderate left hydronephrosis. DISTAL LEFT URETER: There is non-visualization of the distal left ureter. There is no demonstrated left ureterovesical junction calculus. There is a visualized left ureteral jet. I.V.C.: The IVC is patent. BLADDER: The distended urinary bladder has a volume of 363 ml. There is a normal wall thickness of the distended urinary bladder. There is no demonstrated mass within the urinary bladder. There are no demonstrated bladder calculi. US/Kidney and Bladder IMPRESSION: Mild right hydronephrosis. Moderate left hydronephrosis. Simple lower pole cyst in the right kidney. Right mid renal cystic lesion is slightly complex with small mural nodular component. Electronically Signed: Bert Vogt DO at 13:54 EDT Tel [phone], Service support ,
[2019-03-13] MEDS: Carvedilol 3.125 MG TABLET PO ×2 (09:21→21:38)
[2019-03-13] MEDS: TICAGRELOR 90 MG TABLET PO ×2 (09:21→21:38)
[2019-03-13] MEDS: amLODIPine 10 MG Tablet PO (09:22)
--- NOTE | 2019-03-13 10:06 | CM.UR ---
EDILBERTO GARCIA INITIAL ASSESSMENT Face to Face with patient for initial transition planning/care coordination assessment. Patient sitting in bedside chair watching tv. He is awake/alert/oriented. EDILBERTO GARCIA introduced self and role at [facility]. Care providers, pharmacy, and demographics verified. Pt wishes to return home. Denies needs. CM will remain avail should any discharge planning needs arise. PCP: Dr Roby Chisholm specialists: Dr. Swan (rheum) and Dr. Moffett. Preferred Pharmacy: [facility]. Keren Rosales. Insurance: [facility] Prescription Benefit: [employer] Living Will/HPOA: States has both living will and DPOA. On file we have only living will which does have Beronica as the main contact. LNOK: , Beronica Living Arrangements: Lives with in a 2-story home. No difficulties navigating stairs. ADLs: States independent with all ADLs. Transportation: Pt and . DME: Denies having any. Denies any needs at this time. HHC/SNF: No history and no needs identified. D/C PLAN: Home. Noah Calvillo RN, CCM.
--- NOTE | 2019-03-13 11:10 | PCM.PROGNOTE ---
<Olena Quijano - Last Filed: 03/13/19 11:34> Patient Problems: Active and Suspected Problems (Last Reviewed 02/08/19 @ 13:33 by Tessy Giron) UTI (urinary tract infection) (Acute) Bronchitis (Acute) Subjective: Patient seen and examined. Reports he feels generally unwell. Reports he has had intermittent fever for the past 2 weeks, is not able to state max temperature at home. Complains of general malaise. Denies urinary symptoms. Complains of mild cough, otherwise no significant URI symptoms. Denies abdominal pain, nausea, vomiting, diarrhea. - Physical Exam General: Alert, Oriented x3, Cooperative HEENT: Atraumatic, PERRLA, EOMI, Normocephalic Neck: Supple, No JVD, Negative Carotid Bruits Lungs: Clear to auscultation, Normal air movement Cardiovascular: Regular rate, Regular Rhythm, Normal S1, Normal S2, No murmurs Abdomen: Bowel Sounds Present, Soft, Non Tender, Non-Distended Extremities: No clubbing, No cyanosis, No edema, Capillary Refill Less than 3 Seconds Skin: No rashes, No breakdown Musculoskeletal: No Tenderness to Palpation of Joints or Extremities Neurological: Cranial nerves II-XII grossly intact, Neuro grossly intact Psych/Mental Status: Normal Affect, Appropriate Vital Signs Temp Pulse Resp BP Pulse Ox 99.9 F H 137 H 16 117/54 L 95 03/13/19 06:17 03/13/19 07:29 03/13/19 08:27 03/13/19 06:51 03/13/19 08:27 Oxygen Delivery Method Room Air Weight: 151 lb 3.794 oz Body Mass Index (BMI) 21.7 Intake and Output for Last 24 Hours 03/11/19 03/12/19 03/13/19 23:59 23:59 23:59 Intake Total 894 / 894 Output Total 1200 / 1200 Balance -306 / -306 Laboratory Tests Past 24 Hrs 03/12/19 03/12/19 03/12/19 17:20 17:20 17:20 WBC 13.4 H RBC 4.80 Hgb 13.1 Hct 39.3 L MCV 81.9 MCH 27.3 MCHC 33.3 RDW 16.6 H RDW Differential 50.2 H Plt Count 229 MPV 9.9 Immature Gran % (Auto) 0.400 Neut % (Auto) 87.7 H Lymph % (Auto) 7.0 L [place] % (Auto) 4.6 Eos % (Auto) 0.0 Baso % (Auto) 0.3 Absolute Neuts (auto) 11.7 H Absolute Lymphs (auto) 0.94 Total Counted Not Reportable PT INR APTT Sodium 130 L Potassium 4.4 Chloride 98 Carbon Dioxide 24.0 Anion Gap 8 BUN 36 H Creatinine 1.57 H Estim Creat Clear Calc 43.34 Est GFR (MDRD) Af Amer 57 L Est GFR (MDRD) Non-Af 47 L BUN/Creatinine Ratio 22.9 H Glucose 332 H Lactic Acid Calcium 8.6 Magnesium 2.8 H Total Bilirubin 1.00 AST 27 ALT 29 Alkaline Phosphatase 114 Total Protein 7.0 Albumin 2.4 L Globulin 4.6 H Albumin/Globulin Ratio 0.5 L Urine Color Urine Clarity Urine pH Ur Specific [place] Urine Protein Urine Glucose (UA) Urine Ketones Urine Occult Blood Urine Nitrite Urine Bilirubin Urine Urobilinogen Ur Leukocyte Esterase Urine RBC Urine WBC Ur Squamous Epith Cells Urine Bacteria Urine Mucus 03/12/19 03/12/19 03/12/19 18:40 18:40 19:05 WBC RBC Hgb Hct MCV MCH MCHC RDW RDW Differential Plt Count MPV Immature Gran % (Auto) Neut % (Auto) Lymph % (Auto) [place] % (Auto) Eos % (Auto) Baso % (Auto) Absolute Neuts (auto) Absolute Lymphs (auto) Total Counted PT 16.6 H INR 1.4 APTT 27.9 Sodium Potassium Chloride Carbon Dioxide Anion Gap BUN Creatinine Estim Creat Clear Calc Est GFR (MDRD) Af Amer Est GFR (MDRD) Non-Af BUN/Creatinine Ratio Glucose Lactic Acid 1.8 Calcium Magnesium Total Bilirubin AST ALT Alkaline Phosphatase Total Protein Albumin Globulin Albumin/Globulin Ratio Urine Color Yellow Urine Clarity Sl. Cloudy Urine pH 6.0 Ur Specific [place] 1.010 Urine Protein Negative Urine Glucose (UA) 1000 H Urine Ketones Negative Urine Occult Blood 25 H Urine Nitrite Positive H Urine Bilirubin Negative Urine Urobilinogen Normal Ur Leukocyte Esterase 25 H Urine RBC 0-5 SEEN Urine WBC 0-5 SEEN Ur Squamous Epith Cells 0-5 SEEN Urine Bacteria 0 SEEN Urine Mucus 0 SEEN POC Glucose 03/13/19 03/13/19 06:44 01:15 POC Glucose 196 H 179 H Medical Necessity - Tobacco Use Smoking Status: Never smoker Tobacco Use: Non-smoker Assessment/Plan All Active Problems (Last Reviewed 02/08/19 @ 13:33 by Tessy Giron) UTI (urinary tract infection) (Acute) Bronchitis (Acute) Screen for colon cancer (Acute) Chest pain (Acute) 1. Fever of unknown origin, tachycardia, leukocytosis-patient reports recent weight loss and generalized weakness as well. Possibly secondary to UTI versus viral etiology? UA with 25 leukocytes, positive nitrates. Urine culture ordered. IV Rocephin empirically. Respiratory panel pending. Repeat chest x-ray this morning normal. Patient reports PCP ordered various lab testing including HIV, hepatitis, etc. Will obtain records from PCP. Brain CT on admission with no acute findings. 2. 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 Obtain renal ultrasound for further evaluation of right renal hypodensities. Postvoid residual unremarkable. 3. Acute kidney injury/hypovolemic hyponatremia, suspected secondary to dehydration-IV fluids, trend BMP. 4. CAD with history of PCI to RCA-continue home aspirin, Brilinta, statin, carvedilol regimen. 5. Hypertension-blood pressure regimen held on admission due to hypotension. Resume home amlodipine, losartan when blood pressure is further improved. Continue carvedilol regimen. 6. Hyperlipidemia-continue statin regimen. 7. Type 2 diabetes mellitus-hold home oral regimen. Accu-Cheks ACHS with sliding scale insulin. 8. Rheumatoid arthritis-follows with rheumatology. Currently on maintenance prednisone regimen, continue. DVT prophylaxis-SCDs, heparin This patient was seen by BENJI Freeman under the supervision of Dr. Wagner. <Louie Wagner - Last Filed: 03/13/19 12:15> - Physical Exam Vital Signs Temp Pulse Resp BP Pulse Ox 98.5 F 90 20 H 92/58 L 94 03/13/19 11:31 03/13/19 11:31 03/13/19 11:31 03/13/19 11:48 03/13/19 11:41 Oxygen Delivery Method Room Air Weight: 68.6 kg Body Mass Index (BMI) 21.7 Intake and Output for Last 24 Hours 03/11/19 03/12/19 03/13/19 23:59 23:59 23:59 Intake Total 894 / 894 Output Total 1200 / 1200 Balance -306 / -306 Laboratory Tests Past 24 Hrs 03/12/19 03/12/19 03/12/19 17:20 17:20 17:20 WBC 13.4 H RBC 4.80 Hgb 13.1 Hct 39.3 L MCV 81.9 MCH 27.3 MCHC 33.3 RDW 16.6 H RDW Differential 50.2 H Plt Count 229 MPV 9.9 Immature Gran % (Auto) 0.400 Neut % (Auto) 87.7 H Lymph % (Auto) 7.0 L [place] % (Auto) 4.6 Eos % (Auto) 0.0 Baso % (Auto) 0.3 Absolute Neuts (auto) 11.7 H Absolute Lymphs (auto) 0.94 Total Counted Not Reportable PT INR APTT Sodium 130 L Potassium 4.4 Chloride 98 Carbon Dioxide 24.0 Anion Gap 8 BUN 36 H Creatinine 1.57 H Estim Creat Clear Calc 43.34 Est GFR (MDRD) Af Amer 57 L Est GFR (MDRD) Non-Af 47 L BUN/Creatinine Ratio 22.9 H Glucose 332 H Lactic Acid Calcium 8.6 Magnesium 2.8 H Total Bilirubin 1.00 AST 27 ALT 29 Alkaline Phosphatase 114 Total Protein 7.0 Albumin 2.4 L Globulin 4.6 H Albumin/Globulin Ratio 0.5 L Urine Color Urine Clarity Urine pH Ur Specific [place] Urine Protein Urine Glucose (UA) Urine Ketones Urine Occult Blood Urine Nitrite Urine Bilirubin Urine Urobilinogen Ur Leukocyte Esterase Urine RBC Urine WBC Ur Squamous Epith Cells Urine Bacteria Urine Mucus 03/12/19 03/12/19 03/12/19 18:40 18:40 19:05 WBC RBC Hgb Hct MCV MCH MCHC RDW RDW Differential Plt Count MPV Immature Gran % (Auto) Neut % (Auto) Lymph % (Auto) [place] % (Auto) Eos % (Auto) Baso % (Auto) Absolute Neuts (auto) Absolute Lymphs (auto) Total Counted PT 16.6 H INR 1.4 APTT 27.9 Sodium Potassium Chloride Carbon Dioxide Anion Gap BUN Creatinine Estim Creat Clear Calc Est GFR (MDRD) Af Amer Est GFR (MDRD) Non-Af BUN/Creatinine Ratio Glucose Lactic Acid 1.8 Calcium Magnesium Total Bilirubin AST ALT Alkaline Phosphatase Total Protein Albumin Globulin Albumin/Globulin Ratio Urine Color Yellow Urine Clarity Sl. Cloudy Urine pH 6.0 Ur Specific [place] 1.010 Urine Protein Negative Urine Glucose (UA) 1000 H Urine Ketones Negative Urine Occult Blood 25 H Urine Nitrite Positive H Urine Bilirubin Negative Urine Urobilinogen Normal Ur Leukocyte Esterase 25 H Urine RBC 0-5 SEEN Urine WBC 0-5 SEEN Ur Squamous Epith Cells 0-5 SEEN Urine Bacteria 0 SEEN Urine Mucus 0 SEEN POC Glucose 03/13/19 03/13/19 03/13/19 11:35 06:44 01:15 POC Glucose 216 H 196 H 179 H Assessment/Plan This patient was seen in conjunction with BENJI Freeman . I have independently interviewed and examined the patient and reviewed pertinent historical, laboratory, and other data. Please refer to BENJI Freeman note for details of this patient's presentation, findings, and recommendations. I have reviewed BENJI Freeman note and concur with documented findings. In brief, patient is a patient is a 68-year-old gentleman with past medical history cigar for rheumatoid arthritis who presents with fever of unknown origin, progressive generalized weakness as well as unexplained weight loss. Patient has been admitted to regular nursing floor for further management. Imaging studies obtained on admission demonstrated bilateral hydronephrosis with suspected functional UPG obstruction Physical Examination: GENERAL: cooperative HEENT: Atraumatic; EYES; Anicteric, Normal Conjunctiva NECK; supple, normal thyroid, RESPIRATORY: Diminished to auscultation CARDIOVASCULAR: Regular S1 S2, GI: soft, non-tender, normoactive bowel sounds, : No Renal angle tenderness; NEURO: Awake; no lateralizing signs. SKIN: No Rash PSYCH; flat affect Assessment: 1. 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 Rheumatoid arthritis 4. Hypovolemic hyponatremia 5. Diabetes mellitus type 2 6. CAD with previous PCI 7. DysLipidemia 8. Acute kidney injury Recommendations: 1. I have discussed the results of my overview and impressions with the patient 2. Options for management were reviewed Clinical Impression(s) from Imaging Studies Chest X-Ray 03/12/19 18:28 IMPRESSION: Normal x-ray examination of the chest. Electronically Signed: Pina Yoo MD at 18:51 EDT Tel , Service support , Abdomen/Pelvis CT 03/12/19 21:05 IMPRESSION: 1. Moderate left hydronephrosis. Mild right hydronephrosis. No obstructing stone. Consider functional UPJ obstruction. 2. Right renal hypodensities, not characterized without contrast, probably benign. Electronically Signed: Pina Yoo MD at 22:14 EDT Tel , Service support , Brain CT 03/12/19 21:05 IMPRESSION: 1. No intracranial findings. 2. Mild chronic sinusitis. Electronically Signed: Pina Yoo MD at 22:07 EDT Tel , Service support , Chest X-Ray 03/13/19 05:55 IMPRESSION: Normal x-ray examination of the chest. Electronically Signed: Bert Vogt DO at 8:22 EDT Tel [phone], Service support , Code Visit Inpatient E&M: [id number] [facility] L3
--- NOTE | 2019-03-13 11:34 | PN_ITS ---
<Olena Quijano - Last Filed: 03/13/19 11:34> Patient Problems: Active and Suspected Problems (Last Reviewed 02/08/19 @ 13:33 by Tessy Giron) UTI (urinary tract infection) (Acute) Bronchitis (Acute) Subjective: Patient seen and examined. Reports he feels generally unwell. Reports he has had intermittent fever for the past 2 weeks, is not able to state max temperature at home. Complains of general malaise. Denies urinary symptoms. Complains of mild cough, otherwise no significant URI symptoms. Denies abdomi nal pain, nausea, vomiting, diarrhea. - Physical Exam General: Alert, Oriented x3, Cooperative HEENT: Atraumatic, PERRLA, EOMI, Normocephalic Neck: Supple, No JVD, Negative Carotid Bruits Lungs: Clear to auscultation, Normal air movement Cardiovascular: Regular rate, Regular Rhythm, Normal S1, Normal S2, No murmurs Abdomen: Bowel Sounds Present, Soft, Non Tender, Non-Distended Extremities: No clubbing, No cyanosis, No edema, Capillary Refill Less than 3 Seconds Skin: No rashes, No breakdown Musculoskeletal: No Tenderness to Palpation of Joints or Extremities Neurological: Cranial nerves II-XII grossly intact, Neuro grossly intact Psych/Mental Status: Normal Affect, Appropriate Vital Signs Temp Pulse Resp BP Pulse Ox 99.9 F H 137 H 16 117/54 L 95 03/13/19 06:17 03/13/19 07:29 03/13/19 08:27 03/13/19 06:51 03/13/19 08:27 Oxygen Delivery Method Room Air Weight: 151 lb 3.794 oz Body Mass Index (BMI) 21.7 Intake and Output for Last 24 Hours 03/11/19 03/12/19 03/13/19 23:59 23:59 23:59 Intake Total 894 / 894 Output Total 1200 / 1200 Balance -306 / -306 Laboratory Tests Past 24 Hrs 03/12/19 03/12/19 03/12/19 17:20 17:20 17:20 WBC 13.4 H RBC 4.80 Hgb 13.1 Hct 39.3 L MCV 81.9 MCH 27.3 MCHC 33.3 RDW 16.6 H RDW Differential 50.2 H Plt Count 229 MPV 9.9 Immature Gran % (Auto) 0.400 Neut % (Auto) 87.7 H Lymph % (Auto) 7.0 L [place] % (Auto) 4.6 Eos % (Auto) 0.0 Baso % (Auto) 0.3 Absolute Neuts (auto) 11.7 H Absolute Lymphs (auto) 0.94 Total Counted Not Reportable PT INR APTT Sodium 130 L Potassium 4.4 Chloride 98 Carbon Dioxide 24.0 Anion Gap 8 BUN 36 H Creatinine 1.57 H Estim Creat Clear Calc 43.34 Est GFR (MDRD) Af Amer 57 L Est GFR (MDRD) Non-Af 47 L BUN/Creatinine Ratio 22.9 H Glucose 332 H Lactic Acid Calcium 8.6 Magnesium 2.8 H Total Bilirubin 1.00 AST 27 ALT 29 Alkaline Phosphatase 114 Total Protein 7.0 Albumin 2.4 L Globulin 4.6 H Albumin/Globulin Ratio 0.5 L Urine Color Urine Clarity Urine pH Ur Specific [place] Urine Protein Urine Glucose (UA) Urine Ketones Urine Occult Blood Urine Nitrite Urine Bilirubin Urine Urobilinogen Ur Leukocyte Esterase Urine RBC Urine WBC Ur Squamous Epith Cells Urine Bacteria Urine Mucus 03/12/19 03/12/19 03/12/19 18:40 18:40 19:05 WBC RBC Hgb Hct MCV MCH MCHC RDW RDW Differential Plt Count MPV Immature Gran % (Auto) Neut % (Auto) Lymph % (Auto) [place] % (Auto) Eos % (Auto) Baso % (Auto) Absolute Neuts (auto) Absolute Lymphs (auto) Total Counted PT 16.6 H INR 1.4 APTT 27.9 Sodium Potassium Chloride Carbon Dioxide Anion Gap BUN Creatinine Estim Creat Clear Calc Est GFR (MDRD) Af Amer Est GFR (MDRD) Non-Af BUN/Creatinine Ratio Glucose Lactic Acid 1.8 Calcium Magnesium Total Bilirubin AST ALT Alkaline Phosphatase Total Protein Albumin Globulin Albumin/Globulin Ratio Urine Color Yellow Urine Clarity Sl. Cloudy Urine pH 6.0 Ur Specific [place] 1.010 Urine Protein Negative Urine Glucose (UA) 1000 H Urine Ketones Negative Urine Occult Blood 25 H Urine Nitrite Positive H Urine Bilirubin Negative Urine Urobilinogen Normal Ur Leukocyte Esterase 25 H Urine RBC 0-5 SEEN Urine WBC 0-5 SEEN Ur Squamous Epith Cells 0-5 SEEN Urine Bacteria 0 SEEN Urine Mucus 0 SEEN POC Glucose 03/13/19 03/13/19 06:44 01:15 POC Glucose 196 H 179 H Medical Necessity - Tobacco Use Smoking Status: Never smoker Tobacco Use: Non-smoker Assessment/Plan All Active Problems (Last Reviewed 02/08/19 @ 13:33 by Tessy Giron) UTI (urinary tract infection) (Acute) Bronchitis (Acute) Screen for colon cancer (Acute) Chest pain (Acute) 1. Fever of unknown origin, tachycardia, leukocytosis-patient reports recent weight loss and generalized weakness as well. Possibly secondary to UTI versus viral etiology? UA with 25 leukocytes, positive nitrates. Urine culture ordered. IV Rocephin empirically. Respiratory panel pending. Repeat chest x- ray this morning normal. Patient reports PCP ordered various lab testing including HIV, hepatitis, etc. Will obtain records from PCP. Brain CT on admission with no acute findings. 2. 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 Obtain renal ultrasound for further evaluation of right renal hypodensities. Postvoid residual unremarkable. 3. Acute kidney injury/hypovolemic hyponatremia, suspected secondary to dehydration-IV fluids, trend BMP. 4. CAD with history of PCI to RCA-continue home aspirin, Brilinta, statin, carvedilol regimen. 5. Hypertension-blood pressure regimen held on admission due to hypotension. Resume home amlodipine, losartan when blood pressure is further improved. Continue carvedilol regimen. 6. Hyperlipidemia-continue statin regimen. 7. Type 2 diabetes mellitus-hold home oral regimen. Accu-Cheks ACHS with sliding scale insulin. 8. Rheumatoid arthritis-follows with rheumatology. Currently on maintenance prednisone regimen, continue. DVT prophylaxis-SCDs, heparin This patient was seen by BENJI Freeman under the supervision of Dr. Wagner. <Louie Wagner - Last Filed: 03/13/19 12:15> - Physical Exam Vital Signs Temp Pulse Resp BP Pulse Ox 98.5 F 90 20 H 92/58 L 94 03/13/19 11:31 03/13/19 11:31 03/13/19 11:31 03/13/19 11:48 03/13/19 11:41 Oxygen Delivery Method Room Air Weight: 68.6 kg Body Mass Index (BMI) 21.7 Intake and Output for Last 24 Hours 03/11/19 03/12/19 03/13/19 23:59 23:59 23:59 Intake Total 894 / 894 Output Total 1200 / 1200 Balance -306 / -306 Laboratory Tests Past 24 Hrs 03/12/19 03/12/19 03/12/19 17:20 17:20 17:20 WBC 13.4 H RBC 4.80 Hgb 13.1 Hct 39.3 L MCV 81.9 MCH 27.3 MCHC 33.3 RDW 16.6 H RDW Differential 50.2 H Plt Count 229 MPV 9.9 Immature Gran % (Auto) 0.400 Neut % (Auto) 87.7 H Lymph % (Auto) 7.0 L [place] % (Auto) 4.6 Eos % (Auto) 0.0 Baso % (Auto) 0.3 Absolute Neuts (auto) 11.7 H Absolute Lymphs (auto) 0.94 Total Counted Not Reportable PT INR APTT Sodium 130 L Potassium 4.4 Chloride 98 Carbon Dioxide 24.0 Anion Gap 8 BUN 36 H Creatinine 1.57 H Estim Creat Clear Calc 43.34 Est GFR (MDRD) Af Amer 57 L Est GFR (MDRD) Non-Af 47 L BUN/Creatinine Ratio 22.9 H Glucose 332 H Lactic Acid Calcium 8.6 Magnesium 2.8 H Total Bilirubin 1.00 AST 27 ALT 29 Alkaline Phosphatase 114 Total Protein 7.0 Albumin 2.4 L Globulin 4.6 H Albumin/Globulin Ratio 0.5 L Urine Color Urine Clarity Urine pH Ur Specific [place] Urine Protein Urine Glucose (UA) Urine Ketones Urine Occult Blood Urine Nitrite Urine Bilirubin Urine Urobilinogen Ur Leukocyte Esterase Urine RBC Urine WBC Ur Squamous Epith Cells Urine Bacteria Urine Mucus 03/12/19 03/12/19 03/12/19 18:40 18:40 19:05 WBC RBC Hgb Hct MCV MCH MCHC RDW RDW Differential Plt Count MPV Immature Gran % (Auto) Neut % (Auto) Lymph % (Auto) [place] % (Auto) Eos % (Auto) Baso % (Auto) Absolute Neuts (auto) Absolute Lymphs (auto) Total Counted PT 16.6 H INR 1.4 APTT 27.9 Sodium Potassium Chloride Carbon Dioxide Anion Gap BUN Creatinine Estim Creat Clear Calc Est GFR (MDRD) Af Amer Est GFR (MDRD) Non-Af BUN/Creatinine Ratio Glucose Lactic Acid 1.8 Calcium Magnesium Total Bilirubin AST ALT Alkaline Phosphatase Total Protein Albumin Globulin Albumin/Globulin Ratio Urine Color Yellow Urine Clarity Sl. Cloudy Urine pH 6.0 Ur Specific [place] 1.010 Urine Protein Negative Urine Glucose (UA) 1000 H Urine Ketones Negative Urine Occult Blood 25 H Urine Nitrite Positive H Urine Bilirubin Negative Urine Urobilinogen Normal Ur Leukocyte Esterase 25 H Urine RBC 0-5 SEEN Urine WBC 0-5 SEEN Ur Squamous Epith Cells 0-5 SEEN Urine Bacteria 0 SEEN Urine Mucus 0 SEEN POC Glucose 03/13/19 03/13/19 03/13/19 11:35 06:44 01:15 POC Glucose 216 H 196 H 179 H Assessment/Plan This patient was seen in conjunction with BENJI Freeman . I have independently interviewed and examined the patient and reviewed pertinent historical, laboratory, and other data. Please refer to BENJI Freeman note for details of this patient's presentation, findings, and recommendations. I have reviewed BENJI Freeman note and concur with documented findings. In brief, patient is a patient is a 68-year-old gentleman with past medical history cigar for rheumatoid arthritis who presents with fever of unknown origin, progressive generalized weakness as well as unexplained weight loss. Patient has been admitted to regular nursing floor for further management. Imaging studies obtained on admission demonstrated bilateral hydronephrosis with suspected functional UPG obstruction Physical Examination: GENERAL: cooperative HEENT: Atraumatic; EYES; Anicteric, Normal Conjunctiva NECK; supple, normal thyroid, RESPIRATORY: Diminished to auscultation CARDIOVASCULAR: Regular S1 S2, GI: soft, non-tender, normoactive bowel sounds, : No Renal angle tenderness; NEURO: Awake; no lateralizing signs. SKIN: No Rash PSYCH; flat affect Assessment: 1. 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 Rheumatoid arthritis 4. Hypovolemic hyponatremia 5. Diabetes mellitus type 2 6. CAD with previous PCI 7. DysLipidemia 8. Acute kidney injury Recommendations: 1. I have discussed the results of my overview and impressions with the patient 2. Options for management were reviewed Clinical Impression(s) from Imaging Studies Chest X-Ray 03/12/19 18:28 IMPRESSION: Normal x-ray examination of the chest. Electronically Signed: Pina Yoo MD at 18:51 EDT Tel , Service support , Abdomen/Pelvis CT 03/12/19 21:05 IMPRESSION: 1. Moderate left hydronephrosis. Mild right hydronephrosis. No obstructing stone. Consider functional UPJ obstruction. 2. Right renal hypodensities, not characterized without contrast, probably benign. Electronically Signed: Pina Yoo MD at 22:14 EDT Tel , Service support , Brain CT 03/12/19 21:05 IMPRESSION: 1. No intracranial findings. 2. Mild chronic sinusitis. Electronically Signed: Pina Yoo MD at 22:07 EDT Tel , Service support , Chest X-Ray 03/13/19 05:55 IMPRESSION: Normal x-ray examination of the chest. Electronically Signed: Bert Vogt DO at 8:22 EDT Tel [phone], Service support , Code Visit Inpatient E&M: [id number] [facility] L3
[2019-03-13 11:41] LABS: Bedside Glucose 216 mg/dL (70-110)
[2019-03-13 16:45] LABS: Bedside Glucose 206 mg/dL (70-110)
[2019-03-13] MEDS: Heparin Injection (Vial) 5,000 UNIT/ML VIAL 5000 UNIT SC (21:38)
[2019-03-13] MEDS: predniSONE 5 MG Tablet PO (21:40)
[2019-03-13 22:25] LABS: Bedside Glucose 173 mg/dL (70-110)
[2019-03-14] VITALS (15 sets, daily range): BP systolic 92–114; BP diastolic 51–65; PULSE 69–100; RESP 15–20; TEMP 36.8–39.2; O2SAT 92–98
[2019-03-14 07:04] LABS: Hematocrit 33.5 % (40-54); Hemoglobin 10.9 g/dl (13.0-16.5); Mean Corp Hgb Conc 32.5 g/gl (32-36); Mean Corpuscular Hgb 26.8 pg (27.0-32.0); Mean Corpuscular Volume 82.5 fL (80-94); Mean Platelet Vol. 9.6 fl (6.2-12.0); Platelet Count 171 K/mm3 (150-450); RBC Distribution Width CV 16.6 % (11.6-14.6); RBC Distribution Width SD 50.4 fl (35.1-43.9); Red Blood Count 4.06 M/mm3 (4.6-6.2); White Blood Count 9.6 K/mm3 (4.4-11.0)
[2019-03-14 07:11] LABS: Bedside Glucose 129 mg/dL (70-110)
[2019-03-14 07:14] LABS: Scan Indicated on CBC? Y/N NO
[2019-03-14 07:43] LABS: Anion Gap 11 (5-15); BUN 17 mg/dL (7-18); Calcium,Total 7.3 mg/dL (8.5-10.1); Chloride 109 mmol/L (98-107); Creatinine, Serum 0.85 mg/dL (0.70-1.30); EST Glomerular Filtration Rate 95 mL/min (>60); Est Glom Filt Rate - Afr Amer 115 mL/min (>60); Estimated Creatinine Clearance 80.71 ml/min; Glucose 132 mg/dL (74-106); Potassium 3.2 mmol/L (3.5-5.1); Sodium Level 141 mmol/L (136-145)
[2019-03-14] MEDS: 0.9% Normal Saline 1,000 ML 125 ML IV ×2 (08:27→17:14)
[2019-03-14] MEDS: Acetaminophen 325 MG Tablet 650 MG PO (08:28)
[2019-03-14] MEDS: Glucerna Shake 120 ML LIQUID PO (08:28)
[2019-03-14] MEDS: Aspirin E.C. 81 MG Tablet PO (08:30)
[2019-03-14] MEDS: Carvedilol 3.125 MG TABLET PO ×2 (08:30→22:36)
[2019-03-14] MEDS: predniSONE 5 MG Tablet 15 MG PO (08:30)
[2019-03-14] MEDS: Heparin Injection (Vial) 5,000 UNIT/ML VIAL 5000 UNIT SC ×2 (08:30→22:00)
[2019-03-14] MEDS: TICAGRELOR 90 MG TABLET PO ×2 (08:30→22:36)
--- NOTE | 2019-03-14 08:43 | ECHOD_ITS ---
Reason For Study: Fever of unknown origin Procedure This was a 2D Doppler, Color Flow transthoracic echocardiogram. Exam performed portable in patient room. Left Ventricle Normal LV size. Left ventricular systolic function is normal. The estimated ejection fraction is 60 %. Stage 1 diastolic dysfunction. No regional wall motion abnormalities noted. Right Ventricle Normal RV size. Normal systolic function. Atria Normal left atrium. Normal right atrium. Mitral Valve Normal mitral valve. Mild (1+) eccentric mitral valve insufficiency. Tricuspid Valve Normal tricuspid valve. Mild tricuspid valve insufficiency. Pulmonary artery systolic pressure is 25 mmHg. Aortic Valve Normal aortic valve. Pulmonic Valve Normal pulmonic valve. Great Vessels Normal aortic root. The pulmonary artery is normal size. Normal inferior vena cava. Pericardium/Pleural No pericardial effusion. MMode/2D Measurements & Calculations LVIDd: 4.7 cm IVSd: 1.1 cm Ao root diam: 3.6 cm LVIDs: 2.4 cm LVPWd: 1.1 cm LA dimension: 4.0 cm RVDd: 3.9 cm FS: 48.7 % LAV(MOD-sp4): 43.4 ml LA A4 area: 16.6 cm2 RA A4 area: 14.4 cm2 Time Measurements MV dec time: 0.25 sec Doppler Measurements & Calculations MV E max charlie: 74.0 cm/sec Med Peak E' Charlie: 11.2 cm/sec MV V2 max: 103.4 cm/sec MV A max charlie: 83.8 cm/sec E/E' med: 6.6 MV max P.3 mmHg MV E/A: 0.88 MV V2 mean: 56.2 cm/sec MV mean P.5 mmHg MV V2 VTI: 22.3 cm MV P1/2t max charlie: 84.6 cm/sec Ao V2 max: 111.1 cm/sec LV V1 max: 93.7 cm/sec MV P1/2t: 52.3 msec Ao max P.9 mmHg LV V1 max P.5 mmHg MV dec slope: 473.7 cm/sec2 MVA(P1/2t): 4.2 cm2 MR max charlie: 534.1 cm/sec PA V2 max: 93.6 cm/sec TR max charlie: 232.4 cm/sec MR max P.1 mmHg TR max P.6 mmHg MR mean charlie: 430.3 cm/sec MR mean P.5 mmHg MR VTI: 148.0 cm Interpretation Summary Normal LV size. Left ventricular systolic function is normal. The estimated ejection fraction is 60 %. Stage 1 diastolic dysfunction. Ordering Physician: BENJI Freeman Referring Physician: Roby Chisholm Performed By: Song Burden RCS
--- NOTE | 2019-03-14 11:42 | PN_ITS ---
<Olena Quijano - Last Filed: 03/14/19 11:43> Patient Problems: Active and Suspected Problems (Last Reviewed 02/08/19 @ 13:33 by Tessy Giron) UTI (urinary tract infection) (Acute) Bronchitis (Acute) Subjective: Patient seen and examined. Temperature of 102.5 F this morning. Complains of frequent diarrhea which started this morning. Denies other complaints. - Physical Exam General: Alert, Oriented x3, Cooperative HEENT: Atraumatic, PERRLA, EOMI, Normocephalic Neck: Supple, No JVD, Negative Carotid Bruits Lungs: Clear to auscultation, Normal air movement Cardiovascular: Regular rate, Regular Rhythm, Normal S1, Normal S2, No murmurs Abdomen: Bowel Sounds Present, Soft, Non Tender, Non-Distended Extremities: No clubbing, No cyanosis, No edema, Capillary Refill Less than 3 Seconds Skin: No rashes, No breakdown Musculoskeletal: No Tenderness to Palpation of Joints or Extremities Neurological: Cranial nerves II-XII grossly intact, Neuro grossly intact Psych/Mental Status: Flat Affect Vital Signs Temp Pulse Resp BP Pulse Ox 98.5 F 99 20 H 105/51 L 92 03/14/19 09:41 03/14/19 08:14 03/14/19 08:14 03/14/19 08:14 03/14/19 08:20 Oxygen Delivery Method Room Air Weight: 151 lb 3.794 oz Body Mass Index (BMI) 21.7 Intake and Output for Last 24 Hours 03/12/19 03/13/19 03/14/19 23:59 23:59 23:59 Intake Total 4130 / 4130 1551 / 1551 Output Total 5000 / 5000 775 / 775 Balance -870 / -870 776 / 776 Microbiology Past 72 Hours 03/13/19 06:00 Respiratory Panel (PCR) - Final Mucosa - Nose Laboratory Tests Past 24 Hrs 03/14/19 03/14/19 03/14/19 06:23 06:23 06:23 WBC 9.6 RBC 4.06 L Hgb 10.9 L Hct 33.5 L MCV 82.5 MCH 26.8 L MCHC 32.5 RDW 16.6 H RDW Differential 50.4 H Plt Count 171 MPV 9.6 Sodium 141 Potassium 3.2 L Chloride 109 H Carbon Dioxide 21.0 Anion Gap 11 BUN 17 Creatinine 0.85 Estim Creat Clear Calc 80.71 Est GFR (MDRD) Af Amer 115 Est GFR (MDRD) Non-Af 95 BUN/Creatinine Ratio 20.0 Glucose 132 H Calcium 7.3 L TSH 0.20 L TIFFANIE Screen TAMEKA-1 Antibody SS-A/Ro IgG Antibody SS-B/La IgG Antibody Sm (Em) Antibody OLEOMARGARINE MAKER Antibody Scl-70 Scleroderma Ab Double Strand DNA Ab Centromere B Antibody Hepatitis A IgM Ab Hepatitis A Ab Total Hep Bs Antigen Hep B Core Total Ab Hep B Core IgM Ab HIV 1&2 Antibody 03/14/19 03/14/19 03/14/19 09:37 09:37 09:37 WBC RBC Hgb Hct MCV MCH MCHC RDW RDW Differential Plt Count MPV Sodium Potassium Chloride Carbon Dioxide Anion Gap BUN Creatinine Estim Creat Clear Calc Est GFR (MDRD) Af Amer Est GFR (MDRD) Non-Af BUN/Creatinine Ratio Glucose Calcium TSH TIFFANIE Screen Pending TAMEKA-1 Antibody Pending SS-A/Ro IgG Antibody Pending SS-B/La IgG Antibody Pending Sm (Em) Antibody Pending OLEOMARGARINE MAKER Antibody Pending Scl-70 Scleroderma Ab Pending Double Strand DNA Ab Pending Centromere B Antibody Pending Hepatitis A IgM Ab Pending Hepatitis A Ab Total Pending Hep Bs Antigen Pending Hep B Core Total Ab Pending Hep B Core IgM Ab Pending HIV 1&2 Antibody Pending POC Glucose 03/14/19 03/13/19 03/13/19 06:24 21:36 16:33 POC Glucose 129 H 173 H 206 H 03/13/19 11:35 POC Glucose 216 H Medical Necessity - Tobacco Use Smoking Status: Never smoker Tobacco Use: Non-smoker Assessment/Plan All Active Problems (Last Reviewed 02/08/19 @ 13:33 by Tessy Giron) UTI (urinary tract infection) (Acute) Bronchitis (Acute) Screen for colon cancer (Acute) Chest pain (Acute) 1. Fever of unknown origin, tachycardia, leukocytosis-patient reports recent weight loss and generalized weakness as well. Possibly secondary to UTI versus viral etiology versus medication side effect? UA with 25 leukocytes, positive nitrates. Urine culture pending. IV Rocephin empirically. Respiratory panel negative. Chest x-ray unremarkable. Brain CT on admission with no acute findings. Blood cultures pending. HIV, hepatitis panel, TIFFANIE reflex, PSA ordered. Patient reports he was started on new subcu injection medication [address] Swan who manages his RA. He does not know what medication he received. He states it was initially started 6 weeks ago and then had an additional dose 2 weeks ago. Records requested from primary care physician office and will also request records from Dr. Swan. 2. 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 Postvoid residual unremarkable. Renal ultrasound showed mild right hydronephrosis, moderate left hydronephrosis, simple lower pole cyst in the right kidney, right mid renal cystic lesion slightly complex with small mural nodular component. 3. Acute kidney injury/hypovolemic hyponatremia, secondary to dehydration- resolved. Continue IV fluids, trend BMP. 4. Acute diarrhea-C. difficile and enteric bacteriology pending. 5. CAD with history of PCI to RCA-continue home aspirin, Brilinta, statin, carvedilol regimen. 6. Hypertension-blood pressure regimen held on admission due to hypotension. Resume home amlodipine, losartan when blood pressure is further improved. Continue carvedilol regimen. 7. Hyperlipidemia-continue statin regimen. 8. Type 2 diabetes mellitus-hold home oral regimen. Accu-Cheks ACHS with sliding scale insulin. 9. Rheumatoid arthritis-follows with rheumatology. Currently on maintenance prednisone regimen, continue. DVT prophylaxis-SCDs, heparin This patient was seen by BENJI Freeman under the supervision of Dr. Josef muniz. <Louie Wagner - Last Filed: 03/14/19 12:04> - Physical Exam Vital Signs Temp Pulse Resp BP Pulse Ox 98.5 F 99 20 H 105/51 L 92 03/14/19 09:41 03/14/19 08:14 03/14/19 08:14 03/14/19 08:14 03/14/19 08:20 Oxygen Delivery Method Room Air Weight: 68.6 kg Body Mass Index (BMI) 21.7 Intake and Output for Last 24 Hours 03/12/19 03/13/19 03/14/19 23:59 23:59 23:59 Intake Total 4130 / 4130 1551 / 1551 Output Total 5000 / 5000 775 / 775 Balance -870 / -870 776 / 776 Microbiology Past 72 Hours 03/13/19 06:00 Respiratory Panel (PCR) - Final Mucosa - Nose Laboratory Tests Past 24 Hrs 03/14/19 03/14/19 03/14/19 06:23 06:23 06:23 WBC 9.6 RBC 4.06 L Hgb 10.9 L Hct 33.5 L MCV 82.5 MCH 26.8 L MCHC 32.5 RDW 16.6 H RDW Differential 50.4 H Plt Count 171 MPV 9.6 Sodium 141 Potassium 3.2 L Chloride 109 H Carbon Dioxide 21.0 Anion Gap 11 BUN 17 Creatinine 0.85 Estim Creat Clear Calc 80.71 Est GFR (MDRD) Af Amer 115 Est GFR (MDRD) Non-Af 95 BUN/Creatinine Ratio 20.0 Glucose 132 H Calcium 7.3 L Total PSA TSH 0.20 L TIFFANIE Screen TAMEKA-1 Antibody SS-A/Ro IgG Antibody SS-B/La IgG Antibody Sm (Em) Antibody OLEOMARGARINE MAKER Antibody Scl-70 Scleroderma Ab Double Strand DNA Ab Centromere B Antibody Hepatitis A IgM Ab Hepatitis A Ab Total Hep Bs Antigen Hep B Core Total Ab Hep B Core IgM Ab HIV 1&2 Antibody 03/14/19 03/14/19 03/14/19 06:23 09:37 09:37 WBC RBC Hgb Hct MCV MCH MCHC RDW RDW Differential Plt Count MPV Sodium Potassium Chloride Carbon Dioxide Anion Gap BUN Creatinine Estim Creat Clear Calc Est GFR (MDRD) Af Amer Est GFR (MDRD) Non-Af BUN/Creatinine Ratio Glucose Calcium Total PSA Pending TSH TIFFANIE Screen Pending TAMEKA-1 Antibody Pending SS-A/Ro IgG Antibody Pending SS-B/La IgG Antibody Pending Sm (Em) Antibody Pending OLEOMARGARINE MAKER Antibody Pending Scl-70 Scleroderma Ab Pending Double Strand DNA Ab Pending Centromere B Antibody Pending Hepatitis A IgM Ab Pending Hepatitis A Ab Total Pending Hep Bs Antigen Pending Hep B Core Total Ab Pending Hep B Core IgM Ab Pending HIV 1&2 Antibody 03/14/19 09:37 WBC RBC Hgb Hct MCV MCH MCHC RDW RDW Differential Plt Count MPV Sodium Potassium Chloride Carbon Dioxide Anion Gap BUN Creatinine Estim Creat Clear Calc Est GFR (MDRD) Af Amer Est GFR (MDRD) Non-Af BUN/Creatinine Ratio Glucose Calcium Total PSA TSH TIFFANIE Screen TAMEKA-1 Antibody SS-A/Ro IgG Antibody SS-B/La IgG Antibody Sm (Em) Antibody OLEOMARGARINE MAKER Antibody Scl-70 Scleroderma Ab Double Strand DNA Ab Centromere B Antibody Hepatitis A IgM Ab Hepatitis A Ab Total Hep Bs Antigen Hep B Core Total Ab Hep B Core IgM Ab HIV 1&2 Antibody Non-Reactive POC Glucose 03/14/19 03/13/19 03/13/19 06:24 21:36 16:33 POC Glucose 129 H 173 H 206 H Assessment/Plan This patient was seen in conjunction with BENJI Freeman . I have independently interviewed and examined the patient and reviewed pertinent historical, laboratory, and other data. Please refer to BENJI Freeman note for details of this patient's presentation, findings, and recommendations. I have reviewed BENJI Freeman note and concur with documented findings. In brief, patient is a patient is a 68-year-old gentleman with past medical history significant for rheumatoid arthritis who presents with fever of unknown origin, progressive generalized weakness as well as unexplained weight loss. Patient has been admitted to regular nursing floor for further management. Imaging studies obtained on admission demonstrated bilateral hydronephrosis with suspected functional UPG obstruction 03/14/2019: Patient seen continues to spike fevers.. Patient did develop diarrhea as this a.m. Enteric panel and stool for C. difficile ordered patient placed in enteric precautions. Also requested for HIV panel, acute hepatitis panel, TIFFANIE with reflex panel, as well as TSH and blood cultures Physical Examination: GENERAL: cooperative HEENT: Atraumatic; EYES; Anicteric, Normal Conjunctiva NECK; supple, normal thyroid, RESPIRATORY: Diminished to auscultation CARDIOVASCULAR: Regular S1 S2, GI: soft, non-tender, normoactive bowel sounds, : No Renal angle tenderness; NEURO: Awake; no lateralizing signs. SKIN: No Rash PSYCH; flat affect Assessment: 1. 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 Rheumatoid arthritis 4. Hypovolemic hyponatremia 5. Diabetes mellitus type 2 6. CAD with previous PCI 7. DysLipidemia 8. Acute kidney injury 9. Diarrhea Recommendations: 1. I have discussed the results of my overview and impressions with the patient 2. Options for management were reviewed Code Visit Inpatient E&M: 74361 Subs Hosp L3
[2019-03-14 11:51] LABS: HIV - WCH Non-Reactive (Nonreactive)
[2019-03-14] MEDS: Insulin Lispro 100 UNIT/ML INSULN.PEN SQ ×3 (12:14→22:42)
[2019-03-14 12:26] LABS: Bedside Glucose 208 mg/dL (70-110)
[2019-03-14 16:46] LABS: Bedside Glucose 316 mg/dL (70-110)
[2019-03-14] MEDS: Ceftriaxone 1 GM/50 ML BAG IV (22:36)
[2019-03-14] MEDS: predniSONE 5 MG Tablet PO (22:36)
[2019-03-14 22:50] LABS: Bedside Glucose 194 mg/dL (70-110)
[2019-03-15] VITALS (14 sets, daily range): BP systolic 94–115; BP diastolic 60–68; PULSE 70–104; RESP 15–18; TEMP 36.9–37.8; O2SAT 91–98
[2019-03-15] MEDS: 0.9% Normal Saline 1,000 ML 125 ML IV ×3 (01:24→16:46)
[2019-03-15 06:30] LABS: Hematocrit 32.6 % (40-54); Hemoglobin 10.7 g/dl (13.0-16.5); Mean Corp Hgb Conc 32.8 g/gl (32-36); Mean Corpuscular Hgb 26.9 pg (27.0-32.0); Mean Corpuscular Volume 81.9 fL (80-94); Mean Platelet Vol. 9.6 fl (6.2-12.0); Platelet Count 174 K/mm3 (150-450); RBC Distribution Width CV 16.6 % (11.6-14.6); RBC Distribution Width SD 50.4 fl (35.1-43.9); Red Blood Count 3.98 M/mm3 (4.6-6.2); White Blood Count 6.4 K/mm3 (4.4-11.0)
[2019-03-15 06:35] LABS: Scan Indicated on CBC? Y/N NO
[2019-03-15 06:44] LABS: Anion Gap 11 (5-15); BUN 12 mg/dL (7-18); BUN/Creat Ratio 17.5 RATIO (10-20); Calcium,Total 7.4 mg/dL (8.5-10.1); Chloride 111 mmol/L (98-107); Creatinine, Serum 0.69 mg/dL (0.70-1.30); EST Glomerular Filtration Rate 122 mL/min (>60); Est Glom Filt Rate - Afr Amer 147 mL/min (>60); Glucose 135 mg/dL (74-106); Potassium 3.3 mmol/L (3.5-5.1); Sodium Level 142 mmol/L (136-145)
[2019-03-15] MEDS: Carvedilol 3.125 MG TABLET PO ×2 (09:04→21:53)
[2019-03-15] MEDS: amLODIPine 10 MG Tablet PO (09:04)
[2019-03-15] MEDS: TICAGRELOR 90 MG TABLET PO ×2 (09:04→21:53)
[2019-03-15] MEDS: predniSONE 5 MG Tablet 15 MG PO (09:05)
[2019-03-15] MEDS: Aspirin E.C. 81 MG Tablet PO (09:05)
[2019-03-15] MEDS: Heparin Injection (Vial) 5,000 UNIT/ML VIAL 5000 UNIT SC ×2 (09:06→21:58)
[2019-03-15] MEDS: Insulin Lispro 100 UNIT/ML INSULN.PEN SQ ×3 (11:35→21:55)
[2019-03-15] MEDS: Diphenoxylate/Atrop 1 Tablet 2 TABLET PO ×2 (11:36→16:48)
[2019-03-15] MEDS: Acetaminophen 325 MG Tablet 650 MG PO (11:39)
[2019-03-15 11:41] LABS: Bedside Glucose 193 mg/dL (70-110)
[2019-03-15 12:06] LABS: Bedside Glucose 117 mg/dL (70-110)
--- NOTE | 2019-03-15 12:50 | PCM.PROGNOTE ---
<Olena Quijano - Last Filed: 03/15/19 12:58> Patient Problems: Active and Suspected Problems (Last Reviewed 03/15/19 @ 13:27 by Carloz Cintron MD) UTI (urinary tract infection) (Acute) Fever (Acute) Subjective: Patient seen and examined. Continues to feel generally unwell. Complains of dry mouth and poor taste in mouth. Continues to have intermittent diarrhea. Denies abdominal pain. Fever improved. - Physical Exam General: Alert, Oriented x3, Cooperative HEENT: Atraumatic, PERRLA, EOMI, Normocephalic Neck: Supple, No JVD, Negative Carotid Bruits Lungs: Clear to auscultation, Normal air movement Cardiovascular: Regular rate, Regular Rhythm, Normal S1, Normal S2, No murmurs Abdomen: Bowel Sounds Present, Soft, Non Tender, Non-Distended Extremities: No clubbing, No cyanosis, No edema, Capillary Refill Less than 3 Seconds Skin: No rashes, No breakdown Musculoskeletal: No Tenderness to Palpation of Joints or Extremities Neurological: Cranial nerves II-XII grossly intact, Neuro grossly intact Psych/Mental Status: Normal Affect, Appropriate Vital Signs Temp Pulse Resp BP Pulse Ox 99.3 F H 104 H 18 115/68 98 03/15/19 08:58 03/15/19 08:58 03/15/19 08:58 03/15/19 08:58 03/15/19 08:58 Oxygen Delivery Method Room Air Weight: 151 lb 3.794 oz Body Mass Index (BMI) 21.7 Intake and Output for Last 24 Hours 03/13/19 03/14/19 03/15/19 23:59 23:59 23:59 Intake Total 4130 / 4130 3770 / 3770 3679 / 3679 Output Total 5000 / 5000 1825 / 1825 1875 / 1875 Balance -870 / -870 1945 / 1945 1804 / 1804 Microbiology Past 72 Hours 03/13/19 15:45 Urine Culture - Final Urine, Clean Catch Mixed Gram Pos & Gram Neg Org 03/14/19 09:45 Enteric Bacteriology - Final Stool 03/14/19 09:45 C. difficile DNA Amplification - Final Stool 03/13/19 06:00 Respiratory Panel (PCR) - Final Mucosa - Nose Laboratory Tests Past 24 Hrs 03/15/19 03/15/19 05:55 05:55 WBC 6.4 RBC 3.98 L Hgb 10.7 L Hct 32.6 L MCV 81.9 MCH 26.9 L MCHC 32.8 RDW 16.6 H RDW Differential 50.4 H Plt Count 174 MPV 9.6 Sodium 142 Potassium 3.3 L Chloride 111 H Carbon Dioxide 20.0 L Anion Gap 11 BUN 12 Creatinine 0.69 L Estim Creat Clear Calc 68.60 Est GFR (MDRD) Af Amer 147 Est GFR (MDRD) Non-Af 122 BUN/Creatinine Ratio 17.5 Glucose 135 H Calcium 7.4 L POC Glucose 03/15/19 03/15/19 03/14/19 11:34 06:36 22:40 POC Glucose 193 H 117 H 194 H 03/14/19 16:33 POC Glucose 316 H Medical Necessity - Tobacco Use Smoking Status: Never smoker Tobacco Use: Non-smoker Assessment/Plan All Active Problems (Last Reviewed 03/15/19 @ 13:27 by Carloz Cintron MD) UTI (urinary tract infection) (Acute) Fever (Acute) 1. Fever of unknown origin, tachycardia, leukocytosis-patient reports recent weight loss and generalized weakness as well. Possibly secondary to UTI versus viral etiology versus medication side effect? UA with 25 leukocytes, positive nitrates. Urine culture with mixed gram-positive and gram-negative organisms, mixed contaminates. IV Rocephin empirically. Respiratory panel negative. Chest x-ray unremarkable. Brain CT on admission with no acute findings. Blood cultures pending. HIV, hepatitis panel, TIFFANIE reflex, PSA ordered. Patient reports he was started on new subcu injection medication, Simponi, and immunosuppressive drug [address] Swan who manages his RA. He states it was initially started 6 weeks ago and then had an additional dose 2 weeks ago. Suspect this may be contributing to current symptoms. Infectious disease consult placed. 2. 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 Postvoid residual unremarkable. Renal ultrasound showed mild right hydronephrosis, moderate left hydronephrosis, simple lower pole cyst in the right kidney, right mid renal cystic lesion slightly complex with small mural nodular component. 3. Acute kidney injury/hypovolemic hyponatremia, secondary to dehydration-resolved. Continue IV fluids, trend BMP. 4. Acute diarrhea-C. difficile and enteric bacteriology negative. 5. CAD with history of PCI to RCA-continue home aspirin, Brilinta, statin, carvedilol regimen. 6. Hypertension-blood pressure regimen held on admission due to hypotension. Resume home amlodipine, losartan when blood pressure is further improved. Continue carvedilol regimen. 7. Hyperlipidemia-continue statin regimen. 8. Type 2 diabetes mellitus-hold home oral regimen. Accu-Cheks ACHS with sliding scale insulin. 9. Rheumatoid arthritis-follows with rheumatology. Currently on maintenance prednisone regimen, continue. DVT prophylaxis-SCDs, heparin This patient was seen by BENJI Freeman under the supervision of Dr. Leon. <Kailee Leon E - Last Filed: 03/15/19 13:44> - Physical Exam Vital Signs Temp Pulse Resp BP Pulse Ox 99.3 F H 95 18 115/68 98 03/15/19 08:58 03/15/19 11:58 03/15/19 08:58 03/15/19 08:58 03/15/19 08:58 Oxygen Delivery Method Room Air Weight: 151 lb 3.794 oz Body Mass Index (BMI) 21.7 Intake and Output for Last 24 Hours 03/13/19 03/14/19 03/15/19 23:59 23:59 23:59 Intake Total 4130 / 4130 3770 / 3770 3679 / 3679 Output Total 5000 / 5000 1825 / 1825 1875 / 1875 Balance -870 / -870 1945 / 1945 1804 / 1804 Microbiology Past 72 Hours 03/13/19 15:45 Urine Culture - Final Urine, Clean Catch Mixed Gram Pos & Gram Neg Org 03/14/19 09:45 Enteric Bacteriology - Final Stool 03/14/19 09:45 C. difficile DNA Amplification - Final Stool 03/13/19 06:00 Respiratory Panel (PCR) - Final Mucosa - Nose Laboratory Tests Past 24 Hrs 03/15/19 03/15/19 05:55 05:55 WBC 6.4 RBC 3.98 L Hgb 10.7 L Hct 32.6 L MCV 81.9 MCH 26.9 L MCHC 32.8 RDW 16.6 H RDW Differential 50.4 H Plt Count 174 MPV 9.6 Sodium 142 Potassium 3.3 L Chloride 111 H Carbon Dioxide 20.0 L Anion Gap 11 BUN 12 Creatinine 0.69 L Estim Creat Clear Calc 68.60 Est GFR (MDRD) Af Amer 147 Est GFR (MDRD) Non-Af 122 BUN/Creatinine Ratio 17.5 Glucose 135 H Calcium 7.4 L POC Glucose 03/15/19 03/15/19 03/14/19 11:34 06:36 22:40 POC Glucose 193 H 117 H 194 H 03/14/19 16:33 POC Glucose 316 H Assessment/Plan Hospitalist note: I am seeing this patient in conjunction with Olena Quijano. I independently seen and examined the patient. Progress note, laboratory data and imaging studies reviewed and I concur with the above treatment plan. Patient seen and examined today. He is still complaining of subjective fever. Complains of being generally sick and unwell. He still having intermittent diarrhea. Denied abdominal pain, nausea or vomiting. Maximum temperature since yesterday morning was 99.3 Fahrenheit. Other vital signs are stable. - Physical Exam General: Alert, Oriented x3, Cooperative, No apparent distress. HEENT: Atraumatic, PERRLA, EOMI. Neck: Supple, No JVD, Negative Carotid Bruits, Trachea Midline, Thyroid Normal. Lungs: Clear to auscultation, Normal air movement, No rhonchi, No wheeze, No rales. Cardiovascular: Regular rate, Regular Rhythm, Normal S1, Normal S2, PMI Normal. Abdomen: Bowel Sounds Present, Soft, Non Tender, Non-Distended, No Hepato-splenomegaly. Extremities: No clubbing, No cyanosis, No edema Skin: No rashes, No breakdown Neurological: Neuro grossly intact Vital Signs are stable. Assessment and plan: #1 fever/tachycardia/leukocytosis: Probable etiology is UTI versus viral etiology. He is on IV Rocephin. Blood cultures pending. Urine culture revealed mixed growth. Stool for C. difficile was negative. Respiratory panel for viruses were negative. Stool for enteric pathogens including Campylobacter, Salmonella, Shigella, Yersinia, vibrio, norovirus and rotavirus are negative. Initial and repeat chest x-ray showed no acute infiltrate. CT scan abdomen and pelvis without contrast revealed moderate left hydronephrosis and mild right hydronephrosis without evidence of obstructing stones. Plan: Infectious disease consult, continue empiric IV antibiotics. #2 moderate left/mild right hydronephrosis and hydroureter: Without evidence of obstructing stones. CT scan abdomen reviewed as above. Kidney function is back to normal. Ultrasound kidneys reviewed as well. Urology consulted. #3 acute kidney injury: Likely because of dehydration and hypovolemia. Patient has been on IV fluids, kidney function is back to normal. #4 acute diarrheal illness: Likely viral. Stool for C. difficile and enteric pathogens were negative. #5: Other chronic medical problems: Stable, continue current medications. This note was generated with [employer] dictation software. It may contain incorrect words, spelling, and punctuation that were not noted in checking the note before signing. Code Visit Inpatient E&M: 11859 Subs Hosp L2
--- NOTE | 2019-03-15 12:57 | PN_ITS ---
Addendum entered and electronically signed by BENJI Freeman 03/15/19 12:58: Code Visit Additional diagnosis: Severe protein calorie malnutrition- as evidenced by low BMI, recent weight loss. Nutrition consult. Original Note: <Olena Quijano - Last Filed: 03/15/19 12:58> Patient Problems: Active and Suspected Problems (Last Reviewed 03/15/19 @ 13:27 by Carloz Cintron MD) UTI (urinary tract infection) (Acute) Fever (Acute) Subjective: Patient seen and examined. Continues to feel generally unwell. Complains of dry mouth and poor taste in mouth. Continues to have intermittent diarrhea. Denies abdominal pain. Fever improved. - Physical Exam General: Alert, Oriented x3, Cooperative HEENT: Atraumatic, PERRLA, EOMI, Normocephalic Neck: Supple, No JVD, Negative Carotid Bruits Lungs: Clear to auscultation, Normal air movement Cardiovascular: Regular rate, Regular Rhythm, Normal S1, Normal S2, No murmurs Abdomen: Bowel Sounds Present, Soft, Non Tender, Non-Distended Extremities: No clubbing, No cyanosis, No edema, Capillary Refill Less than 3 Seconds Skin: No rashes, No breakdown Musculoskeletal: No Tenderness to Palpation of Joints or Extremities Neurological: Cranial nerves II-XII grossly intact, Neuro grossly intact Psych/Mental Status: Normal Affect, Appropriate Vital Signs Temp Pulse Resp BP Pulse Ox 99.3 F H 104 H 18 115/68 98 03/15/19 08:58 03/15/19 08:58 03/15/19 08:58 03/15/19 08:58 03/15/19 08:58 Oxygen Delivery Method Room Air Weight: 151 lb 3.794 oz Body Mass Index (BMI) 21.7 Intake and Output for Last 24 Hours 03/13/19 03/14/19 03/15/19 23:59 23:59 23:59 Intake Total 4130 / 4130 3770 / 3770 3679 / 3679 Output Total 5000 / 5000 1825 / 1825 1875 / 1875 Balance -870 / -870 1945 / 1945 1804 / 1804 Microbiology Past 72 Hours 03/13/19 15:45 Urine Culture - Final Urine, Clean Catch Mixed Gram Pos & Gram Neg Org 03/14/19 09:45 Enteric Bacteriology - Final Stool 03/14/19 09:45 C. difficile DNA Amplification - Final Stool 03/13/19 06:00 Respiratory Panel (PCR) - Final Mucosa - Nose Laboratory Tests Past 24 Hrs 03/15/19 03/15/19 05:55 05:55 WBC 6.4 RBC 3.98 L Hgb 10.7 L Hct 32.6 L MCV 81.9 MCH 26.9 L MCHC 32.8 RDW 16.6 H RDW Differential 50.4 H Plt Count 174 MPV 9.6 Sodium 142 Potassium 3.3 L Chloride 111 H Carbon Dioxide 20.0 L Anion Gap 11 BUN 12 Creatinine 0.69 L Estim Creat Clear Calc 68.60 Est GFR (MDRD) Af Amer 147 Est GFR (MDRD) Non-Af 122 BUN/Creatinine Ratio 17.5 Glucose 135 H Calcium 7.4 L POC Glucose 03/15/19 03/15/19 03/14/19 11:34 06:36 22:40 POC Glucose 193 H 117 H 194 H 03/14/19 16:33 POC Glucose 316 H Medical Necessity - Tobacco Use Smoking Status: Never smoker Tobacco Use: Non-smoker Assessment/Plan All Active Problems (Last Reviewed 03/15/19 @ 13:27 by Carloz Cintron MD) UTI (urinary tract infection) (Acute) Fever (Acute) 1. Fever of unknown origin, tachycardia, leukocytosis-patient reports recent weight loss and generalized weakness as well. Possibly secondary to UTI versus viral etiology versus medication side effect? UA with 25 leukocytes, positive nitrates. Urine culture with mixed gram-positive and gram-negative organisms, mixed contaminates. IV Rocephin empirically. Respiratory panel negative. Chest x-ray unremarkable. Brain CT on admission with no acute findings. Blood cultures pending. HIV, hepatitis panel, TIFFANIE reflex, PSA ordered. Patient reports he was started on new subcu injection medication, Simponi, and immunosuppressive drug [address] Swan who manages his RA. He states it was initially started 6 weeks ago and then had an additional dose 2 weeks ago. Suspect this may be contributing to current symptoms. Infectious disease consult placed. 2. 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 Postvoid residual unremarkable. Renal ultrasound showed mild right hydronephrosis, moderate left hydronephrosis, simple lower pole cyst in the right kidney, right mid renal cystic lesion slightly complex with small mural nodular component. 3. Acute kidney injury/hypovolemic hyponatremia, secondary to dehydration- resolved. Continue IV fluids, trend BMP. 4. Acute diarrhea-C. difficile and enteric bacteriology negative. 5. CAD with history of PCI to RCA-continue home aspirin, Brilinta, statin, carvedilol regimen. 6. Hypertension-blood pressure regimen held on admission due to hypotension. Resume home amlodipine, losartan when blood pressure is further improved. Continue carvedilol regimen. 7. Hyperlipidemia-continue statin regimen. 8. Type 2 diabetes mellitus-hold home oral regimen. Accu-Cheks ACHS with sliding scale insulin. 9. Rheumatoid arthritis-follows with rheumatology. Currently on maintenance pr ednisone regimen, continue. DVT prophylaxis-SCDs, heparin This patient was seen by BENJI Freeman under the supervision of Dr. Leon. <Kailee Leon E - Last Filed: 03/15/19 13:44> - Physical Exam Vital Signs Temp Pulse Resp BP Pulse Ox 99.3 F H 95 18 115/68 98 03/15/19 08:58 03/15/19 11:58 03/15/19 08:58 03/15/19 08:58 03/15/19 08:58 Oxygen Delivery Method Room Air Weight: 151 lb 3.794 oz Body Mass Index (BMI) 21.7 Intake and Output for Last 24 Hours 03/13/19 03/14/19 03/15/19 23:59 23:59 23:59 Intake Total 4130 / 4130 3770 / 3770 3679 / 3679 Output Total 5000 / 5000 1825 / 1825 1875 / 1875 Balance -870 / -870 1945 / 1945 1804 / 1804 Microbiology Past 72 Hours 03/13/19 15:45 Urine Culture - Final Urine, Clean Catch Mixed Gram Pos & Gram Neg Org 03/14/19 09:45 Enteric Bacteriology - Final Stool 03/14/19 09:45 C. difficile DNA Amplification - Final Stool 03/13/19 06:00 Respiratory Panel (PCR) - Final Mucosa - Nose Laboratory Tests Past 24 Hrs 03/15/19 03/15/19 05:55 05:55 WBC 6.4 RBC 3.98 L Hgb 10.7 L Hct 32.6 L MCV 81.9 MCH 26.9 L MCHC 32.8 RDW 16.6 H RDW Differential 50.4 H Plt Count 174 MPV 9.6 Sodium 142 Potassium 3.3 L Chloride 111 H Carbon Dioxide 20.0 L Anion Gap 11 BUN 12 Creatinine 0.69 L Estim Creat Clear Calc 68.60 Est GFR (MDRD) Af Amer 147 Est GFR (MDRD) Non-Af 122 BUN/Creatinine Ratio 17.5 Glucose 135 H Calcium 7.4 L POC Glucose 03/15/19 03/15/19 03/14/19 11:34 06:36 22:40 POC Glucose 193 H 117 H 194 H 03/14/19 16:33 POC Glucose 316 H Assessment/Plan Hospitalist note: I am seeing this patient in conjunction with Olena Quijano. I independently seen and examined the patient. Progress note, laboratory data and imaging studies reviewed and I concur with the above treatment plan. Patient seen and examined today. He is still complaining of subjective fever. Complains of being generally sick and unwell. He still having intermittent diarrhea. Denied abdominal pain, nausea or vomiting. Maximum temperature since yesterday morning was 99.3 Fahrenheit. Other vital signs are stable. - Physical Exam General: Alert, Oriented x3, Cooperative, No apparent distress. HEENT: Atraumatic, PERRLA, EOMI. Neck: Supple, No JVD, Negative Carotid Bruits, Trachea Midline, Thyroid Normal. Lungs: Clear to auscultation, Normal air movement, No rhonchi, No wheeze, No rales. Cardiovascular: Regular rate, Regular Rhythm, Normal S1, Normal S2, PMI Normal. Abdomen: Bowel Sounds Present, Soft, Non Tender, Non-Distended, No Hepato- splenomegaly. Extremities: No clubbing, No cyanosis, No edema Skin: No rashes, No breakdown Neurological: Neuro grossly intact Vital Signs are stable. Assessment and plan: #1 fever/tachycardia/leukocytosis: Probable etiology is UTI versus viral etiology. He is on IV Rocephin. Blood cultures pending. Urine culture revealed mixed growth. Stool for C. difficile was negative. Respiratory panel for viruses were negative. Stool for enteric pathogens including Campylobacter, Salmonella, Shigella, Yersinia, vibrio, norovirus and rotavirus are negative. Initial and repeat chest x-ray showed no acute infiltrate. CT scan abdomen and pelvis without contrast revealed moderate left hydronephrosis and mild right hydronephrosis without evidence of obstructing stones. Plan: Infectious disease consult, continue empiric IV antibiotics. #2 moderate left/mild right hydronephrosis and hydroureter: Without evidence of obstructing stones. CT scan abdomen reviewed as above. Kidney function is back to normal. Ultrasound kidneys reviewed as well. Urology consulted. #3 acute kidney injury: Likely because of dehydration and hypovolemia. Patient has been on IV fluids, kidney function is back to normal. #4 acute diarrheal illness: Likely viral. Stool for C. difficile and enteric pathogens were negative. #5: Other chronic medical problems: Stable, continue current medications. This note was generated with [employer] dictation software. It may contain incorrect words, spelling, and punctuation that were not noted in checking the note before signing. Code Visit Inpatient E&M: 68066 Subs Hosp L2
--- NOTE | 2019-03-15 13:20 | CON.PCM_ITS ---
Problem List (1) Fever Status: Acute Reason for Consult: fever Consulted by: Dr. Leon History of Present Illness: The patient is a 68 year old M with recent dx of rheumatoid arthritis. Started on immunosuppression by rheumatology for past few months. No fevers at home. Came to hospital due to not feeling well, nausea, weight loss. Started to have fever, chills, diarrhea here. Has been on ceftriaxone. Wbc improved. No headache. No tooth problems. [place] not leave hotel due to feeling sick. No animal exposures. No tick bites. No dysuria. Full ROS performed and neg except as noted above. - Medical History Past Medical History (Chronic Problems): Chronic Problems (Last Reviewed 02/08/19 @ 13:33 by Tessy Giron) Rheumatoid arthritis (Chronic) Left ankle pain (Chronic) Arteriosclerosis of coronary artery (Chronic) Stenting to RCA 08/2018 Hyperlipidemia (Chronic) Diabetes mellitus type II, controlled (Chronic) Hypertension (Chronic) Stented coronary artery (Chronic 08/19/18) PTCA and JOSE MANUEL (4.0 X 16 Promus Synergy) to mid RCA per Dr. 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 [Ecotrin] 81 mg PO DAILY@0800 tab 08/21/18 leflunomide 20 mg tablet 20 mg PO QMONTH 02/08/19 ticagrelor 90 mg tablet 90 mg PO BID #180 tab 02/19/19 Carvedilol [Coreg (Beta Brody)] 3.125 mg PO BID 03/12/19 Cholecalciferol (Vitamin D3) 2,000 unit PO DAILY 03/12/19 [D3-2000] Metformin HCl 1,000 mg PO BID 03/12/19 Pitavastatin Calcium [Livalo] 4 mg PO DAILY 03/12/19 Prednisone 5 mg PO DAILY 03/12/19 Prednisone 15 mg PO DAILY 03/12/19 glipiZIDE [Glucotrol] 5 mg PO DAILY 03/12/19 - Social History Tobacco Use: non-smoker Vital Signs Temp Pulse Resp BP Pulse Ox 99.3 F H 104 H 18 115/68 98 03/15/19 08:58 03/15/19 08:58 03/15/19 08:58 03/15/19 08:58 03/15/19 08:58 Oxygen Delivery Method Room Air Weight: 68.6 kg Body Mass Index (BMI) 21.7 Microbiology Past 72 Hours 03/13/19 15:45 Urine Culture - Final Urine, Clean Catch Mixed Gram Pos & Gram Neg Org 03/14/19 09:45 Enteric Bacteriology - Final Stool 03/14/19 09:45 C. difficile DNA Amplification - Final Stool 03/13/19 06:00 Respiratory Panel (PCR) - Final Mucosa - Nose Laboratory Tests Past 24 Hrs 03/15/19 03/15/19 05:55 05:55 WBC 6.4 RBC 3.98 L Hgb 10.7 L Hct 32.6 L MCV 81.9 MCH 26.9 L MCHC 32.8 RDW 16.6 H RDW Differential 50.4 H Plt Count 174 MPV 9.6 Sodium 142 Potassium 3.3 L Chloride 111 H Carbon Dioxide 20.0 L Anion Gap 11 BUN 12 Creatinine 0.69 L Estim Creat Clear Calc 68.60 Est GFR (MDRD) Af Amer 147 Est GFR (MDRD) Non-Af 122 BUN/Creatinine Ratio 17.5 Glucose 135 H Calcium 7.4 L - Other Studies Radiology: [] reviewed Other Studies: [] Route of nutrition/ use of supplements: [] Nutritional Intake: [] IV Site: [] Baig Catheter: [] - Physical Exam General: Alert, Oriented x3, Cooperative, No apparent distress HEENT: Atraumatic, PERRLA, EOMI Neck: Supple, No Nodes Lungs: Clear to auscultation, Normal air movement Cardiovascular: Regular rate, Regular Rhythm Abdomen: Soft, Non Tender, Non-Distended Extremities: No edema Skin: No rashes IV Site: Peripheral, without redness Musculoskeletal: No Tenderness to Palpation of Joints or Extremities Neurological: Cranial nerves II-XII grossly intact - Assessment/Plan Antibiotics: [] Assessment/Plan: [] Active and Suspected Problems (Last Reviewed 02/08/19 @ 13:33 by Tessy Giron) UTI (urinary tract infection) (Acute) Bronchitis (Acute) sepsis - wbc and fever improved. UA with minimal wbc, ucx only some mixed xochitl, but CT did show possible obstruction. Urology to see. Cont ceftriaxone for now. Sx may be mostly related to his RA, but will follow cxs for now. Will follow, thank you.
--- NOTE | 2019-03-15 13:30 | CON.PCM_ITS ---
Reason for Consult Date of Consultation: 03/15/19 Reason for Consultation: possible hydro History of Present Illness: The patient is a 68 year old Male admitted with fever of unknown origin had a CT scan WITHOUT contrast and read a left hydroneprhosis possible UPJ I reviewed CT scan myself - it does NOT show hydronephrosis he has peripelvic cysts int he left kidney that mimic hydro, u/s with same findings, no stone, no hydro ureter urine culture - mixed growth, not significant. Past Medical History Past Medical History (Chronic Problems): Chronic Problems (Last Reviewed 02/08/19 @ 13:33 by Tessy Giron) Rheumatoid arthritis (Chronic) Left ankle pain (Chronic) Arteriosclerosis of coronary artery (Chronic) Stenting to RCA 08/2018 Hyperlipidemia (Chronic) Diabetes mellitus type II, controlled (Chronic) Hypertension (Chronic) Stented coronary artery (Chronic 08/19/18) PTCA and JOSE MANUEL (4.0 X 16 Promus Synergy) to mid RCA per Dr. 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) Medical History: Medical History (Last Reviewed 03/15/19 @ 13:27 by Carloz Cintron MD) Arteriosclerosis of coronary artery (Chronic) I25.10 Stenting to RCA 08/2018 Hyperlipidemia (Chronic) E78.5 Diabetes mellitus type II, controlled (Chronic) E11.9 Hypertension (Chronic) I10 Acute inferolateral myocardial infarction (Chronic) Onset Date: 08/19/18 I21.19 Non-sustained ventricular tachycardia I47.2 Allergies atorvastatin [From Lipitor] Adverse Reaction (Severe, Verified 03/12/19 17:15) Myalgias Home Medications: Ambulatory Orders Medication Instructions Recorded Amlodipine [Norvasc] 10 mg PO DAILY 06/09/18 Empagliflozin [Jardiance] 10 mg PO DAILY 06/09/18 Losartan Potassium [Cozaar] 100 mg PO DAILY 06/09/18 Multivitamin [Multiple Vitamins] 1 tab PO DAILY 06/09/18 Calcium Carbonate/Vitamin D3 1 ea PO DAILY 08/19/18 [Calcium 500-Vit D3 600 Tablet] Aspirin E.C. [Ecotrin] 81 mg PO DAILY@0800 tab 08/21/18 leflunomide 20 mg tablet 20 mg PO QMONTH 02/08/19 ticagrelor 90 mg tablet 90 mg PO BID #180 tab 02/19/19 Carvedilol [Coreg (Beta Brody)] 3.125 mg PO BID 03/12/19 Cholecalciferol (Vitamin D3) 2,000 unit PO DAILY 03/12/19 [D3-2000] Metformin HCl 1,000 mg PO BID 03/12/19 Pitavastatin Calcium [Livalo] 4 mg PO DAILY 03/12/19 Prednisone 5 mg PO DAILY 03/12/19 Prednisone 15 mg PO DAILY 03/12/19 glipiZIDE [Glucotrol] 5 mg PO DAILY 03/12/19 Surgical History: Surgical History (Last Reviewed 03/15/19 @ 13:27 by Carloz Cintron MD) Stented coronary artery (Chronic) Onset Date: 08/19/18 Z95.5 PTCA and JOSE MANUEL (4.0 X 16 Promus Synergy) to mid RCA per Dr. Moffett @ [facility] Surgical History: - - Cystoscopy for renal calculi, PCI. Psychiatric History: No pertinent psych hx Lives: Spouse/ Significant Other Smoking Status: Never smoker Tobacco Use: Non-smoker Alcohol: None Drugs: None - *Family History Maternal Family History: Family History (Last Reviewed 02/08/19 @ 13:33 by Tessy Giron) Mother Diabetes Brother Heart disease History Items: Diabetes Paternal Family History: Family History (Last Reviewed 02/08/19 @ 13:33 by Tessy Giron) Mother Diabetes Brother Heart disease History Items: - - Patient notes that his father was healthy, no history of heart disease, diabetes or cancer. Review of Systems Constitutional: Reports: Chills, Fever Physical Exam - Physical Exam Vital Signs Temp 99.3 F H 03/15/19 08:58 Pulse 95 03/15/19 11:58 Resp 18 03/15/19 08:58 BP 115/68 03/15/19 08:58 Pulse Ox 98 03/15/19 08:58 Intake & Output 03/13/19 03/14/19 03/15/19 23:59 23:59 23:59 Intake Total 4130 / 4130 3770 / 3770 3679 / 3679 Output Total 5000 / 5000 1825 / 1825 1875 / 1875 Balance -870 / -870 1945 / 1945 1804 / 1804 Weight: 68.6 kg 68.6 kg Intake: Oral 1520 / 1520 1740 / 1740 1450 / 1450 IV fluid/meds 2610 / 2610 2029 / 2030 2229 / 2229 Output: Urine 5000 / 5000 1825 / 1825 1875 / 1875 Other: Number of Bowel Movements 0 3 3 Microbiology Past 72 Hours 03/13/19 15:45 Urine Culture - Final Urine, Clean Catch Mixed Gram Pos & Gram Neg Org 03/14/19 09:45 Enteric Bacteriology - Final Stool 03/14/19 09:45 C. difficile DNA Amplification - Final Stool 03/13/19 06:00 Respiratory Panel (PCR) - Final Mucosa - Nose Laboratory Tests Past 24 Hrs 03/15/19 03/15/19 05:55 05:55 WBC 6.4 RBC 3.98 L Hgb 10.7 L Hct 32.6 L MCV 81.9 MCH 26.9 L MCHC 32.8 RDW 16.6 H RDW Differential 50.4 H Plt Count 174 MPV 9.6 Sodium 142 Potassium 3.3 L Chloride 111 H Carbon Dioxide 20.0 L Anion Gap 11 BUN 12 Creatinine 0.69 L Estim Creat Clear Calc 68.60 Est GFR (MDRD) Af Amer 147 Est GFR (MDRD) Non-Af 122 BUN/Creatinine Ratio 17.5 Glucose 135 H Calcium 7.4 L Assessment/Plan All Active Problems (Last Reviewed 02/08/19 @ 13:33 by Tessy Giron) UTI (urinary tract infection) (Acute) Bronchitis (Acute) Fever (Acute) Screen for colon cancer (Acute) Chest pain (Acute) Electronic consultation reviewed chart CT scan and results unfortunately CR 1.5 so may be dangerous to do repeat CT scan with contrast If we can do a CT scan with IV contrast we can prove that he does not have hydronephrosis and just zafar pelvis cysts. other option would be a MAG 3 renal scan with lasix which will prove no obstruction but may not show anatomy as well. call me with questions.
[2019-03-15 16:55] LABS: Bedside Glucose 295 mg/dL (70-110)
[2019-03-15] MEDS: predniSONE 5 MG Tablet PO (21:54)
[2019-03-15] MEDS: Ceftriaxone 1 GM/50 ML BAG IV (22:00)
[2019-03-15 22:41] LABS: Bedside Glucose 251 mg/dL (70-110)
[2019-03-16] VITALS (13 sets, daily range): BP systolic 85–114; BP diastolic 49–70; PULSE 67–98; RESP 16–18; TEMP 36.6–38.5; O2SAT 94–97
[2019-03-16] MEDS: 0.9% Normal Saline 1,000 ML 125 ML IV ×3 (00:28→16:57)
[2019-03-16] MEDS: Insulin Lispro 100 UNIT/ML INSULN.PEN SQ ×4 (06:39→21:13)
[2019-03-16 06:55] LABS: Bedside Glucose 156 mg/dL (70-110)
[2019-03-16 08:10] LABS: HEPATITIS B SURFACE AG Negative (Negative); Hepatitis A AB, Total Negative (Negative); Hepatitis A IgM Antibody Negative (Negative); Hepatitis B Core AB IgM Negative (Negative); Hepatitis B Core Ab Total Negative (Negative); Hepatitis C Ab 0.2 s/co ratio (0.0-0.9)
[2019-03-16] MEDS: predniSONE 5 MG Tablet 15 MG PO (08:34)
[2019-03-16] MEDS: Aspirin E.C. 81 MG Tablet PO (08:34)
[2019-03-16] MEDS: TICAGRELOR 90 MG TABLET PO ×2 (08:36→21:11)
[2019-03-16] MEDS: Carvedilol 3.125 MG TABLET PO ×2 (08:37→21:12)
[2019-03-16] MEDS: amLODIPine 10 MG Tablet PO (08:37)
[2019-03-16] MEDS: Heparin Injection (Vial) 5,000 UNIT/ML VIAL 5000 UNIT SC ×2 (08:38→21:13)
[2019-03-16] MEDS: Acetaminophen 325 MG Tablet 650 MG PO (08:42)
[2019-03-16 09:09] LABS: Hematocrit 36.2 % (40-54); Hemoglobin 11.8 g/dl (13.0-16.5); Mean Corp Hgb Conc 32.6 g/gl (32-36); Mean Corpuscular Hgb 26.9 pg (27.0-32.0); Mean Corpuscular Volume 82.5 fL (80-94); Platelet Count 203 K/mm3 (150-450); RBC Distribution Width CV 16.9 % (11.6-14.6); RBC Distribution Width SD 50.3 fl (35.1-43.9); Red Blood Count 4.39 M/mm3 (4.6-6.2)
[2019-03-16 09:13] LABS: Scan Indicated on CBC? Y/N NO
[2019-03-16 09:32] LABS: Anion Gap 5 (5-15); BUN 8 mg/dL (7-18); BUN/Creat Ratio 8.9 RATIO (10-20); Calcium,Total 7.5 mg/dL (8.5-10.1); Chloride 107 mmol/L (98-107); EST Glomerular Filtration Rate 89 mL/min (>60); Est Glom Filt Rate - Afr Amer 108 mL/min (>60); Estimated Creatinine Clearance 76.22 ml/min; Glucose 250 mg/dL (74-106); Potassium 3.8 mmol/L (3.5-5.1); Sodium Level 134 mmol/L (136-145)
--- NOTE | 2019-03-16 10:23 | PN.ID_ITS ---
Patient Problems: Active and Suspected Problems (Last Reviewed 03/15/19 @ 13:27 by Carloz Cintron MD) UTI (urinary tract infection) (Acute) Fever (Acute) Subjective: [place] warm this AM, temp up to 101.3. No congestion, no SOB, no cough, no abd pain, no n/v/d, no dysuria. - Physical Exam General: Alert, Cooperative, No apparent distress Lungs: Clear to auscultation, Normal air movement Cardiovascular: Regular rate, Regular Rhythm Abdomen: Soft, Non Tender, Non-Distended Extremities: No edema Skin: No rashes Musculoskeletal: No Tenderness to Palpation of Joints or Extremities Vital Signs Temp Pulse Resp BP Pulse Ox 99.2 F H 98 18 112/68 97 03/16/19 10:08 03/16/19 08:45 03/16/19 08:45 03/16/19 08:45 03/16/19 08:45 Oxygen Delivery Method Room Air Weight: 68.6 kg Body Mass Index (BMI) 21.7 Intake and Output for Last 24 Hours 03/14/19 03/15/19 03/16/19 23:59 23:59 23:59 Intake Total 3770 / 3770 5719 / 5719 1157 / 1157 Output Total 1825 / 1825 3175 / 3175 1250 / 1250 Balance 1945 / 1945 2544 / 2544 -93 / -93 Microbiology Past 72 Hours 03/13/19 15:45 Urine Culture - Final Urine, Clean Catch Mixed Gram Pos & Gram Neg Org 03/14/19 09:45 Enteric Bacteriology - Final Stool 03/14/19 09:45 C. difficile DNA Amplification - Final Stool 03/13/19 06:00 Respiratory Panel (PCR) - Final Mucosa - Nose Laboratory Tests Past 24 Hrs 03/16/19 03/16/19 09:00 09:00 WBC 6.0 RBC 4.39 L Hgb 11.8 L Hct 36.2 L MCV 82.5 MCH 26.9 L MCHC 32.6 RDW 16.9 H RDW Differential 50.3 H Plt Count 203 MPV 10.0 Sodium 134 L Potassium 3.8 Chloride 107 Carbon Dioxide 22.0 Anion Gap 5 BUN 8 Creatinine 0.90 Estim Creat Clear Calc 76.22 Est GFR (MDRD) Af Amer 108 Est GFR (MDRD) Non-Af 89 BUN/Creatinine Ratio 8.9 L Glucose 250 H Calcium 7.5 L POC Glucose 03/16/19 03/15/19 03/15/19 06:37 21:49 16:46 POC Glucose 156 H 251 H 295 H 03/15/19 03/15/19 11:34 06:36 POC Glucose 193 H 117 H Medical Necessity - Tobacco Use Smoking Status: Never smoker Tobacco Use: Non-smoker Route of nutrition/ use of supplements: [] Nutritional Intake: [] IV Site: [] Baig Catheter: [] - Assessment/Plan Antibiotics: [] Assessment/Plan: [] Active and Suspected Problems (Last Reviewed 02/08/19 @ 13:33 by Tessy Giron) UTI (urinary tract infection) (Acute) Bronchitis (Acute) SIRS - continues to have intermittent fever. Cxs neg. No hydro or obstruction per Dr. Cintron. Will stop ceftriaxone; no evidence of bacterial infection at this time. Recommend followup with rheum as an outpt. Will follow, d/w primary team.
--- NOTE | 2019-03-16 10:23 | CASEMGMT ---
[facility] He does not have a Healthcare POA on file. Patient was notified. Tiara [place]ACOCK
[2019-03-16 11:55] LABS: Bedside Glucose 332 mg/dL (70-110)
--- NOTE | 2019-03-16 12:55 | PCM.PROGNOTE ---
<Olena Quijano - Last Filed: 03/16/19 13:05> Patient Problems: Active and Suspected Problems (Last Reviewed 03/15/19 @ 13:27 by Carloz Cintron MD) UTI (urinary tract infection) (Acute) Fever (Acute) Subjective: Patient seen and examined. Continues to have intermittent fever. at bedside concerned about patient returning home given generalized weakness. Requesting patient stay overnight for further therapy and monitoring. - Physical Exam General: Alert, Oriented x3, Cooperative HEENT: Atraumatic, PERRLA, EOMI, Normocephalic Neck: Supple, No JVD, Negative Carotid Bruits Lungs: Clear to auscultation, Normal air movement Cardiovascular: Regular rate, Regular Rhythm, Normal S1, Normal S2, No murmurs Abdomen: Bowel Sounds Present, Soft, Non Tender, Non-Distended Extremities: No clubbing, No cyanosis, No edema Skin: No rashes, No breakdown Musculoskeletal: No Tenderness to Palpation of Joints or Extremities Neurological: Cranial nerves II-XII grossly intact, Neuro grossly intact Psych/Mental Status: Flat Affect Vital Signs Temp Pulse Resp BP Pulse Ox 99.2 F H 84 18 112/68 97 03/16/19 10:08 03/16/19 11:00 03/16/19 08:45 03/16/19 08:45 03/16/19 08:45 Oxygen Delivery Method Room Air Weight: 151 lb 3.794 oz Body Mass Index (BMI) 21.7 Intake and Output for Last 24 Hours 03/14/19 03/15/19 03/16/19 23:59 23:59 23:59 Intake Total 3770 / 3770 5719 / 5719 2994 / 2994 Output Total 1825 / 1825 3175 / 3175 2800 / 2800 Balance 1945 / 1945 2544 / 2544 194 / 194 Microbiology Past 72 Hours 03/13/19 15:45 Urine Culture - Final Urine, Clean Catch Mixed Gram Pos & Gram Neg Org 03/14/19 09:45 Enteric Bacteriology - Final Stool 03/14/19 09:45 C. difficile DNA Amplification - Final Stool 03/13/19 06:00 Respiratory Panel (PCR) - Final Mucosa - Nose Laboratory Tests Past 24 Hrs 03/16/19 03/16/19 09:00 09:00 WBC 6.0 RBC 4.39 L Hgb 11.8 L Hct 36.2 L MCV 82.5 MCH 26.9 L MCHC 32.6 RDW 16.9 H RDW Differential 50.3 H Plt Count 203 MPV 10.0 Sodium 134 L Potassium 3.8 Chloride 107 Carbon Dioxide 22.0 Anion Gap 5 BUN 8 Creatinine 0.90 Estim Creat Clear Calc 76.22 Est GFR (MDRD) Af Amer 108 Est GFR (MDRD) Non-Af 89 BUN/Creatinine Ratio 8.9 L Glucose 250 H Calcium 7.5 L POC Glucose 03/16/19 03/16/19 03/15/19 11:48 06:37 21:49 POC Glucose 332 H 156 H 251 H 03/15/19 16:46 POC Glucose 295 H Medical Necessity - Tobacco Use Smoking Status: Never smoker Tobacco Use: Non-smoker Assessment/Plan All Active Problems (Last Reviewed 03/15/19 @ 13:27 by Carloz Cintron MD) UTI (urinary tract infection) (Acute) Fever (Acute) 1. Fever of unknown origin, tachycardia, leukocytosis-patient reports recent weight loss and generalized weakness as well. Suspected secondary to Simponi medication which was recently started. UA with 25 leukocytes, positive nitrates. Urine culture with mixed gram-positive and gram-negative organisms, mixed contaminates. UTI ruled out. DC IV Rocephin. Respiratory panel negative. Chest x-ray unremarkable. Brain CT on admission with no acute findings. Blood cultures negative so far. HIV nonreactive. Hepatitis panel, TIFFANIE reflex pending. PSA 2.7. Patient reports he was started on new subcu injection medication, Simponi, and immunosuppressive drug [address] Swan who manages his RA. Infectious disease consulted. Infectious etiology ruled out. Recommend outpatient follow-up with rheumatology. 2. 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 Postvoid residual unremarkable. Renal ultrasound showed mild right hydronephrosis, moderate left hydronephrosis, simple lower pole cyst in the right kidney, right mid renal cystic lesion slightly complex with small mural nodular component. Urology does not feel any hydronephrosis or obstruction is present. 3. Acute kidney injury/hypovolemic hyponatremia, secondary to dehydration-resolved. Trend BMP. 4. Acute diarrhea-C. difficile and enteric bacteriology negative. Diarrhea resolved. 5. CAD with history of PCI to RCA-continue home aspirin, Brilinta, statin, carvedilol regimen. 6. Hypertension-Resume home amlodipine, losartan, carvedilol regimen. 7. Hyperlipidemia-continue statin regimen. 8. Type 2 diabetes mellitus-hold home oral regimen. Accu-Cheks ACHS with sliding scale insulin. 9. Rheumatoid arthritis-follows with rheumatology. Currently on maintenance prednisone which is to be tapered off and discontinue next week per patient. On Simponi regimen as well. DVT prophylaxis-SCDs, heparin Discharge planning: PT not recommending further therapy. Plan for discharge tomorrow. This patient was seen by BENJI Freeman under the supervision of Dr. Leon. <Kailee Leon E - Last Filed: 03/16/19 13:49> - Physical Exam Vital Signs Temp Pulse Resp BP Pulse Ox 99.2 F H 84 18 112/68 97 03/16/19 10:08 03/16/19 11:00 03/16/19 08:45 03/16/19 08:45 03/16/19 08:45 Oxygen Delivery Method Room Air Weight: 151 lb 3.794 oz Body Mass Index (BMI) 21.7 Intake and Output for Last 24 Hours 03/14/19 03/15/19 03/16/19 23:59 23:59 23:59 Intake Total 3770 / 3770 5719 / 5719 2994 / 2994 Output Total 1825 / 1825 3175 / 3175 2800 / 2800 Balance 1945 / 1945 2544 / 2544 194 / 194 Microbiology Past 72 Hours 03/13/19 15:45 Urine Culture - Final Urine, Clean Catch Mixed Gram Pos & Gram Neg Org 03/14/19 09:45 Enteric Bacteriology - Final Stool 03/14/19 09:45 C. difficile DNA Amplification - Final Stool 03/13/19 06:00 Respiratory Panel (PCR) - Final Mucosa - Nose Laboratory Tests Past 24 Hrs 03/14/19 03/16/19 03/16/19 09:37 09:00 09:00 WBC 6.0 RBC 4.39 L Hgb 11.8 L Hct 36.2 L MCV 82.5 MCH 26.9 L MCHC 32.6 RDW 16.9 H RDW Differential 50.3 H Plt Count 203 MPV 10.0 Sodium 134 L Potassium 3.8 Chloride 107 Carbon Dioxide 22.0 Anion Gap 5 BUN 8 Creatinine 0.90 Estim Creat Clear Calc 76.22 Est GFR (MDRD) Af Amer 108 Est GFR (MDRD) Non-Af 89 BUN/Creatinine Ratio 8.9 L Glucose 250 H Calcium 7.5 L Hepatitis A IgM Ab Negative Hepatitis A Ab Total Negative Hep Bs Antigen Negative Hep B Core Total Ab Negative Hep B Core IgM Ab Negative Hepatitis C Ab Confirm 0.2 Hepatitis C Comment Comment POC Glucose 03/16/19 03/16/19 03/15/19 11:48 06:37 21:49 POC Glucose 332 H 156 H 251 H 03/15/19 16:46 POC Glucose 295 H Assessment/Plan Hospitalist note: I am seeing this patient in conjunction with Olena Quijano. I independently seen and examined the patient. Progress note and laboratory data reviewed and I concur with the above treatment plan. Patient seen and examined today. He continues to have spikes of fever. Denied any other symptoms. Patient has been on Simponi injections for his rheumatoid arthritis and this medication can cause fever. Apart from fever, other vital signs are stable. - Physical Exam General: Alert, Oriented x3, Cooperative, No apparent distress. HEENT: Atraumatic, PERRLA, EOMI. Neck: Supple, No JVD, Negative Carotid Bruits, Trachea Midline, Thyroid Normal. Lungs: Clear to auscultation, Normal air movement, No rhonchi, No wheeze, No rales. Cardiovascular: Regular rate, Regular Rhythm, Normal S1, Normal S2, PMI Normal. Abdomen: Bowel Sounds Present, Soft, Non Tender, Non-Distended, No Hepato-splenomegaly. Extremities: No clubbing, No cyanosis, No edema Skin: No rashes, No breakdown Neurological: Neuro grossly intact Vital Signs are stable. Assessment and plan: #1 fever of unknown origin/tachycardia/leukocytosis: Working diagnosis is UTI versus medication side effects. Patient has been on Simponi injections for rheumatoid arthritis. IV Rocephin discontinued today by infectious disease. Cultures are negative so far, final is pending. Stool for C. difficile was negative. Respiratory panel for viruses were negative. Stool for enteric pathogens including Campylobacter, Salmonella, Shigella, Yersinia, vibrio, norovirus and rotavirus are negative. Initial and repeat chest x-ray showed no acute infiltrate. CT scan abdomen and pelvis without contrast revealed moderate left hydronephrosis and mild right hydronephrosis without evidence of obstructing stones. Plan to continue same treatment, monitoring, PT OT evaluation and treatment, anticipate discharge home tomorrow. #2 moderate left/mild right hydronephrosis and hydroureter: Without evidence of obstructing stones. CT scan abdomen reviewed as above. Kidney function is back to normal. Ultrasound kidneys reviewed as well. Urology consulted and doubted that there is evidence of hydronephrosis or urinary obstruction. #3 acute kidney injury: Likely because of dehydration and hypovolemia. Patient has been on IV fluids, kidney function is back to normal. #4 acute diarrheal illness: Likely viral. Stool for C. difficile and enteric pathogens were negative. #5: Other chronic medical problems: Stable, continue current medications. This note was generated with [employer] dictation software. It may contain incorrect words, spelling, and punctuation that were not noted in checking the note before signing. Code Visit Inpatient E&M: 44694 Subs Hosp L2
[2019-03-16 13:27] LABS: Hep B Surface Antibodies Reactive (.)
[2019-03-16 13:39] LABS: ANTINUCLEAR ANTIBODIES DIRECT Negative (Negative)
[2019-03-16 17:05] LABS: Bedside Glucose 320 mg/dL (70-110)
[2019-03-16] MEDS: predniSONE 5 MG Tablet PO (21:12)
[2019-03-16 23:36] LABS: Bedside Glucose 290 mg/dL (70-110)
[2019-03-17] MEDS: 0.9% Normal Saline 1,000 ML 125 ML IV ×2 (00:32→08:13)
[2019-03-17 03:00] VITALS: PULSE 73
[2019-03-17 03:34] VITALS: BP 130/64; PULSE 82; RESP 16; TEMP 37.7; O2SAT 95
[2019-03-17] MEDS: Insulin Lispro 100 UNIT/ML INSULN.PEN SQ ×2 (06:39→11:25)
[2019-03-17 07:07] VITALS: PULSE 77
[2019-03-17 07:10] LABS: Bedside Glucose 154 mg/dL (70-110)
[2019-03-17 07:32] VITALS: O2SAT 94
[2019-03-17] MEDS: predniSONE 5 MG Tablet 15 MG PO (08:15)
[2019-03-17] MEDS: Aspirin E.C. 81 MG Tablet PO (08:15)
[2019-03-17 09:04] VITALS: BP 133/67; PULSE 96; RESP 18; TEMP 38.6; O2SAT 98
--- NOTE | 2019-03-17 09:10 | RAD_ITS ---
STUDY: X-RAY CHEST REASON FOR EXAM: Male, 68 years old. Cough. TECHNIQUE: Single AP portable view of the chest. COMPARISON: Comparison is made with prior study dated March 13, 2019. FINDINGS: EKG electrodes are seen. The lungs are clear and expanded. There is no demonstrated pleural abnormality. Normal size heart. Normal mediastinum and marybel. Normal visualized pulmonary arteries. Normal visualized aortic arch and descending thoracic aorta. There are degenerative changes of the visualized thoracic spine. Normal visualized ribs, clavicles, and shoulders. There is no demonstrated abnormality of the visualized soft tissue structures of the upper abdomen. RAD/Chest 1 View (Portable) IMPRESSION: Normal x-ray examination of the chest. Electronically Signed: Mario Contreras, at 12:21 EDT , Service support ,
[2019-03-17] MEDS: TICAGRELOR 90 MG TABLET PO (10:01)
[2019-03-17] MEDS: amLODIPine 10 MG Tablet PO (10:01)
[2019-03-17] MEDS: Carvedilol 3.125 MG TABLET PO (10:01)
[2019-03-17] MEDS: Heparin Injection (Vial) 5,000 UNIT/ML VIAL 5000 UNIT SC (10:02)
[2019-03-17] MEDS: Acetaminophen 325 MG Tablet 650 MG PO (10:06)
--- NOTE | 2019-03-17 11:20 | PCM.DC ---
- Discharge Diagnoses Current Active Problems: Current Active and Chronic Problems (Last Reviewed 03/15/19 @ 13:27 by Carloz Cintron MD) Rheumatoid arthritis (Chronic) Fever (Acute) You will use the following diet at home:: No restrictions Discharge Activity: Return to Normal Activity Call your doctor if you observe: Shortness of breath, Dizziness, Fainting spells, Chest pain Allergies/Adverse Reactions: Allergies atorvastatin [From Lipitor] Adverse Reaction (Severe, Verified 03/12/19 17:15) Myalgias Medications to take at Discharge Amlodipine [Norvasc] 10 mg PO DAILY 06/09/18 Empagliflozin [Jardiance] 10 mg PO DAILY 06/09/18 Losartan Potassium [Cozaar] 100 mg PO DAILY 06/09/18 Multivitamin [Multiple Vitamins] 1 tab PO DAILY 06/09/18 Calcium Carbonate/Vitamin D3 [Calcium 500-Vit D3 600 Tablet] 1 ea PO DAILY 08/19/18 Aspirin E.C. [Ecotrin] 81 mg PO DAILY@0800 tab 08/21/18 leflunomide 20 mg tablet 20 mg PO QMONTH 02/08/19 ticagrelor 90 mg tablet 90 mg PO BID #180 tab 02/19/19 Carvedilol [Coreg (Beta Brody)] 3.125 mg PO BID 03/12/19 Cholecalciferol (Vitamin D3) [D3-2000] 2,000 unit PO DAILY 03/12/19 Metformin HCl 1,000 mg PO BID 03/12/19 Pitavastatin Calcium [Livalo] 4 mg PO DAILY 03/12/19 Prednisone 5 mg PO DAILY 03/12/19 Prednisone 15 mg PO DAILY 03/12/19 glipiZIDE [Glucotrol] 5 mg PO DAILY 03/12/19 Primary Care Physician: Roby Chisholm MD [Primary Care Provider] - Please follow up with your Primary Care Physician in: 1 Week Test Results: Test results from this visit will be discussed in further detail at your follow-up appointment, if applicable. Please Follow Up With: Coco Swan MD When: Tomorrow, 03/18/19 at 10am Please Follow Up With: [facility] When: [phone] Please Follow Up With: Call for appt Proposed Discharge Date: 03/17/19
[2019-03-17 11:21] LABS: Bedside Glucose 266 mg/dL (70-110)
--- NOTE | 2019-03-17 11:23 | DCINST_ITS ---
- Discharge Diagnoses Current Active Problems: Current Active and Chronic Problems (Last Reviewed 03/15/19 @ 13:27 by Carloz Cintron MD) Rheumatoid arthritis (Chronic) Fever (Acute) You will use the following diet at home:: No restrictions Discharge Activity: Return to Normal Activity Call your doctor if you observe: Shortness of breath, Dizziness, Fainting spells, Chest pain Allergies/Adverse Reactions: Allergies atorvastatin [From Lipitor] Adverse Reaction (Severe, Verified 03/12/19 17:15) Myalgias Medications to take at Discharge Amlodipine [Norvasc] 10 mg PO DAILY 06/09/18 Empagliflozin [Jardiance] 10 mg PO DAILY 06/09/18 Losartan Potassium [Cozaar] 100 mg PO DAILY 06/09/18 Multivitamin [Multiple Vitamins] 1 tab PO DAILY 06/09/18 Calcium Carbonate/Vitamin D3 [Calcium 500-Vit D3 600 Tablet] 1 ea PO DAILY 08/19/18 Aspirin E.C. [Ecotrin] 81 mg PO DAILY@0800 tab 08/21/18 leflunomide 20 mg tablet 20 mg PO QMONTH 02/08/19 ticagrelor 90 mg tablet 90 mg PO BID #180 tab 02/19/19 Carvedilol [Coreg (Beta Brody)] 3.125 mg PO BID 03/12/19 Cholecalciferol (Vitamin D3) [D3-2000] 2,000 unit PO DAILY 03/12/19 Metformin HCl 1,000 mg PO BID 03/12/19 Pitavastatin Calcium [Livalo] 4 mg PO DAILY 03/12/19 Prednisone 5 mg PO DAILY 03/12/19 Prednisone 15 mg PO DAILY 03/12/19 glipiZIDE [Glucotrol] 5 mg PO DAILY 03/12/19 Primary Care Physician: Roby Chisholm MD [Primary Care Provider] - Please follow up with your Primary Care Physician in: 1 Week Test Results: Test results from this visit will be discussed in further detail at your follow- up appointment, if applicable. Please Follow Up With: Coco Swan MD When: Tomorrow, 03/18/19 at 10am Please Follow Up With: [facility] When: [phone] Please Follow Up With: Call for appt Proposed Discharge Date: 03/17/19
--- NOTE | 2019-03-17 11:24 | PCM.DC.SUM ---
<Olena Quijano - Last Filed: 03/17/19 11:37> Discharge Date and Diagnosis Date of Admission: 03/12/19 Date of Discharge: 03/17/19 - Primary Discharge Diagnosis Active and Suspected Problems (Last Reviewed 03/15/19 @ 13:27 by Carloz Cintron MD) 1. Fever of unknown origin, tachycardia, leukocytosis-infectious etiology ruled out. Suspected secondary to Simponi medication which was recently started vs secondary to RA. 2. Possible functional UPJ obstruction- ruled out. 3. Acute kidney injury/hypovolemic hyponatremia, secondary to dehydration- resolved. 4. Acute diarrhea-C. difficile and enteric bacteriology negative. Diarrhea resolved. 5. CAD with history of PCI to RCA 6. Hypertension 7. Hyperlipidemia 8. Type 2 diabetes mellitus 9. Rheumatoid arthritis 10. Severe protein calorie malnutrition - Secondary Discharge Diagnosis Chronic Problems (Last Reviewed 03/15/19 @ 13:27 by Carloz Cintron MD) Rheumatoid arthritis (Chronic) Left ankle pain (Chronic) Arteriosclerosis of coronary artery (Chronic) Stenting to RCA 08/2018 Hyperlipidemia (Chronic) Diabetes mellitus type II, controlled (Chronic) Hypertension (Chronic) Stented coronary artery (Chronic 08/19/18) PTCA and JOSE MANUEL (4.0 X 16 Promus Synergy) to mid RCA per Dr. Moffett @ [facility] Acute inferolateral myocardial infarction (Chronic 08/19/18) Hospital Course and Treatment Imaging Results: Diagnostic Data Abdomen/Pelvis CT 03/12/19 21:05 IMPRESSION: 1. Moderate left hydronephrosis. Mild right hydronephrosis. No obstructing stone. Consider functional UPJ obstruction. 2. Right renal hypodensities, not characterized without contrast, probably benign. Electronically Signed: Pina Yoo MD at 22:14 EDT Tel , Service support , Brain CT 03/12/19 21:05 IMPRESSION: 1. No intracranial findings. 2. Mild chronic sinusitis. Electronically Signed: Pina Yoo MD at 22:07 EDT Tel , Service support , Renal Ultrasound 03/13/19 09:03 IMPRESSION: Mild right hydronephrosis. Moderate left hydronephrosis. Simple lower pole cyst in the right kidney. Right mid renal cystic lesion is slightly complex with small mural nodular component. Electronically Signed: Bertkennedi Vogt DO at 13:54 EDT Tel [phone], Service support , Dr. Cintron- Urology Dr. Soler- ID Operations: None Procedures: 2-D Echocardiogram Summary of Care Provided: The patient is a 68 year old M admitted 03/12/2018 due to weakness, malaise and fever. 1. Fever of unknown origin, tachycardia, leukocytosis-patient reports recent weight loss and generalized weakness as well. Suspected secondary to Simponi medication which was recently started vs related to RA. UA with 25 leukocytes, positive nitrates. Urine culture with mixed gram-positive and gram-negative organisms, mixed contaminates. UTI ruled out. IV Rocephin discontinued. Respiratory panel negative. Chest x-ray unremarkable. Brain CT on admission with no acute findings. Blood cultures negative. HIV nonreactive. Hepatitis panel, TIFFANIE reflex pending. PSA 2.7. Patient reports he was started on new subcu injection medication, Simponi, and immunosuppressive drug [address] Swan who manages his RA. Infectious disease consulted. Infectious etiology ruled out. Recommend outpatient follow-up with rheumatology. Scheduled appointment for patient with Dr. Swan 03/18/19 at 10am. Him and his also requested a referral for second opinion and he was given [facility] information if he wishes to do that. Follow-up with primary care provider in 1 week. Continue to use PRN tylenol for Temp>100.4. 2. 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 Postvoid residual unremarkable. Renal ultrasound showed mild right hydronephrosis, moderate left hydronephrosis, simple lower pole cyst in the right kidney, right mid renal cystic lesion slightly complex with small mural nodular component. Urology does not feel any hydronephrosis or obstruction is present. 3. Acute kidney injury/hypovolemic hyponatremia, secondary to dehydration-resolved. 4. Acute diarrhea-C. difficile and enteric bacteriology negative. Diarrhea resolved. 5. CAD with history of PCI to RCA-continue home aspirin, Brilinta, statin, carvedilol regimen. 6. Hypertension-Resume home amlodipine, losartan, carvedilol regimen. 7. Hyperlipidemia-continue statin regimen. 8. Type 2 diabetes mellitus-hold home oral regimen. 9. Rheumatoid arthritis-follows with rheumatology. Currently on maintenance prednisone which is to be tapered off and discontinue next week per patient. On Simponi regimen as well. 10. Severe protein calorie malnutrition-as evidenced by low BMI, recent weight loss. General: Alert, Oriented x3, Cooperative HEENT: Atraumatic, PERRLA, EOMI, Normocephalic Neck: Supple, No JVD, Negative Carotid Bruits Lungs: Clear to auscultation, Normal air movement Cardiovascular: Regular rate, Regular Rhythm, Normal S1, Normal S2, No murmurs Abdomen: Bowel Sounds Present, Soft, Non Tender, Non-Distended Extremities: No clubbing, No cyanosis, No edema Skin: No rashes, No breakdown Musculoskeletal: No Tenderness to Palpation of Joints or Extremities Neurological: Cranial nerves II-XII grossly intact, Neuro grossly intact Psych/Mental Status: Flat Affect Patient seen and examined prior to discharge. Physical assessment as noted above. Patient is stable for discharge with follow up recommendations as noted above. This patient was seen by BENJI Freeman under the supervision of Dr. Leon. - Physical Exam Vital Signs Temp Pulse Resp BP Pulse Ox 101.4 F H 96 18 133/67 H 98 03/17/19 09:04 03/17/19 09:04 03/17/19 09:04 03/17/19 09:04 03/17/19 09:04 Oxygen Delivery Method Room Air Weight: 151 lb 3.794 oz Body Mass Index (BMI) 21.7 Intake and Output for Last 24 Hours 03/15/19 03/16/19 03/17/19 23:59 23:59 23:59 Intake Total 5719 / 5719 5133 / 5133 904 / 904 Output Total 3175 / 3175 7575 / 7575 1000 / 1000 Balance 2544 / 2544 -2442 / -2442 -96 / -96 Microbiology Past 72 Hours 03/14/19 08:39 Blood Culture - Preliminary Blood Culture (Wb) - Left Hand No growth in 48 hours. 03/14/19 08:35 Blood Culture - Preliminary Blood Culture (Wb) - Anticubital Left No growth in 48 hours. 03/13/19 15:45 Urine Culture - Final Urine, Clean Catch Mixed Gram Pos & Gram Neg Org 03/14/19 09:45 Enteric Bacteriology - Final Stool 03/14/19 09:45 C. difficile DNA Amplification - Final Stool Laboratory Tests Past 24 Hrs 03/14/19 03/14/19 09:37 09:37 TIFFANIE Screen Negative Hepatitis A IgM Ab Negative Hepatitis A Ab Total Negative Hep Bs Antigen Negative Hep B Core Total Ab Negative Hep B Core IgM Ab Negative Hepatitis C Ab Confirm 0.2 Hepatitis C Comment Comment POC Glucose 03/17/19 03/17/19 03/16/19 11:15 06:38 21:06 POC Glucose 266 H 154 H 290 H 03/16/19 03/16/19 16:54 11:48 POC Glucose 320 H 332 H Discharge Diet: No Restrictions Discharge Activity: Return to Normal Activity Call your doctor if you observe: Shortness of breath, Dizziness, Fainting spells, Chest pain Home Medications: Medications to take at Discharge Amlodipine [Norvasc] 10 mg PO DAILY 06/09/18 Empagliflozin [Jardiance] 10 mg PO DAILY 06/09/18 Losartan Potassium [Cozaar] 100 mg PO DAILY 06/09/18 Multivitamin [Multiple Vitamins] 1 tab PO DAILY 06/09/18 Calcium Carbonate/Vitamin D3 [Calcium 500-Vit D3 600 Tablet] 1 ea PO DAILY 08/19/18 Aspirin E.C. [Ecotrin] 81 mg PO DAILY@0800 tab 08/21/18 leflunomide 20 mg tablet 20 mg PO QMONTH 02/08/19 ticagrelor 90 mg tablet 90 mg PO BID #180 tab 02/19/19 Carvedilol [Coreg (Beta Brody)] 3.125 mg PO BID 03/12/19 Cholecalciferol (Vitamin D3) [D3-2000] 2,000 unit PO DAILY 03/12/19 Metformin HCl 1,000 mg PO BID 03/12/19 Pitavastatin Calcium [Livalo] 4 mg PO DAILY 03/12/19 Prednisone 5 mg PO DAILY 03/12/19 Prednisone 15 mg PO DAILY 03/12/19 glipiZIDE [Glucotrol] 5 mg PO DAILY 03/12/19 Primary Care Physician: Roby Chisholm MD [Primary Care Provider] - Please follow up with your Primary Care Physician in: 1 Week Please Follow Up With: Coco Swan MD When: Tomorrow, 03/18/19 at 10am Please Follow Up With: [facility] When: [phone] Please Follow Up With: Call for appt Disposition: Home Minutes spent on discharge:: 35 Patient Condition:: Stable Medical Necessity - Tobacco Use Smoking Status: Never smoker Tobacco Use: Non-smoker Meaningful Use Info Meaningful Use Diagnoses (Choose all that apply): None applicable <Kailee Leon E - Last Filed: 03/17/19 13:10> Discharge Date and Diagnosis - Secondary Discharge Diagnosis Chronic Problems (Last Reviewed 03/15/19 @ 13:27 by Carloz Cintron MD) Rheumatoid arthritis (Chronic) Left ankle pain (Chronic) Arteriosclerosis of coronary artery (Chronic) Stenting to RCA 08/2018 Hyperlipidemia (Chronic) Diabetes mellitus type II, controlled (Chronic) Hypertension (Chronic) Stented coronary artery (Chronic 08/19/18) PTCA and JOSE MANUEL (4.0 X 16 Promus Synergy) to mid RCA per Dr. Moffett @ [facility] Acute inferolateral myocardial infarction (Chronic 08/19/18) Hospital Course and Treatment Imaging Results: 03/17/19 09:10 CXR [Chest 1 View (Portable)] [RAD] Urgent Summary of Care Provided: Hospitalist note: Discharge summary above reviewed and I concur with the above treatment and discharge plan. Patient was admitted with fever, found to have leukocytosis with tachycardia and there was no obvious source of infection identified. He was treated empirically with IV antibiotics. Initially, this infection attributed to probable acute cystitis as urinalysis revealed cloudy urine, positive for nitrite but there was no bacteria seen and there was only 0-5 WBCs. Respiratory panel for viruses were negative. Blood culture showed no growth in 48 hours. Repeat blood culture was negative up to the time of discharge. Urine culture revealed mixed growth. Patient complained of diarrhea for which stool for C. difficile and stool for enteric pathogens performed and both were negative. CT scan abdomen and pelvis without contrast performed and revealed moderate left and mild right hydronephrosis without evidence of obstructing kidney stones. Patient was found to have acute kidney injury which was treated with IV fluids and his kidney function returned back to normal. Urology consulted and stated that no evidence of obstructive uropathy on the CT scan and he doubted that there is hydronephrosis. No interventions recommended. Infectious disease consulted and recommended to discontinue antibiotics and to perform 2D echocardiogram which revealed normal LV size and function, ejection fraction 60%, no significant valvular heart disease. Chest x-ray repeated and again showed no acute findings. Patient continued to have intermittent spikes of fever. Again, no source of infection identified. Patient has been taking Simponi injections for rheumatoid arthritis, I recommended follow-up with rheumatology tomorrow, follow-up with PCP in 1 week. - Physical Exam General: Alert, Oriented x3, Cooperative, No apparent distress. HEENT: Atraumatic, PERRLA, EOMI. Neck: Supple, No JVD, Negative Carotid Bruits, Trachea Midline, Thyroid Normal. Lungs: Clear to auscultation, Normal air movement, No rhonchi, No wheeze, No rales. Cardiovascular: Regular rate, Regular Rhythm, Normal S1, Normal S2, PMI Normal. Abdomen: Bowel Sounds Present, Soft, Non Tender, Non-Distended, No Hepato-splenomegaly. Extremities: No clubbing, No cyanosis, No edema Skin: No rashes, No breakdown Neurological: Neuro grossly intact. This note was generated with [employer] dictation software. It may contain incorrect words, spelling, and punctuation that were not noted in checking the note before signing. - Physical Exam Vital Signs Temp Pulse Resp BP Pulse Ox 101.4 F H 96 18 133/67 H 98 03/17/19 09:04 03/17/19 09:04 03/17/19 09:04 03/17/19 09:04 03/17/19 09:04 Oxygen Delivery Method Room Air Weight: 151 lb 3.794 oz Body Mass Index (BMI) 21.7 Intake and Output for Last 24 Hours 03/15/19 03/16/19 03/17/19 23:59 23:59 23:59 Intake Total 5719 / 5719 5133 / 5133 2018 Output Total 3175 / 3175 7575 / 7575 3100 / 3100 Balance 2544 / 2544 -2442 / -2442 -1081 / -1081 Microbiology Past 72 Hours 03/14/19 08:39 Blood Culture - Preliminary Blood Culture (Wb) - Left Hand No growth in 48 hours. 03/14/19 08:35 Blood Culture - Preliminary Blood Culture (Wb) - Anticubital Left No growth in 48 hours. 03/13/19 15:45 Urine Culture - Final Urine, Clean Catch Mixed Gram Pos & Gram Neg Org 03/14/19 09:45 Enteric Bacteriology - Final Stool 03/14/19 09:45 C. difficile DNA Amplification - Final Stool Laboratory Tests Past 24 Hrs 03/14/19 03/14/19 09:37 09:37 TIFFANIE Screen Negative Hepatitis A IgM Ab Negative Hepatitis A Ab Total Negative Hep Bs Antigen Negative Hep B Core Total Ab Negative Hep B Core IgM Ab Negative Hepatitis C Ab Confirm 0.2 Hepatitis C Comment Comment POC Glucose 03/17/19 03/17/19 03/16/19 11:15 06:38 21:06 POC Glucose 266 H 154 H 290 H 03/16/19 16:54 POC Glucose 320 H Disposition: Home Minutes spent on discharge:: 32 Patient Condition:: Stable Meaningful Use Info Meaningful Use Diagnoses (Choose all that apply): None applicable Code Visit Inpatient E&M: 34798 Disch Hosp
--- NOTE | 2019-03-17 11:29 | DS.PCM_ITS ---
<Olena Quijano - Last Filed: 03/17/19 11:37> Discharge Date and Diagnosis Date of Admission: 03/12/19 Date of Discharge: 03/17/19 - Primary Discharge Diagnosis Active and Suspected Problems (Last Reviewed 03/15/19 @ 13:27 by Carloz Cintron MD) 1. Fever of unknown origin, tachycardia, leukocytosis-infectious etiology ruled out. Suspected secondary to Simponi medication which was recently started vs secondary to RA. 2. Possible functional UPJ obstruction- ruled out. 3. Acute kidney injury/hypovolemic hyponatremia, secondary to dehydration- resolved. 4. Acute diarrhea-C. difficile and enteric bacteriology negative. Diarrhea resolved. 5. CAD with history of PCI to RCA 6. Hypertension 7. Hyperlipidemia 8. Type 2 diabetes mellitus 9. Rheumatoid arthritis 10. Severe protein calorie malnutrition - Secondary Discharge Diagnosis Chronic Problems (Last Reviewed 03/15/19 @ 13:27 by Carloz Cintron MD) Rheumatoid arthritis (Chronic) Left ankle pain (Chronic) Arteriosclerosis of coronary artery (Chronic) Stenting to RCA 08/2018 Hyperlipidemia (Chronic) Diabetes mellitus type II, controlled (Chronic) Hypertension (Chronic) Stented coronary artery (Chronic 08/19/18) PTCA and JOSE MANUEL (4.0 X 16 Promus Synergy) to mid RCA per Dr. Moffett @ [facility] Acute inferolateral myocardial infarction (Chronic 08/19/18) Hospital Course and Treatment Imaging Results: Diagnostic Data Abdomen/Pelvis CT 03/12/19 21:05 IMPRESSION: 1. Moderate left hydronephrosis. Mild right hydronephrosis. No obstructing stone. Consider functional UPJ obstruction. 2. Right renal hypodensities, not characterized without contrast, probably benign. Electronically Signed: Pina Yoo MD at 22:14 EDT Tel , Service support , Brain CT 03/12/19 21:05 IMPRESSION: 1. No intracranial findings. 2. Mild chronic sinusitis. Electronically Signed: Pina Yoo MD at 22:07 EDT Tel , Service support , Renal Ultrasound 03/13/19 09:03 IMPRESSION: Mild right hydronephrosis. Moderate left hydronephrosis. Simple lower pole cyst in the right kidney. Right mid renal cystic lesion is slightly complex with small mural nodular component. Electronically Signed: Bertkennedi Vogt DO at 13:54 EDT Tel [phone], Service support , Dr. Cintron- Urology Dr. Soler- ID Operations: None Procedures: 2-D Echocardiogram Summary of Care Provided: The patient is a 68 year old M admitted 03/12/2018 due to weakness, malaise and fever. 1. Fever of unknown origin, tachycardia, leukocytosis-patient reports recent weight loss and generalized weakness as well. Suspected secondary to Simponi medication which was recently started vs related to RA. UA with 25 leukocytes, positive nitrates. Urine culture with mixed gram-positive and gram-negative organisms, mixed contaminates. UTI ruled out. IV Rocephin discontinued. Respiratory panel negative. Chest x-ray unremarkable. Brain CT on admission with no acute findings. Blood cultures negative. HIV nonreactive. Hepatitis panel, TIFFANIE reflex pending. PSA 2.7. Patient reports he was started on new subcu injection medication, Simponi, and immunosuppressive drug [address] Swan who manages his RA. Infectious disease consulted. Infectious etiology ruled out. Recommend outpatient follow-up with rheumatology. Scheduled appointment for patient with Dr. Swan 03/18/19 at 10am. Him and his also requested a referral for second opinion and he was given [facility] information if he wishes to do that. Follow-up with primary care provider in 1 week. Continue to use PRN tylenol for Temp>100.4. 2. 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 Postvoid residual unremarkable. Renal ultrasound showed mild right hydronephrosis, moderate left hydronephrosis, simple lower pole cyst in the right kidney, right mid renal cystic lesion slightly complex with small mural nodular component. Urology does not feel any hydronephrosis or obstruction is present. 3. Acute kidney injury/hypovolemic hyponatremia, secondary to dehydration- resolved. 4. Acute diarrhea-C. difficile and enteric bacteriology negative. Diarrhea resolved. 5. CAD with history of PCI to RCA-continue home aspirin, Brilinta, statin, carvedilol regimen. 6. Hypertension-Resume home amlodipine, losartan, carvedilol regimen. 7. Hyperlipidemia-continue statin regimen. 8. Type 2 diabetes mellitus-hold home oral regimen. 9. Rheumatoid arthritis-follows with rheumatology. Currently on maintenance prednisone which is to be tapered off and discontinue next week per patient. On Simponi regimen as well. 10. Severe protein calorie malnutrition-as evidenced by low BMI, recent weight loss. General: Alert, Oriented x3, Cooperative HEENT: Atraumatic, PERRLA, EOMI, Normocephalic Neck: Supple, No JVD, Negative Carotid Bruits Lungs: Clear to auscultation, Normal air movement Cardiovascular: Regular rate, Regular Rhythm, Normal S1, Normal S2, No murmurs Abdomen: Bowel Sounds Present, Soft, Non Tender, Non-Distended Extremities: No clubbing, No cyanosis, No edema Skin: No rashes, No breakdown Musculoskeletal: No Tenderness to Palpation of Joints or Extremities Neurological: Cranial nerves II-XII grossly intact, Neuro grossly intact Psych/Mental Status: Flat Affect Patient seen and examined prior to discharge. Physical assessment as noted above. Patient is stable for discharge with follow up recommendations as noted above. This patient was seen by BENJI Freeman under the supervision of Dr. Leon. - Physical Exam Vital Signs Temp Pulse Resp BP Pulse Ox 101.4 F H 96 18 133/67 H 98 03/17/19 09:04 03/17/19 09:04 03/17/19 09:04 03/17/19 09:04 03/17/19 09:04 Oxygen Delivery Method Room Air Weight: 151 lb 3.794 oz Body Mass Index (BMI) 21.7 Intake and Output for Last 24 Hours 03/15/19 03/16/19 03/17/19 23:59 23:59 23:59 Intake Total 5719 / 5719 5133 / 5133 904 / 904 Output Total 3175 / 3175 7575 / 7575 1000 / 1000 Balance 2544 / 2544 -2442 / -2442 -96 / -96 Microbiology Past 72 Hours 03/14/19 08:39 Blood Culture - Preliminary Blood Culture (Wb) - Left Hand No growth in 48 hours. 03/14/19 08:35 Blood Culture - Preliminary Blood Culture (Wb) - Anticubital Left No growth in 48 hours. 03/13/19 15:45 Urine Culture - Final Urine, Clean Catch Mixed Gram Pos & Gram Neg Org 03/14/19 09:45 Enteric Bacteriology - Final Stool 03/14/19 09:45 C. difficile DNA Amplification - Final Stool Laboratory Tests Past 24 Hrs 03/14/19 03/14/19 09:37 09:37 TIFFANIE Screen Negative Hepatitis A IgM Ab Negative Hepatitis A Ab Total Negative Hep Bs Antigen Negative Hep B Core Total Ab Negative Hep B Core IgM Ab Negative Hepatitis C Ab Confirm 0.2 Hepatitis C Comment Comment POC Glucose 03/17/19 03/17/19 03/16/19 11:15 06:38 21:06 POC Glucose 266 H 154 H 290 H 03/16/19 03/16/19 16:54 11:48 POC Glucose 320 H 332 H Discharge Diet: No Restrictions Discharge Activity: Return to Normal Activity Call your doctor if you observe: Shortness of breath, Dizziness, Fainting spells, Chest pain Home Medications: Medications to take at Discharge Amlodipine [Norvasc] 10 mg PO DAILY 06/09/18 Empagliflozin [Jardiance] 10 mg PO DAILY 06/09/18 Losartan Potassium [Cozaar] 100 mg PO DAILY 06/09/18 Multivitamin [Multiple Vitamins] 1 tab PO DAILY 06/09/18 Calcium Carbonate/Vitamin D3 [Calcium 500-Vit D3 600 Tablet] 1 ea PO DAILY 08/19/18 Aspirin E.C. [Ecotrin] 81 mg PO DAILY@0800 tab 08/21/18 leflunomide 20 mg tablet 20 mg PO QMONTH 02/08/19 ticagrelor 90 mg tablet 90 mg PO BID #180 tab 02/19/19 Carvedilol [Coreg (Beta Brody)] 3.125 mg PO BID 03/12/19 Cholecalciferol (Vitamin D3) [D3-2000] 2,000 unit PO DAILY 03/12/19 Metformin HCl 1,000 mg PO BID 03/12/19 Pitavastatin Calcium [Livalo] 4 mg PO DAILY 03/12/19 Prednisone 5 mg PO DAILY 03/12/19 Prednisone 15 mg PO DAILY 03/12/19 glipiZIDE [Glucotrol] 5 mg PO DAILY 03/12/19 Primary Care Physician: Roby Chisholm MD [Primary Care Provider] - Please follow up with your Primary Care Physician in: 1 Week Please Follow Up With: Coco Swan MD When: Tomorrow, 03/18/19 at 10am Please Follow Up With: [facility] When: [phone] Please Follow Up With: Call for appt Disposition: Home Minutes spent on discharge:: 35 Patient Condition:: Stable Medical Necessity - Tobacco Use Smoking Status: Never smoker Tobacco Use: Non-smoker Meaningful Use Info Meaningful Use Diagnoses (Choose all that apply): None applicable <Kailee Leon E - Last Filed: 03/17/19 13:10> Discharge Date and Diagnosis - Secondary Discharge Diagnosis Chronic Problems (Last Reviewed 03/15/19 @ 13:27 by Carloz Cintron MD) Rheumatoid arthritis (Chronic) Left ankle pain (Chronic) Arteriosclerosis of coronary artery (Chronic) Stenting to RCA 08/2018 Hyperlipidemia (Chronic) Diabetes mellitus type II, controlled (Chronic) Hypertension (Chronic) Stented coronary artery (Chronic 08/19/18) PTCA and JOSE MANUEL (4.0 X 16 Promus Synergy) to mid RCA per Dr. Moffett @ [facility] Acute inferolateral myocardial infarction (Chronic 08/19/18) Hospital Course and Treatment Imaging Results: 03/17/19 09:10 CXR [Chest 1 View (Portable)] [RAD] Urgent Summary of Care Provided: Hospitalist note: Discharge summary above reviewed and I concur with the above treatment and discharge plan. Patient was admitted with fever, found to have leukocytosis with tachycardia and there was no obvious source of infection identified. He was treated empirically with IV antibiotics. Initially, this infection attributed to probable acute cystitis as urinalysis revealed cloudy urine, positive for nitrite but there was no bacteria seen and there was only 0-5 WBCs. Respiratory panel for viruses were negative. Blood culture showed no growth in 48 hours. Repeat blood culture was negative up to the time of discharge. Urine culture revealed mixed growth. Patient complained of diarrhea for which stool for C. difficile and stool for enteric pathogens performed and both were negative. CT scan abdomen and pelvis without contrast performed and revealed moderate left and mild right hydronephrosis without evidence of obstructing kidney stones. Patient was found to have acute kidney injury which was treated with IV fluids and his kidney function returned back to normal. Urology consulted and stated that no evidence of obstructive uropathy on the CT scan and he doubted that there is hydronephrosis. No interventions recommended. Infectious disease consulted and recommended to discontinue antibiotics and to perform 2D echocardiogram which revealed normal LV size and function, ejection fraction 60%, no significant valvular heart disease. Chest x-ray repeated and again showed no acute findings. Patient continued to have intermittent spikes of fever. Again, no source of infection identified. Patient has been taking Simponi injections for rheumatoid arthritis, I recommended follow-up with rheumatology tomorrow, follow-up with PCP in 1 week. - Physical Exam General: Alert, Oriented x3, Cooperative, No apparent distress. HEENT: Atraumatic, PERRLA, EOMI. Neck: Supple, No JVD, Negative Carotid Bruits, Trachea Midline, Thyroid Normal. Lungs: Clear to auscultation, Normal air movement, No rhonchi, No wheeze, No rales. Cardiovascular: Regular rate, Regular Rhythm, Normal S1, Normal S2, PMI Normal. Abdomen: Bowel Sounds Present, Soft, Non Tender, Non-Distended, No Hepato- splenomegaly. Extremities: No clubbing, No cyanosis, No edema Skin: No rashes, No breakdown Neurological: Neuro grossly intact. This note was generated with [employer] dictation software. It may contain incorrect words, spelling, and punctuation that were not noted in checking the note before signing. - Physical Exam Vital Signs Temp Pulse Resp BP Pulse Ox 101.4 F H 96 18 133/67 H 98 03/17/19 09:04 03/17/19 09:04 03/17/19 09:04 03/17/19 09:04 03/17/19 09:04 Oxygen Delivery Method Room Air Weight: 151 lb 3.794 oz Body Mass Index (BMI) 21.7 Intake and Output for Last 24 Hours 03/15/19 03/16/19 03/17/19 23:59 23:59 23:59 Intake Total 5719 / 5719 5133 / 5133 2018 Output Total 3175 / 3175 7575 / 7575 3100 / 3100 Balance 2544 / 2544 -2442 / -2442 -1081 / -1081 Microbiology Past 72 Hours 03/14/19 08:39 Blood Culture - Preliminary Blood Culture (Wb) - Left Hand No growth in 48 hours. 03/14/19 08:35 Blood Culture - Preliminary Blood Culture (Wb) - Anticubital Left No growth in 48 hours. 03/13/19 15:45 Urine Culture - Final Urine, Clean Catch Mixed Gram Pos & Gram Neg Org 03/14/19 09:45 Enteric Bacteriology - Final Stool 03/14/19 09:45 C. difficile DNA Amplification - Final Stool Laboratory Tests Past 24 Hrs 03/14/19 03/14/19 09:37 09:37 TIFFANIE Screen Negative Hepatitis A IgM Ab Negative Hepatitis A Ab Total Negative Hep Bs Antigen Negative Hep B Core Total Ab Negative Hep B Core IgM Ab Negative Hepatitis C Ab Confirm 0.2 Hepatitis C Comment Comment POC Glucose 03/17/19 03/17/19 03/16/19 11:15 06:38 21:06 POC Glucose 266 H 154 H 290 H 03/16/19 16:54 POC Glucose 320 H Disposition: Home Minutes spent on discharge:: 32 Patient Condition:: Stable Meaningful Use Info Meaningful Use Diagnoses (Choose all that apply): None applicable Code Visit Inpatient E&M: 35706 Disch Hosp
[2019-03-17 13:57] VITALS: BP 99/64; PULSE 88; RESP 17; TEMP 36.6; O2SAT 98
--- NOTE | 2019-03-17 14:47 | CASEMGMT ---
Therapy states no need for any further therapy at this time. SStxander RN CM
--- NOTE | 2019-03-18 15:18 | CASEMGMT ---
EDILBERTO CM DC PHONE CALL DC DATE: 03/17/19 DC Disposition: Home LACE/STRATA: 14/4 No answer to call. Message left with call back information if questions arise re: prescriptions, f/u or dc instructions. Korey PALACIOS RN ACM
== END 2019-03-17 14:44 | disposition home or self-care (01) | DRG 309 ==
LOC: ED 18:33 → PCU 03-13 00:26
PROVIDERS: Internal Medicine; Nurse Practitioner Family; Admitting Provider Family Medicine; Emergency Provider Emergency Medicine; Family Provider Family Medicine; PCP Family Medicine; Visit Provider Hospitalist
DX: R00.0 Tachycardia, unspecified (principal); N17.9 Acute kidney failure, unspecified; E87.1 Hypo-osmolality and hyponatremia; R50.2 Drug induced fever; T39.4X5A Adverse effect of antirheumatics, not elsewhere classified, initial encounter; M06.9 Rheumatoid arthritis, unspecified; D72.829 Elevated white blood cell count, unspecified; R19.7 Diarrhea, unspecified; I25.10 Atherosclerotic heart disease of native coronary artery without angina pectoris; I10 Essential (primary) hypertension; E11.9 Type 2 diabetes mellitus without complications; I95.9 Hypotension, unspecified; Z79.84 Long term (current) use of oral hypoglycemic drugs; Z79.82 Long term (current) use of aspirin; I25.2 Old myocardial infarction; Z68.21 Body mass index [BMI] 21.0-21.9, adult; Z95.5 Presence of coronary angioplasty implant and graft
CPT/HCPCS: 36415; 70450; 71045; 71046; 74176; 76770; 80048; 80053; 80076; 81001; 82962; 83605; 83735; 84153; 84156; 84443; 84484; 85025; 85027; 85610; 85730; 86038; 86225; 86235; 86703; 86704; 86705; 86706; 86708; 86709; 86803; 87040; 87086; 87088; 87340; 87493; 87506; 87633; 93005; 93306; 97162; 97166; 97530; 97803; 99285; J7030; Q9957; A4216

== ENCOUNTER → 2019-03-24 11:49 | Outpatient (CLI) | payer MEDICARE, SELFPAY ==
[2019-03-13 00:46] VITALS: BMI 21.7
[2019-03-24 14:15] LABS: Absolute Lymphocyte Count 1.26 X10^3/ul (0.83-4.51); Absolute Neutrophil Count 6.7 X10^3/uL (2.0-7.7); Anion Gap 13 (5-15); BUN 23 mg/dL (7-18); BUN/Creat Ratio 15.6 RATIO (10-20); Basophil# 0.07 X10^3/uL; Basophil% 0.8 % (0-1); Calcium,Total 8.6 mg/dL (8.5-10.1); Chloride 97 mmol/L (98-107); Creatinine, Serum 1.47 mg/dL (0.70-1.30); EST Glomerular Filtration Rate 51 mL/min (>60); Eosinophil# 0.03 X10^3/uL; Eosinophils% 0.3 % (0-5); Est Glom Filt Rate - Afr Amer 61 mL/min (>60); Glucose 385 mg/dL (74-106); Hematocrit 42.4 % (40-54); Hemoglobin 13.7 g/dl (13.0-16.5); Lymphocyte # 1.26 X10^3/ul (4.0); Lymphocyte % 14.7 % (19-41); Mean Corp Hgb Conc 32.3 g/gl (32-36); Mean Corpuscular Hgb 27.2 pg (27.0-32.0); Mean Corpuscular Volume 84.3 fL (80-94); Mean Platelet Vol. 9.9 fl (6.2-12.0); Monocyte# 0.41 X10^3/uL; Monocyte% 4.8 % (0-10); Neutrophil # 6.69 X10^3/uL (2.7-7.7); Platelet Count 265 K/mm3 (150-450); Potassium 5.2 mmol/L (3.5-5.1); RBC Distribution Width CV 16.8 % (11.6-14.6); RBC Distribution Width SD 51.5 fl (35.1-43.9); Red Blood Count 5.03 M/mm3 (4.6-6.2); Sodium Level 134 mmol/L (136-145); White Blood Count 8.6 K/mm3 (4.4-11.0)
[2019-03-24 14:16] LABS: Differential Indicated SCAN CRITERIA MET; POSITIVE COUNT NO; POSITIVE DIFFERENTIAL NO; POSITIVE MORPHOLOGY YES
[2019-03-24 15:21] LABS: Differential Comment SCANNED
== END ==
PROVIDERS: Family Provider Family Medicine; PCP Family Medicine; Referring Provider Family Medicine; Visit Provider Nurse Practitioner Family
DX: R00.0 Tachycardia, unspecified (principal)
CPT/HCPCS: 36415; 80048; 85025

== ENCOUNTER → 2019-03-31 16:51 | Outpatient (CLI) | payer MEDICARE, SELFPAY ==
[2019-03-13 00:46] VITALS: BMI 21.7
[2019-03-31 17:33] LABS: Absolute Lymphocyte Count 0.87 X10^3/ul (0.83-4.51); Absolute Neutrophil Count 7.4 X10^3/uL (2.0-7.7); Basophil# 0.02 X10^3/uL; Basophil% 0.2 % (0-1); Hematocrit 34.6 % (40-54); Hemoglobin 11.4 g/dl (13.0-16.5); Lymphocyte # 0.87 X10^3/ul (4.0); Lymphocyte % 9.6 % (19-41); Mean Corp Hgb Conc 32.9 g/gl (32-36); Mean Corpuscular Hgb 26.6 pg (27.0-32.0); Mean Corpuscular Volume 80.8 fL (80-94); Mean Platelet Vol. 9.8 fl (6.2-12.0); Monocyte# 0.71 X10^3/uL; Monocyte% 7.8 % (0-10); Neutrophil # 7.44 X10^3/uL (2.7-7.7); Platelet Count 245 K/mm3 (150-450); RBC Distribution Width CV 16.3 % (11.6-14.6); RBC Distribution Width SD 47.2 fl (35.1-43.9); Red Blood Count 4.28 M/mm3 (4.6-6.2); White Blood Count 9.1 K/mm3 (4.4-11.0)
[2019-03-31 17:39] LABS: POSITIVE COUNT NO; POSITIVE DIFFERENTIAL NO; POSITIVE MORPHOLOGY NO
[2019-03-31 17:55] LABS: Anion Gap 12 (5-15); BUN 15 mg/dL (7-18); BUN/Creat Ratio 15.5 RATIO (10-20); Calcium,Total 7.7 mg/dL (8.5-10.1); Chloride 100 mmol/L (98-107); Creatinine, Serum 0.97 mg/dL (0.70-1.30); EST Glomerular Filtration Rate 82 mL/min (>60); Est Glom Filt Rate - Afr Amer 99 mL/min (>60); Glucose 93 mg/dL (74-106); Potassium 3.9 mmol/L (3.5-5.1); Sodium Level 131 mmol/L (136-145)
== END ==
PROVIDERS: Family Provider Family Medicine; PCP Family Medicine; Referring Provider Family Medicine; Visit Provider Nurse Practitioner Family
DX: R53.1 Weakness (principal)
CPT/HCPCS: 36415; 80048; 85025

== ENCOUNTER 2019-04-28 10:18 | Outpatient (RCR) | payer MEDICARE, SELFPAY ==
[2019-03-13 00:46] VITALS: BMI 21.7
--- NOTE | 2019-04-28 11:29 | HP.PTEVAL ---
Patient's Visit Information JASMEET WING is a 68 year old M referred to Physical Therapy by BENJI Blanc with a diagnosis of LOW BACK PAIN. Date of Evaluation: 04/28/19 Physical Therapist: Jean Rendon, PT, Cert MDT, OCS - Visit Plan Frequency: 2x /Week Duration: 4 Weeks Plan: PT INTERVENTIONS TO INCLUDE ENDURANCE PROGRAM,BLE STRENGTHENING,BALANCE PROGRAM,CORE STRENGTH - Subjective Findings: This 68 y/o male presents to physical therapy with low back pain. Patient was hospitilized [facility] about 3 weeks ago ,for 1 week thus transferred to F return to home 4days then return CC for another 1 week . Patient lost 40# ,patient was hospitalized with weakness ,malnutrion and deyhdration . Did mutiple test but etiology for patient condition ..mutiple diagnostics include PET SCAN. Patient has condtion of RA . Patient has no pain just generalized weakness .Patient denies parathesai/tingling. Patient condition affects abilty to [facility] ADLS,gardening/housework work tasks. Patient has affected sleeping. Patient condtion affets QOL. SOCIAL: . VOCATION: retired - Objective POSTURE: mild foward posture. GAIT: reciprocal pattern mild foward posture. NEURO: intact. MMT: quads/hams /hip flexion 4-/5,ankle 4/5. LUMBAR ROM: flexion min loss,extension mod loss. FLEXABLITY: hmas mod tight - Balance Scores Functional Gait Assessment Score: 20 % Disability: 33.3400 - Goals Goal 1:: Independant with HEP Goal Time Frame: 4-6 Weeks Goal 2:: Patient to increase strength BLE to 4/5 to improve function. Goal Time Frame: 4-6 Weeks Goal 3:: Patient to improve ablity to perform housework tasks and ADL'S without difficulty Goal Time Frame: 4-6 Weeks Goal 4:: Patient ascend/descend stairs recipraocal Goal Time Frame: 4-6 Weeks Goal 5:: Patient to improve LFES score by 10 points to improve QOL. Goal Time Frame: 4-6 Weeks - Rehabilitation Potential Physical Therapy Diagnosis: This patient was hospitilized caused generalized wekaness and loss 40# affects ADL's and housework tasks. Rehabilitation Potential: Good - Anticipated Interventions Patient/Client Instruction: Educate patient on: Condition, Plan of Care For the Purpose of:: To decrease pain, To increase ROM, To improve ability to perform ADL's, To increase tolerance to activity/condition/position, To improve performance and independence with ADL's, To improve ability of physical actions for home/community/work/leisure, To improve health of tissue, To decrease soft tissue restriction, To increase flexibility/ROM, To improve ability to perform tasks related to life management Therapeutic Exercise to Include: Strength training, Endurance training, Balance training, Flexibilty training, Dynamic Lumbar Stabilization For the Purpose of:: To decrease pain, To improve muscle performance and motor function, To improve ability to perform ADL's, To increase tolerance to activity/condition/position, To improve ability of physical actions for home/community/work/leisure, To increase flexibility/ROM Thank you for the opportunity to evaluate your patient. For Medicare and Medicare HMO plans, please review the plan of care and approve it. It will need to be FAXED BACK to us at [phone] for Medicare purposes. For Medicare only, by signing this I certify the plan of care. Please let me know if there are questions or concerns regarding this plan of care. Physician Signature: Date:
--- NOTE | 2019-05-20 15:05 | HP.PT.NRP ---
HP - Discharge Summary (1) - Patient Information JASMEET WING was seen in my office for initial evaluation on 04/28/19. The following Plan of Care was established for this patient: Initial Frequency: 2x /Week Initial Duration: 4 Weeks - Anticipated Interventions Patient/Client Instruction: Educate patient on: Condition, Plan of Care For the Purpose of:: To decrease pain, To increase ROM, To improve ability to perform ADL's, To increase tolerance to activity/condition/position, To improve performance and independence with ADL's, To improve ability of physical actions for home/community/work/leisure, To improve health of tissue, To decrease soft tissue restriction, To increase flexibility/ROM, To improve ability to perform tasks related to life management Therapeutic Exercise to Include: Strength training, Endurance training, Balance training, Flexibilty training, Dynamic Lumbar Stabilization For the Purpose of:: To decrease pain, To improve muscle performance and motor function, To improve ability to perform ADL's, To increase tolerance to activity/condition/position, To improve ability of physical actions for home/community/work/leisure, To increase flexibility/ROM This patient was last seen in our office . Pertinent comments regarding their Physical therapy will appear below: Pateint seen for PT for low back pain for Eval PT but cancelled PT due to his RA At this point I will be discontinuing this patient from physical therapy. I would be happy to see this patient again in the future if found appropriate by the physician. Thank you! Jean Rendon, PT, Cert MDT, OCS
== END 2019-04-28 19:00 | disposition home or self-care (01) ==
LOC: PT 10:18
PROVIDERS: Family Provider Family Medicine; PCP Family Medicine; Referring Provider Nurse Practitioner Family; Visit Provider Nurse Practitioner Family
DX: M54.5 Low back pain (principal); R53.1 Weakness
CPT/HCPCS: 97110; 97162

== ENCOUNTER → 2019-06-11 14:05 | Outpatient (CLI) | payer MEDICARE, SELFPAY ==
[2019-03-13 00:46] VITALS: BMI 21.7
--- NOTE | 2019-06-11 14:52 | CPS ---
did an outpatient aerosol on this pt, pt had order for sputum induction x3 from aerosol for tb testing. labeled three sterile sputum cups with patient labels to be sent home with the patient to try to cough sputum up at home for testing. Patient was also given a pep therapy device to try to induce his coughing. pt unable to cough any sputum up at this time. Contacted Dr. Chisholm's office to inform the nurses about the tb sputum process and patient unable to cough anything up.
[2019-06-11 14:56] VITALS: PULSE 74; RESP 16
== END ==
LOC: LAB 14:08 → PSN 14:38
PROVIDERS: Family Provider Family Medicine; PCP Family Medicine; Referring Provider Family Medicine; Visit Provider Family Medicine
DX: R76.11 Nonspecific reaction to tuberculin skin test without active tuberculosis (principal)
CPT/HCPCS: 94640; 94667

== ENCOUNTER → 2019-09-08 12:16 | Outpatient (CLI) | payer MEDICARE, SELFPAY ==
[2019-07-08 11:51] VITALS: BMI 24.5
[2019-09-08 16:28] LABS: Anion Gap 11 (5-15); BUN 18 mg/dL (7-18); BUN/Creat Ratio 16.4 RATIO (10-20); Chloride 106 mmol/L (98-107); Cholesterol 124 mg/dL (200); EST Glomerular Filtration Rate 71 mL/min (>60); Est Glom Filt Rate - Afr Amer 85 mL/min (>60); Glucose 248 mg/dL (74-106); High Density Lipoprotein 36 mg/dL; Potassium 3.7 mmol/L (3.5-5.1); Sodium Level 138 mmol/L (136-145); Triglycerides 147 mg/dL; Very Low Density Lipoprotein 29 mg/dL (5-40)
[2019-09-08 16:43] LABS: Microalbumin,Random Urine 5.1 mg/L (NO RANGE EST.); Microalbumin:Creatinine Ratio 18.4 mg/g CRE (<30 mg/g CRE)
== END ==
PROVIDERS: Family Provider Family Medicine; PCP Family Medicine; Referring Provider Family Medicine; Visit Provider Family Medicine
DX: E11.9 Type 2 diabetes mellitus without complications (principal)
CPT/HCPCS: 36415; 80048; 80061; 82043; 82570

== ENCOUNTER → 2020-03-09 11:01 | Outpatient (CLI) | payer MEDICARE, SELFPAY ==
[2020-01-27 09:53] VITALS: BMI 25.7
[2020-03-09 13:00] LABS: Anion Gap 7 (5-15); BUN 22 mg/dL (7-18); BUN/Creat Ratio 19.6 RATIO (10-20); Chloride 107 mmol/L (98-107); Cholesterol 123 mg/dL (200); Creatinine, Serum 1.12 mg/dL (0.70-1.30); EST Glomerular Filtration Rate 69 mL/min (>60); Est Glom Filt Rate - Afr Amer 84 mL/min (>60); Glucose 137 mg/dL (74-106); High Density Lipoprotein 39 mg/dL; Sodium Level 140 mmol/L (136-145); Triglycerides 138 mg/dL; Very Low Density Lipoprotein 28 mg/dL (5-40)
== END ==
PROVIDERS: PCP Family Medicine; Referring Provider Family Medicine; Visit Provider Family Medicine
DX: E11.9 Type 2 diabetes mellitus without complications (principal)
CPT/HCPCS: 36415; 80048; 80061